=== PATIENT | male | born 1940 | race Caucasian/White ===

== ENCOUNTER 2020-05-18 12:45 | Outpatient (REF) | payer MEDICARE, SELFPAY ==
[2020-05-18 14:08] LABS: Anion Gap 8 (12-20); Blood Urea Nitrogen 21 mg/dL (9-16); Calcium 8.6 mg/dL (8.4-10.2); Carbon Dioxide 35 mmol/L (22-29); Chloride 99 mmol/L (96-108); Estimated Glomerular Filt Rate > 60; Glucose Random 88 mg/dL (60-115); Potassium 4.4 mmol/l (3.3-5.1); Sodium 138 mmol/L (135-145)
== END 2020-05-18 12:46 | disposition home or self-care (01) ==
LOC: HO.LAB 12:45
DX: I10 Essential (primary) hypertension (principal)
CPT/HCPCS: 80048

== ENCOUNTER 2020-06-19 08:53 | Outpatient (REF) | payer MEDICARE, SELFPAY | END 2020-06-19 08:54 | disposition home or self-care (01) | LOC: HO.LAB 08:53 | PROVIDERS: Visit Provider Internal Medicine | DX: Z20.828 Contact with and (suspected) exposure to other viral communicable diseases (principal) | CPT/HCPCS: C9803; U0003 ==

== ENCOUNTER → 2020-09-05 14:52 | Outpatient (BNVA) | payer MEDICARE, SELFPAY | PROVIDERS: PCP Internal Medicine; Visit Provider Internal Medicine | DX: J44.9 Chronic obstructive pulmonary disease, unspecified (principal); J98.4 Other disorders of lung; E66.9 Obesity, unspecified | CPT/HCPCS: 99202 ==

== ENCOUNTER 2020-09-26 12:45 | Outpatient (REF) | payer MEDICARE, SELFPAY ==
--- NOTE | 2020-09-26 17:42 | PFT_ITS ---
Forced vital capacity moderately decreased. FEV1, WHF11-78 and MVV are markedly decreased. Post bronchodilator therapy, there is no significant change. Total lung capacity and residual volume are normal. Diffusion capacity is moderately decreased. CONCLUSION: [id number] obstructive airway disorder. There is no significant response to bronchodilator therapy. MD TONJA Johnson/CONRADL / [id number]
== END 2020-09-26 12:46 | disposition home or self-care (01) ==
LOC: HO.RESP 12:45
PROVIDERS: PCP Internal Medicine; Visit Provider Internal Medicine
DX: J44.9 Chronic obstructive pulmonary disease, unspecified (principal); J98.4 Other disorders of lung
CPT/HCPCS: 94060; 94727; 94729

== ENCOUNTER → 2020-11-09 10:08 | Outpatient (BNVA) | payer MEDICARE, SELFPAY | PROVIDERS: PCP Internal Medicine; Visit Provider Surgery | DX: K64.8 Other hemorrhoids (principal) | CPT/HCPCS: 46600; 99212 ==

== ENCOUNTER → 2020-11-27 10:22 | Outpatient (BNVA) | payer MEDICARE, SELFPAY | PROVIDERS: PCP Internal Medicine; Visit Provider Internal Medicine | DX: J44.9 Chronic obstructive pulmonary disease, unspecified (principal); E66.9 Obesity, unspecified; Z68.36 Body mass index [BMI] 36.0-36.9, adult; Z71.3 Dietary counseling and surveillance | CPT/HCPCS: 99212 ==

== ENCOUNTER 2021-01-11 07:45 | Outpatient (REF) | payer MEDICARE, SELFPAY ==
[2021-01-11 08:46] LABS: MANUAL DIFF FLAG NO
[2021-01-11 08:50] LABS: Basophils Absolute Auto 0.1 X10*3/uL (0.0-0.2); Basophils Percent Auto 0.7 % (0-2); Eosinophils Absolute Auto 0.2 X10*3/uL (0.0-0.4); Eosinophils Percent Auto 2.7 % (0-4); Hematocrit 41.8 % (42-52); Hemoglobin 13.6 g/dl (14.0-18.0); Imm Gran Abs Auto 0.01 X10*3/uL (0.00-0.03); Imm Gran Pct Auto 0.1 % (0.0-0.4); Lymphocytes Absolute Auto 1.5 X10*3/uL (1.2-4.9); Lymphocytes Percent Auto 22.6 % (20-40); Mean Corpuscular HGB Conc 32.5 g/dl (31.0-36.0); Monocytes Absolute Auto 0.8 X10*3/uL (0.1-1.2); Monocytes Percent Auto 11.5 % (2-11); Neutrophils Absolute Auto 4.2 X10*3/uL (2.0-8.3); Neutrophils Percent Auto 62.4 % (45-73); Platelet Count 182 X10*3/uL (160-400); Red Blood Count 4.86 X10*6/uL (4.60-5.80); Red Cell Distribution Width 14.5 % (11.0-16.0); White Blood Count 6.8 X10*3/uL (4.8-10.8)
[2021-01-11 09:10] LABS: Alanine Aminotransferase 38 U/L (0-40); Alkaline Phosphatase 42 U/L (39-117); Anion Gap 12 (12-20); Aspartate Amino Transferase 35 U/L (5-37); Bilirubin Total 0.7 mg/dL (0.0-1.0); Blood Urea Nitrogen 23 mg/dL (9-16); Calcium 9.5 mg/dL (8.4-10.2); Carbon Dioxide 32 mmol/L (22-29); Chloride 101 mmol/L (96-108); Cholesterol 150 mg/dL; Estimated Glomerular Filt Rate 56; Glucose Fasting 97 mg/dL (60-99); HDL Cholesterol 50 mg/dL; LDL Cholesterol Calculated 86 mg/dl; Potassium 5.2 mmol/L (3.3-5.1); Sodium 140 mmol/L (135-145); Total Protein 6.8 g/dL (6.5-8.0); Triglycerides 74 mg/dL
[2021-01-11 09:15] LABS: Glucose Urine UA NEG (NEG); Leukocyte Esterase Urine NEG (NEG); Nitrite Urine NEG (NEG); Urine Blood NEG (NEG); Urine Ketones NEG (NEG); Urine Protein NEG (NEG-TRACE)
[2021-01-11 09:16] LABS: Appearance Urine CLEAR; Color Urine YELLOW
[2021-01-11 09:31] LABS: TSH reflex Free T4 1.15 uIU/mL (0.32-4.0)
[2021-01-11 09:43] LABS: Folate 18.2 ng/mL (> or = 4.0); Vitamin B12 711 pg/mL (200-900)
== END 2021-01-11 07:46 | disposition home or self-care (01) ==
LOC: HO.LAB 07:45
PROVIDERS: PCP Internal Medicine; Visit Provider Internal Medicine
DX: I10 Essential (primary) hypertension (principal); K21.9 Gastro-esophageal reflux disease without esophagitis; K52.82 Eosinophilic colitis; E78.00 Pure hypercholesterolemia, unspecified; E66.9 Obesity, unspecified; G62.9 Polyneuropathy, unspecified
CPT/HCPCS: 36415; 80053; 80061; 81003; 82607; 82746; 84443; 85025

== ENCOUNTER 2021-05-28 09:50 | Outpatient (REF) | payer MEDICARE, SELFPAY ==
--- NOTE | ~2021-05-28 | XR_ITS ---
EXAMINATION: XR CHEST CLINICAL INFORMATION: COPD. COMPARISON: Chest done on 06/29/2019. TECHNIQUE: 2 views of the chest were obtained. FINDINGS: Moderate size hiatal hernia is present. Bibasilar airspace, unchanged. No new focal lung disease. The cardiac mediastinal silhouette is within normal limits. Overall, no significant change. XR/XR chest 2V IMPRESSION: No radiographic evidence of acute cardiopulmonary disease. No significant change since prior study dated 06/29/2019.
== END 2021-05-28 09:51 | disposition home or self-care (01) ==
LOC: HO.XRAY 09:50
PROVIDERS: PCP Internal Medicine; Visit Provider Internal Medicine
DX: J44.1 Chronic obstructive pulmonary disease with (acute) exacerbation (principal)
CPT/HCPCS: 71046; 99212

== ENCOUNTER → 2021-06-11 10:12 | Outpatient (BNVA) | payer MEDICARE, SELFPAY | PROVIDERS: PCP Internal Medicine; Visit Provider Internal Medicine | DX: E66.9 Obesity, unspecified (principal); J44.9 Chronic obstructive pulmonary disease, unspecified; J98.4 Other disorders of lung | CPT/HCPCS: 99212 ==

== ENCOUNTER 2021-07-13 12:42 | Outpatient (REF) | payer MEDICARE, SELFPAY ==
--- NOTE | ~2021-07-13 | XR_ITS ---
EXAMINATION: XR CHEST CLINICAL INFORMATION: Pneumonia COMPARISON: May 28, 2021 TECHNIQUE: 2 views of the chest were obtained. FINDINGS: There is a region of atelectasis or scarring again seen in the left lower lobe. There is some ill-defined density seen within the right upper lobe some of which is related to vasculature however this is more asymmetric prominence compared to other regions. Region of superimposed interstitial disease not excluded. Retrocardiac density again seen representing hiatal hernia. Heart normal size. Old healed right rib fractures again seen. XR/XR chest 2V IMPRESSION: Question region of interstitial disease right upper lobe as described. Hiatal hernia.
== END 2021-07-13 12:43 | disposition home or self-care (01) ==
LOC: HO.XRAY 12:42
PROVIDERS: Visit Provider Family Medicine
DX: J18.9 Pneumonia, unspecified organism (principal); J44.1 Chronic obstructive pulmonary disease with (acute) exacerbation
CPT/HCPCS: 71046

== ENCOUNTER 2021-07-20 03:00 | Emergency (ER) | payer MEDICARE, SELFPAY ==
--- NOTE | 2021-07-20 | ECG_ITS ---
Test Reason : RHYTHM CHANGE Blood Pressure : / mmHG Vent. Rate : 064 BPM Atrial Rate : 064 BPM P-R Int : 176 ms QRS Dur : 102 ms QT Int : 404 ms P-R-T Axes : -13 -21 001 degrees QTc Int : 416 ms Sinus rhythm with Sinus Arrhythmia Minimal voltage criteria for LVH, may be normal variant ( R in aVL ) Borderline ECG When compared with ECG of 12-MAY-2014 02:56, Normal sinus rhythm has replaced Atrial fibrillation Referred By: Ronnie Bill Electronically Signed By:RONNIE BILL MD
--- NOTE | ~2021-07-20 | XR_ITS ---
EXAMINATION: XR CHEST CLINICAL INFORMATION: Palpitations COMPARISON: 07/13/2021 TECHNIQUE: Frontal view of the chest was obtained. FINDINGS: The lungs are well expanded. No consolidation, edema, or effusion. No pneumothorax. Cardiomediastinal silhouette is within normal limits. XR/XR chest 1V IMPRESSION: No acute pulmonary finding.
[2021-07-20 05:01] VITALS: BP 163/98; PULSE 77; RESP 14; TEMP 536.7; TEMP 998; O2SAT 99
[2021-07-20 05:12] VITALS: BP 163/98; PULSE 80; RESP 17; O2SAT 96; BMI 34.8
[2021-07-20 05:15] LABS: MANUAL DIFF FLAG NO
[2021-07-20 05:16] LABS: Basophils Percent Auto 0.1 % (0-2); Eosinophils Absolute Auto 0.1 X10*3/uL (0.0-0.4); Eosinophils Percent Auto 0.9 % (0-4); Hematocrit 43.3 % (42.0-52.0); Hemoglobin 14.4 g/dl (14.0-18.0); Imm Gran Abs Auto 0.03 X10*3/uL (0.00-0.03); Imm Gran Pct Auto 0.3 % (0.0-0.4); Lymphocytes Absolute Auto 1.7 X10*3/uL (1.2-4.9); Mean Corpuscular HGB Conc 33.3 g/dl (31.0-36.0); Mean Corpuscular Hemoglobin 28.3 pg (27.0-33.0); Mean Corpuscular Volume 85.2 fL (80.0-98.0); Mean Platelet Volume 9.6 fL (9.4-12.4); Monocytes Absolute Auto 0.9 X10*3/uL (0.1-1.2); Monocytes Percent Auto 10.4 % (2-11); Neutrophils Absolute Auto 5.9 x10*3/uL (2.0-8.3); Neutrophils Percent Auto 68.3 % (45-73); Platelet Count 165 X10*3/uL (160-400); Red Blood Count 5.08 X10*6/uL (4.60-5.80); Red Cell Distribution Width 14.6 % (11.0-16.0); White Blood Count 8.6 X10*3/uL (4.8-10.8)
[2021-07-20 05:28] LABS: Anion Gap 14 (12-20); Blood Urea Nitrogen 31 mg/dL (9-16); Calcium 9.1 mg/dL (8.4-10.2); Carbon Dioxide 28 mmol/L (22-29); Chloride 99 mmol/L (96-108); Creatinine Clr Calc Pharmacy 61.8; Estimated Glomerular Filt Rate 57; Glucose Random 101 mg/dL (60-115); Sodium 137 mmol/L (135-145)
[2021-07-20 05:35] LABS: Troponin-I High Sensitivity 9.6 ng/L (<3.5-35.0)
--- NOTE | 2021-07-20 05:37 | PC.NURSE ---
Addendum entered by Tonia Norwood 07/20/21 05:40: Dr Mckeon is aware. Original Note: Pt noted to be in afib while this RN at bedside performing triage. Pt's HR was WNL at that time. While observing monitors while at desk, pt became tachy to 130s but it was not sustained. Pt returned to 90-110.
--- NOTE | 2021-07-20 06:03 | ED_ITS ---
HPI - Arrhythmia/Palpitations General Chief Complaint: Arrhythmia/Palpitations Stated Complaint: ?Irregular heartbeat Time Seen by Provider: 07/20/21 05:47 Source: patient Mode of arrival: ambulatory Limitations: no limitations History of Present Illness HPI narrative: 80-year-old male who presents emergency department for evaluation of irregular heartbeat. Patient states that he was trying to sleep when he started to feel anxious at around 2:30 a.m.. He states that he could feel that his heart was beating irregularly. He took his pulse he states that his pulse was skipping beats. He denied any other symptoms. He denied lightheadedness, dizziness, chest pain, shortness of breath, dyspnea on exertion, nausea or vomiting. The patient states that he was concerned that he might have atrial fibrillation. He states that he was never diagnosed with this before in the past he has never had prolonged symptoms of an irregular heartbeat. He denied being ill in any way prior to his morning's event. He denied fever, chills, rhinorrhea, cough, abdominal pain, frequency, urgency or dysuria. Related Data Home Medications Medication Instructions Recorded Confirmed B-complex with vitamin C 1 tab PO DAILY 09/05/20 07/13/21 coenzyme Q10 200 mg capsule (Co 200 mg PO DAILY 09/05/20 07/13/21 Q-10) lactobacillus combination no.8 3 3,000 mmu cells PO DAILY 09/05/20 07/13/21 billion cell capsule (Adult Probiotic) latanoprost 0.005 % eye drops drp OPHTHALMIC (EYE) DAILY ml 09/05/20 07/13/21 budesonide 3 mg 3 mg PO Q OTHER DAY ea 10/12/20 07/13/21 capsule,delayed,extended release aspirin 81 mg tablet,delayed 81 mg PO .qod tab 11/27/20 07/13/21 release Previous Rx's Medication Instructions Recorded Advair Diskus 250 mcg-50 mcg/dose 1 inh INHALATION BID 90 Days #3 ea 09/29/20 powder for inhalation (fluticasone NS propion-salmeterol) ipratropium 0.5 mg-albuterol 3 mg 3 ml INHALATION Q6H PRN #90 ml 09/29/20 (2.5 mg base)/3 mL nebulization soln atenolol 25 mg tablet 25 mg PO DAILY 90 Days #90 tab 10/15/20 ezetimibe 10 mg tablet 10 mg PO DAILY 90 Days #90 tab 10/15/20 gabapentin 300 mg capsule 300 mg PO BID 90 Days #180 cap 10/15/20 lisinopril 20 mg tablet 20 mg PO DAILY 90 Days #90 tab 10/15/20 omeprazole 20 mg capsule,delayed 20 mg PO DAILY 90 Days #90 cap 10/15/20 release pravastatin 20 mg tablet 20 mg PO DAILY 90 Days #90 tab 10/15/20 tamsulosin 0.4 mg capsule 0.4 mg PO DAILY 90 Days #90 cap 10/15/20 albuterol sulfate 90 mcg/actuation 2 puff INHALATION Q4-6H PRN 90 11/07/20 aerosol inhaler Days #3 ea desoximetasone 0.05 % topical cream 1 appl TOPICAL BID PRN 30 Days 01/15/21 #100 g lorazepam 0.5 mg tablet 0.5 mg PO BEDTIME PRN 30 Days #60 02/20/21 tab hydrochlorothiazide 25 mg tablet 25 mg PO DAILY 90 Days #90 tab 03/08/21 levofloxacin 750 mg tablet 750 mg PO Q24H 10 Days #10 tab 07/13/21 prednisone 10 mg tablet See Rx Instructions PO DAILY 10 07/13/21 Days #28 tab Allergies Allergy/AdvReac Type Severity Reaction Status Date / Time Sulfa (Sulfonamide Allergy Mild RASH, Verified 07/20/21 05:15 Antibiotics) BLISTERS codeine [Codeine] Allergy Unknown HALLUCINATI Verified 07/20/21 05:15 ONS Review of Systems Review of Systems: Yes all other systems are reviewed and are negative PMFSH Past Medical History Medical History Benign essential hypertension Benign prostatic hyperplasia COPD (chronic obstructive pulmonary disease) Eosinophilic colitis GERD without esophagitis Hemorrhoids with complication Neuropathy Obesity (BMI 30-39.9) Pure hypercholesterolemia Restrictive lung disease Surgical History History of hernia surgery History of tonsillectomy Family History Family History Brother Lung cancer Social History Social History Housing: House Alcohol intake: former Patient Tobacco Use Status: Former Tobacco user Second Hand Smoke Exposure: Yes Advance Directives: No service: No Current occupational status: retired Physical Exam Vital Signs: Vital Signs: Last Vital Signs Temp 998.0 F H 07/20/21 05:01 Pulse 80 07/20/21 05:12 Resp 17 07/20/21 05:12 BP 163/98 H 07/20/21 05:12 Pulse Ox 96 07/20/21 05:12 BMI result Body Mass Index 34.8 Const: General: cooperative and no acute distress Flavio entation/consciousness: oriented to person and oriented to place Limitations: no limitations HENMT: Head: Yes normal to inspection, Yes normocephalic and Yes atraumatic Ears: external ears normal General nose exam: Normal external nose present Face and sinus: Yes normal facial exam Mouth: Normal oral and palatal mucosa present Throat: Yes posterior oropharynx normal Eyes: General: appearance normal, both eyes and all related structures Pupils: Equal, round and reactive pupils present Neck: Neck: Yes normal visual inspection, Yes no lymphadenopathy, Yes trachea midline and Yes supple Chest: Chest palpation & inspection: normal inspection of the chest and normal palpation of entire chest wall Resp: Effort & Inspection: normal respiratory effort and able to speak in complete sentences Auscultation: clear to auscultation bilaterally Cardio: Rate: regular rate Rhythm: abnormal rhythm irregularly irregular Heart sounds: S1 normal heart sound present, S2 normal heart sound present and no murmurs GI: Inspection: Yes normal to inspection Palpation (GI): Soft to palpation, nontender and no guarding Auscultation: normal bowel sounds : General: Yes no CVA tenderness Back/Spine/Pelvis: Back: no CVA tenderness Skin: General skin exam: no rashes or lesions noted Neuro: General: oriented to person and oriented to place Cranial nerves: Yes CN's II-XII intact bilaterally and Yes Equal, round and reactive pupils present Cognition (Neuro): normal cognition Motor exam (neuro): 5/5 motor strength present throughout Extrem: Other: 1+ pitting edema bilaterally symmetric General: Yes normal to inspection Psych: Appearance: grossly normal Speech and movement: Normal speech and movement present Affect: normal affect Attitude: cooperative Thought process: Normal thought process present Thought content: Normal thought content present Course Course Course Narrative: 80-year-old male who presents emergency department for evaluation of irregular heartbeat and palpitations that began at 2:30 a.m.. The patient's vital signs revealed an elevated blood pressure of 163/93 with a heart rate of 77. Physical examination revealed an irregularly irregular heart ramiro and 1+ symmetric pitting edema. The patient's 12 EKG was consistent with atrial fibrillation with a ventricular rate of 97. This is a new onset atrial fibrillation for this patient. The patient's laboratory evaluation revealed a detectable but not elevated troponin of 9.6 and an elevated BUN and creatinine of 31 and 1.22. Chest x-ray revealed no congestive heart failure pneumonia. The patient was treated with Lovenox 1 milligram/kilogram (110 mg) subcutaneously. Patient was ordered to get a repeat troponin at 8:15 a.m.. I will discuss admission with the covering hospitalist. 0630: I did discuss the patient's presentation with Dr. Abdi and the patient will be admitted to [facility] [place], [place] for further management. MDM - Arrhythmia/Palpitations Lab Data Result diagrams: 07/20/21 05:09 07/20/21 05:09 Labs: Lab Results 07/20/21 07/20/21 07/20/21 Range/Units 05:09 05:09 05:09 WBC 8.6 (4.8-10.8) X10*3/uL RBC 5.08 (4.60-5.80) X10*6/uL Hgb 14.4 (14.0-18.0) g/dl Hct 43.3 (42.0-52.0) % MCV 85.2 (80.0-98.0) fL MCH 28.3 (27.0-33.0) pg MCHC 33.3 (31.0-36.0) g/dl RDW 14.6 (11.0-16.0) % Plt Count 165 (160-400) X10*3/uL MPV 9.6 (9.4-12.4) fL Immature Gran % (Auto) 0.3 (0.0-0.4) % Neut % (Auto) 68.3 (45-73) % Lymph % (Auto) 20.0 (20-40) % Gilmer % (Auto) 10.4 (2-11) % Eos % (Auto) 0.9 (0-4) % Baso % (Auto) 0.1 (0-2) % Lymph # (Auto) 1.7 (1.2-4.9) X10*3/uL Gilmer # (Auto) 0.9 (0.1-1.2) X10*3/uL Eos # (Auto) 0.1 (0.0-0.4) X10*3/uL Baso # (Auto) 0.0 (0.0-0.2) X10*3/uL Abs Immat Gran (auto) 0.03 (0.00-0.03) X10*3/uL Absolute Neuts (auto) 5.9 (2.0-8.3) x10*3/uL Absolute Nucleated RBC 0.000 (0.0-0.012) X10*3/uL Nucleated RBC % (auto) 0.0 (0.0-0.2) /100WBC Sodium 137 (135-145) mmol/L Potassium 4.0 D (3.3-5.1) mmol/L Chloride 99 (96-108) mmol/L Carbon Dioxide 28 (22-29) mmol/L Anion Gap 14 (12-20) BUN 31 H (9-16) mg/dL Creatinine 1.22 (0.5-1.4) mg/dL Estim Creat Clear Calc 61.8 Estimated GFR 57 Random Glucose 101 (60-115) mg/dL Calcium 9.1 (8.4-10.2) mg/dL Troponin I High Sens 9.6 (<3.5-35.0) ng/L ABG Data Attestation: I personally reviewed and interpreted this ABG as follows: ECG Data Interpretation: 0324: Atrial fibrillation with a rate of 97, normal QRS and QTC duration, no ST segment elevation, no ST segment depression, no T-wave abnormalities, no PVCs, no old EKG for comparison. Discharge Plan Discharge Patient Disposition: Admitted As Inpatient
[2021-07-20 06:52] LABS: TSH reflex Free T4 1.34 uIU/mL (0.32-4.0)
[2021-07-20 06:53] LABS: B Type Natriuretic Peptide 40 pg/mL (<100)
[2021-07-20] MEDS: Enoxaparin Sodium 120 MG/0.8 ML SYRINGE 110 MG SUBCUT (07:08)
[2021-07-20 07:34] LABS: INTERNATIONAL NORM RATIO 1.1 (0.9-1.1); Prothrombin Time 12.3 SEC (9.9-13.0)
[2021-07-20 07:37] LABS: Partial Thromboplastin Time 35.4 SEC (24.1-38.0)
[2021-07-20 07:43] LABS: COVID-19 Test Negative (Negative)
[2021-07-20 07:48] LABS: Troponin-I High Sensitivity 14.4 ng/L (<3.5-35.0)
--- NOTE | 2021-07-20 08:33 | PHA.MEDREC ---
Pharmacy Consult ? Medication Reconciliation Pharmacy has completed the medication reconciliation.
--- NOTE | 2021-07-20 09:30 | P.CONCA_ITS ---
History of Present Illness History of Present Illness Date of Service: 07/20/21 Requesting physician: Nikolas Art Consult reason: atrial fibrillation Chief complaint: paroxysmal atrial fibrillation Narrative: I was requested to see Noel in cardiology consultation today for new onset atrial fibrillation. He is 80-year-old man with prior history of hypertension, COPD, anxiety came to the hospital at 02:30 in the morning prior to going to bed he felt on the easy. He said he had a funny feeling in his chest not able to describe much and had some throat constriction. He then took his pulse and noted it to be irregular. He then got concerned because of these findings and came to the emergency room. When he came to the Emergency was noted to be in atrial fibrillation at 97 beats per minute no tachycardia. He was subsequently plan to be admitted. His troponin initially was 9.6 and subsequently 14.4. His BNP is 40. TSH within normal limits. About couple of hours later he started feeling well about 3 hours ago and is noted to be in sinus rhythm. He has only received 1 dose of therapeutic Lovenox. No other intervention seems to be performed for him to convert to sinus rhythm. He has not had similar symptoms in the past. He does get exertional shortness of breath which she thinks is related to his COPD. He has no prior cardiac history of coronary artery disease, myocardial infarction, atrial fibrillation, stroke. He said he was at 1 time told that he might have congestive heart failure but he is not sure he was started on diuretic therapy. Currently on hydrochlorothiazide and lisinopril for hypertension. Review of Systems Constitutional: Constitutional: Reports no additional constitutional complaints Eyes: Eyes: Reports no additional eye complaints ENT: Reports system reviewed and no additional complaints, except as documented Cardiovascular: Cardiovascular: Denies chest pain, Denies syncope, Reports irregular heart rhythm, Denies lightheadedness, Reports dyspnea on exertion and Reports other (Throat tightness) Respiratory: Respiratory: Reports dyspnea on exertion Gastrointestinal: Gastrointestinal: Reports no additional gastrointestinal complaints Genitourinary: Genitourinary: Reports no additional male genitourinary complaints Musculoskeletal: Musculoskeletal: Reports no additional musculoskeletal complaints Integumentary/Breasts: Skin/Breast: Reports system reviewed and no additional complaints, except as docu Neurologic: Reports system reviewed and no additional complaints, except as documented and Denies syncope Psychiatric: Psychiatric: Reports no additional psychiatric complaints Endocrine: Endocrine: Reports no additional endocrine complaints Hematologic/Lymphatic: Hematologic/Lymphatic: Reports no additional hematologic/lymphatic complaints Allergic/Immunologic: Allergic/Immunologic: Reports no additional allergic/ immunologic complaints [facility] Past Medical History Medical History Benign essential hypertension Benign prostatic hyperplasia COPD (chronic obstructive pulmonary disease) Eosinophilic colitis GERD without esophagitis Hemorrhoids with complication Neuropathy Obesity (BMI 30-39.9) Pure hypercholesterolemia Restrictive lung disease Family History Family History Brother Lung cancer Surgical History Surgical History History of hernia surgery History of tonsillectomy Social History Social History Housing: House Alcohol intake: former Patient Tobacco Use Status: Former Tobacco user Second Hand Smoke Exposure: Yes Advance Directives: No service: No Current occupational status: [employer] Allergies Allergy/AdvReac Type Severity Reaction Status Date / Time Sulfa (Sulfonamide Allergy Mild RASH, Verified 07/20/21 05:15 Antibiotics) BLISTERS codeine [Codeine] Allergy Unknown HALLUCINATI Verified 07/20/21 05:15 ONS Active Medications: Current Medications Pharmacy Consult (Consult Rx Perform Med Rec) 1 each MISCELLANE ONCE PRN PRN Reason: Consult order Home Medications Medication Instructions Recorded Confirmed Last Taken Type B-complex with vitamin C 1 tab PO DAILY 09/05/20 07/20/21 07/19/21 History latanoprost 0.005 % eye drops 1 drp OPHTHALMIC-RIGHT BEDTIME ml 09/05/20 07/20/21 07/19/21 History budesonide 3 mg 3 mg PO Q OTHER DAY ea 10/12/20 07/20/21 07/18/21 History capsule,delayed,extended release fluticasone 250 mcg-salmeterol 50 1 puff INHALATION BID 07/20/21 07/20/21 07/19/21 History mcg/dose blistr powdr for inhalation (Advair Diskus) prednisone 10 mg tablet 10 mg PO DAILY 07/20/21 07/20/21 07/19/21 History Physical Exam Vital Signs: Vital Signs: Last Vital Signs Temp 998.0 F H 07/20/21 05:01 Pulse 80 07/20/21 05:12 Resp 17 07/20/21 05:12 BP 163/98 H 07/20/21 05:12 Pulse Ox 96 07/20/21 05:12 BMI result Body Mass Index 34.8 Const: General: cooperative, comfortable, no acute distress, alert and awake Nutritional Appearance: obese Orientation/consciousness: patient oriented x3 Limitations: no limitations HENMT: Head: Yes normocephalic and Yes atraumatic Neck: Neck: Yes trachea midline, Yes supple and Yes no JVD Resp: Effort & Inspection: normal respiratory effort Auscultation: clear to auscultation bilaterally Cardio: Jugular venous distension: no JVD Palpation: normal PMI Rate: regular rate Rhythm: regular rhythm Heart sounds: S1 normal heart sound present, S2 normal heart sound present, no click, no gallops, no murmurs and no rubs GI: Auscultation: normal bowel sounds Skin: General skin exam: no rashes or lesions noted Neuro: General: patient oriented x3 and no focal motor deficits Extrem: General: No clubbing, No cyanosis, Yes edema and Yes venous stasis dermatitis Psych: Appearance: grossly normal Objective Labs and Meds Result diagrams: 07/20/21 05:09 07/20/21 05:09 Lab results: Laboratory Results - last 24 hr 07/20/21 07/20/21 07/20/21 05:09 05:09 05:09 WBC 8.6 RBC 5.08 Hgb 14.4 Hct 43.3 MCV 85.2 MCH 28.3 MCHC 33.3 RDW 14.6 Plt Count 165 MPV 9.6 Immature Gran % (Auto) 0.3 Neut % (Auto) 68.3 Lymph % (Auto) 20.0 Ponce % (Auto) 10.4 Eos % (Auto) 0.9 Baso % (Auto) 0.1 Lymph # (Auto) 1.7 Ponce # (Auto) 0.9 Eos # (Auto) 0.1 Baso # (Auto) 0.0 Abs Immat Gran (auto) 0.03 Absolute Neuts (auto) 5.9 Absolute Nucleated RBC 0.000 Nucleated RBC % (auto) 0.0 PT INR APTT Sodium 137 Potassium 4.0 D Chloride 99 Carbon Dioxide 28 Anion Gap 14 BUN 31 H Creatinine 1.22 Estim Creat Clear Calc 61.8 Estimated GFR 57 Random Glucose 101 Calcium 9.1 Magnesium 2.0 Troponin I High Sens 9.6 B-Natriuretic Peptide 40 TSH 1.34 COVID-19 ([facility]ANVI) COVID-19 Clin Com 07/20/21 07/20/21 07/20/21 07:14 07:15 07:15 WBC RBC Hgb Hct MCV MCH MCHC RDW Plt Count MPV Immature Gran % (Auto) Neut % (Auto) Lymph % (Auto) Ponce % (Auto) Eos % (Auto) Baso % (Auto) Lymph # (Auto) Ponce # (Auto) Eos # (Auto) Baso # (Auto) Abs Immat Gran (auto) Absolute Neuts (auto) Absolute Nucleated RBC Nucleated RBC % (auto) PT 12.3 INR 1.1 APTT 35.4 Sodium Potassium Chloride Carbon Dioxide Anion Gap BUN Creatinine Estim Creat Clear Calc Estimated GFR Random Glucose Calcium Magnesium Troponin I High Sens 14.4 B-Natriuretic Peptide TSH COVID-19 (TANVI) Negative COVID-19 Clin Com See Note EKG on admission shows atrial fibrillation with minimal voltage criteria for LVH Imaging Radiologist's impression: Impressions Chest X-Ray 07/20/21 04:26 IMPRESSION: No acute pulmonary finding. Assessment and Plan (1) Paroxysmal atrial fibrillation: Status: Acute Highly symptomatic atrial fibrillation in elderly man with controlled ventricular response he was pretty symptomatic with throat tightness and uneasy feeling in his chest. Converted to sinus rhythm and feels better. From cardiac perspective patient has no evidence of acute coronary syndrome and can be discharged home. However given that he had to present to emergency room despite adequate rate control with atrial fibrillation was started on antiarrhythmic drug therapy. The safest drug would be Multaq 400 mg b.i.d.. First dose can be given while in the ED and can be discharged home. CHADSVASc score of at least 3. He has already received 1 dose of Lovenox we will start on Eliquis 5 mg b.i.d. started this evening. He will require further workup as outpatient. This was discussed with him. He is agreeable to be discharged home. Will set up for outpatient Holter, stress test given his throat tightness with atrial fibrillation as well as an echocardiogram. His blood pressure is not well controlled although he is in a stressful situation and is not received his lisinopril hydrochlorothiazide as he had. No changes. Advised to monitor blood pressure at home and maintain a log. Will further titrate and treat his blood pressures outpatient. Thank you for allowing us to partake in his care Procedures Date of Service Date of Service: 07/20/21
[2021-07-20 09:52] VITALS: BP 137/76; PULSE 58; RESP 20; O2SAT 96
[2021-07-20] MEDS: Dronedarone HCl 400 MG TABLET PO (10:59)
== END 2021-07-20 11:59 | disposition home or self-care (01) ==
PROVIDERS: Family Medicine; Emergency Provider Emergency Medicine Emergency Medical Services; PCP Internal Medicine
DX: I48.0 Paroxysmal atrial fibrillation (principal); R06.02 Shortness of breath; F41.1 Generalized anxiety disorder; F43.0 Acute stress reaction; R00.2 Palpitations; Z20.822 Contact with and (suspected) exposure to COVID-19; Z87.891 Personal history of nicotine dependence; Z79.899 Other long term (current) drug therapy
CPT/HCPCS: 36415; 71045; 80048; 83735; 83880; 84443; 84484; 85025; 85610; 85730; 87635; 93005; 96372; 99284; J1650

== ENCOUNTER → 2021-08-02 11:20 | Outpatient (REF) | payer MEDICARE, SELFPAY ==
--- NOTE | 2021-08-02 11:24 | HM_ITS ---
Total monitoring time 3 days and 13 hours. Underlying rhythm is sinus. Minimum heart rate 55/Min. Maximum 88/Min. Average 66/Min. No atrial fibrillation or flutter or AV blocks or pauses. Rare supraventricular ectopy with minimal burden. 283 supraventricular episodes, longest 12 beats. Rare ventricular ectopy with minimal burden. One episode of NSVT at 7 beats, but cannot exclude supraventricular with aberrant conduction. Shortness of breath in patient diary associated with sinus rhythm. MTDD
== END ==
LOC: HO.CARD 11:20
PROVIDERS: PCP Internal Medicine; Visit Provider Internal Medicine Cardiovascular Disease
DX: I48.0 Paroxysmal atrial fibrillation (principal)
CPT/HCPCS: 93242

== ENCOUNTER → 2021-08-06 07:36 | Outpatient (REF) | payer MEDICARE, SELFPAY ==
--- NOTE | ~2021-08-06 | NM_ITS ---
Lexiscan Myocardial perfusion study Indication: Atrial fibrillation, throat tightness, assess for coronary disease and ischemia Technique: The patient was brought in for a Lexiscan perfusion study on 08/06/2021 and was injected 0.4 mg of Lexiscan intravenously. Within a minute of this injection 26 mCi of sestamibi was given intravenously. Images were obtained using the SPECT gamma camera interlaced with the gating device. Images were obtained in supine position. Resting perfusion study was performed on 08/07/2021. Patient was administered 26 mCi of sestamibi intravenously at rest. Images were then obtained in supine position. Total DLP 121mGy-cm. Images were processed with the software and compared side to side in short axis, horizontal long axis and vertical long axis views. Findings: Raw acquisition was reviewed. The stress perfusion study showed diminished tracer uptake in the distal part of lateral wall and basal part of inferolateral wall. Some improvement with CT attenuation correction. The gated study shows normal LV systolic function with calculated LVEF of 74%. LV cavity is normal in size. The gated study shows normal wall thickening and contraction of segments. Resting study shows slightly diminished tracer uptake in the distal part of anteroseptal and inferolateral wall.. Gating at rest reveals normal wall motion with ejection fraction at 63%. The findings are consistent with mostly fixed appearing defects in the distal part of lateral wall, basal inferolateral wall. NM/NM shawn perf SPECT rest & str Impression: 1. Myocardial perfusion imaging study shows no clear evidence of any ischemia or infarction. Small fixed defects in the distal part of lateral wall, basal inferolateral wall probably artifactual and less likely to be from coronary etiology. 2. Gated LVEF is 74% during stress and 63% during rest. 3. Transient ischemic dilatation not present. EKG component of the test reported separately.
--- NOTE | 2021-08-06 07:39 | CA_ITS ---
Transthoracic Echocardiogram Patient (Last, First, Middle): Noel Wiggins P Gender: Male Date of : 1940 Age: 80 Procedure Date: 08/06/2021 Procedure Type: Transthoracic Echocardiogram Location: OP Height: 180.34 cm Weight: 112.49 kg BSA: 2.31 m2 Heart Rate: bpm BP: 137 / 76 mmHg Network Support Specialist: RACHEL Referring MD: Ronnie Bill MD Nutrition Associate: Ronnie Bill MD Symptoms: I48.0 - Paroxysmal atrial fibrillation Study Quality: Fair ECG Rhythm: Sinus Conclusions: - 1. Normal LV systolic and diastolic function 2. Mild MAC with normal cardiac valvular Dopplers 3. Normal RVSP 4. 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 No pericardial effusion Findings Left Ventricle Normal left ventricular size, thickness, and systolic function. The visually estimated ejection fraction is between 65-70%. There is no evidence of regional wall motion abnormalities. Spectral Doppler is indicative of a normal filling pattern. Right Ventricle Normal right ventricular cavity size and systolic function. Atria The left atrium is likely dilated. The right atrium is normal in size. Aortic Valve The aortic valve structure and function is likely normal. There is no aortic valve stenosis. There is no aortic valve regurgitation. Mitral Valve There is mild anterior mitral leaflet thickening. There is mild mitral annular calcification. There is trace mitral valve regurgitation. There is no mitral valve stenosis. Pulmonic Valve The pulmonic valve was not well visualized. Tricuspid Valve Likely normal tricuspid valve structure and function. There is mild tricuspid valve regurgitation. The right ventricular systolic pressure is normal. The right ventricular systolic pressure is 30 mmHg. Normal right atrial pressure. There is no evidence of pulmonary hypertension. Great Vessels The pulmonary artery was not well visualized. There is mild dilatation of the ascending aorta measuring 3.80 cm. Venous The inferior vena cava is normal in size and collapses greater than 50% with inspiration. Pericardium/Pleural There is no evidence of pericardial effusion. Prior Study Comparison No significant change compared to prior study dated: 01/31/2017. Measurements 2D Linear Measurements IVSd: 1.12 0.6-0.9/0.6-1.0 cm LVIDd: 5.28 3.9-5.3/4.2-5.9 cm LVIDd Index: 2.29 2.4-3.2/2.2-3.1 cm/m2 LVIDs: 2.78 2.0-3.6 cm LVPWd: 1.06 0.7-1.1 cm Ao Root: 4.00 2.1-3.5 cm LA Diam: 4.00 2.7-3.8/3.0-4.0 cm LAIDs Index: 1.73 1.5-2.3 cm/m2 LV Mass: 278.68 67-162/88-224 g LV Mass Index: 120.64 43-95/49-115 g/m2 LVOT Diam: 2.50 3.0+(-)1.3 cm 2D Systolic Function EF 4C: 73.50 >55% EF 2C: 72.70 >55% EF BiP: 73.70 >55% Mitral Valve MV Pk E: 0.83 MV PK A: 0.48 MV Decel Time: 194.00 E/A: 1.70 E'Lateral: 13.20 E'Medial: 7.94 E/E' Med: 10.50 E/E' Lat: 6.30 PHT: 57.00 MVA PHT: 3.[address] [facility]: 4.29 Aortic Valve AoV Pk Syed: 1.40 AoV Pk Grad: 8.00 LVOT LVOT Pk Syed: 1.04 LVOT Mn Syed: 0.64 LVOT VTI: 0.24 LVOT Pk Grad: 4.00 LVOT Mn Grad: 2.00 LVOT Diam: 2.50 LVOT Area: 4.91 Diastolic Function MV Pk E: 0.83 MV Pk A: 0.48 E/A: 1.70 E'Medial: 7.94 E/E' Med: 10.50 E' Laterial: 13.20 E/E' Lat: 6.30 Right Ventricle TAPSE (mm): 2.98 TVS' Syed: 18.50 Tricuspid Valve TR Pk Syed: 2.58 TR Pk Grad: 27.00 RA Press: 3.00 RVSP: 30.00 Great Vessels Aorta Ao Root-2D: 4.00 2.0-3.7 cm Ao Asc: 3.80 2.1-3.4 cm Updated in Other Vendor System with Status of Final Ronnie Bill MD electronically signed on 08/06/2021 10:59:41 AM with status of Final
--- NOTE | 2021-08-06 07:39 | CA_ITS ---
Acquisition Time: 2021-08-06 08:40:05 Total Exercise Time: 00:02:00 Test Indications: Abnormal ECG Medications: HCTZ LISINPRIL Protocol: LEXISCAN Max HR: 089 BPM 63% of Pred: 140 BPM Max BP: 164/080 mmHG Max Work Load: 1.0 METS Pharmacological stress test with Lexiscan injection, while sitting and kicking his legs, without anginal symptoms, with PAC, with normotensive response to injection, with nondiagnostic EKG for ischemia. Nuclear images pending. Test reviewed with Dr Bill. Referred By: Marie Zhu Overread By: MARIE ZHU
== END ==
LOC: HO.CARD 07:36
PROVIDERS: Visit Provider Nurse Practitioner Family
DX: I48.0 Paroxysmal atrial fibrillation (principal)
CPT/HCPCS: 78452; 93017; 93306; A9500; J0280; J2785; Q9957

== ENCOUNTER → 2021-08-08 13:51 | Outpatient (BNVA) | payer MEDICARE, SELFPAY | PROVIDERS: PCP Internal Medicine; Referring Provider Internal Medicine; Visit Provider Nurse Practitioner Family | DX: I10 Essential (primary) hypertension (principal); I48.0 Paroxysmal atrial fibrillation; J44.9 Chronic obstructive pulmonary disease, unspecified | CPT/HCPCS: 93005; 99212 ==

== ENCOUNTER → 2021-09-05 13:49 | Outpatient (REF) | payer MEDICARE, SELFPAY | LOC: HO.SL 13:49 | PROVIDERS: PCP Internal Medicine; Visit Provider Nurse Practitioner Family | DX: G47.10 Hypersomnia, unspecified (principal); G47.33 Obstructive sleep apnea (adult) (pediatric); I48.0 Paroxysmal atrial fibrillation; E66.9 Obesity, unspecified; I10 Essential (primary) hypertension | CPT/HCPCS: 95806 ==

== ENCOUNTER 2021-09-18 07:40 | Outpatient (REF) | payer MEDICARE, SELFPAY ==
[2021-09-18 08:05] LABS: MANUAL DIFF FLAG NO
[2021-09-18 08:59] LABS: Basophils Absolute Auto 0.1 X10*3/uL (0.0-0.2); Basophils Percent Auto 0.7 % (0-2); Eosinophils Absolute Auto 0.2 X10*3/uL (0.0-0.4); Eosinophils Percent Auto 2.7 % (0-4); Hematocrit 42.2 % (42.0-52.0); Hemoglobin 13.5 g/dl (14.0-18.0); Imm Gran Abs Auto 0.02 X10*3/uL (0.00-0.03); Imm Gran Pct Auto 0.3 % (0.0-0.4); Lymphocytes Absolute Auto 1.8 X10*3/uL (1.2-4.9); Lymphocytes Percent Auto 25.6 % (20-40); Mean Corpuscular Hemoglobin 28.1 pg (27.0-33.0); Mean Corpuscular Volume 87.9 fL (80.0-98.0); Mean Platelet Volume 10.2 fL (9.4-12.4); Monocytes Absolute Auto 0.9 X10*3/uL (0.1-1.2); Monocytes Percent Auto 12.2 % (2-11); Neutrophils Absolute Auto 4.1 x10*3/uL (2.0-8.3); Neutrophils Percent Auto 58.5 % (45-73); Platelet Count 191 X10*3/uL (160-400); Red Cell Distribution Width 13.9 % (11.0-16.0); White Blood Count 6.9 X10*3/uL (4.8-10.8)
[2021-09-18 09:28] LABS: Magnesium 2.2 mg/dL (1.6-2.6)
[2021-09-18 09:30] LABS: Alanine Aminotransferase 33 U/L (0-40); Albumin Level 3.8 g/dL (3.5-5.0); Alkaline Phosphatase 39 U/L (39-117); Anion Gap 12 (12-20); Aspartate Amino Transferase 27 U/L (5-37); Bilirubin Total 0.5 mg/dL (0.0-1.0); Blood Urea Nitrogen 22 mg/dL (9-16); Calcium 9.3 mg/dL (8.4-10.2); Carbon Dioxide 32 mmol/L (22-29); Chloride 102 mmol/L (96-108); Cholesterol 148 mg/dL; Estimated Glomerular Filt Rate > 60; Glucose Fasting 84 mg/dL (60-99); HDL Cholesterol 50 mg/dL; LDL Cholesterol Calculated 84 mg/dl; Potassium 5.1 mmol/L (3.3-5.1); Sodium 141 mmol/L (135-145); Total Protein 6.7 g/dL (6.5-8.0); Triglycerides 73 mg/dL
== END 2021-09-18 07:41 | disposition home or self-care (01) ==
LOC: HO.LAB 07:40
PROVIDERS: Absent Provider Nurse Practitioner Family; PCP Internal Medicine; Visit Provider Internal Medicine
DX: R00.2 Palpitations (principal); E78.00 Pure hypercholesterolemia, unspecified; I10 Essential (primary) hypertension; K21.9 Gastro-esophageal reflux disease without esophagitis
CPT/HCPCS: 36415; 80053; 80061; 83735; 85025

== ENCOUNTER 2021-09-20 10:05 | Outpatient (REF) | payer MEDICARE, SELFPAY ==
--- NOTE | ~2021-09-20 | US_ITS ---
EXAMINATION: US VENOUS ULTRASOUND WITH DOPPLER LOWER EXTREMITY, RIGHT CLINICAL INFORMATION: Right lower leg pain. COMPARISON: None TECHNIQUE: Ultrasound of the deep veins is performed from the hip to the calf with compression sonography and color and pulse Doppler assessment. Spectral analysis with color-flow imaging is performed. FINDINGS: There is normal venous compression and respiratory variation and augmented flow. The visualized common femoral vein, superficial femoral vein, profunda femoral vein, popliteal vein, and the trifurcation region shows no evidence of deep venous thrombosis. There is no significant popliteal fossa cyst. If the patient's symptoms persist, followup ultrasound in 5 days 7 days might be of value to exclude proximal propagation from a non-visualized calf vein. US/US venous duplex LE RT IMPRESSION: No DVT demonstrated in the right lower extremity.
== END 2021-09-20 10:06 | disposition home or self-care (01) ==
LOC: HO.US 10:05
PROVIDERS: PCP Internal Medicine; Visit Provider Internal Medicine
DX: M79.661 Pain in right lower leg (principal); M79.89 Other specified soft tissue disorders
CPT/HCPCS: 93971

== ENCOUNTER → 2021-10-09 09:56 | Outpatient (BNVA) | payer MEDICARE, SELFPAY | PROVIDERS: PCP Internal Medicine; Visit Provider Internal Medicine | DX: J44.9 Chronic obstructive pulmonary disease, unspecified (principal); J98.4 Other disorders of lung; G47.33 Obstructive sleep apnea (adult) (pediatric); I48.0 Paroxysmal atrial fibrillation; M79.89 Other specified soft tissue disorders; E66.9 Obesity, unspecified; Z68.37 Body mass index [BMI] 37.0-37.9, adult | CPT/HCPCS: 99212 ==

== ENCOUNTER → 2021-10-16 13:09 | Outpatient (BNVA) | payer MEDICARE, SELFPAY | PROVIDERS: PCP Internal Medicine; Referring Provider Internal Medicine; Visit Provider Nurse Practitioner Family | DX: I48.0 Paroxysmal atrial fibrillation (principal); I10 Essential (primary) hypertension | CPT/HCPCS: 99212 ==

== ENCOUNTER → 2021-12-27 13:17 | Outpatient (BNVA) | payer MEDICARE, SELFPAY | PROVIDERS: PCP Internal Medicine; Visit Provider Internal Medicine | DX: J98.4 Other disorders of lung (principal); J44.9 Chronic obstructive pulmonary disease, unspecified; E66.9 Obesity, unspecified; Z68.35 Body mass index [BMI] 35.0-35.9, adult; G47.33 Obstructive sleep apnea (adult) (pediatric); I48.0 Paroxysmal atrial fibrillation; Z79.01 Long term (current) use of anticoagulants | CPT/HCPCS: 99212 ==

== ENCOUNTER 2022-01-14 08:49 | Outpatient (REF) | payer MEDICARE, SELFPAY ==
[2022-01-14 09:00] LABS: MANUAL DIFF FLAG NO
[2022-01-14 10:10] LABS: Basophils Percent Auto 0.8 % (0-2); Eosinophils Absolute Auto 0.1 X10*3/uL (0.0-0.4); Eosinophils Percent Auto 2.6 % (0-4); Hemoglobin 13.1 g/dl (14.0-18.0); Imm Gran Abs Auto 0.02 X10*3/uL (0.00-0.03); Imm Gran Pct Auto 0.4 % (0.0-0.4); Lymphocytes Absolute Auto 1.4 X10*3/uL (1.2-4.9); Lymphocytes Percent Auto 26.8 % (20-40); Mean Corpuscular Hemoglobin 27.9 pg (27.0-33.0); Mean Corpuscular Volume 87.2 fL (80.0-98.0); Mean Platelet Volume 10.4 fL (9.4-12.4); Monocytes Absolute Auto 0.7 X10*3/uL (0.1-1.2); Monocytes Percent Auto 13.3 % (2-11); Neutrophils Percent Auto 56.1 % (45-73); Platelet Count 192 X10*3/uL (160-400); Red Cell Distribution Width 14.2 % (11.0-16.0); White Blood Count 5.3 X10*3/uL (4.8-10.8)
[2022-01-14 10:47] LABS: Alanine Aminotransferase 33 U/L (0-40); Alkaline Phosphatase 40 U/L (39-117); Anion Gap 13 (12-20); Aspartate Amino Transferase 35 U/L (5-37); Bilirubin Total 0.8 mg/dL (0.0-1.0); Blood Urea Nitrogen 26 mg/dL (9-16); Calcium 8.7 mg/dL (8.4-10.2); Carbon Dioxide 30 mmol/L (22-29); Chloride 102 mmol/L (96-108); Cholesterol 142 mg/dL; Estimated Glomerular Filt Rate 55; Glucose Fasting 88 mg/dL (60-99); HDL Cholesterol 43 mg/dL; LDL Cholesterol Calculated 83 mg/dl; Potassium 4.3 mmol/L (3.3-5.1); Sodium 141 mmol/L (135-145); Total Protein 6.9 g/dL (6.5-8.0); Triglycerides 80 mg/dL
[2022-01-14 11:07] LABS: Appearance Urine CLEAR; Color Urine YELLOW; Glucose Urine UA NEG (NEG); Leukocyte Esterase Urine NEG (NEG); Nitrite Urine NEG (NEG); PH 5.5 (5.0-8.0); Specific Gravity - Urine >= 1.030 (1.005-1.025); Urine Blood NEG (NEG); Urine Ketones NEG (NEG); Urine Protein NEG (NEG-TRACE)
[2022-01-14 11:09] LABS: TSH reflex Free T4 1.14 uIU/mL (0.32-4.0)
== END 2022-01-14 08:50 | disposition home or self-care (01) ==
LOC: HO.LAB 08:49
PROVIDERS: PCP Internal Medicine; Visit Provider Internal Medicine
DX: E55.9 Vitamin D deficiency, unspecified (principal); E78.00 Pure hypercholesterolemia, unspecified; I10 Essential (primary) hypertension; I48.0 Paroxysmal atrial fibrillation
CPT/HCPCS: 36415; 80053; 80061; 81003; 82306; 84443; 85025

== ENCOUNTER → 2022-02-26 08:50 | Outpatient (BNVA) | payer MEDICARE, SELFPAY | PROVIDERS: PCP Internal Medicine; Referring Provider Internal Medicine; Visit Provider Internal Medicine Cardiovascular Disease | DX: I48.0 Paroxysmal atrial fibrillation (principal); I10 Essential (primary) hypertension | CPT/HCPCS: 99212 ==

== ENCOUNTER → 2022-04-29 10:09 | Outpatient (BNVA) | payer MEDICARE, SELFPAY | PROVIDERS: PCP Internal Medicine; Visit Provider Internal Medicine | DX: J44.9 Chronic obstructive pulmonary disease, unspecified (principal); G47.33 Obstructive sleep apnea (adult) (pediatric); J98.4 Other disorders of lung; G47.34 Idiopathic sleep related nonobstructive alveolar hypoventilation | CPT/HCPCS: 99212 ==

== ENCOUNTER 2022-05-20 07:35 | Outpatient (REF) | payer MEDICARE, SELFPAY ==
[2022-05-20 07:39] LABS: MANUAL DIFF FLAG NO
[2022-05-20 08:11] LABS: Basophils Absolute Auto 0.1 X10*3/uL (0.0-0.2); Basophils Percent Auto 0.9 % (0-2); Eosinophils Absolute Auto 0.2 X10*3/uL (0.0-0.4); Eosinophils Percent Auto 3.5 % (0-4); Hematocrit 42.2 % (42.0-52.0); Hemoglobin 13.5 g/dl (14.0-18.0); Imm Gran Abs Auto 0.02 X10*3/uL (0.00-0.03); Imm Gran Pct Auto 0.4 % (0.0-0.4); Lymphocytes Absolute Auto 1.7 X10*3/uL (1.2-4.9); Lymphocytes Percent Auto 31.3 % (20-40); Mean Corpuscular Hemoglobin 27.8 pg (27.0-33.0); Mean Corpuscular Volume 86.8 fL (80.0-98.0); Mean Platelet Volume 9.9 fL (9.4-12.4); Monocytes Absolute Auto 0.7 X10*3/uL (0.1-1.2); Monocytes Percent Auto 13.4 % (2-11); Neutrophils Absolute Auto 2.7 x10*3/uL (2.0-8.3); Neutrophils Percent Auto 50.5 % (45-73); Platelet Count 182 X10*3/uL (160-400); Red Blood Count 4.86 X10*6/uL (4.60-5.80); Red Cell Distribution Width 14.2 % (11.0-16.0); White Blood Count 5.4 X10*3/uL (4.8-10.8)
[2022-05-20 08:29] LABS: Appearance Urine Clear; Color Urine Yellow; Glucose Urine UA Negative (Negative); Leukocyte Esterase Urine Negative (Negative); Nitrite Urine Negative (Negative); Specific Gravity - Urine 1.015 (1.005-1.025); Urine Blood Negative (Negative); Urine Ketones Negative (Negative); Urine Protein Negative (Neg-Trace)
[2022-05-20 08:41] LABS: Alanine Aminotransferase 36 U/L (0-40); Albumin Level 4.1 g/dL (3.5-5.0); Alkaline Phosphatase 39 U/L (39-117); Anion Gap 15 (12-20); Aspartate Amino Transferase 37 U/L (5-37); Bilirubin Total 0.7 mg/dL (0.0-1.0); Blood Urea Nitrogen 20 mg/dL (9-16); Calcium 9.6 mg/dL (8.4-10.2); Carbon Dioxide 30 mmol/L (22-29); Chloride 101 mmol/L (96-108); Cholesterol 151 mg/dL; Estimated Glomerular Filt Rate 59; Glucose Fasting 97 mg/dL (60-99); HDL Cholesterol 49 mg/dL; LDL Cholesterol Calculated 88 mg/dl; Potassium 5.5 mmol/L (3.3-5.1); Sodium 140 mmol/L (135-145); Triglycerides 73 mg/dL
[2022-05-20 09:04] LABS: TSH reflex Free T4 1.39 uIU/mL (0.32-4.0); Vitamin D 25-OH Total 30.3 ng/mL (>30)
== END 2022-05-20 07:36 | disposition home or self-care (01) ==
LOC: HO.LAB 07:35
PROVIDERS: PCP Internal Medicine; Visit Provider Internal Medicine
DX: I10 Essential (primary) hypertension (principal); E55.9 Vitamin D deficiency, unspecified; E78.00 Pure hypercholesterolemia, unspecified
CPT/HCPCS: 36415; 80053; 80061; 81003; 82306; 84443; 85025

== ENCOUNTER → 2022-05-23 09:27 | Outpatient (BNVA) | payer MEDICARE, SELFPAY | PROVIDERS: PCP Internal Medicine; Visit Provider Internal Medicine | DX: J44.9 Chronic obstructive pulmonary disease, unspecified (principal); J98.4 Other disorders of lung; E66.9 Obesity, unspecified; G47.33 Obstructive sleep apnea (adult) (pediatric); G47.34 Idiopathic sleep related nonobstructive alveolar hypoventilation; Z68.34 Body mass index [BMI] 34.0-34.9, adult | CPT/HCPCS: 94010; 94618; 99212 ==

== ENCOUNTER → 2022-06-17 11:21 | Outpatient (BNVA) | payer MEDICARE, SELFPAY | PROVIDERS: PCP Internal Medicine; Visit Provider Internal Medicine | DX: J44.9 Chronic obstructive pulmonary disease, unspecified (principal); E66.9 Obesity, unspecified; J98.4 Other disorders of lung; G47.33 Obstructive sleep apnea (adult) (pediatric); G47.34 Idiopathic sleep related nonobstructive alveolar hypoventilation; Z68.35 Body mass index [BMI] 35.0-35.9, adult | CPT/HCPCS: 99212 ==

== ENCOUNTER 2022-06-21 08:59 | Outpatient (REF) | payer MEDICARE, SELFPAY ==
[2022-06-21 10:01] LABS: Appearance Urine Clear; Color Urine Yellow; Glucose Urine UA Negative (Negative); Leukocyte Esterase Urine Negative (Negative); Nitrite Urine Negative (Negative); Urine Blood Negative (Negative); Urine Ketones Negative (Negative); Urine Protein Trace mg/dL (Neg-Trace)
== END 2022-06-21 09:00 | disposition home or self-care (01) ==
LOC: HO.LAB 08:59
PROVIDERS: PCP Internal Medicine; Visit Provider Internal Medicine
DX: N40.0 Benign prostatic hyperplasia without lower urinary tract symptoms (principal)
CPT/HCPCS: 81003

== ENCOUNTER 2022-07-26 13:03 | Emergency (ER) | payer MEDICARE, SELFPAY ==
--- NOTE | 2022-07-26 13:22 | ECG_ITS ---
Test Reason : weakness Blood Pressure : / mmHG Vent. Rate : 096 BPM Atrial Rate : 000 BPM P-R Int : 000 ms QRS Dur : 090 ms QT Int : 314 ms P-R-T Axes : 000 -22 019 degrees QTc Int : 396 ms Atrial fibrillation Abnormal ECG When compared with ECG of 20-JUL-2021 09:48, Atrial fibrillation has replaced Sinus rhythm Vent. rate has increased BY 32 BPM Referred By: Noel Howard Electronically Signed By:Etienne Stafford
[2022-07-26 13:37] VITALS: BP 135/76; BP 172/66; PULSE 114; PULSE 91; RESP 18; TEMP 39.4; O2SAT 92; O2SAT 93; BMI 33.7
[2022-07-26] MEDS: 0.9 % Sodium Chloride 1,000 ML 999 ML IV (14:05)
[2022-07-26] MEDS: Acetaminophen 325 MG TABLET 975 MG PO (14:05)
[2022-07-26 14:27] LABS: MANUAL DIFF FLAG NO
[2022-07-26 14:28] LABS: Appearance Urine Clear; Color Urine Yellow; Glucose Urine UA Negative (Negative); Leukocyte Esterase Urine Trace (Negative); Nitrite Urine Negative (Negative); UMIC TRIGGER UACC YES; Urine Blood Negative (Negative); Urine Ketones Negative (Negative); Urine Protein 30 (1+) mg/dL (Neg-Trace)
[2022-07-26 14:29] LABS: Basophils Percent Auto 0.3 % (0-2); Eosinophils Percent Auto 0.1 % (0-4); Hematocrit 40.1 % (42.0-52.0); Hemoglobin 13.1 g/dl (14.0-18.0); Imm Gran Abs Auto 0.04 X10*3/uL (0.00-0.03); Imm Gran Pct Auto 0.6 % (0.0-0.4); Lymphocytes Absolute Auto 1.1 X10*3/uL (1.2-4.9); Lymphocytes Percent Auto 15.8 % (20-40); Mean Corpuscular HGB Conc 32.7 g/dl (31.0-36.0); Mean Corpuscular Volume 82.7 fL (80.0-98.0); Mean Platelet Volume 9.9 fL (9.4-12.4); Monocytes Absolute Auto 0.5 X10*3/uL (0.1-1.2); Monocytes Percent Auto 6.9 % (2-11); Neutrophils Absolute Auto 5.3 x10*3/uL (2.0-8.3); Neutrophils Percent Auto 76.3 % (45-73); Platelet Count 118 X10*3/uL (160-400); Red Blood Count 4.85 X10*6/uL (4.60-5.80); Red Cell Distribution Width 14.9 % (11.0-16.0)
[2022-07-26 14:34] LABS: INTERNATIONAL NORM RATIO 1.6 (0.9-1.1); Prothrombin Time 18.9 SEC (10.0-13.1)
[2022-07-26 14:40] LABS: Lactic Acid 1.2 mmol/L (0.5-2.0)
[2022-07-26 14:43] LABS: Bacteria Urine None Seen (None Seen); Hyaline Casts Urine 0-2 /LPF (0-2); RBC Urine 0-2 /HPF (0-2); Squamous Epithelial Cell Urine 0-2 /HPF (0-2); WBC Urine 0-5 /HPF (0-5)
[2022-07-26 14:45] LABS: COVID-19 Test Negative (Negative); IDNOW Serial# BCCEAD1C
[2022-07-26 14:46] LABS: IDNOW Serial# 9DB6401D; Influenza A Negative (Negative); Influenza B2 Negative (Negative)
[2022-07-26 14:47] LABS: Alanine Aminotransferase 32 U/L (0-40); Albumin Level 3.5 g/dL (3.5-5.0); Alkaline Phosphatase 44 U/L (39-117); Anion Gap 12 (12-20); Aspartate Amino Transferase 27 U/L (5-37); Bilirubin Total 0.9 mg/dL (0.0-1.0); Blood Urea Nitrogen 28 mg/dL (9-16); Calcium 8.2 mg/dL (8.4-10.2); Carbon Dioxide 29 mmol/L (22-29); Chloride 95 mmol/L (96-108); Creatinine Clr Calc Pharmacy 58.8; Estimated Glomerular Filt Rate 56; Glucose Random 93 mg/dL (60-115); Lipase 15 U/L (8-78); Potassium 4.8 mmol/L (3.3-5.1); Sodium 131 mmol/L (135-145); Total Protein 6.4 g/dL (6.5-8.0)
[2022-07-26 14:51] LABS: B Type Natriuretic Peptide 225 pg/mL (<100)
[2022-07-26 14:54] LABS: Troponin-I High Sensitivity 13.2 ng/L (<3.5-35.0)
[2022-07-26] MEDS: Albuterol Sulfate 7.5 MG, Albuterol/Iprat 2.5/0.5MG 3 ML 3 ML INHALE (15:19)
[2022-07-26 15:20] VITALS: PULSE 102; RESP 15; O2SAT 94
[2022-07-26] MEDS: Furosemide 100 MG/10 ML VIAL 80 MG IVPUSH (15:33)
[2022-07-26 15:35] VITALS: BP 101/62; PULSE 99; RESP 24; TEMP 37.2; O2SAT 93
--- NOTE | 2022-07-26 15:40 | ED.SOB ---
HPI - SOB/Dyspnea General Chief Complaint: Dyspnea Stated Complaint: diff breathing Time Seen by Provider: 07/26/22 13:26 Source: patient and family (Daughter) Mode of arrival: EMS History of Present Illness HPI Narrative: 81-year-old male with history of COPD, atrial fibrillation presents via EMS with complaints of generalized weakness, shortness of breath x1 week decreased appetite and daughter reports increased confusion. Daughter also states that her father has completed a course of antibiotics. Patient denies any chest pain or palpitations and denies any lower extremity swelling or abdominal pain Related Data Home Medications Medication Instructions Recorded Confirmed B-complex with vitamin C 1 tab PO DAILY 09/05/20 02/26/22 latanoprost 0.005 % eye drops 1 drp ophthalmic-Right BEDTIME 09/05/20 02/26/22 budesonide 3 mg 3 mg PO Q OTHER DAY 10/12/20 02/26/22 capsule,delayed,extended release Previous Rx's Medication Instructions Recorded albuterol sulfate 90 mcg/actuation 2 puff inhalation Q4-6H PRN for 08/29/21 aerosol inhaler wheezing #25.5 grams atenolol 25 mg tablet 25 mg PO DAILY 90 days #90 tabs 08/30/21 ezetimibe 10 mg tablet 10 mg PO DAILY 90 days #90 tabs 08/30/21 hydrochlorothiazide 25 mg tablet 25 mg PO DAILY 90 days #90 tabs 08/30/21 omeprazole 20 mg capsule,delayed 20 mg PO DAILY 90 days #90 caps 08/30/21 release pravastatin 20 mg tablet 20 mg PO DAILY 90 days #90 tabs 08/30/21 tamsulosin 0.4 mg capsule 0.4 mg PO DAILY 90 days #90 caps 08/30/21 apixaban 5 mg tablet (Eliquis) 5 mg PO BID 90 days #180 tabs 10/03/21 Advair Diskus 500 mcg-50 mcg/dose 1 inh inhalation BID ASTHMA/COPD 10/10/21 powder for inhalation (fluticasone 90 days #3 ea propion-salmeterol) gabapentin 300 mg capsule 300 mg PO BID 90 days #180 caps 10/29/21 lisinopril 30 mg tablet 30 mg PO DAILY #90 tabs 04/17/22 lorazepam 0.5 mg tablet 0.5 mg PO BEDTIME PRN agitation 60 05/13/22 days #60 tabs desoximetasone 0.05 % topical cream 1 appl topical BID PRN skin 05/21/22 irritation/rash 30 days #100 grams ipratropium 0.5 mg-albuterol 3 mg 3 ml inhalation Q6H PRN for 05/21/22 (2.5 mg base)/3 mL nebulization wheezing #90 mL soln umeclidinium 62.5 mcg/actuation 1 inh inhalation DAILY copd 30 05/23/22 blister powder for inhalation days #30 ea (Incruse Ellipta) azithromycin 250 mg tablet See Rx Instructions PO .COMPLEX #6 07/08/22 tabs cephalexin 500 mg capsule 500 mg PO TID BRONCHITIS 10 days 07/08/22 #30 caps prednisone 20 mg tablet 20 mg PO DAILY copd excarbation 7 07/25/22 days #7 tabs doxycycline hyclate 100 mg tablet 100 mg PO BID 5 days #10 tabs 07/26/22 prednisone 50 mg tablet 50 mg PO DAILY 4 days #4 tabs 07/26/22 Allergies Allergy/AdvReac Type Severity Reaction Status Date / Time Sulfa (Sulfonamide Allergy Mild RASH, Verified 06/17/22 11:55 Antibiotics) BLISTERS codeine [Codeine] Allergy Unknown HALLUCINATI Verified 06/17/22 11:55 ONS Review of Systems Review of Systems: Pertinent positives and negatives as stated in HPI 10 point review of systems is otherwise negative. [facility] Past Medical History Source: nursing notes reviewed Medical History Benign essential hypertension Benign prostatic hyperplasia COPD (chronic obstructive pulmonary disease) Eosinophilic colitis GERD without esophagitis Hemorrhoids with complication Neuropathy Nocturnal hypoxemia Obesity (BMI 30-39.9) AMITA (obstructive sleep apnea) Pure hypercholesterolemia Restrictive lung disease Surgical History History of hernia surgery History of tonsillectomy Family History Family History Brother Lung cancer Social History Social History Housing: House Alcohol intake: never Patient Tobacco Use Status: Former Tobacco user Smoked in Last 30 Days: No Second Hand Smoke Exposure: Yes Use of substances other than those prescribed or required for medical reasons: No Advance Directives: Yes Advance Directives Information Provided: Yes Advance Directives on File: No service: No Current occupational status: retired Cognitive needs: No Hearing needs: No Vision needs: Yes Physical Exam Vital Signs: Vital Signs: Last Vital Signs Temp 98.5 F 07/26/22 16:34 Pulse 105 H 07/26/22 16:34 Resp 16 07/26/22 16:34 BP 113/65 07/26/22 16:34 Pulse Ox 95 07/26/22 16:34 O2 Del Method 07/26/22 16:34 BMI result Body Mass Index 33.7 VITAL SIGNS: Reviewed. GENERAL: Well developed, well nourished, in no acute distress. HEAD: Normocephalic/atraumatic EYES: PERRLA, EOMI EARS: Ext canals without abnormality, TMs non-bulging and non-erythematous NOSE: Nares patent bilateral OROPHARYNX: no oral lesions noted, posterior pharynx clear and non-erythematous without noted tonsillar enlargement/erythema/exudates NECK: Supple, no adenopathy LUNGS: Good inspiratory effort, patient is tachypneic with crackles noted in the right base but no wheeze noted. SpO2<93> CARDIOVASCULAR: Regular rate and rhythm without noted murmurs, no JVD or lower extremity edema. ABDOMEN: Soft, non-tender, non-distended with bowel sounds. MUSCULOSKELETAL: No tenderness, deformities, or effusions noted on gross inspection. EXTREMITIES: No cyanosis, clubbing or edema. SKIN: Inspection of the skin reveals no rashes, +jaundice NEUROLOGIC: Alert and oriented x 3. Strength and sensation to light touch were grossly intact x 4. Course Course Course Narrative: 81-year-old male who presents febrile with having gone through a course of antibiotics for similar febrile illness, he is also noted to be tachypneic and tachycardic but there is no leukocytosis. Viral testing is negative for acute findings and abdominal exam was benign and so lower clinical suspicion for intra-abdominal pathology. Two-view chest x-ray without consolidation and instead describes rhonchial wall thickening for which patient will receive nebulized treatment as well as steroids. BNP is 225 which can describe patient's shortness of breath as this is new, but cannot explain his febrile state. And although LFTs appear to be within normal limits patient appears jaundice. Reevaluation(s) Reevaluation #1: On re-evaluation, patient states that he is feeling better, his heart rate has improved he is no longer febrile, he is not had any episodes of hypoxia and received steroids, neb treatments, and steroids. We are waiting CT scan of abdomen pelvis in the meantime patient will receive 1 more DuoNeb. I signed out to Dr. Perry Time: 17:45 Medications Administered Discontinued Medications Generic Name Dose Route Start Last Admin Trade Name Shelley PRN Reason Stop Dose Admin Acetaminophen 975 mg 07/26/22 13:57 07/26/22 14:05 Acetaminophen 325 Mg Tablet PO 07/26/22 13:58 975 mg ONCE ONE Administration Albuterol Sulfate 7.5 mg/ 0 mg 07/26/22 15:03 07/26/22 15:19 Albuterol/Ipratropium 3 ml INHALE 07/26/22 15:04 0.5 each ONCE ONE Administration Furosemide 80 mg 07/26/22 15:00 07/26/22 15:33 Furosemide 100 Mg/10 Ml Vial IVPUSH 07/26/22 15:01 80 mg ONCE ONE Administration Protocol Sodium Chloride 1,000 mls @ 999 mls/hr 07/26/22 14:00 07/26/22 15:16 Ns IV 07/26/22 15:00 Infused .Q1H1M JUSTIN Infusion Iohexol 100 ml 07/26/22 17:11 07/26/22 17:12 Iohexol 350 Mg/Ml 100 Ml Infus..Btl IV 07/26/22 17:12 85 ml ONCE ONE Administration Methylprednisolone Sodium Succinate 125 mg 07/26/22 15:39 07/26/22 16:37 Methylprednisolone Sod Succ 125 Mg/2 Ml Vial IVPUSH 07/26/22 15:40 125 mg ONCE ONE Administration Medical Decision Making Medical Decision Making MDM Narrative: 81-year-old male with history and clinical presentation of unexplained febrile episodes despite antibiotics also noted to be tachypneic and tachycardic as well as febrile. Differential Diagnosis Differential Diagnoses: The differential diagnosis associated with the presentation includes Will rule out infectious, hepatobiliary, COPD exacerbation Admission/Observation Consideration of admission/observation: Escalation of care including admission/observation considered Lab Data MDM Lab Attestation statement: I reviewed the patient's lab results. Please see the course Section for complete discussion regarding lab work and imaging interpretation. Result Diagrams: 07/26/22 14:14 07/26/22 14:14 Labs: Lab Results 07/26/22 07/26/22 07/26/22 Range/Units 13:29 14:14 14:14 WBC 7.0 (4.8-10.8) X10*3/uL RBC 4.85 (4.60-5.80) X10*6/uL Hgb 13.1 L (14.0-18.0) g/dl Hct 40.1 L (42.0-52.0) % MCV 82.7 (80.0-98.0) fL MCH 27.0 (27.0-33.0) pg MCHC 32.7 (31.0-36.0) g/dl RDW 14.9 (11.0-16.0) % Plt Count 118 L D (160-400) X10*3/uL MPV 9.9 (9.4-12.4) fL Immature Gran % (Auto) 0.6 H (0.0-0.4) % Neut % (Auto) 76.3 H (45-73) % Lymph % (Auto) 15.8 L (20-40) % Mclean % (Auto) 6.9 (2-11) % Eos % (Auto) 0.1 (0-4) % Baso % (Auto) 0.3 (0-2) % Lymph # (Auto) 1.1 L (1.2-4.9) X10*3/uL [place] # (Auto) 0.5 (0.1-1.2) X10*3/uL Eos # (Auto) 0.0 (0.0-0.4) X10*3/uL Baso # (Auto) 0.0 (0.0-0.2) X10*3/uL Abs Immat Gran (auto) 0.04 H (0.00-0.03) X10*3/uL Absolute Neuts (auto) 5.3 (2.0-8.3) x10*3/uL Absolute Nucleated RBC 0.000 (0.0-0.012) X10*3/uL Nucleated RBC % (auto) 0.0 (0.0-0.2) /100WBC PT 18.9 H (10.0-13.1) SEC INR 1.6 H (0.9-1.1) VBG pH (7.32-7.43) VBG pCO2 mmHg VBG pO2 mmHg VBG HCO3 (22-26) mmol/L VBG O2 Saturation % VBG Base Excess mmol/L Sodium (135-145) mmol/L Potassium (3.3-5.1) mmol/L Chloride (96-108) mmol/L Carbon Dioxide (22-29) mmol/L Anion Gap (12-20) BUN (9-16) mg/dL Creatinine (0.5-1.4) mg/dL Estim Creat Clear Calc Estimated GFR POC Glucose 99 (60-115) mg/dL Random Glucose (60-115) mg/dL Lactic Acid (0.5-2.0) mmol/L Calcium (8.4-10.2) mg/dL Total Bilirubin (0.0-1.0) mg/dL AST (5-37) U/L ALT (0-40) U/L Alkaline Phosphatase (39-117) U/L Troponin I High Sens (<3.5-35.0) ng/L B-Natriuretic Peptide (<100) pg/mL Total Protein (6.5-8.0) g/dL Albumin (3.5-5.0) g/dL Lipase (8-78) U/L Urine Color Urine Appearance Urine pH (5.0-9.0) Ur Specific [place] (1.005-1.025) Urine Protein (Neg-Trace) mg/dL Urine Glucose (UA) (Negative) mg/dL Urine Ketones (Negative) mg/dL Urine Blood (Negative) Urine Nitrite (Negative) Ur Leukocyte Esterase (Negative) Urine RBC (0-2) /HPF Urine WBC (0-5) /HPF Ur Squamous Epith Cells (0-2) /HPF Urine Bacteria (None Seen) Hyaline Casts (0-2) /LPF COVID-19 (TANVI) (Negative) COVID-19 Clin Com Influenza Type A (PILO) (Negative) Influenza Type B (PILO) (Negative) Influenza A & B Note 07/26/22 07/26/22 07/26/22 Range/Units 14:14 14:14 14:14 WBC (4.8-10.8) X10*3/uL RBC (4.60-5.80) X10*6/uL Hgb (14.0-18.0) g/dl Hct (42.0-52.0) % MCV (80.0-98.0) fL MCH (27.0-33.0) pg MCHC (31.0-36.0) g/dl RDW (11.0-16.0) % Plt Count (160-400) X10*3/uL MPV (9.4-12.4) fL Immature Gran % (Auto) (0.0-0.4) % Neut % (Auto) (45-73) % Lymph % (Auto) (20-40) % Mclean % (Auto) (2-11) % Eos % (Auto) (0-4) % Baso % (Auto) (0-2) % Lymph # (Auto) (1.2-4.9) X10*3/uL [place] # (Auto) (0.1-1.2) X10*3/uL Eos # (Auto) (0.0-0.4) X10*3/uL Baso # (Auto) (0.0-0.2) X10*3/uL Abs Immat Gran (auto) (0.00-0.03) X10*3/uL Absolute Neuts (auto) (2.0-8.3) x10*3/uL Absolute Nucleated RBC (0.0-0.012) X10*3/uL Nucleated RBC % (auto) (0.0-0.2) /100WBC PT (10.0-13.1) SEC INR (0.9-1.1) VBG pH (7.32-7.43) VBG pCO2 mmHg VBG pO2 mmHg VBG HCO3 (22-26) mmol/L VBG O2 Saturation % VBG Base Excess mmol/L Sodium 131 L (135-145) mmol/L Potassium 4.8 (3.3-5.1) mmol/L Chloride 95 L (96-108) mmol/L Carbon Dioxide 29 (22-29) mmol/L Anion Gap 12 (12-20) BUN 28 H (9-16) mg/dL Creatinine 1.24 (0.5-1.4) mg/dL Estim Creat Clear Calc 58.8 Estimated GFR 56 POC Glucose (60-115) mg/dL Random Glucose 93 (60-115) mg/dL Lactic Acid (0.5-2.0) mmol/L Calcium 8.2 L D (8.4-10.2) mg/dL Total Bilirubin 0.9 (0.0-1.0) mg/dL AST 27 (5-37) U/L ALT 32 (0-40) U/L Alkaline Phosphatase 44 (39-117) U/L Troponin I High Sens 13.2 (<3.5-35.0) ng/L B-Natriuretic Peptide 225 H (<100) pg/mL Total Protein 6.4 L (6.5-8.0) g/dL Albumin 3.5 (3.5-5.0) g/dL Lipase 15 (8-78) U/L Urine Color Urine Appearance Urine pH (5.0-9.0) Ur Specific [place] (1.005-1.025) Urine Protein (Neg-Trace) mg/dL Urine Glucose (UA) (Negative) mg/dL Urine Ketones (Negative) mg/dL Urine Blood (Negative) Urine Nitrite (Negative) Ur Leukocyte Esterase (Negative) Urine RBC (0-2) /HPF Urine WBC (0-5) /HPF Ur Squamous Epith Cells (0-2) /HPF Urine Bacteria (None Seen) Hyaline Casts (0-2) /LPF COVID-19 (TANVI) (Negative) COVID-19 Clin Com Influenza Type A (PILO) (Negative) Influenza Type B (PILO) (Negative) Influenza A & B Note 07/26/22 07/26/22 07/26/22 Range/Units 14:14 14:14 14:14 WBC (4.8-10.8) X10*3/uL RBC (4.60-5.80) X10*6/uL Hgb (14.0-18.0) g/dl Hct (42.0-52.0) % MCV (80.0-98.0) fL MCH (27.0-33.0) pg MCHC (31.0-36.0) g/dl RDW (11.0-16.0) % Plt Count (160-400) X10*3/uL MPV (9.4-12.4) fL Immature Gran % (Auto) (0.0-0.4) % Neut % (Auto) (45-73) % Lymph % (Auto) (20-40) % Mclean % (Auto) (2-11) % Eos % (Auto) (0-4) % Baso % (Auto) (0-2) % Lymph # (Auto) (1.2-4.9) X10*3/uL [place] # (Auto) (0.1-1.2) X10*3/uL Eos # (Auto) (0.0-0.4) X10*3/uL Baso # (Auto) (0.0-0.2) X10*3/uL Abs Immat Gran (auto) (0.00-0.03) X10*3/uL Absolute Neuts (auto) (2.0-8.3) x10*3/uL Absolute Nucleated RBC (0.0-0.012) X10*3/uL Nucleated RBC % (auto) (0.0-0.2) /100WBC PT (10.0-13.1) SEC INR (0.9-1.1) VBG pH (7.32-7.43) VBG pCO2 mmHg VBG pO2 mmHg VBG HCO3 (22-26) mmol/L VBG O2 Saturation % VBG Base Excess mmol/L Sodium (135-145) mmol/L Potassium (3.3-5.1) mmol/L Chloride (96-108) mmol/L Carbon Dioxide (22-29) mmol/L Anion Gap (12-20) BUN (9-16) mg/dL Creatinine (0.5-1.4) mg/dL Estim Creat Clear Calc Estimated GFR POC Glucose (60-115) mg/dL Random Glucose (60-115) mg/dL Lactic Acid 1.2 (0.5-2.0) mmol/L Calcium (8.4-10.2) mg/dL Total Bilirubin (0.0-1.0) mg/dL AST (5-37) U/L ALT (0-40) U/L Alkaline Phosphatase (39-117) U/L Troponin I High Sens (<3.5-35.0) ng/L B-Natriuretic Peptide (<100) pg/mL Total Protein (6.5-8.0) g/dL Albumin (3.5-5.0) g/dL Lipase (8-78) U/L Urine Color Urine Appearance Urine pH (5.0-9.0) Ur Specific [place] (1.005-1.025) Urine Protein (Neg-Trace) mg/dL Urine Glucose (UA) (Negative) mg/dL Urine Ketones (Negative) mg/dL Urine Blood (Negative) Urine Nitrite (Negative) Ur Leukocyte Esterase (Negative) Urine RBC (0-2) /HPF Urine WBC (0-5) /HPF Ur Squamous Epith Cells (0-2) /HPF Urine Bacteria (None Seen) Hyaline Casts (0-2) /LPF COVID-19 (TANVI) Negative (Negative) COVID-19 Clin Com See Note Influenza Type A (PILO) Negative (Negative) Influenza Type B (PILO) Negative (Negative) Influenza A & B Note See Note 07/26/22 07/26/22 Range/Units 14:14 15:18 WBC (4.8-10.8) X10*3/uL RBC (4.60-5.80) X10*6/uL Hgb (14.0-18.0) g/dl Hct (42.0-52.0) % MCV (80.0-98.0) fL MCH (27.0-33.0) pg MCHC (31.0-36.0) g/dl RDW (11.0-16.0) % Plt Count (160-400) X10*3/uL MPV (9.4-12.4) fL Immature Gran % (Auto) (0.0-0.4) % Neut % (Auto) (45-73) % Lymph % (Auto) (20-40) % [place] % (Auto) (2-11) % Eos % (Auto) (0-4) % Baso % (Auto) (0-2) % Lymph # (Auto) (1.2-4.9) X10*3/uL [place] # (Auto) (0.1-1.2) X10*3/uL Eos # (Auto) (0.0-0.4) X10*3/uL Baso # (Auto) (0.0-0.2) X10*3/uL Abs Immat Gran (auto) (0.00-0.03) X10*3/uL Absolute Neuts (auto) (2.0-8.3) x10*3/uL Absolute Nucleated RBC (0.0-0.012) X10*3/uL Nucleated RBC % (auto) (0.0-0.2) /100WBC PT (10.0-13.1) SEC INR (0.9-1.1) VBG pH 7.47 H (7.32-7.43) VBG pCO2 30 mmHg VBG pO2 89 mmHg VBG HCO3 22 (22-26) mmol/L VBG O2 Saturation 97.0 % VBG Base Excess 0.0 mmol/L Sodium (135-145) mmol/L Potassium (3.3-5.1) mmol/L Chloride (96-108) mmol/L Carbon Dioxide (22-29) mmol/L Anion Gap (12-20) BUN (9-16) mg/dL Creatinine (0.5-1.4) mg/dL Estim Creat Clear Calc Estimated GFR POC Glucose (60-115) mg/dL Random Glucose (60-115) mg/dL Lactic Acid (0.5-2.0) mmol/L Calcium (8.4-10.2) mg/dL Total Bilirubin (0.0-1.0) mg/dL AST (5-37) U/L ALT (0-40) U/L Alkaline Phosphatase (39-117) U/L Troponin I High Sens (<3.5-35.0) ng/L B-Natriuretic Peptide (<100) pg/mL Total Protein (6.5-8.0) g/dL Albumin (3.5-5.0) g/dL Lipase (8-78) U/L Urine Color Yellow Urine Appearance Clear Urine pH 8.0 (5.0-9.0) Ur Specific [place] 1.020 (1.005-1.025) Urine Protein 30 (1+) H (Neg-Trace) mg/dL Urine Glucose (UA) Negative (Negative) mg/dL Urine Ketones Negative (Negative) mg/dL Urine Blood Negative (Negative) Urine Nitrite Negative (Negative) Ur Leukocyte Esterase Trace H (Negative) Urine RBC 0-2 (0-2) /HPF Urine WBC 0-5 (0-5) /HPF Ur Squamous Epith Cells 0-2 (0-2) /HPF Urine Bacteria None Seen (None Seen) Hyaline Casts 0-2 (0-2) /LPF COVID-19 (TANVI) (Negative) COVID-19 Clin Com Influenza Type A (PILO) (Negative) Influenza Type B (PILO) (Negative) Influenza A & B Note Independent Interpretation I performed an independent interpretation of an: EKG Interpretation: Atrial fibrillation, HR-96, no STEMI, QRS/QTC is within normal limits. Radiology Impression Radiologist Impression: My interpretation is in agreement with radiology impression on imaging studies. Independent Historian Clinical information obtained from an independent historian. History obtained from or confirmed by: Other Daughter External Record Review External record reviewed: Outpatient record and Prior outpatient labs Discharge Plan Discharge Clinical Impression: COPD (chronic obstructive pulmonary disease), Congestive heart failure Patient Disposition: Still a Patient Prescriptions: New prednisone 50 mg tablet 50 mg PO DAILY 4 Days Qty: 4 0RF doxycycline hyclate 100 mg tablet 100 mg PO BID 5 Days Qty: 10 0RF No Action albuterol sulfate 90 mcg/actuation HFA aerosol inhaler 2 puff inhalation Q4-6H PRN (Reason: for wheezing) Qty: 25.5 3RF ezetimibe 10 mg tablet 10 mg PO DAILY 90 Days Qty: 90 3RF atenolol 25 mg tablet 25 mg PO DAILY 90 Days Qty: 90 3RF tamsulosin 0.4 mg capsule 0.4 mg PO DAILY 90 Days Qty: 90 3RF pravastatin 20 mg tablet 20 mg PO DAILY 90 Days Qty: 90 3RF omeprazole 20 mg capsule,delayed release(DR/EC) 20 mg PO DAILY 90 Days Qty: 90 3RF hydrochlorothiazide 25 mg tablet 25 mg PO DAILY 90 Days Qty: 90 3RF Eliquis 5 mg tablet 5 mg PO BID 90 Days Qty: 180 3RF fluticasone propion-salmeterol [Advair Diskus] 500-50 mcg/dose blister with device 1 inh inhalation BID 90 Days Qty: 3 1RF gabapentin 300 mg capsule 300 mg PO BID 90 Days Qty: 180 3RF lisinopril 30 mg tablet 30 mg PO DAILY Qty: 90 1RF lorazepam 0.5 mg tablet 0.5 mg PO BEDTIME PRN (Reason: agitation) 60 Days Qty: 60 0RF ipratropium-albuterol 0.5 mg-3 mg(2.5 mg base)/3 mL solution for nebulization 3 ml inhalation Q6H PRN (Reason: for wheezing) Qty: 90 2RF desoximetasone 0.05 % cream 1 appl topical BID PRN (Reason: skin irritation/rash) 30 Days Qty: 100 3RF azithromycin 250 mg tablet See Rx Instructions PO .COMPLEX Qty: 6 0RF Rx Instructions: take 500 mg today (day 1), then 250 mg for 4 days (days 2-5) PO cephalexin 500 mg capsule 500 mg PO TID 10 Days Qty: 30 1RF prednisone 20 mg tablet 20 mg PO DAILY 7 Days Qty: 7 0RF latanoprost 0.005 % drops 1 drp ophthalmic-Right BEDTIME B-complex with vitamin C Tablet 1 tab PO DAILY budesonide 3 mg capsule,delayed,extend.release 3 mg PO Q OTHER DAY Incruse Ellipta 62.5 mcg/actuation blister with device 1 inh inhalation DAILY 30 Days Qty: 30 4RF
[2022-07-26 16:34] VITALS: BP 113/65; PULSE 105; RESP 16; TEMP 36.9; O2SAT 95
[2022-07-26] MEDS: methylPREDNISolone Sod Succ 125 MG/2 ML VIAL IVPUSH (16:37)
[2022-07-26] MEDS: iohexoL 350 MG/ML 100 ML INFUS..BTL IV (17:12)
[2022-07-26 18:23] VITALS: PULSE 105; RESP 16; O2SAT 95
[2022-07-26 18:40] VITALS: BP 111/57; PULSE 100; RESP 18; TEMP 36.9; O2SAT 94
== END 2022-07-26 19:46 | disposition home or self-care (01) ==
PROVIDERS: Student in an Organized Health Care Education/Training Program; Emergency Provider Emergency Medicine; PCP Internal Medicine
DX: J44.9 Chronic obstructive pulmonary disease, unspecified (principal); I50.9 Heart failure, unspecified; R06.02 Shortness of breath; R10.9 Unspecified abdominal pain; Z20.822 Contact with and (suspected) exposure to COVID-19; Z79.899 Other long term (current) drug therapy
CPT/HCPCS: 36415; 71045; 74177; 80053; 81001; 82803; 82947; 83605; 83690; 83880; 84484; 85025; 85610; 87040; 87502; 87635; 93005; 94640; 96361; 96374; 96375; 99285; J1940; J2930; Q9967

== ENCOUNTER → 2022-08-19 07:28 | Outpatient (REF) | payer MEDICARE, SELFPAY ==
--- NOTE | 2022-08-19 07:32 | HM_ITS ---
Conclusion: 1. Patient was monitored for total period of 3 days 2. Baseline was atrial fibrillation with average heart rate of 79 beats per minute with adequate rate control 3. Total of 1377 PVCs accounting for 0.4% total beats account for occasional PVCs 4. No significant pauses noted 5. No patient reported symptoms MTDD
== END ==
LOC: HO.CARD 07:28
PROVIDERS: PCP Internal Medicine; Visit Provider Internal Medicine Cardiovascular Disease
DX: I48.91 Unspecified atrial fibrillation (principal)
CPT/HCPCS: 93242; 99212

== ENCOUNTER → 2022-08-27 13:27 | Outpatient (BNVA) | payer MEDICARE, SELFPAY | PROVIDERS: PCP Internal Medicine; Visit Provider Nurse Practitioner Family | DX: I48.19 Other persistent atrial fibrillation (principal); R06.02 Shortness of breath; G47.33 Obstructive sleep apnea (adult) (pediatric) | CPT/HCPCS: 93005; 99212 ==

== ENCOUNTER 2022-08-31 10:14 | Outpatient (REF) | payer MEDICARE, SELFPAY ==
[2022-08-31 10:26] LABS: MANUAL DIFF FLAG NO
[2022-08-31 10:39] LABS: Basophils Percent Auto 0.5 % (0-2); Eosinophils Absolute Auto 0.1 X10*3/uL (0.0-0.4); Eosinophils Percent Auto 1.2 % (0-4); Hematocrit 42.9 % (42.0-52.0); Hemoglobin 13.7 g/dl (14.0-18.0); Imm Gran Abs Auto 0.02 X10*3/uL (0.00-0.03); Imm Gran Pct Auto 0.3 % (0.0-0.4); Lymphocytes Absolute Auto 2.2 X10*3/uL (1.2-4.9); Lymphocytes Percent Auto 37.2 % (20-40); Mean Corpuscular HGB Conc 31.9 g/dl (31.0-36.0); Mean Corpuscular Hemoglobin 27.7 pg (27.0-33.0); Mean Corpuscular Volume 86.7 fL (80.0-98.0); Mean Platelet Volume 9.4 fL (9.4-12.4); Monocytes Absolute Auto 0.8 X10*3/uL (0.1-1.2); Monocytes Percent Auto 13.5 % (2-11); Neutrophils Absolute Auto 2.8 x10*3/uL (2.0-8.3); Neutrophils Percent Auto 47.3 % (45-73); Platelet Count 210 X10*3/uL (160-400); Red Blood Count 4.95 X10*6/uL (4.60-5.80); White Blood Count 5.9 X10*3/uL (4.8-10.8)
[2022-08-31 10:45] LABS: Appearance Urine Cloudy; Color Urine Dark Yellow; Glucose Urine UA Negative (Negative); Leukocyte Esterase Urine Negative (Negative); Nitrite Urine Negative (Negative); PH 6.5 (5.0-9.0); Specific Gravity - Urine 1.025 (1.005-1.025); Urine Blood Negative (Negative); Urine Ketones Trace mg/dL (Negative); Urine Protein Trace mg/dL (Neg-Trace)
[2022-08-31 11:37] LABS: Alanine Aminotransferase 24 U/L (0-40); Albumin Level 3.8 g/dL (3.5-5.0); Alkaline Phosphatase 40 U/L (39-117); Anion Gap 12 (12-20); Aspartate Amino Transferase 27 U/L (5-37); Bilirubin Total 0.8 mg/dL (0.0-1.0); Blood Urea Nitrogen 20 mg/dL (9-16); Calcium 9.3 mg/dL (8.4-10.2); Carbon Dioxide 31 mmol/L (22-29); Chloride 102 mmol/L (96-108); Cholesterol 155 mg/dL; Estimated Glomerular Filt Rate 59; Glucose Fasting 85 mg/dL (60-99); HDL Cholesterol 45 mg/dL; LDL Cholesterol Calculated 93 mg/dl; Potassium 4.8 mmol/L (3.3-5.1); Sodium 140 mmol/L (135-145); Total Protein 6.4 g/dL (6.5-8.0); Triglycerides 87 mg/dL
[2022-08-31 11:39] LABS: TSH reflex Free T4 0.73 uIU/mL (0.32-4.0)
== END 2022-08-31 10:15 | disposition home or self-care (01) ==
LOC: HO.LAB 10:14
PROVIDERS: PCP Internal Medicine; Visit Provider Internal Medicine
DX: R30.0 Dysuria (principal); E78.00 Pure hypercholesterolemia, unspecified; E55.9 Vitamin D deficiency, unspecified; I10 Essential (primary) hypertension
CPT/HCPCS: 36415; 80053; 80061; 81003; 82306; 84443; 85025

== ENCOUNTER 2022-09-04 11:46 | Day surgery (SDC) | payer MEDICARE, SELFPAY ==
--- NOTE | 2022-09-04 11:55 | MHC.SHP ---
Pre-Procedural Eval Section A Date of Service: 09/04/22 The patient is an INPATIENT: No Changes since office visit: Yes Patient answered all questions; No Cold of Flu in the past 2 weeks, No New Medical Problems and No Changes in Medication The History & Physical has been completed within 30 days and I have reviewed it.: Yes Section B Chief Complaint: afib Allergies: Allergies Allergy/AdvReac Type Severity Reaction Status Date / Time Sulfa (Sulfonamide Allergy Mild RASH, Verified 08/27/22 13:46 Antibiotics) BLISTERS codeine [Codeine] Allergy Unknown HALLUCINATI Verified 08/27/22 13:46 ONS Plan I have reviewed the history and physical and performed a pertinent physical examination on my patient. No changes have occurred unless specified. Time Spent With Patient Time: Total time managing care of this patient today ____ minutes.
[2022-09-04 12:08] VITALS: BMI 34.2
[2022-09-04 12:34] VITALS: BP 170/94; PULSE 82; RESP 18; TEMP 36.6; O2SAT 96
[2022-09-04] MEDS: Lactated Ringers 1,000 ML 50 ML IVCONT (12:45)
[2022-09-04] MEDS: Albuterol Sulfate (0.083%) 2.5 MG/3 ML VIAL.NEB INHALE (12:55)
[2022-09-04 12:56] VITALS: PULSE 81; RESP 16; O2SAT 96
[2022-09-04] MEDS: Apixaban 5 MG TABLET PO (13:03)
--- NOTE | 2022-09-04 13:13 | P.CONAN_ITS ---
HPI - Anesthesia Eval Consult details Narrative: afib for cardioversion PMFSH Active Problems Active Problems: All Active Problems (Updated 09/04/22 @ 12:17 by Sarah Garcia, RN) Tick bite (Acute) Seborrheic keratosis (Acute) COPD exacerbation (Acute) Pneumonia (Acute) Paroxysmal atrial fibrillation (Acute) Hypersomnia (Acute) Right leg swelling (Acute) Upper respiratory tract infection (Acute) Persistent atrial fibrillation (Acute) SOB (shortness of breath) (Acute) Nocturnal hypoxemia (Acute) AMITA (obstructive sleep apnea) (Acute) Hemorrhoids with complication (Acute) Benign prostatic hyperplasia (Acute) GERD without esophagitis (Acute) Pure hypercholesterolemia (Acute) Benign essential hypertension (Acute) Eosinophilic colitis (Acute) Neuropathy (Acute) Obesity (BMI 30-39.9) (Acute) Restrictive lung disease (Acute) COPD (chronic obstructive pulmonary disease) (Acute) Past Medical History Medical History Benign essential hypertension Benign prostatic hyperplasia COPD (chronic obstructive pulmonary disease) Eosinophilic colitis GERD without esophagitis Hemorrhoids with complication Neuropathy Nocturnal hypoxemia Obesity (BMI 30-39.9) AMITA (obstructive sleep apnea) Pure hypercholesterolemia Restrictive lung disease Family History Family History Brother Lung cancer Surgical History Surgical History History of hernia surgery History of tonsillectomy History of Problems with Anesthesia: No Social History Social History Housing: House Alcohol intake: never Patient Tobacco Use Status: Former Tobacco user Quit Date: 1966 Second Hand Smoke Exposure: Yes Use of substances other than those prescribed or required for medical reasons: No Are you DNR?: No Advance Directives: No Advance Directives Information Provided: Yes service: No Current occupational status: retired Cognitive needs: No Hearing needs: No Vision needs: Yes Meds Allergies Allergy/AdvReac Type Severity Reaction Status Date / Time Sulfa (Sulfonamide Allergy Mild RASH, Verified 09/04/22 12:07 Antibiotics) BLISTERS codeine [Codeine] Allergy Unknown HALLUCINATI Verified 09/04/22 12:07 ONS Active Medications: Current Medications Lactated Ringer's (Lr) 1,000 mls @ 50 mls/hr IVCONT .Q20H JUSTIN Last Admin: 09/04/22 12:45 Dose: 50 mls/hr Home Medications Medication Instructions Recorded Confirmed Last Taken Type B-complex with vitamin C 1 tab PO DAILY 09/05/20 09/04/22 07/19/21 History latanoprost 0.005 % eye drops 1 drp ophthalmic-Right BEDTIME 09/05/20 09/04/22 07/19/21 History budesonide 3 mg 3 mg PO Q OTHER DAY 10/12/20 09/04/22 07/18/21 History capsule,delayed,extended release atenolol 25 mg tablet 25 mg PO BID 08/26/22 09/04/22 Unknown History lisinopril 20 mg tablet 20 mg PO DAILY 08/26/22 09/04/22 Unknown History Exam Exam Date and Time: September 04, 2022 1313 Height,Weight and Vital Signs: Height 5 ft 11 in Weight 111.13 kg Last Vital Signs Temp 97.8 F 09/04/22 12:34 Pulse 81 09/04/22 12:56 Resp 16 09/04/22 12:56 BP 170/94 H 09/04/22 12:34 Pulse Ox 96 09/04/22 12:34 O2 Del Method 09/04/22 12:34 Airway Mallampati Class: II TM Dist: >3cm Neck ROM: Limited Heart: rrr Lungs: cta Assessment and Plan Final Anesthetic Review History of Problems with Anesthesia: No NPO: Yes ASA Class: IV Final Preanesthetic Review: No Changes in Pt Med Stat, Meds/Allgs Chart Reviewed, Consent Obtained/Reviewed and Anes Risks/Benef Reviewed Patient Risk: High Procedure Risk: Low Anesthetic Plan Anesthetic Plan: MAC: and Agree w/ Assess. and Plan Disposition: Standard PACU
--- NOTE | 2022-09-04 13:50 | ECG_ITS ---
Test Reason : s/p cardioversion Blood Pressure : / mmHG Vent. Rate : 073 BPM Atrial Rate : 073 BPM P-R Int : 190 ms QRS Dur : 094 ms QT Int : 410 ms P-R-T Axes : 032 -18 010 degrees QTc Int : 451 ms Normal sinus rhythm Normal ECG When compared with ECG of 26-JUL-2022 13:37, Sinus rhythm has replaced Atrial fibrillation QT has lengthened Referred By: Ronnie Bill Electronically Signed By:Etienne Stafford
[2022-09-04 13:51] VITALS: BP 133/77; PULSE 71; RESP 16; TEMP 36.1; O2SAT 97
[2022-09-04 14:06] VITALS: BP 133/79; PULSE 71; RESP 16; O2SAT 97
--- NOTE | 2022-09-04 14:50 | HO.CARDIVERS ---
Cardioversion Procedure Note Cardioversion Date of Procedure: Today Ordering Provider: Priscilla Performing Provider: Myself Indication for Procedure: Persistent atrial fibrillation, symptomatic Pre-Op Diagnosis: Same Post-Op Diagnosis: Sinus rhythm Performed with Transesophageal Echo: No Consent: Verbal and Written consent was obtained from the patient before starting and after confirming oral anticoagulation use and giving him 1 dose of Eliquis. The patient was made aware of the risk of synchronized cardioversion including benefits and alternatives Procedure: After consent obtained, cardioversion pads were attached in anteroposterior configuration and the patient was sedated by the anesthesia team. Once adequate sedation achieved, patient was delivered 200 joules of biphasic synchronized energy in anteroposterior configuration Complications: None Impression: Successful conversion to sinus rhythm Recommendations: 1. 12 lead EKG 2. Continue full oral anticoagulation 3. Most likely require antiarrhythmic drug support.
== END 2022-09-04 14:45 | disposition home or self-care (01) ==
PROVIDERS: PCP Internal Medicine; Visit Provider Internal Medicine Cardiovascular Disease
PROC: 5A2204Z Restoration of Cardiac Rhythm, Single (ICD-10-PCS; principal; 2022-09-04 13:40)
DX: I48.19 Other persistent atrial fibrillation (principal); R06.02 Shortness of breath; I10 Essential (primary) hypertension; J44.9 Chronic obstructive pulmonary disease, unspecified; E78.5 Hyperlipidemia, unspecified; G47.33 Obstructive sleep apnea (adult) (pediatric); Z79.01 Long term (current) use of anticoagulants; Z79.51 Long term (current) use of inhaled steroids; Z79.899 Other long term (current) drug therapy; Z88.2 Allergy status to sulfonamides; Z88.8 Allergy status to other drugs, medicaments and biological substances; Z87.891 Personal history of nicotine dependence
CPT/HCPCS: 92960; 93005; 94640

== ENCOUNTER → 2022-09-09 08:49 | Outpatient (BNVA) | payer MEDICARE, SELFPAY | PROVIDERS: PCP Internal Medicine; Visit Provider Nurse Practitioner Family | DX: Z13.89 Encounter for screening for other disorder (principal) | CPT/HCPCS: 93005 ==

== ENCOUNTER → 2022-09-18 13:45 | Outpatient (REF) | payer MEDICARE, SELFPAY ==
--- NOTE | 2022-09-18 13:49 | HM_ITS ---
Conclusion: 1. Patient was monitored for total period of 3 days and 1 hour 2. Baseline was normal sinus rhythm with average heart of 67 beats per minute 3. No significant pauses or bradycardia noted 4. Total of 2378 PACs accounting for 0.83% total beats account for occasional PACs 5. No sustained atrial fibrillation noted 6. No patient reported events MTDD
== END ==
LOC: HO.CARD 13:45
PROVIDERS: PCP Internal Medicine; Visit Provider Nurse Practitioner Family
DX: I48.19 Other persistent atrial fibrillation (principal)
CPT/HCPCS: 93242

== ENCOUNTER 2022-10-10 12:38 | Outpatient (REF) | payer MEDICARE, SELFPAY ==
[2022-10-10 16:48] LABS: Prostate Specific Antigen 1.83 ng/mL (<0.05-4.0)
== END 2022-10-10 12:39 | disposition home or self-care (01) ==
LOC: HO.LAB 12:38
PROVIDERS: Urology; PCP Internal Medicine; Referring Provider Internal Medicine; Visit Provider Internal Medicine Cardiovascular Disease
DX: I48.0 Paroxysmal atrial fibrillation (principal); I10 Essential (primary) hypertension; N40.1 Benign prostatic hyperplasia with lower urinary tract symptoms; Z12.5 Encounter for screening for malignant neoplasm of prostate; Z79.899 Other long term (current) drug therapy
CPT/HCPCS: 36415; 84153; 93005; 99212

== ENCOUNTER → 2022-10-28 10:40 | Outpatient (BNVA) | payer MEDICARE, SELFPAY | PROVIDERS: PCP Internal Medicine; Visit Provider Internal Medicine | DX: J44.1 Chronic obstructive pulmonary disease with (acute) exacerbation (principal); G47.33 Obstructive sleep apnea (adult) (pediatric); G47.34 Idiopathic sleep related nonobstructive alveolar hypoventilation; E66.9 Obesity, unspecified; Z68.35 Body mass index [BMI] 35.0-35.9, adult | CPT/HCPCS: 99212 ==

== ENCOUNTER → 2022-12-11 14:32 | Outpatient (BNVA) | payer MEDICARE, SELFPAY | PROVIDERS: PCP Internal Medicine; Visit Provider Nurse Practitioner Family | DX: J44.1 Chronic obstructive pulmonary disease with (acute) exacerbation (principal) | CPT/HCPCS: 99212 ==

== ENCOUNTER → 2022-12-23 10:06 | Outpatient (BNVA) | payer MEDICARE, SELFPAY | PROVIDERS: PCP Internal Medicine; Visit Provider Internal Medicine | DX: J44.9 Chronic obstructive pulmonary disease, unspecified (principal); J98.4 Other disorders of lung; E66.9 Obesity, unspecified; Z68.35 Body mass index [BMI] 35.0-35.9, adult; G47.33 Obstructive sleep apnea (adult) (pediatric); G47.34 Idiopathic sleep related nonobstructive alveolar hypoventilation | CPT/HCPCS: 99212 ==

== ENCOUNTER → 2023-01-13 09:51 | Outpatient (BNVA) | payer MEDICARE, SELFPAY | PROVIDERS: PCP Internal Medicine; Referring Provider Internal Medicine; Visit Provider Internal Medicine Cardiovascular Disease | DX: Z86.79 Personal history of other diseases of the circulatory system (principal); Z79.01 Long term (current) use of anticoagulants | CPT/HCPCS: 93005; Q3014 ==

== ENCOUNTER 2023-01-24 10:48 | Outpatient (REF) | payer MEDICARE, SELFPAY ==
[2023-01-24 11:04] LABS: MANUAL DIFF FLAG NO
[2023-01-24 11:18] LABS: Basophils Percent Auto 0.7 % (0-2); Eosinophils Absolute Auto 0.1 X10*3/uL (0.0-0.4); Eosinophils Percent Auto 2.2 % (0-4); Hematocrit 41.1 % (42.0-52.0); Hemoglobin 13.1 g/dl (14.0-18.0); Imm Gran Abs Auto 0.01 X10*3/uL (0.00-0.03); Imm Gran Pct Auto 0.2 % (0.0-0.4); Lymphocytes Absolute Auto 1.6 X10*3/uL (1.2-4.9); Lymphocytes Percent Auto 26.7 % (20-40); Mean Corpuscular HGB Conc 31.9 g/dl (31.0-36.0); Mean Corpuscular Hemoglobin 26.8 pg (27.0-33.0); Mean Corpuscular Volume 84.2 fL (80.0-98.0); Mean Platelet Volume 9.5 fL (9.4-12.4); Monocytes Absolute Auto 0.7 X10*3/uL (0.1-1.2); Monocytes Percent Auto 12.3 % (2-11); Neutrophils Absolute Auto 3.4 x10*3/uL (2.0-8.3); Neutrophils Percent Auto 57.9 % (45-73); Platelet Count 181 X10*3/uL (160-400); Red Blood Count 4.88 X10*6/uL (4.60-5.80); Red Cell Distribution Width 14.7 % (11.0-16.0); White Blood Count 5.8 X10*3/uL (4.8-10.8)
[2023-01-24 12:15] LABS: Appearance Urine Clear; Color Urine Yellow; Glucose Urine UA Negative (Negative); Leukocyte Esterase Urine Negative (Negative); Nitrite Urine Negative (Negative); PH 7.5 (5.0-9.0); Urine Blood Negative (Negative); Urine Ketones Negative (Negative); Urine Protein Negative (Neg-Trace)
[2023-01-24 12:58] LABS: Alanine Aminotransferase 28 U/L (0-40); Albumin Level 3.9 g/dL (3.5-5.0); Alkaline Phosphatase 39 U/L (39-117); Anion Gap 11 (12-20); Aspartate Amino Transferase 32 U/L (5-37); Blood Urea Nitrogen 21 mg/dL (9-16); Calcium 9.3 mg/dL (8.4-10.2); Carbon Dioxide 31 mmol/L (22-29); Chloride 102 mmol/L (96-108); Cholesterol 163 mg/dL; Estimated Glomerular Filt Rate 58; Glucose Fasting 91 mg/dL (60-99); HDL Cholesterol 53 mg/dL; LDL Cholesterol Calculated 95 mg/dl; Potassium 4.4 mmol/L (3.3-5.1); Sodium 140 mmol/L (135-145); TSH reflex Free T4 0.82 uIU/mL (0.32-4.0); Triglycerides 75 mg/dL; Vitamin D 25-OH Total 32.4 ng/mL (>30)
[2023-01-24 13:08] LABS: Folate 13.5 ng/mL (> or = 4.0); Vitamin B12 842 pg/mL (200-900)
[2023-01-27 17:52] LABS: Lyme Abs Screen <0.90 index
== END 2023-01-24 10:49 | disposition home or self-care (01) ==
LOC: HO.LAB 10:48
PROVIDERS: PCP Internal Medicine; Visit Provider Internal Medicine
DX: E55.9 Vitamin D deficiency, unspecified (principal); E53.8 Deficiency of other specified B group vitamins; R30.0 Dysuria; E78.00 Pure hypercholesterolemia, unspecified; I10 Essential (primary) hypertension; T14.8XXA Other injury of unspecified body region, initial encounter; W57.XXXA Bitten or stung by nonvenomous insect and other nonvenomous arthropods, initial encounter; Y93.9 Activity, unspecified; Y92.9 Unspecified place or not applicable; Y99.9 Unspecified external cause status
CPT/HCPCS: 36415; 80053; 80061; 81003; 82306; 82607; 82746; 84443; 85025; 86617; 86618

== ENCOUNTER 2023-02-10 10:02 | Outpatient (AMB) | payer MEDICARE, SELFPAY ==
--- NOTE | 2023-02-10 10:29 | MHC.OFFVIS ---
Intake Vital Signs 02/10/23 10:30 Height 5 ft 11 in Weight 256 lb BMI 35.7 BP 152/62 H Blood Pressure Location Lt brachial Position Sitting Pulse 76 Pulse Source Pulse Oximeter Temp 99.2 F Temp Source Temporal Artery Scan Pulse Oximetry (%) 94 Oxygen Delivery Method Room Air Intake Visit Reasons: Asthma Intake Note: pt is here for follow up and is not feeling well, bi pap usage is emmanuel poor, Multimedia Engineer Required: No Allergies Sulfa (Sulfonamide Antibiotics) Allergy (Mild, Verified 02/10/23 10:42) RASH, BLISTERS codeine [Codeine] Allergy (Unknown, Verified 02/10/23 10:42) HALLUCINATIONS Medication List - Last Reconciled 02/10/23 by Geovanni Larson MD Advair Diskus 500-50 mcg/dose (fluticasone propion-salmeterol) 1 inh inhalation BID 90 days NS albuterol sulfate 90 mcg/actuation (Ventolin HFA) 1 inh inhalation QID PRN 90 days apixaban (Eliquis) 5 mg PO BID 90 days atenolol 25 mg PO BID 10 days B-complex with vitamin C 1 tab PO DAILY budesonide ER 3 mg PO Q OTHER DAY desoximetasone 0.05% 1 appl topical BID PRN dronedarone (Multaq) 400 mg PO BID ezetimibe 10 mg PO DAILY 90 days furosemide 80 mg PO DAILY 90 days gabapentin 300 mg PO BID 90 days hydrochlorothiazide 25 mg PO DAILY 90 days ipratropium-albuterol 0.5 mg-3 mg(2.5 mg base)/3 mL 3 mL inhalation Q6H PRN latanoprost 0.005% 1 drp ophthalmic-Right BEDTIME lisinopril 30 mg (1.5 x 20 mg) PO BID 90 days lorazepam 0.5 mg PO BEDTIME PRN 30 days omeprazole 20 mg PO DAILY 90 days pravastatin 20 mg PO DAILY 90 days prednisone 20 mg PO ONCE 7 days MDD copd excarbation tamsulosin 0.4 mg PO DAILY 90 days triamcinolone acetonide 0.5% 1 appl topical TID PRN umeclidinium 62.5 mcg/actuation (Incruse Ellipta) 1 inh inhalation DAILY Do you need a note to return to daycare/school/sports/work: No HPI Asthma HPI Details 82 years old gentleman comes after 2 months for follow-up. He has had a few acute exacerbations of his COPD during these last 2 months requiring short courses of prednisone and antibiotics. The only antibiotic that he tolerates well is Keflex. Today he claims that he is feeling warm and say is that he is prone to get recurrent chest infection. He is having is scratchy feeling in his throat. Has been feeling quite warm and sweaty off and on. Has not been able to use BiPAP, and sleep has been somewhat fragmented. He has tried his best to use CPAP or BiPAP without much success. His sleep study had shown only mild AMITA with total sleep time AHI 6.4, but he had nocturnal hypoxemia, we had hoped will be corrected by use of BiPAP. 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 In addition to that he has been asking for prednisone quite often. [facility] Medical History Asthma Benign essential hypertension Benign prostatic hyperplasia COPD (chronic obstructive pulmonary disease) Eosinophilic colitis GERD without esophagitis Hemorrhoids with complication Neuropathy Nocturnal hypoxemia Obesity (BMI 30-39.9) AMITA (obstructive sleep apnea) Pure hypercholesterolemia Restrictive lung disease Surgical History History of hernia surgery History of tonsillectomy Family History Brother Lung cancer Social History Housing: House Alcohol intake: never Patient Tobacco Use Status: Former Tobacco user Quit Date: 1966 e-Cigarette/Vaping Use: Never Used Second Hand Smoke Exposure: Yes service: No Current occupational status: retired Cognitive needs: No Hearing needs: No Vision needs: Yes Review of Systems Const All systems reviewed & are unremarkable except as noted in HPI and below Eyes Reports no additional complaints ENT Reports no additional complaints and Reports sore throat (COMPLAINS OF SCRATCHY THROAT FOR THE LAST FEW DAYS.) Card Denies chest pain, Reports irregular heart rhythm (HAS PAROXYSMAL ATRIAL FIB) and Reports leg edema (RIGHT LEG) Resp Reports as per HPI GI Details: CHRONIC INFLAMMATORY BOWEL DISEASE UNDER CONTROL. Reports no additional complaints Musc Reports no additional complaints Skin/Breast Reports system reviewed and no additional complaints, except as documented Neuro Reports no additional complaints Psych Reports no additional complaints Physical Exam Vital Signs: Last Vital Signs Temp 99.2 F 02/10/23 10:30 Pulse 76 02/10/23 10:30 BP 152/62 H 02/10/23 10:30 Pulse Ox 94 02/10/23 10:30 Oxygen Delivery Method Room Air 02/10/23 10:30 BMI result Body Mass Index 35.7 Const Other: HE IS VISIBLY, GROSSLY OBESE General: comfortable, no acute distress, alert and awake Orientation/consciousness: patient oriented x3 HEENT Head: Yes normal to inspection General nose exam: No nasal polyps present and No nasal discharge present Face and sinus: Yes sinuses nontender Mouth: oropharynx normal Throat: Yes posterior oropharynx normal and Yes posterior oropharynx abnormal (MILD ERYTHEMA NOTED) Eyes General: appearance normal, both eyes and all related structures Neck Neck: Yes normal visual inspection, Yes no lymphadenopathy, Yes trachea midline and Yes no JVD Thyroid: Thyroid normal Chest Chest palpation & inspection: normal inspection of the chest, normal palpation of entire chest wall and no tenderness Resp Other: PERCUSSION NOTE IS NOT PERCEPTIBLE BECAUSE OF THE THICK CHEST WALL, BREATH SOUNDS ARE DISTANT ESPECIALLY DECREASED OVER THE BASILAR AREAS. NO WHEEZES RHONCHI OR CREPITATIONS ARE HEARD TODAY. Cardio Palpation: PMI not normal (NOT PALPABLE) Rate: regular rate Rhythm: abnormal rhythm (ATRIAL FIB) Heart sounds: Gallop heart sound present and Murmur heart sound present GI Palpation (GI): Soft to palpation, nontender, No hepatosplenomegaly present, no masses and Other GI palpation findings present (ABDOMEN IS OBESE AND PROTUBERANT) Auscultation: normal bowel sounds Back/Spine/Pelvis Thoracic/Lumbar Spine: thoracic and lumbar spine normal to inspection Skin General skin exam: no rashes or lesions noted (EXCEPT ON RIGHT LEG, THERE IS REDNESS AND WARM TO TOUCH.) Neuro General: patient oriented x3 and no focal motor deficits Cranial nerves: Yes CN's II-XII intact bilaterally Extrem General: Yes normal to inspection, Yes no calf tenderness and Yes venous stasis dermatitis (RIGHT LEG) Psych Appearance: grossly normal and well kempt Speech and movement: Normal speech and movement present Assessment & Plan Assessment & Plan (1) Obesity (BMI 30-39.9): Comment: HE IS FULLY AWARE OF BEING OBESE, LIVES ALONE AND TRIES TO RESTRICT HIS CALORIES INTAKE. BUT DOES NOT HAVE MUCH ACTIVITY SO HE IS NOT ABLE TO LOSE WEIGHT. Code(s): E66.9 - Obesity, unspecified (2) Restrictive lung disease: Comment: BECAUSE OF HIS OBESITY I SUSPECT THAT HE HAS MILD TO MODERATE DEGREE OF RESTRICTIVE LUNG DISEASE WELL. AGAIN ADVISED TO LOOSW WEIGHT . AND DO DEEP BREATHING EXERCISES TID . Code(s): J98.4 - Other disorders of lung (3) COPD (chronic obstructive pulmonary disease): Comment: MODERATELY SEVERE OBSTRUCTIVE AIRWAY DISORDER. CONTINUES TO HAVE FREQUENT ACUTE EXACERBATIONS, REQUESTING FREQUENT USE OF PREDNISONE AND ANTIBIOTICS. HOWEVER HE CONTINUES TO BE AT HIGHER RISK OF GETTING FREQUENT EXACERBATIONS. TX: ADVAIR -500 HOLD FOR ONE WEEK THE START ONLY ONE INH . DAILY. GARGLE THE THROAT WELL AFTER USING ADVAIR . DUO-NEB ( IPRATROPIUM-ALBUTERL ) UP DRAFTS QID *DISCUSSED ABOUT INCRUSE , LONG HE USES DUONEB UPDRAFT Q 6 HOURS WHILE AWAKE. HE MAY GO WITHOUT USING INCRUSE ELLIPTA. BECAUSE OF FREQUENT EXCERBATIONS , I HAVE ORDERED LAB TESTS . PREDNISONE 5 MG DAILY AND AZITHROMYCIN 250 MG ON ALT . DAYS . Abuterol HFA 2 puffs Q 4-6 hours only p.r.n.. when out doors , but avoid excessive use Code(s): J44.9 - Chronic obstructive pulmonary disease, unspecified Qualifiers: COPD type: unspecified COPD Qualified Code(s): J44.9 - Chronic obstructive pulmonary disease, unspecified (4) Asthma: Comment: HE HAS ASTHMA/COPD OVERLAP SYNDROME. TREATMENT UNDER COPD. CBC WITH DIFF, CRP, SED RATE, IGE ARE ORDERED Code(s): J45.909 - Unspecified asthma, uncomplicated (5) AMITA (obstructive sleep apnea): Comment: PATIENT HAS MILD AMITA, .ALONG WITH NOCTURNAL HYPOXEMIA HE HAS TRIED HIS BEST AND CANNOT USE THE CPAP OR BIPAP AT NIGHT. AT THIS POINT OUR GOAL WILL BE JUST TO TREAT HIS NOCTURNAL HYPOXEMIA. AN OVERNIGHT OXIMETRY RECORDING TEST IS ORDERED, AND ONCE SHE IS QUALIFIED HE WILL BE STARTED ON OXYGEN AT NIGHT. Code(s): G47.33 - Obstructive sleep apnea (adult) (pediatric) (6) Nocturnal hypoxemia: Comment: IN HIS HOME-BASED SLEEP STUDY IT WAS THE RECORDED THAT HE DOES HAVE SOME HYPOXEMIA AT NIGHT. IT WAS EXPECTED TO RESOLVE WITH THE APPLICATION OF BIPAP, WHICH HE WAS NOT ABLE TO DO. THUS I WOULD PLAN TO START HIM ON O2 2 L/MINUTE AT NIGHT. Code(s): G47.34 - Idiopathic sleep related nonobstructive alveolar hypoventilation Orders: Orders CRP High Sensitivity Today J44.9 - Chronic obstructive pulmonary disease, unspecified, J45.909 - Unspecified asthma, uncomplicated Complete Blood Count Auto Diff Today G47.34 - Idiopathic sleep related nonobstructive alveolar hypoventilation, J44.9 - Chronic obstructive pulmonary disease, unspecified, J45.909 - Unspecified asthma, uncomplicated Erythrocyte Sedimentation Rate Today J44.9 - Chronic obstructive pulmonary disease, unspecified, J45.909 - Unspecified asthma, uncomplicated Immunoglobulin E Today J44.9 - Chronic obstructive pulmonary disease, unspecified, J45.909 - Unspecified asthma, uncomplicated, K52.82 - Eosinophilic colitis Medications: New azithromycin 250 mg PO .ALTERNATED DAYS 15 tabs 3RF COPD/BRONCHITIS 30 days prednisone 5 mg PO DAILY 30 tabs 3RF ASTHMA 30 days Coding Level of Care Code Est Pt Level 4 (11583) Diagnoses Obesity (BMI 30-39.9) E66.9 Restrictive lung disease J98.4 COPD (chronic obstructive pulmonary disease) J44.9 COPD type: unspecified COPD Asthma J45.909 AMITA (obstructive sleep apnea) G47.33 Nocturnal hypoxemia G47.34
[2023-02-10 10:30] VITALS: BP 152/62; PULSE 76; TEMP 37.3; O2SAT 94; BMI 35.7
== END 2023-02-10 10:35 | disposition home or self-care (01) ==
PROVIDERS: PCP Internal Medicine; Visit Provider Internal Medicine
DX: J45.909 Unspecified asthma, uncomplicated (principal); E66.9 Obesity, unspecified; J98.4 Other disorders of lung; G47.33 Obstructive sleep apnea (adult) (pediatric); G47.34 Idiopathic sleep related nonobstructive alveolar hypoventilation
CPT/HCPCS: 99214

== ENCOUNTER 2023-02-10 10:02 | Outpatient (REF) | payer MEDICARE, SELFPAY ==
[2023-02-12 16:28] LABS: CRP High Sensitivity >10.0 mg/L
[2023-02-14 06:33] LABS: Immunoglobulin E 5519 kU/L (<OR=114)
== END 2023-02-10 10:03 | disposition home or self-care (01) ==
LOC: HO.LAB 10:02
PROVIDERS: PCP Internal Medicine; Visit Provider Internal Medicine
DX: J44.9 Chronic obstructive pulmonary disease, unspecified (principal); J98.4 Other disorders of lung; G47.33 Obstructive sleep apnea (adult) (pediatric); G47.34 Idiopathic sleep related nonobstructive alveolar hypoventilation; K52.82 Eosinophilic colitis; E66.9 Obesity, unspecified; Z79.899 Other long term (current) drug therapy
CPT/HCPCS: 36415; 82785; 85025; 85652; 86141; 99212

== ENCOUNTER → 2023-02-17 08:47 | Outpatient (REF) | payer MEDICARE, SELFPAY ==
--- NOTE | 2023-02-17 08:49 | CA_ITS ---
Transthoracic Echocardiogram Patient (Last, First, Middle): Noel Wiggins P Gender: Male Date of : 1940 Age: 82 Procedure Date: 02/17/2023 Procedure Type: Transthoracic Echocardiogram Location: OP Height: 180.34 cm Weight: 112.49 kg BSA: 2.31 m2 Heart Rate: bpm BP: 135 / 67 mmHg Digital Marketing Manager: WILI Referring MD: Ronnie Bill MD Mechanic Welder: Ronnie Bill MD Symptoms: I48.0 - Paroxysmal atrial fibrillation Study Quality: Fair ECG Rhythm: Sinus Conclusions: - 1. Normal LV systolic function with LVEF of 60 65% with sudden normal filling pattern 2. Mildly dilated left atrium 3. Normal cardiac valvular Dopplers 4. Normal RV systolic pressure 5. Mildly dilated ascending aorta at 3.9 cm 6. No gross pericardial effusion Findings Left Ventricle Normal left ventricular size, thickness, and systolic function. The visually estimated ejection fraction is between 60-65%. Spectral Doppler is indicative of a pseudonormal filling pattern. E/E prime ratio is between 8 and 15 consistent with indeterminate filling pressures. Right Ventricle Normal right ventricular cavity size and systolic function. Atria The left atrium is mildly dilated. There is lipomatous hypertrophy of the interatrial septum. There is no evidence of interatrial shunt. The right atrium is likely dilated. Aortic Valve There is mild calcification of the aortic valve. There is no aortic valve stenosis. There is no aortic valve regurgitation. Mitral Valve There is mild mitral annular calcification. There is trace mitral valve regurgitation. There is no mitral valve stenosis. Pulmonic Valve The pulmonic valve is likely normal. There is trace pulmonic valve regurgitation. Tricuspid Valve Normal tricuspid valve structure. There is mild tricuspid valve regurgitation. The right ventricular systolic pressure is normal. The right ventricular systolic pressure is 34 mmHg. Normal right atrial pressure. There is no evidence of pulmonary hypertension. Great Vessels The pulmonary artery was not well visualized. There is mild dilatation of the ascending aorta measuring 3.90 cm. Venous The inferior vena cava is normal in size and collapses greater than 50% with inspiration. Pericardium/Pleural There is no evidence of pericardial effusion. Prior Study Comparison No significant change compared to prior study dated: 08/06/2021. Measurements 2D Linear Measurements IVSd: 1.13 0.6-0.9/0.6-1.0 cm LVIDd: 5.67 3.9-5.3/4.2-5.9 cm LVIDd Index: 2.45 2.4-3.2/2.2-3.1 cm/m2 LVIDs: 3.09 2.0-3.6 cm LVPWd: 1.08 0.7-1.1 cm LA Diam: 4.20 2.7-3.8/3.0-4.0 cm LAIDs Index: 1.82 1.5-2.3 cm/m2 LV Mass: 319.30 67-162/88-224 g LV Mass Index: 138.23 43-95/49-115 g/m2 LVOT Diam: 2.50 3.0+(-)1.3 cm 2D Systolic Function EF 4C: 63.80 >55% EF 2C: 64.00 >55% EF BiP: 64.20 >55% Mitral Valve MV Pk E: 1.05 MV PK A: 0.68 MV Decel Time: 231.00 E/A: 1.50 E'Lateral: 11.80 E'Medial: 7.62 E/E' Med: 13.80 E/E' Lat: 8.90 PHT: 68.00 MVA PHT: 3.24 Decel [place]: 4.53 Aortic Valve AoV Pk Syed: 1.32 AoV Mn Syed: 0.91 AoV VTI: 0.34 AoV Pk Grad: 7.00 Aov Mn Grad: 4.00 SILVER Cont.VTI: 3.70 LVOT LVOT Pk Syed: 0.98 LVOT Mn Syed: 0.68 LVOT VTI: 0.25 LVOT Pk Grad: 4.00 LVOT Mn Grad: 2.00 LVOT Diam: 2.50 LVOT Area: 4.91 Diastolic Function MV Pk E: 1.05 MV Pk A: 0.68 E/A: 1.50 E'Medial: 7.62 E/E' Med: 13.80 E' Laterial: 11.80 E/E' Lat: 8.90 Right Ventricle TAPSE (mm): 27.60 TVS' Syed: 16.50 Tricuspid Valve TR Pk Syed: 2.55 TR Pk Grad: 26.00 RA Press: 8.00 RVSP: 34.00 Great Vessels Aorta Sinus of Valsalva: 4.22 2.0-3.[address] [place]: 3.11 1.7-3.4 cm Ao Asc: 3.90 2.1-3.4 cm Updated in Other Vendor System with Status of Final Ronnie Bill MD electronically signed on 02/18/2023 8:37:47 AM with status of Final
== END ==
LOC: HO.CARD 08:47
PROVIDERS: PCP Internal Medicine; Visit Provider Internal Medicine Cardiovascular Disease
DX: I48.0 Paroxysmal atrial fibrillation (principal)
CPT/HCPCS: 93306

== ENCOUNTER → 2023-02-17 08:49 | Outpatient (BNV) | payer MEDICARE, SELFPAY | PROVIDERS: PCP Internal Medicine; Visit Provider Internal Medicine Cardiovascular Disease | DX: I36.1 Nonrheumatic tricuspid (valve) insufficiency (principal); I35.8 Other nonrheumatic aortic valve disorders | CPT/HCPCS: 93306 ==

== ENCOUNTER 2023-04-15 13:17 | Outpatient (REF) | payer MEDICARE, SELFPAY ==
[2023-04-15 15:22] LABS: Anion Gap 12 (12-20); Blood Urea Nitrogen 18 mg/dL (9-16); Carbon Dioxide 31 mmol/L (22-29); Chloride 102 mmol/L (96-108); Estimated Glomerular Filt Rate 56; Glucose Random 110 mg/dL (60-115); Potassium 4.6 mmol/L (3.3-5.1); Sodium 140 mmol/L (135-145)
== END 2023-04-15 13:18 | disposition home or self-care (01) ==
LOC: HO.LAB 13:17
PROVIDERS: PCP Internal Medicine; Referring Provider Internal Medicine; Visit Provider Internal Medicine Cardiovascular Disease
DX: I48.0 Paroxysmal atrial fibrillation (principal); I10 Essential (primary) hypertension
CPT/HCPCS: 36415; 80048; 93005; 99212

== ENCOUNTER 2023-04-15 13:17 | Outpatient (AMB) | payer MEDICARE, SELFPAY ==
--- NOTE | 2023-04-15 13:21 | MHC.OFFVIS ---
Intake Vital Signs 04/15/23 13:23 Height 5 ft 11 in Weight 255 lb 11.779 oz BMI 35.7 BP 120/80 Blood Pressure Location Lt brachial Position Sitting Pulse 60 Intake Visit Reasons: 6 mth w/ ekg Intake Note: 6 month follow-up with ekg feeling good can have skipped beats sometimes Manager Management Required: No Allergies Sulfa (Sulfonamide Antibiotics) Allergy (Mild, Verified 02/10/23 10:42) RASH, BLISTERS codeine [Codeine] Allergy (Unknown, Verified 02/10/23 10:42) HALLUCINATIONS Medication List - Last Reconciled 04/15/23 by Ronnie Bill MD Advair Diskus 500-50 mcg/dose (fluticasone propion-salmeterol) 1 inh inhalation BID 90 days NS albuterol sulfate 90 mcg/actuation (Ventolin HFA) 1 inh inhalation QID PRN 90 days apixaban (Eliquis) 5 mg PO BID 90 days atenolol 25 mg PO BID 10 days azithromycin 250 mg PO .ALTERNATED DAYS 30 days B-complex with vitamin C 1 tab PO DAILY budesonide ER 3 mg PO Q OTHER DAY desoximetasone 0.05% 1 appl topical BID PRN dronedarone (Multaq) 400 mg PO BID 1 week ezetimibe 10 mg PO DAILY 90 days furosemide 80 mg PO DAILY 90 days gabapentin 300 mg PO BID 90 days hydrochlorothiazide 25 mg PO DAILY 90 days ipratropium-albuterol 0.5 mg-3 mg(2.5 mg base)/3 mL 3 mL inhalation Q6H PRN latanoprost 0.005% 1 drp ophthalmic-Right BEDTIME lisinopril 30 mg (1.5 x 20 mg) PO BID 90 days lorazepam 0.5 mg PO BEDTIME PRN 30 days omeprazole 20 mg PO DAILY 90 days pravastatin 20 mg PO DAILY 90 days prednisone 20 mg PO ONCE 7 days MDD copd excarbation prednisone 5 mg PO DAILY 30 days tamsulosin 0.4 mg PO DAILY 90 days triamcinolone acetonide 0.5% 1 appl topical TID PRN umeclidinium 62.5 mcg/actuation (Incruse Ellipta) 1 inh inhalation DAILY HPI HPI Comments History of Present Illness Details Noel comes for follow-up. He says he occasionally about twice a month he feels some fluttering in his chest that last for few seconds. These are not very bothersome. No prolonged irregular heartbeat or palpitations. Tolerating Multaq well. No bleeding issues or neurologic events. Denies any worsening shortness of breath, orthopnea, PND. Using CPAP regularly. Taking all his medications. [facility] Medical History Asthma Nocturnal hypoxemia AMITA (obstructive sleep apnea) Hemorrhoids with complication Benign prostatic hyperplasia GERD without esophagitis Pure hypercholesterolemia Benign essential hypertension Eosinophilic colitis Neuropathy Obesity (BMI 30-39.9) Restrictive lung disease COPD (chronic obstructive pulmonary disease) Surgical History History of tonsillectomy History of hernia surgery Family History Brother Lung cancer Social History Housing: House Alcohol intake: never Patient Tobacco Use Status: Former Tobacco user Quit Date: 1966 e-Cigarette/Vaping Use: Never Used Second Hand Smoke Exposure: Yes service: No Current occupational status: retired Cognitive needs: No Hearing needs: No Vision needs: Yes Review of Systems Const Denies chills, Denies fatigue, Denies fever(s), Denies frequent falls, Denies weakness, Denies weight gain and Denies weight loss ENT Denies dizziness Card Denies chest pain, Denies leg edema, Denies lightheadedness, Denies palpitations, Denies dyspnea, Denies dyspnea on exertion, Denies orthopnea and Denies other (loss of consciousness) Resp Denies cough, Denies dyspnea and Denies dyspnea on exertion GI Denies hematochezia and Denies change in stool character Musc Denies abnormal gait, Denies muscle weakness, Denies numbness, Denies radiating pain into limb and Denies tingling Neuro Denies abnormal gait, Denies dizziness, Denies frequent falls, Denies numbness, Denies tingling and Denies weakness Endo Denies fatigue and Denies palpitations Physical Exam Vital Signs: Last Vital Signs Pulse 60 04/15/23 13:23 BP 120/80 04/15/23 13:23 BMI result Body Mass Index 35.7 Const General: cooperative, no acute distress, alert and awake Orientation/consciousness: patient oriented x3 Neck Neck: Yes normal visual inspection and Yes no JVD Resp Effort & Inspection: normal respiratory effort, able to speak in complete sentences and not labored Auscultation: clear to auscultation bilaterally, no crackles, no rales, no rhonchi and no wheezes Cardio Rate: regular rate Rhythm: regular rhythm Heart sounds: S1 normal heart sound present and S2 normal heart sound present Peripheral pulses: Peripheral pulses 2+ throughout GI Inspection: Yes normal to inspection Neuro General: patient oriented x3 Extrem General: Yes normal to inspection and No edema Office Procedures EKG Details: EKG shows normal sinus rhythm with moderate voltage criteria for LVH otherwise normal EKG with [place] [id number], Complete Assessment & Plan Assessment & Plan (1) Paroxysmal atrial fibrillation: Code(s): I48.0 - Paroxysmal atrial fibrillation Plan: Paroxysmal atrial fibrillation which predominantly has been suppressed on Multaq therapy. Occasional intermittent fluttering which is most likely suggestive PACs. Tolerating Multaq therapy well and advised to continue the same. He has benefited from rhythm control approach will continue pursue rhythm control approach. Continue full oral anticoagulation, currently on Eliquis 5 mg b.i.d.. Says will check basic metabolic profile today. Semi annual renal function test is recommended. Continue risk factor modification. Avoidance of stimulants was discussed. Continue aggressive blood pressure control, see below. Continue CPAP therapy. Continue participate in weight loss program. (2) Benign essential hypertension: Code(s): I10 - Essential (primary) hypertension Plan: Hypertension which is currently well optimized. Continue current therapy. Importance of good blood pressure control was discussed. Target goal blood pressure less than 130/84. Advised to monitor blood pressure at home and maintain a log. Low-salt diet was discussed. Follow up in the clinic in 3 months for EKG in 6 months with me. Thank you for allowing me to partake in his care Orders: Orders Basic Metabolic Panel Today I48.0 - Paroxysmal atrial fibrillation Coding Level of Care Code Est Pt Level 4 (46966) Diagnoses Paroxysmal atrial fibrillation I48.0 Benign essential hypertension I10 CPT Codes EKG - CPT: 38014-[id number], Complete ([id number])
[2023-04-15 13:23] VITALS: BP 120/80; PULSE 60; BMI 35.7
== END 2023-04-15 14:14 | disposition home or self-care (01) ==
PROVIDERS: PCP Internal Medicine; Referring Provider Internal Medicine; Visit Provider Internal Medicine Cardiovascular Disease
DX: I48.0 Paroxysmal atrial fibrillation (principal); I10 Essential (primary) hypertension
CPT/HCPCS: 93010; 99214

== ENCOUNTER 2023-04-28 10:09 | Outpatient (AMB) | payer MEDICARE, SELFPAY ==
--- NOTE | 2023-03-20 16:53 | MHC.OFFVIS ---
Intake Intake Visit Reasons: Asthma Allergies Sulfa (Sulfonamide Antibiotics) Allergy (Mild, Verified 02/10/23 10:42) RASH, BLISTERS codeine [Codeine] Allergy (Unknown, Verified 02/10/23 10:42) HALLUCINATIONS [facility] Medical History Asthma Benign essential hypertension Benign prostatic hyperplasia COPD (chronic obstructive pulmonary disease) Eosinophilic colitis GERD without esophagitis Hemorrhoids with complication Neuropathy Nocturnal hypoxemia Obesity (BMI 30-39.9) AMITA (obstructive sleep apnea) Pure hypercholesterolemia Restrictive lung disease Surgical History History of hernia surgery History of tonsillectomy Family History Brother Lung cancer Social History Housing: House Alcohol intake: never Patient Tobacco Use Status: Former Tobacco user Quit Date: 1966 e-Cigarette/Vaping Use: Never Used Second Hand Smoke Exposure: Yes service: No Current occupational status: retired Cognitive needs: No Hearing needs: No Vision needs: Yes Coding Diagnoses
[2023-04-28 10:18] VITALS: BP 122/70; PULSE 62; O2SAT 97; BMI 35.6
--- NOTE | 2023-04-28 10:18 | A.OFFVIS_ITS ---
Intake Vital Signs 04/28/23 10:18 Height 5 ft 11 in Weight 255 lb BMI 35.6 BP 122/70 Blood Pressure Location Lt brachial Position Sitting Pulse 62 Pulse Source Pulse Oximeter Pulse Oximetry (%) 97 Oxygen Delivery Method Room Air Intake Visit Reasons: Asthma Intake Note: pt is here for follow up and states he stated he started keflex a week ago, it's getting better. [employer] Department Required: No Allergies Sulfa (Sulfonamide Antibiotics) Allergy (Mild, Verified 04/28/23 10:45) RASH, BLISTERS codeine [Codeine] Allergy (Unknown, Verified 04/28/23 10:45) HALLUCINATIONS Medication List - Last Reconciled 04/28/23 by Geovanni Larson MD Advair Diskus 500-50 mcg/dose (fluticasone propion-salmeterol) 1 inh inhalation BID 90 days NS albuterol sulfate 90 mcg/actuation (Ventolin HFA) 1 inh inhalation QID PRN 90 days apixaban (Eliquis) 5 mg PO BID 90 days atenolol 25 mg PO BID 10 days B-complex with vitamin C 1 tab PO DAILY budesonide ER 3 mg PO Q OTHER DAY cephalexin 500 mg PO TID desoximetasone 0.05% 1 appl topical BID PRN dronedarone (Multaq) 400 mg PO BID 1 week ezetimibe 10 mg PO DAILY 90 days furosemide 80 mg PO DAILY 90 days gabapentin 300 mg PO BID 90 days hydrochlorothiazide 25 mg PO DAILY 90 days ipratropium-albuterol 0.5 mg-3 mg(2.5 mg base)/3 mL 3 mL inhalation Q6H PRN latanoprost 0.005% 1 drp ophthalmic-Right BEDTIME lisinopril 20 mg PO DAILY lorazepam 0.5 mg PO BEDTIME PRN 30 days omeprazole 20 mg PO DAILY 90 days pravastatin 20 mg PO DAILY 90 days prednisone 20 mg PO ONCE 7 days MDD copd excarbation prednisone 5 mg PO Q OTHER DAY tamsulosin 0.4 mg PO DAILY 90 days triamcinolone acetonide 0.5% 1 appl topical TID PRN umeclidinium 62.5 mcg/actuation (Incruse Ellipta) 1 inh inhalation DAILY Do you need a note to return to daycare/school/sports/work: No HPI Asthma HPI Details 82 YEARS OLD VERY PLEASANT GENTLEMAN WHO HAS, STEROID DEPENDENT BRONCHIAL ASTHMA/COPD, AND CONTINUES TO HAVE ACUTE EXACERBATION, FOR WHICH HE REQUIRES USE OF HIGHER DOSE OF PREDNISONE AND ANTIBIOTICS QUITE FREQUENTLY ( HE CAN NOT TOLERATE ONLY CEPHALOXIN ) SINCE HIS LAST VISIT 2 MONTHS AGO HE WAS TRIED WITH A SHORT COURSE OF PREDNISONE THEN CONTINUED ON PREDNISONE 5 MG ON ALTERNATE DAYS. HE DID TAKE CEPHALEXIN 500 MG T.I.D. FOR 10 DAYS , AND NOW AGAIN PUT HIMSELF ON THE SAME ANTIBIOTICS SINCE LAST WEEK. WITH THIS COMBINATION HE IS FEELING MUCH BETTER. BUT STILL HAS MILD COUGH AND GETS SHORT OF BREATH EASILY. THIS GENTLEMAN ALSO HAS CHRONIC INFLAMMATORY BOWEL DISEASE AND REMAINS ON BUDESONIDE ER 3 MG ON ALTERNATE DAYS. NOW HE IS ALSO TAKING PREDNISONE 5 MG ON ALTERNATE DAYS. ON HIS LAST VISIT I HAD ORDERED IGE LEVEL, IS CBC WITH DIFF AND CRP LEVELS. EOSINOPHIL COUNT WAS NORMAL ( SECONDARY TO STEROIDS) IGE LEVEL IS MARKEDLY ELEVATED, AND CRP LEVEL WAS ALSO ELEVATED, INDICATORS OF CHRONIC INFLAMMATORY DISEASE . [facility] Medical History Asthma Nocturnal hypoxemia AMITA (obstructive sleep apnea) Hemorrhoids with complication Benign prostatic hyperplasia GERD without esophagitis Pure hypercholesterolemia Benign essential hypertension Eosinophilic colitis Neuropathy Obesity (BMI 30-39.9) Restrictive lung disease COPD (chronic obstructive pulmonary disease) Surgical History History of tonsillectomy History of hernia surgery Family History Brother Lung cancer Social History Housing: House Alcohol intake: never Patient Tobacco Use Status: Former Tobacco user Quit Date: 1966 e-Cigarette/Vaping Use: Never Used Second Hand Smoke Exposure: Yes service: No Current occupational status: retired Cognitive needs: No Hearing needs: No Vision needs: Yes Review of Systems Const All systems reviewed & are unremarkable except as noted in HPI and below Eyes Reports no additional complaints ENT Reports no additional complaints and Reports sore throat (COMPLAINS OF SCRATCHY THROAT FOR THE LAST FEW DAYS.) Card Denies chest pain, Reports irregular heart rhythm (HAS PAROXYSMAL ATRIAL FIB) and Reports leg edema (RIGHT LEG) Resp Reports as per HPI GI Details: CHRONIC INFLAMMATORY BOWEL DISEASE UNDER CONTROL. Reports no additional complaints Musc Reports no additional complaints Skin/Breast Reports system reviewed and no additional complaints, except as documented Neuro Reports no additional complaints Psych Reports no additional complaints Physical Exam Vital Signs: Last Vital Signs Pulse 62 04/28/23 10:18 BP 122/70 04/28/23 10:18 Pulse Ox 97 04/28/23 10:18 Oxygen Delivery Method Room Air 04/28/23 10:18 BMI result Body Mass Index 35.6 Const Other: HE IS VISIBLY, GROSSLY OBESE General: comfortable, no acute distress, alert and awake Orientation/consciousness: patient oriented x3 HEENT Head: Yes normal to inspection General nose exam: No nasal polyps present and No nasal discharge present Face and sinus: Yes sinuses nontender Mouth: oropharynx normal Throat: Yes posterior oropharynx normal and Yes posterior oropharynx abnormal (MILD ERYTHEMA NOTED) Eyes General: appearance normal, both eyes and all related structures Neck Neck: Yes normal visual inspection, Yes no lymphadenopathy, Yes trachea midline and Yes no JVD Thyroid: Thyroid normal Chest Chest palpation & inspection: normal inspection of the chest, normal palpation of entire chest wall and no tenderness Resp Other: PERCUSSION NOTE IS NOT PERCEPTIBLE BECAUSE OF THE THICK CHEST WALL, BREATH SOUNDS ARE DISTANT ESPECIALLY DECREASED OVER THE BASILAR AREAS. NO WHEEZES RHONCHI OR CREPITATIONS ARE HEARD TODAY. Cardio Palpation: PMI not normal (NOT PALPABLE) Rate: regular rate Rhythm: abnormal rhythm (ATRIAL FIB) Heart sounds: Gallop heart sound present and Murmur heart sound present GI Palpation (GI): Soft to palpation, nontender, No hepatosplenomegaly present, no masses and Other GI palpation findings present (ABDOMEN IS OBESE AND PROTUBERANT) Auscultation: normal bowel sounds Back/Spine/Pelvis Thoracic/Lumbar Spine: thoracic and lumbar spine normal to inspection Skin General skin exam: no rashes or lesions noted (EXCEPT ON RIGHT LEG, THERE IS REDNESS AND WARM TO TOUCH.) Neuro General: patient oriented x3 and no focal motor deficits Cranial nerves: Yes CN's II-XII intact bilaterally Extrem General: Yes normal to inspection, Yes no calf tenderness and Yes venous stasis dermatitis (RIGHT LEG) Psych Appearance: grossly normal and well kempt Speech and movement: Normal speech and movement present Assessment & Plan Assessment & Plan (1) Asthma: Comment: HE HAS ASTHMA/COPD OVERLAP SYNDROME. He has frequent acute exacerbations requiring prednisone on an ongoing basis, even though the dozes 5 mg on alternate days. This is in addition to budesonide 3 mg daily for inflammatory bowel disease. His IgE level is markedly elevated (5519 ) c/w CHRONIC INFLAMMATORY DISEASE. CRP= >10 DISCUSSION : DISCUSSED IN DETAIL WITH HIM ABOUT THESE FINDINGS. I EXPLAINED THAT HE MAY BE A GOOD CANDIDATE FOR BIOLOGIC TREATMENT. HE IS AGREEABLE, I WILL ORDER XOLAIR ( IGE ANTAGONIST ) 150 MG SUBQ Q.4 WEEKS, WITH CLOSE FOLLOW-UP. Code(s): J45.909 - Unspecified asthma, uncomplicated (2) AMITA (obstructive sleep apnea): Comment: PATIENT HAS MILD AMITA, .ALONG WITH NOCTURNAL HYPOXEMIA HE HAS TRIED HIS BEST AND CANNOT USE THE CPAP OR BIPAP AT NIGHT. Code(s): G47.33 - Obstructive sleep apnea (adult) (pediatric) (3) Nocturnal hypoxemia: Comment: IN HIS HOME-BASED SLEEP STUDY IT WAS THE RECORDED THAT HE DOES HAVE SOME HYPOXEMIA AT NIGHT. IT WAS EXPECTED TO RESOLVE WITH THE APPLICATION OF BIPAP, WHICH HE WAS NOT ABLE TO DO. THUS I WOULD PLAN TO START HIM ON O2 2 L/MINUTE AT NIGHT. Code(s): G47.34 - Idiopathic sleep related nonobstructive alveolar hypoventilation (4) Restrictive lung disease: Comment: BECAUSE OF HIS OBESITY I SUSPECT THAT HE HAS MILD TO MODERATE DEGREE OF RESTRICTIVE LUNG DISEASE WELL. AGAIN ADVISED TO LOSE WEIGHT . AND DO DEEP BREATHING EXERCISES TID . Code(s): J98.4 - Other disorders of lung (5) Obesity (BMI 30-39.9): Comment: HE IS FULLY AWARE OF BEING OBESE, LIVES ALONE AND TRIES TO RESTRICT HIS CALORIES INTAKE. BUT DOES NOT HAVE MUCH ACTIVITY SO HE IS NOT ABLE TO LOSE WEIGHT. TAKING STEROIDS IN THE FORM OF PREDNISONE 5 MG ON ALTERNATE DAYS AND BUDESONIDE ER 3 MG DAILY, DEFINITELY CONTRIBUTES TO HIS BEING OVERWEIGHT Code(s): E66.9 - Obesity, unspecified (6) COPD (chronic obstructive pulmonary disease): Comment: MODERATELY SEVERE OBSTRUCTIVE AIRWAY DISORDER. CONTINUES TO HAVE FREQUENT ACUTE EXACERBATIONS, REQUESTING FREQUENT USE OF PREDNISONE AND ANTIBIOTICS. HOWEVER HE CONTINUES TO BE AT HIGHER RISK OF GETTING FREQUENT EXACERBATIONS. TX: ADVAIR -500 HOLD FOR ONE WEEK THE START ONLY ONE INH . DAILY. GARGLE THE THROAT WELL AFTER USING ADVAIR . DUO-NEB ( IPRATROPIUM-ALBUTERL ) UP DRAFTS QID PREDNISONE 5 MG P.O. ON ALTERNATE DAYS. Abuterol HFA 2 puffs Q 4-6 hours only p.r.n.. when out doors , but avoid excessive use Code(s): J44.9 - Chronic obstructive pulmonary disease, unspecified Qualifiers: COPD type: unspecified COPD Qualified Code(s): J44.9 - Chronic obstructive pulmonary disease, unspecified Medications: Changed From lisinopril 30 mg (1.5 x 20 mg) PO BID 90 days 270 tabs 3RF To lisinopril 20 mg PO DAILY From prednisone 5 mg PO DAILY 30 days 30 tabs 3RF ASTHMA To prednisone 5 mg PO Q OTHER DAY ASTHMA Coding Level of Care Code Est Pt Level 4 (53788) Diagnoses Asthma J45.909 AMITA (obstructive sleep apnea) G47.33 Nocturnal hypoxemia G47.34 Restrictive lung disease J98.4 Obesity (BMI 30-39.9) E66.9 Chronic obstructive pulmonary disease, unspecified COPD type J44.9 COPD type: unspecified COPD
== END 2023-04-28 10:42 | disposition home or self-care (01) ==
PROVIDERS: PCP Internal Medicine; Visit Provider Internal Medicine
DX: J45.909 Unspecified asthma, uncomplicated (principal); G47.33 Obstructive sleep apnea (adult) (pediatric); G47.34 Idiopathic sleep related nonobstructive alveolar hypoventilation; J98.4 Other disorders of lung; E66.9 Obesity, unspecified; J44.9 Chronic obstructive pulmonary disease, unspecified
CPT/HCPCS: 99214

== ENCOUNTER → 2023-04-28 10:09 | Outpatient (BNVA) | payer MEDICARE, SELFPAY | PROVIDERS: PCP Internal Medicine; Visit Provider Internal Medicine | DX: J44.9 Chronic obstructive pulmonary disease, unspecified (principal); J45.909 Unspecified asthma, uncomplicated; J98.4 Other disorders of lung; G47.33 Obstructive sleep apnea (adult) (pediatric); G47.34 Idiopathic sleep related nonobstructive alveolar hypoventilation; E66.9 Obesity, unspecified; Z68.35 Body mass index [BMI] 35.0-35.9, adult | CPT/HCPCS: 99212 ==

== ENCOUNTER 2023-06-03 03:16 | Emergency (ER) | payer MEDICARE, SELFPAY ==
--- NOTE | 2023-06-03 | ECG_ITS ---
Test Reason : HEART PALPILTATTIONS Blood Pressure : / mmHG Vent. Rate : 078 BPM Atrial Rate : 078 BPM P-R Int : 178 ms QRS Dur : 092 ms QT Int : 396 ms P-R-T Axes : 021 -28 013 degrees QTc Int : 451 ms Normal sinus rhythm Minimal voltage criteria for LVH, may be normal variant ( R in aVL ) Borderline ECG When compared with ECG of 04-SEP-2022 14:02, No significant change was found Referred By: Generic ED Physician Electronically Signed By:RICHIE VILLASENOR MD
[2023-06-03 03:27] VITALS: BP 197/90; PULSE 89; RESP 16; TEMP 36.3; O2SAT 97; BMI 34.6
[2023-06-03 03:48] VITALS: BP 173/88; PULSE 73; RESP 20; O2SAT 98
[2023-06-03 03:51] LABS: MANUAL DIFF FLAG NO
[2023-06-03 03:54] LABS: Basophils Percent Auto 0.3 % (0-2); Eosinophils Absolute Auto 0.1 X10*3/uL (0.0-0.4); Eosinophils Percent Auto 1.5 % (0-4); Hematocrit 42.7 % (42.0-52.0); Hemoglobin 13.8 g/dl (14.0-18.0); Imm Gran Abs Auto 0.01 X10*3/uL (0.00-0.03); Imm Gran Pct Auto 0.2 % (0.0-0.4); Lymphocytes Absolute Auto 1.6 X10*3/uL (1.2-4.9); Lymphocytes Percent Auto 27.3 % (20-40); Mean Corpuscular HGB Conc 32.3 g/dl (31.0-36.0); Mean Corpuscular Volume 86.8 fL (80.0-98.0); Mean Platelet Volume 9.2 fL (9.4-12.4); Monocytes Absolute Auto 0.5 X10*3/uL (0.1-1.2); Monocytes Percent Auto 8.2 % (2-11); Neutrophils Absolute Auto 3.7 x10*3/uL (2.0-8.3); Neutrophils Percent Auto 62.5 % (45-73); Platelet Count 190 X10*3/uL (160-400); Red Blood Count 4.92 X10*6/uL (4.60-5.80); Red Cell Distribution Width 14.5 % (11.0-16.0)
--- NOTE | 2023-06-03 03:58 | PC.NURSE ---
this rn assumed care of pt. pt reports waking up feeling unwell , reports taking his blood pressure and reports it was over 200. pt denies chest pain, SOB and abdominal pain. pt denies palpitations but reports a hx of a fib in the past. pt last BP 173/88 . pt lung sounds clear bilaterally. iv established, labs sent. pt placed on monitor normal sinus 65-69.
--- NOTE | 2023-06-03 04:06 | ED.GENADULT ---
HPI - General Adult General Chief complaint: General Medical Stated complaint: High Blood Pressure/Palpitations Time Seen by Provider: 06/03/23 04:00 Source: patient Mode of arrival: ambulatory Limitations: no limitations History of Present Illness HPI narrative: 82 yo male with PMH of COPD, pneumonia, PAF on DAC, GERD< HTN, HLD, states he just felt off and his heart racing tonight when sleeping woke up at 3am no pain or dyspnea but he took his BP and it was 200/100. He panicked and took an extra dose of lisinopril. He feels better now. He states he didn't take his atenolol today but can fill it if he calls his PCP. He feels fine now. MD complaint: HTN Onset (ago): hour(s) (3am today ) Location: head Radiation: non-radiation Severity: mild Quality: other ( felt off ) Relieving factors: other (took extra dose of lisinopril) Exacerbating factors: none Associated symptoms: denies other symptoms Treatments prior to arrival: other (BP medications) Related Data Home Medications Medication Instructions Recorded Confirmed B-complex with vitamin C 1 tab PO DAILY 09/05/20 04/28/23 latanoprost 0.005 % eye drops 1 drp ophthalmic-Right BEDTIME 09/05/20 04/28/23 budesonide 3 mg 3 mg PO Q OTHER DAY 10/12/20 04/28/23 capsule,delayed,extended release cephalexin 500 mg capsule 500 mg PO TID 04/28/23 04/28/23 lisinopril 20 mg tablet 20 mg PO DAILY 04/28/23 04/28/23 prednisone 5 mg tablet 5 mg PO Q OTHER DAY ASTHMA 04/28/23 04/28/23 Previous Rx's Medication Instructions Recorded ezetimibe 10 mg tablet 10 mg PO DAILY 90 days #90 tabs 09/25/22 furosemide 80 mg tablet 80 mg PO DAILY 90 days #90 tabs 09/25/22 gabapentin 300 mg capsule 300 mg PO BID 90 days #180 caps 09/25/22 hydrochlorothiazide 25 mg tablet 25 mg PO DAILY 90 days #90 tabs 09/25/22 omeprazole 20 mg capsule,delayed 20 mg PO DAILY 90 days #90 caps 09/25/22 release pravastatin 20 mg tablet 20 mg PO DAILY 90 days #90 tabs 09/25/22 tamsulosin 0.4 mg capsule 0.4 mg PO DAILY 90 days #90 caps 09/25/22 Advair Diskus 500 mcg-50 mcg/dose 1 inh inhalation BID ASTHMA/COPD 09/26/22 powder for inhalation (fluticasone 90 days #3 ea propion-salmeterol) apixaban 5 mg tablet (Eliquis) 5 mg PO BID 90 days #180 tabs 09/26/22 atenolol 25 mg tablet 25 mg PO BID 10 days #20 tabs 09/27/22 prednisone 20 mg tablet 20 mg PO ONCE 7 days #7 tabs 12/23/22 albuterol sulfate 90 mcg/actuation 1 inh inhalation QID PRN shortness 01/10/23 aerosol inhaler (Ventolin HFA) of breath or wheezing 90 days #8.5 grams lorazepam 0.5 mg tablet 0.5 mg PO BEDTIME PRN 01/21/23 agitation/anxiety 30 days #30 tabs desoximetasone 0.05 % topical cream 1 appl topical BID PRN skin 01/27/23 irritation/rash #100 grams triamcinolone acetonide 0.5 % 1 appl topical TID PRN skin 01/31/23 topical cream rash/irritation #30 grams ipratropium 0.5 mg-albuterol 3 mg 3 ml inhalation Q6H PRN for 03/17/23 (2.5 mg base)/3 mL nebulization copd/wheezing #360 mL soln dronedarone 400 mg tablet (Multaq) 400 mg PO BID 1 week #14 tabs 03/20/23 umeclidinium 62.5 mcg/actuation 1 inh inhalation DAILY #30 ea 04/21/23 blister powder for inhalation (Incruse Ellipta) omalizumab 150 mg/mL subcutaneous 150 mg subcut Q4W HYPER IGE 04/28/23 syringe (Xolair) SYNDROME 30 days #2 mL atenolol 25 mg tablet 12.5 mg (1/2 x 25 mg) PO DAILY #30 06/03/23 tabs Allergies Allergy/AdvReac Type Severity Reaction Status Date / Time Sulfa (Sulfonamide Allergy Mild RASH, Verified 04/28/23 10:45 Antibiotics) BLISTERS codeine [Codeine] Allergy Unknown HALLUCINATI Verified 04/28/23 10:45 ONS Review of Systems Review of Systems: Constitutional : No Fever, No Chills, No Fatigue ENT/Mouth : No sore throat, No Rhinorrhea Eyes: No Eye Pain, No Swelling, No Redness Cardiovascular : No Chest Pain, No SOB, No Dyspnea on Exertion Respiratory : No Cough, No Sputum Gastrointestinal : No Nausea, No Vomiting, No Diarrhea, No abdominal Pain Genitourinary : No Dysuria, No Urinary Frequency, No Hematuria, Musculoskeletal : No joint pain, No Myalgias, No Joint Swelling Skin : No Skin Lesions, No rash Neuro : No Weakness, No Numbness, No Dizziness, no Headache Psych : No Anxiety/Panic, No Depression Heme/Lymph: No Bruising, No Bleeding,No Lymphadenopathy Endocrine : No Polyuria, No Polydipsia All other systems reviewed and are negative [facility] Past Medical History Attestation statement: The following information was validated with the patient. Source: old records reviewed Medical History Asthma Nocturnal hypoxemia AMITA (obstructive sleep apnea) Hemorrhoids with complication Benign prostatic hyperplasia GERD without esophagitis Pure hypercholesterolemia Benign essential hypertension Eosinophilic colitis Neuropathy Obesity (BMI 30-39.9) Restrictive lung disease COPD (chronic obstructive pulmonary disease) Surgical History History of tonsillectomy History of hernia surgery Family History Family History Brother Lung cancer Social History Social History Housing: House Alcohol intake: never Patient Tobacco Use Status: Former Tobacco user Quit Date: 1966 Smoked in Last 30 Days: No e-Cigarette/Vaping Use: Never Used Second Hand Smoke Exposure: Yes Use of substances other than those prescribed or required for medical reasons: No Advance Directives: No Advance Directives Information Provided: Yes service: No Current occupational status: retired Cognitive needs: No Hearing needs: No Vision needs: Yes Physical Exam ED Vital Signs: Vital Signs - 24 hr 06/03/23 03:27 06/03/23 03:48 06/03/23 05:11 Temperature 97.4 F 97.6 F Pulse Rate 89 73 55 Respiratory Rate 16 20 14 Blood Pressure 197/90 H 173/88 H 157/77 H Pulse Oximetry 97 98 96 Oxygen Delivery Method Room Air Room Air Room Air BMI result Body Mass Index 34.6 Appearance: Alert. Oriented X3. No acute distress. Eyes: Pupils equal, round and reactive to light. ENT: Pharynx normal. Neck: Normal inspection. Neck supple. CVS: Normal heart rate and rhythm. Pulses normal. Respiratory: No respiratory distress. Breath sounds normal. Abdomen: Soft and nontender. Skin: Skin warm and dry. Normal skin color. Normal skin turgor. Extremities: No lower extremity edema. No calf ttp Neuro: Oriented X 3. No motor deficit. No sensory deficit. Medications Administered Discontinued Medications Generic Name Dose Route Start Last Admin Trade Name Freq PRN Reason Stop Dose Admin Atenolol 12.5 mg 06/03/23 04:10 06/03/23 04:19 Atenolol 25 Mg Tablet PO 06/03/23 04:11 12.5 mg ONCE ONE Administration Protocol Medical Decision Making Medical Decision Making MDM Narrative: 82 yo male with PMH of COPD, pneumonia, PAF on DAC, GERD< HTN, HLD at this time c/o not feeling right but BP was high has no signs of end organ damage and is not toxic. Has no headaches, neuro symptoms, no chest pain - will obtain basic labs and start his oral atenolol. Differential Diagnosis Differential Diagnoses: The differential diagnosis associated with the presentation includes uncontrolled HTN, lyte abnormality Admission/Observation Consideration of admission/observation: Escalation of care including admission/observation considered BP improved no symptoms or signs of end organ damage stable for DC Lab Data [facility] Lab Attestation statement: I reviewed the patient's lab results. 06/03/23 03:48 06/03/23 03:48 Labs: Lab Results 06/03/23 Range/Units 03:48 WBC 6.0 (4.8-10.8) X10*3/uL RBC 4.92 (4.60-5.80) X10*6/uL Hgb 13.8 L (14.0-18.0) g/dl Hct 42.7 (42.0-52.0) % MCV 86.8 (80.0-98.0) fL MCH 28.0 (27.0-33.0) pg MCHC 32.3 (31.0-36.0) g/dl RDW 14.5 (11.0-16.0) % Plt Count 190 (160-400) X10*3/uL MPV 9.2 L (9.4-12.4) fL Immature Gran % (Auto) 0.2 (0.0-0.4) % Neut % (Auto) 62.5 (45-73) % Lymph % (Auto) 27.3 (20-40) % [place] % (Auto) 8.2 (2-11) % Eos % (Auto) 1.5 (0-4) % Baso % (Auto) 0.3 (0-2) % Lymph # (Auto) 1.6 (1.2-4.9) X10*3/uL [place] # (Auto) 0.5 (0.1-1.2) X10*3/uL Eos # (Auto) 0.1 (0.0-0.4) X10*3/uL Baso # (Auto) 0.0 (0.0-0.2) X10*3/uL Abs Immat Gran (auto) 0.01 (0.00-0.03) X10*3/uL Absolute Neuts (auto) 3.7 (2.0-8.3) x10*3/uL Absolute Nucleated RBC 0.000 (0.0-0.012) X10*3/uL Nucleated RBC % (auto) 0.0 (0.0-0.2) /100WBC Sodium 140 (135-145) mmol/L Potassium 4.0 (3.3-5.1) mmol/L Chloride 101 (96-108) mmol/L Carbon Dioxide 28 (22-29) mmol/L Anion Gap 15 (12-20) BUN 17 H (9-16) mg/dL Creatinine 1.23 (0.5-1.4) mg/dL Estim Creat Clear Calc 59.0 Estimated GFR 56 Random Glucose 117 H (60-115) mg/dL Calcium 9.3 (8.4-10.2) mg/dL Total Bilirubin 0.4 (0.0-1.0) mg/dL AST 28 (5-37) U/L ALT 30 (0-40) U/L Alkaline Phosphatase 43 (39-117) U/L Troponin I High Sens 7.0 (<3.5-35.0) ng/L Total Protein 6.8 (6.5-8.0) g/dL Albumin 3.9 (3.5-5.0) g/dL Independent Interpretation I performed an independent interpretation of an: EKG Interpretation: Rate: 78 Rhythm: NSR Blue: left, LVH Normal P waves. Normal ADRYAN. Normal QRS complex. ST T wave : normal no CATRACHITO qTC: normal prior studies: no acute ischemia The study has been interpreted contemporaneously by me. . External Record Review External record reviewed: Inpatient record Prescription Management I considered prescription management with: Other Discharge Plan Discharge Clinical Impression: HTN (hypertension) Qualifiers: Hypertension type: unspecified Qualified Code(s): I10 - Essential (primary) hypertension Patient Disposition: Home, Self-Care Instructions: Hypertension (ED) Additional Instructions: continue all of your medications. return for worsening symptoms - chest pain, trouble breathing, dizziness. hold atenolol if HR less than 60 or blood pressure less than 100 do not take your lisinopril today Prescriptions: New atenolol 25 mg tablet 12.5 mg PO DAILY Qty: 30 0RF No Action tamsulosin 0.4 mg capsule 0.4 mg PO DAILY 90 Days Qty: 90 3RF pravastatin 20 mg tablet 20 mg PO DAILY 90 Days Qty: 90 3RF ezetimibe 10 mg tablet 10 mg PO DAILY 90 Days Qty: 90 3RF gabapentin 300 mg capsule 300 mg PO BID 90 Days Qty: 180 3RF hydrochlorothiazide 25 mg tablet 25 mg PO DAILY 90 Days Qty: 90 3RF omeprazole 20 mg capsule,delayed release(DR/EC) 20 mg PO DAILY 90 Days Qty: 90 3RF furosemide 80 mg tablet 80 mg PO DAILY 90 Days Qty: 90 3RF fluticasone propion-salmeterol [Advair Diskus] 500-50 mcg/dose blister with device 1 inh inhalation BID 90 Days Qty: 3 1RF Eliquis 5 mg tablet 5 mg PO BID 90 Days Qty: 180 3RF albuterol sulfate [Ventolin HFA] 90 mcg/actuation HFA aerosol inhaler 1 inh inhalation QID PRN (Reason: shortness of breath or wheezing) 90 Days Qty: 8.5 3RF lorazepam 0.5 mg tablet 0.5 mg PO BEDTIME PRN (Reason: agitation/anxiety) 30 Days Qty: 30 0RF triamcinolone acetonide 0.5 % cream 1 appl topical TID PRN (Reason: skin rash/irritation) Qty: 30 2RF ipratropium-albuterol 0.5 mg-3 mg(2.5 mg base)/3 mL solution for nebulization 3 ml inhalation Q6H PRN (Reason: for copd/wheezing) Qty: 360 3RF Multaq 400 mg tablet 400 mg PO BID 7 Days Qty: 14 0RF Rx Instructions: must administer with a meal/food Incruse Ellipta 62.5 mcg/actuation blister with device 1 inh inhalation DAILY Qty: 30 3RF atenolol 25 mg tablet 25 mg PO BID 10 Days Qty: 20 0RF desoximetasone 0.05 % cream 1 appl topical BID PRN (Reason: skin irritation/rash) Qty: 100 3RF latanoprost 0.005 % drops 1 drp ophthalmic-Right BEDTIME B-complex with vitamin C Tablet 1 tab PO DAILY budesonide 3 mg capsule,delayed,extend.release 3 mg PO Q OTHER DAY prednisone 20 mg tablet 20 mg PO ONCE MDD copd excarbation 7 Days Qty: 7 1RF Rx Instructions: 1 Tab po bid for five days , then one po daily un till finished lisinopril 20 mg tablet 20 mg PO DAILY cephalexin 500 mg capsule 500 mg PO TID prednisone 5 mg tablet 5 mg PO Q OTHER DAY Xolair 150 mg/mL syringe 150 mg subcut Q4W MDD HYPER IGE SYNDROME 30 Days Qty: 2 11RF Interventions: ED Discharge Assessment Last Done: 06/03/23 05:53 Discharge Date/Time: 06/03/23 05:56
[2023-06-03 04:09] LABS: Alanine Aminotransferase 30 U/L (0-40); Albumin Level 3.9 g/dL (3.5-5.0); Alkaline Phosphatase 43 U/L (39-117); Anion Gap 15 (12-20); Aspartate Amino Transferase 28 U/L (5-37); Bilirubin Total 0.4 mg/dL (0.0-1.0); Blood Urea Nitrogen 17 mg/dL (9-16); Calcium 9.3 mg/dL (8.4-10.2); Carbon Dioxide 28 mmol/L (22-29); Chloride 101 mmol/L (96-108); Estimated Glomerular Filt Rate 56; Glucose Random 117 mg/dL (60-115); Sodium 140 mmol/L (135-145); Total Protein 6.8 g/dL (6.5-8.0)
[2023-06-03] MEDS: atenoloL 25 MG TABLET 12.5 MG PO (04:19)
[2023-06-03 05:11] VITALS: BP 157/77; PULSE 55; RESP 14; TEMP 36.4; O2SAT 96
== END 2023-06-03 05:56 | disposition home or self-care (01) ==
PROVIDERS: Emergency Provider Emergency Medicine; PCP Internal Medicine
DX: I10 Essential (primary) hypertension (principal); E78.00 Pure hypercholesterolemia, unspecified; J44.9 Chronic obstructive pulmonary disease, unspecified; I48.0 Paroxysmal atrial fibrillation; Z87.891 Personal history of nicotine dependence; Z79.899 Other long term (current) drug therapy; Z79.01 Long term (current) use of anticoagulants
CPT/HCPCS: 36415; 80053; 84484; 85025; 93005; 99283; 99284

== ENCOUNTER 2023-06-10 10:07 | Outpatient (AMB) | payer MEDICARE, SELFPAY ==
[2023-06-10 10:26] VITALS: BP 198/120; PULSE 64; O2SAT 98; BMI 35.4
--- NOTE | 2023-06-10 10:26 | MHC.PC.OV ---
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 Accompanied by: Self / Same As Patient Allergies Sulfa (Sulfonamide Antibiotics) Allergy (Mild, Verified 06/10/23 11:12) RASH, BLISTERS codeine [Codeine] Allergy (Unknown, Verified 06/10/23 11:12) HALLUCINATIONS Medication List - Last Reconciled 06/10/23 by Noel Howard MD Advair Diskus 500-50 mcg/dose (fluticasone propion-salmeterol) 1 inh inhalation BID 90 days NS albuterol sulfate 90 mcg/actuation (Ventolin HFA) 1 inh inhalation QID PRN 90 days apixaban (Eliquis) 5 mg PO BID 90 days atenolol 25 mg PO DAILY 90 days B-complex with vitamin C 1 tab PO DAILY budesonide ER 3 mg PO Q OTHER DAY desoximetasone 0.05% 1 appl topical BID PRN dronedarone (Multaq) 400 mg PO BID 90 days ezetimibe 10 mg PO DAILY 90 days furosemide 80 mg PO DAILY 90 days gabapentin 300 mg PO BID 90 days hydrochlorothiazide 25 mg PO DAILY 90 days ipratropium-albuterol 0.5 mg-3 mg(2.5 mg base)/3 mL 3 mL inhalation Q6H PRN latanoprost 0.005% 1 drp ophthalmic-Right BEDTIME lisinopril 30 mg PO DAILY lorazepam 0.5 mg PO BEDTIME PRN 30 days omalizumab (Xolair) 150 mg subcut Q4W 30 days MDD HYPER IGE SYNDROME omeprazole 20 mg PO DAILY 90 days pravastatin 20 mg PO DAILY 90 days prednisone 5 mg PO Q OTHER DAY tamsulosin 0.4 mg PO DAILY 90 days triamcinolone acetonide 0.5% 1 appl topical TID PRN umeclidinium 62.5 mcg/actuation (Incruse Ellipta) 1 inh inhalation DAILY Tobacco use date assessed: 01/27/23 Fall risk assessment: No Falls in past year Last assessed Fall Risk: 06/10/23 Dental Screening Dental Screen Date: 06/10/23 Did you have a dental visit in the last 12 months?: No Did you have a dental problem in the last 6 months where you did not have access to dental care?: No Was dental information given to patient?: Patient has dentist [facility] 06/03/23 [facility] Details Patient comes in today for his HDF follow up visit He went to the ER last week for sensation of his heart racing and high BP readings when he checked his blood pressure due to his symptoms Relates that he took an extra dose of his Lisinopril before he went to the ER last week but did not take his Atenolol Noted that his sensation of heart racing has subsided by the time he got to the ER Work ups done in the ER, including his labs and EKG, all came back normal He was started back on Atenolol 12.5 mg QD and instructed to continue on all of his other meds and to follow up with his PCP RENEE Patient states that he currently feels okay He denies any headaches or dizziness Denies any chest pains, no SOB No nausea/vomiting, no abdominal pain No change in bowel habits noted [facility] Medical History Asthma Nocturnal hypoxemia AMITA (obstructive sleep apnea) Hemorrhoids with complication Benign prostatic hyperplasia GERD without esophagitis Pure hypercholesterolemia Benign essential hypertension Eosinophilic colitis Neuropathy Obesity (BMI 30-39.9) Restrictive lung disease COPD (chronic obstructive pulmonary disease) Surgical History History of tonsillectomy History of hernia surgery Family History Brother Lung cancer Social History Housing: House Alcohol intake: never Patient Tobacco Use Status: Former Tobacco user Quit Date: 1966 e-Cigarette/Vaping Use: Never Used Second Hand Smoke Exposure: Yes service: No Current occupational status: retired Cognitive needs: No Hearing needs: No Vision needs: Yes Questionnaire PHQ-9 Over the last 2 weeks, how often have you been bothered by any of the following problems? Depression Screening Interpretation: Negative Depression Screening Done: Yes Source: Developed by Drs. Gregorio Lopez, Dash Mendoza and colleagues, with an educational neli from [employer]. Thrive Questionnaire Date Thrive assessed: 01/27/23 Currently or been in a relationship where the following occur: no concerns reported DOMINIQUE-7 AMB Questionnaire DOMINIQUE-7 Date DOMINIQUE - 7 assessed: 01/27/23 Source: Developed by Drs. Gregorio Lopez, Dash Mendoza and colleagues, with an educational neli from [employer]. Review of Systems Const Denies chills, Reports fatigue, Denies fever(s) and Denies headache(s) ENT Denies dysphagia, Denies dizziness, Denies otalgia, Denies headache(s), Denies neck pain, Denies odynophagia and Denies sore throat Card Denies chest pain, Reports rapid heart rate (last week when his BP went up), Denies palpitations and Denies dyspnea Resp Denies chest congestion, Denies cough, Denies pain with cough, Denies dyspnea and Denies wheezing GI Denies abdominal pain, Denies constipation, Denies dysphagia, Denies heartburn, Denies diarrhea, Denies nausea, Denies odynophagia and Denies vomiting Denies dysuria, Denies nocturia and Denies urinary frequency Musc Denies back pain, Denies neck pain and Reports stiffness Skin/Breast Denies rash Neuro Denies dizziness and Denies headache(s) Endo Reports fatigue and Denies palpitations Aller/Immun Denies wheezing Physical exam (Primary Care) Vital Signs: Last Vital Signs Pulse 64 06/10/23 10:26 BP 170/90 H 06/10/23 11:17 Pulse Ox 98 06/10/23 10:26 Oxygen Delivery Method Room Air 06/10/23 10:26 BMI result Body Mass Index 35.4 Tobacco/Smoking Status: Tobacco use Status Tobacco use date assessed 01/27/23 06/10/23 10:31 Patient Tobacco Use Status Former Tobacco user 06/10/23 10:31 e-Cigarette/Vaping Use Never Used 06/10/23 10:31 Depression Screening Interpretation: Negative Thrive Assessment: Date of Thrive Assessment Date Thrive assessed 01/27/23 06/10/23 10:31 Currently or been in a relationship where the following occur: no concerns reported Const General: no acute distress and alert HENMT Ears: TM's normal bilaterally and EAC's normal Throat: Yes posterior oropharynx normal and Yes tonsils normal (no TP congestion noted) Neck Neck: Yes no lymphadenopathy and Yes supple Resp Auscultation: clear to auscultation bilaterally, no crackles, no rales and no wheezes Cardio Rate: regular rate Rhythm: regular rhythm Heart sounds: no murmurs GI Palpation (GI): Soft to palpation and nontender Auscultation: normal bowel sounds Office Procedures Flu Questionnaire Does the patient have a severe egg allergy?: No Immunizations flu vacc [id number] 6mos up(PF) 60 mcg(15 mcgx4)/0.5 mL IM syringe Performing Provider: Noel Howard MD [facility] Documented (not given) by: SOFYA Kay on 06/10/23 11:30 Reason Not Given: Not Given Assessment and Plan Assessment & Plan (1) Benign essential hypertension: Code(s): I10 - Essential (primary) hypertension Plan: Reinforced low sodium diet - goal is systolic BP of at least 140 mm or less Continue Atenolol 25 mg QD and HCTZ 25 mg QD; will INCREASE his Lisinopril now from 30 mg QD to 40 mg QD He is advised to take all of his Rx as prescribed and not to titrate his dose on his own (2) Paroxysmal atrial fibrillation: Code(s): I48.0 - Paroxysmal atrial fibrillation Plan: S/P cardioversion on 09/04/22; is currently still in sinus rhythm Has CHADSVASc score of 3 and requires lifelong thromboembolism prophylaxis Continue Eliquis 5 mg BID and Multaq 400 mg BID; is also on Atenolol 25 mg QD Follow up with cardiology as scheduled (3) Pure hypercholesterolemia: Code(s): E78.00 - Pure hypercholesterolemia, unspecified Plan: Reinforced low cholesterol diet Continue Pravastatin 20 mg QD and Ezetimibe 10 mg QD (4) COPD (chronic obstructive pulmonary disease): Comment: MODERATELY SEVERE OBSTRUCTIVE AIRWAY DISORDER. CONTINUES TO HAVE FREQUENT ACUTE EXACERBATIONS, REQUESTING FREQUENT USE OF PREDNISONE AND ANTIBIOTICS. HOWEVER HE CONTINUES TO BE AT HIGHER RISK OF GETTING FREQUENT EXACERBATIONS. TX: ADVAIR -500 HOLD FOR ONE WEEK THE START ONLY ONE INH . DAILY. GARGLE THE THROAT WELL AFTER USING ADVAIR . DUO-NEB ( IPRATROPIUM-ALBUTERL ) UP DRAFTS QID PREDNISONE 5 MG P.O. ON ALTERNATE DAYS. Abuterol HFA 2 puffs Q 4-6 hours only p.r.n.. when out doors , but avoid excessive use Code(s): J44.9 - Chronic obstructive pulmonary disease, unspecified Qualifiers: COPD type: unspecified COPD Qualified Code(s): J44.9 - Chronic obstructive pulmonary disease, unspecified Plan: Controlled/stable at present Continue Advair Diskus 500-50 mcg 1 inhalation BID, Duoneb via nebulization every 6 hours and/or Albuterol HFA 2 puffs 4 times a day as needed States that he has Incruse Ellipta on hand but has not been using it regularly Follow up with pulmonary as scheduled (5) AMITA (obstructive sleep apnea): Comment: PATIENT HAS MILD AMITA, .ALONG WITH NOCTURNAL HYPOXEMIA HE HAS TRIED HIS BEST AND CANNOT USE THE CPAP OR BIPAP AT NIGHT. Code(s): G47.33 - Obstructive sleep apnea (adult) (pediatric) Plan: Continue using his BiPAP daily at night - has not been able to use this lately as he is waiting for a new/replacement mask Follow up with Sleep Medicine as scheduled (6) GERD without esophagitis: Code(s): K21.9 - Gastro-esophageal reflux disease without esophagitis Plan: Dietary restrictions reinforced Continue Omeprazole 20 mg QD (7) Right leg swelling: Comment: HE HAS CHRONIC EDEMA OF THE RIGHT LEG. AT PRESENT THE SKIN IS RED AND WARM C/W CELLULITIS I PRESCRIBED KEFLEX 500 MG T.I.D. FOR 10 DAYS, AT HIS REQUEST. Code(s): M79.89 - Other specified soft tissue disorders Plan: Mostly due to stasis edema Venous doppler done a few months ago came out negative for DVT Continue Furosemide 80 mg QD PRN (8) Benign prostatic hyperplasia: Code(s): N40.0 - Benign prostatic hyperplasia without lower urinary tract symptoms Qualifiers: Lower urinary tract symptom presence: unspecified whether lower urinary tract symptoms present Qualified Code(s): N40.0 - Benign prostatic hyperplasia without lower urinary tract symptoms Plan: Continue Tamsulosin 0.4 mg Q HS Follow up with urology as scheduled (9) Anxiety: Code(s): F41.9 - Anxiety disorder, unspecified Plan: Continue Lorazepam 0.5 mg QD PRN (10) Obesity (BMI 30-39.9): Comment: HE IS FULLY AWARE OF BEING OBESE, LIVES ALONE AND TRIES TO RESTRICT HIS CALORIES INTAKE. BUT DOES NOT HAVE MUCH ACTIVITY SO HE IS NOT ABLE TO LOSE WEIGHT. TAKING STEROIDS IN THE FORM OF PREDNISONE 5 MG ON ALTERNATE DAYS AND BUDESONIDE ER 3 MG DAILY, DEFINITELY CONTRIBUTES TO HIS BEING OVERWEIGHT Code(s): E66.9 - Obesity, unspecified Plan: Reinforced diet/exercise as tolerated/lose weight Plan He is advised to get his flu vaccine from his local pharmacy - advised that given his age and multiple comorbidities, I would prefer that he get the recommended high-dose flu vaccine for elderly patients and that what we have here in the office is only the regular quadrivalent vaccine Follow up in 1 month Orders: Orders Influenza [id number] Immunization 06/10/23 Z23 - Encounter for immunization Medications: New lisinopril 40 mg PO DAILY 90 days 90 tabs 1RF Changed From atenolol 12.5 mg (1/2 x 25 mg) PO DAILY 30 tabs 0RF To atenolol 25 mg PO DAILY 90 days 90 tabs 0RF Discontinued atenolol Discontinued Reason: Duplicate 25 mg PO BID 10 days 20 tabs 0RF Coding Level of Care Code Est Pt Level 3 (88214) Diagnoses Benign essential hypertension I10 Paroxysmal atrial fibrillation I48.0 Pure hypercholesterolemia E78.00 Chronic obstructive pulmonary disease, unspecified COPD type J44.9 COPD type: unspecified COPD AMITA (obstructive sleep apnea) G47.33 GERD without esophagitis K21.9 Right leg swelling M79.89 Benign prostatic hyperplasia, unspecified whether lower urinary tract symptoms present N40.0 Lower urinary tract symptom presence: unspecified whether lower urinary tract symptoms present Anxiety F41.9 Obesity (BMI 30-39.9) E66.9
[2023-06-10 11:17] VITALS: BP 170/90
== END 2023-06-10 11:35 | disposition home or self-care (01) ==
PROVIDERS: PCP Internal Medicine; Visit Provider Internal Medicine
DX: I10 Essential (primary) hypertension (principal); I48.0 Paroxysmal atrial fibrillation; E78.00 Pure hypercholesterolemia, unspecified; J44.9 Chronic obstructive pulmonary disease, unspecified; G47.33 Obstructive sleep apnea (adult) (pediatric); K21.9 Gastro-esophageal reflux disease without esophagitis; M79.89 Other specified soft tissue disorders; N40.0 Benign prostatic hyperplasia without lower urinary tract symptoms; F41.9 Anxiety disorder, unspecified; E66.9 Obesity, unspecified; Z68.35 Body mass index [BMI] 35.0-35.9, adult
CPT/HCPCS: 99213

== ENCOUNTER 2023-07-07 10:44 | Outpatient (AMB) | payer MEDICARE, SELFPAY ==
[2023-07-07 10:45] VITALS: TEMP 38.8
--- NOTE | 2023-07-07 10:45 | MHC.OFFVIS ---
Intake Vital Signs 07/07/23 10:45 Height 5 ft 11 in Temp 102 F H Intake Visit Reasons: Asthma Intake Note: pt is on the phone for telehealth and is covid positive, fever, achy and runny nose. 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 Allergies Sulfa (Sulfonamide Antibiotics) Allergy (Mild, Verified 07/07/23 11:09) RASH, BLISTERS codeine [Codeine] Allergy (Unknown, Verified 07/07/23 11:09) HALLUCINATIONS Medication List - Last Reconciled 07/07/23 by Geovanni Larson MD Advair Diskus 500-50 mcg/dose (fluticasone propion-salmeterol) 1 inh inhalation BID 90 days NS albuterol sulfate 90 mcg/actuation (Ventolin HFA) 1 inh inhalation QID PRN 90 days apixaban (Eliquis) 5 mg PO BID 90 days atenolol 25 mg PO DAILY 90 days B-complex with vitamin C 1 tab PO DAILY budesonide ER 3 mg PO Q OTHER DAY desoximetasone 0.05% 1 appl topical BID PRN dronedarone (Multaq) 400 mg PO BID 90 days ezetimibe 10 mg PO DAILY 90 days furosemide 80 mg PO DAILY 90 days gabapentin 300 mg PO BID 90 days hydrochlorothiazide 25 mg PO DAILY 90 days ipratropium-albuterol 0.5 mg-3 mg(2.5 mg base)/3 mL 3 mL inhalation Q6H PRN latanoprost 0.005% 1 drp ophthalmic-Right BEDTIME lisinopril 40 mg PO DAILY 90 days lorazepam 0.5 mg PO BEDTIME PRN 30 days omeprazole 20 mg PO DAILY 90 days pravastatin 20 mg PO DAILY 90 days prednisone 5 mg PO Q OTHER DAY tamsulosin 0.4 mg PO DAILY 90 days triamcinolone acetonide 0.5% 1 appl topical TID PRN umeclidinium 62.5 mcg/actuation (Incruse Ellipta) 1 inh inhalation DAILY Do you need a note to return to daycare/school/sports/work: No HPI Asthma HPI Details THIS 82 YEARS OLD GENTLEMAN WAS THE SUPPOSED TO BE HERE IN THE OFFICE TODAY FOR HIS ROUTINE FOLLOW-UP AFTER 3 MONTHS. HOWEVER OVER THE WEEKEND HE HAS CONTRACTED COVID INFECTION. TWO DAYS AGO HE WAS IN A [employer] [facility], AND TODAY HE COMES WITH SOME NASAL CONGESTION COUGH AND FEVER . TEMPERATURE 102 DEGREES FOR HIGH. DID A HOME COVID TEST WHICH IS POSITIVE. HIS BREATHING IS SAME USUAL, NO DISTRESS NOTED, HE IS CHECKING HIS O2 SATS WHICH OF OR STAYING IN MID 90S. [facility] Medical History (Updated 07/07/23 @ 11:16 by Geovanni Larson MD) COVID-19 Asthma Nocturnal hypoxemia AMITA (obstructive sleep apnea) Hemorrhoids with complication Benign prostatic hyperplasia GERD without esophagitis Pure hypercholesterolemia Benign essential hypertension Eosinophilic colitis Neuropathy Obesity (BMI 30-39.9) Restrictive lung disease COPD (chronic obstructive pulmonary disease) Surgical History History of tonsillectomy History of hernia surgery Family History Brother Lung cancer Social History Housing: House Alcohol intake: never Patient Tobacco Use Status: Former Tobacco user Quit Date: 1966 e-Cigarette/Vaping Use: Never Used Second Hand Smoke Exposure: Yes service: No Current occupational status: retired Cognitive needs: No Hearing needs: No Vision needs: Yes Review of Systems Const All systems reviewed & are unremarkable except as noted in HPI and below Eyes Reports no additional complaints ENT Reports no additional complaints and Reports sore throat (COMPLAINS OF SCRATCHY THROAT FOR THE LAST FEW DAYS.) Card Denies chest pain, Reports irregular heart rhythm (HAS PAROXYSMAL ATRIAL FIB) and Reports leg edema (RIGHT LEG) Resp Reports as per HPI GI Details: CHRONIC INFLAMMATORY BOWEL DISEASE UNDER CONTROL. Reports no additional complaints Musc Reports no additional complaints Skin/Breast Reports system reviewed and no additional complaints, except as documented Neuro Reports no additional complaints Psych Reports no additional complaints Physical Exam Vital Signs: Last Vital Signs Temp 102 F H 07/07/23 10:45 Const Other: TELE-VISIT NO PHYSICAL EXAM Assessment & Plan Assessment & Plan (1) Asthma: Comment: HE HAS ASTHMA/COPD OVERLAP SYNDROME.. Currently staying stable. He has frequent acute exacerbations requiring prednisone on an ongoing basis, even though the dozes 5 mg on alternate days. This is in addition to budesonide 3 mg daily for inflammatory bowel disease. His IgE level is markedly elevated (5519 ) c/w CHRONIC INFLAMMATORY DISEASE. CRP= >10 DISCUSSION : DISCUSSED IN DETAIL WITH HIM ABOUT THESE FINDINGS. I EXPLAINED THAT HE MAY BE A GOOD CANDIDATE FOR BIOLOGIC TREATMENT. HE IS AGREEABLE, * ON HIS LAST VISIT I HAD ORDERED XOLAIR, FOR BIOLOGIC TREATMENT, BUT IT WAS NOT APPROVED BY HIS INSURANCE. Code(s): J45.909 - Unspecified asthma, uncomplicated Plan: ABOVE (2) Nocturnal hypoxemia: Comment: IN HIS HOME-BASED SLEEP STUDY IT WAS THE RECORDED THAT HE DOES HAVE SOME HYPOXEMIA AT NIGHT. IT WAS EXPECTED TO RESOLVE WITH THE APPLICATION OF BIPAP, WHICH HE WAS NOT ABLE TO DO. THUS I WOULD PLAN TO START HIM ON O2 2 L/MINUTE AT NIGHT. Code(s): G47.34 - Idiopathic sleep related nonobstructive alveolar hypoventilation Plan: ABOVE (3) AMITA (obstructive sleep apnea): Comment: PATIENT HAS MILD AMITA, .ALONG WITH NOCTURNAL HYPOXEMIA HE HAS TRIED HIS BEST AND CANNOT USE THE CPAP OR BIPAP AT NIGHT. Code(s): G47.33 - Obstructive sleep apnea (adult) (pediatric) Plan: PATIENT NEEDS TO LOSE WEIGHT BUT IT IS DIFFICULT FOR HIM BECAUSE OF MULTIPLE COMORBIDITIES AND CHRONIC USE OF STEROIDS. (4) Restrictive lung disease: Comment: BECAUSE OF HIS OBESITY I SUSPECT THAT HE HAS MILD TO MODERATE DEGREE OF RESTRICTIVE LUNG DISEASE WELL. AGAIN ADVISED TO LOSE WEIGHT . AND DO DEEP BREATHING EXERCISES TID . Code(s): J98.4 - Other disorders of lung Plan: ABOVE (5) COPD (chronic obstructive pulmonary disease): Comment: MODERATELY SEVERE OBSTRUCTIVE AIRWAY DISORDER. CONTINUES TO HAVE FREQUENT ACUTE EXACERBATIONS, REQUESTING FREQUENT USE OF PREDNISONE AND ANTIBIOTICS. HOWEVER HE CONTINUES TO BE AT HIGHER RISK OF GETTING FREQUENT EXACERBATIONS. TX: ADVAIR -500 HOLD FOR ONE WEEK THE START ONLY ONE INH . DAILY. GARGLE THE THROAT WELL AFTER USING ADVAIR . DUO-NEB ( IPRATROPIUM-ALBUTERL ) UP DRAFTS QID PREDNISONE 5 MG P.O. ON ALTERNATE DAYS. Abuterol HFA 2 puffs Q 4-6 hours only p.r.n.. when out doors , but avoid excessive use Code(s): J44.9 - Chronic obstructive pulmonary disease, unspecified Qualifiers: COPD type: unspecified COPD Qualified Code(s): J44.9 - Chronic obstructive pulmonary disease, unspecified Plan: ABOVE (6) COVID-19: Comment: HE HAS CONTRACTED COVID-19 INFECTION, FROM [employer]. [employer] JUST STARTED TODAY., SO FOR NOT AFFECTING HIS RESPIRATORY STATUS. Code(s): U07.1 - COVID-19 Plan: ADVISED REST AT HOME. PLENTY OF FLUIDS, . SIP WALL MOM DRINKS FREQUENTLY TYLENOL 2 TABLETS Q.6 HOURS P.R.N.. MAY USE OTC COUGH MEDS NEEDED, * PAXLOVID TREATMENT DISCUSSED BUT THERE ARE MULTIPLE REACTIONS TO HIS MEDS THAT HE TAKES. HENCE I DID NOT PRESCRIBE IT. Telehealth Telehealth Location of provider rendering services: practice address Location of patient: address on file Patient Identification confirmed using: Name, : Yes Telehealth method: voice only Patient verbally consented to treatment: Yes Patient verbally consented to billing insurance company: Yes Patient informed of any privacy concerns related to visit: Yes Minutes spent on Phone/Video with Pt.: 20 Coding Level of Care Code Tele Est Pt Level 4 (79993) Diagnoses Asthma J45.909 Nocturnal hypoxemia G47.34 AMITA (obstructive sleep apnea) G47.33 Restrictive lung disease J98.4 Chronic obstructive pulmonary disease, unspecified COPD type J44.9 COPD type: unspecified COPD COVID-19 U07.1
== END 2023-07-07 11:16 | disposition home or self-care (01) ==
LOC: HO.HPS 10:44
PROVIDERS: PCP Internal Medicine; Visit Provider Internal Medicine
DX: J45.909 Unspecified asthma, uncomplicated (principal); G47.33 Obstructive sleep apnea (adult) (pediatric); G47.34 Idiopathic sleep related nonobstructive alveolar hypoventilation; U07.1 COVID-19; J98.4 Other disorders of lung
CPT/HCPCS: 99442

== ENCOUNTER → 2023-07-07 10:44 | Outpatient (BNVA) | payer MEDICARE, SELFPAY | PROVIDERS: PCP Internal Medicine; Visit Provider Internal Medicine | DX: J44.9 Chronic obstructive pulmonary disease, unspecified (principal) ==

== ENCOUNTER 2023-07-15 09:37 | Inpatient (IN) | payer MEDICARE, SELFPAY ==
[2023-07-15] VITALS (8 sets, daily range): BP systolic 139–170; BP diastolic 64–75; PULSE 68–97; RESP 16–24; TEMP 36.7–37.7; O2SAT 94–96; BMI 34.0
--- NOTE | ~2023-07-15 | XR_ITS ---
EXAMINATION: XR CHEST CLINICAL INFORMATION: Covid positive, fatigue and cough COMPARISON: 07/26/2022 TECHNIQUE: Frontal view of the chest was obtained. FINDINGS: There are patchy bibasilar airspace opacities, most confluent at the left lung base. No pleural effusions are detected. The cardiomediastinal silhouette is magnified by the AP position. Surgical anchors are noted in the left humeral head. There are old healed right sixth and seventh rib fractures. XR/XR chest 1V IMPRESSION: Patchy bibasilar airspace opacities, left greater than right.
--- NOTE | 2023-07-15 09:48 | ECG_ITS ---
Test Reason : sob Blood Pressure : / mmHG Vent. Rate : 084 BPM Atrial Rate : 084 BPM P-R Int : 154 ms QRS Dur : 094 ms QT Int : 364 ms P-R-T Axes : 000 -22 039 degrees QTc Int : 430 ms Sinus rhythm with Premature atrial complexes Otherwise normal ECG When compared with ECG of 03-JUN-2023 03:22, Premature atrial complexes are now Present Referred By: Uriah Mckeon Electronically Signed By:Etienne Stafford
--- NOTE | 2023-07-15 10:08 | PC.NURSE ---
Pt is a&ox3 coming in for being sick x2 weeks, pt was diagnosed with covid two weeks ago and has not gotten better. Pt reports weakness, fevers, muscle aches, diarrhea, and chills. Sob upon ambulation, small PO intake. abd soft non tender.
[2023-07-15] MEDS: 0.9 % Sodium Chloride 1,000 ML 999 ML IV (10:46)
--- NOTE | 2023-07-15 10:56 | ED_ITS ---
HPI - General Adult General Chief complaint: General Medical Stated complaint: +COVID,WEAK PER EMS Time Seen by Provider: 07/15/23 09:43 Source: patient Mode of arrival: EMS Limitations: no limitations History of Present Illness HPI narrative: 82-year-old male who presents emergency department for evaluation of fever, cough, chest pain, shortness of breath, diarrhea, myalgias, arthralgias, fatigue, anorexia with symptoms starting 2 weeks prior. Patient states he did take a home COVID test which was positive 2 weeks prior but his symptoms have gotten worse. Patient states that has a cough which is mainly nonproductive but occasionally productive of liquid phlegm with no blood in the phlegm. He has had subjective fever on and off at home. He denied chest pain but he states he feels short of breath and has dyspnea on exertion. He denied diarrhea but he can not quantify the amount of episodes per day. Denies any blood in the diarrhea. He has not been on antibiotics recently. Patient states that he has had no appetite but has been drinking fluids. Patient spoke to his spray gun striper, Dr. Sanchez who advised him to come to the emergency depart for evaluation. Related Data Home Medications Medication Instructions Recorded Confirmed B-complex with vitamin C 1 tab PO DAILY 09/05/20 06/10/23 latanoprost 0.005 % eye drops 1 drp ophthalmic-Right BEDTIME 09/05/20 06/10/23 budesonide 3 mg 3 mg PO Q OTHER DAY 10/12/20 06/10/23 capsule,delayed,extended release Previous Rx's Medication Instructions Recorded ezetimibe 10 mg tablet 10 mg PO DAILY 90 days #90 tabs 09/25/22 furosemide 80 mg tablet 80 mg PO DAILY 90 days #90 tabs 09/25/22 gabapentin 300 mg capsule 300 mg PO BID 90 days #180 caps 09/25/22 hydrochlorothiazide 25 mg tablet 25 mg PO DAILY 90 days #90 tabs 09/25/22 omeprazole 20 mg capsule,delayed 20 mg PO DAILY 90 days #90 caps 09/25/22 release pravastatin 20 mg tablet 20 mg PO DAILY 90 days #90 tabs 09/25/22 tamsulosin 0.4 mg capsule 0.4 mg PO DAILY 90 days #90 caps 09/25/22 Advair Diskus 500 mcg-50 mcg/dose 1 inh inhalation BID ASTHMA/COPD 09/26/22 powder for inhalation (fluticasone 90 days #3 ea propion-salmeterol) apixaban 5 mg tablet (Eliquis) 5 mg PO BID 90 days #180 tabs 09/26/22 albuterol sulfate 90 mcg/actuation 1 inh inhalation QID PRN shortness 01/10/23 aerosol inhaler (Ventolin HFA) of breath or wheezing 90 days #8.5 grams desoximetasone 0.05 % topical cream 1 appl topical BID PRN skin 01/27/23 irritation/rash #100 grams triamcinolone acetonide 0.5 % 1 appl topical TID PRN skin 01/31/23 topical cream rash/irritation #30 grams ipratropium 0.5 mg-albuterol 3 mg 3 ml inhalation Q6H PRN for 03/17/23 (2.5 mg base)/3 mL nebulization copd/wheezing #360 mL soln umeclidinium 62.5 mcg/actuation 1 inh inhalation DAILY #30 ea 04/21/23 blister powder for inhalation (Incruse Ellipta) dronedarone 400 mg tablet (Multaq) 400 mg PO BID 90 days #180 tabs 06/05/23 prednisone 5 mg tablet 5 mg PO Q OTHER DAY ASTHMA #30 tabs 06/05/23 atenolol 25 mg tablet 25 mg PO DAILY 90 days #90 tabs 06/10/23 lisinopril 40 mg tablet 40 mg PO DAILY 90 days #90 tabs 06/10/23 lorazepam 0.5 mg tablet 0.5 mg PO BEDTIME PRN 07/11/23 agitation/anxiety 30 days #30 tabs Allergies Allergy/AdvReac Type Severity Reaction Status Date / Time Sulfa (Sulfonamide Allergy Mild RASH, Verified 07/07/23 11:09 Antibiotics) BLISTERS codeine [Codeine] Allergy Unknown HALLUCINATI Verified 07/07/23 11:09 ONS Review of Systems 2 Review of Systems: Yes all other systems are reviewed and are negative PMFSH Past Medical History Medical History COVID-19 Asthma Nocturnal hypoxemia AMITA (obstructive sleep apnea) Hemorrhoids with complication Benign prostatic hyperplasia GERD without esophagitis Pure hypercholesterolemia Benign essential hypertension Eosinophilic colitis Neuropathy Obesity (BMI 30-39.9) Restrictive lung disease COPD (chronic obstructive pulmonary disease) Surgical History History of tonsillectomy History of hernia surgery Family History Family History Brother Lung cancer Social History Social History Housing: House Alcohol intake: never Patient Tobacco Use Status: Former Tobacco user Quit Date: 1966 Smoked in Last 30 Days: No e-Cigarette/Vaping Use: Never Used Second Hand Smoke Exposure: Yes Use of substances other than those prescribed or required for medical reasons: No Advance Directives: Yes Advance Directives Information Provided: Yes Advance Directives on File: No service: No Current occupational status: retired Cognitive needs: No Hearing needs: No Vision needs: Yes Physical Exam ED Vital Signs: Vital Signs - 24 hr 07/15/23 09:44 07/15/23 11:41 Temperature 100 F 99.4 F Pulse Rate 90 82 Respiratory Rate 24 H 20 Blood Pressure 159/66 H 169/75 H Pulse Oximetry 95 94 Oxygen Delivery Method Room Air Room Air BMI result Body Mass Index 34.0 Vital signs revealed low-grade fever of 100 degrees F, tachypnea with respiratory rate of 22 and elevated blood pressure of 159/66 and O2 saturation was normal at 95% on room air Exam: General: Awake, alert in no distress Head: Normocephalic, atraumatic EENT: PERRL, Lids normal, sclera normal, conjunctiva normal, nose normal , ears normal, throat without erythema or exudates Neck: Supple, no adenopathy, no trachea midline or C-spine tenderness Lung: breath sounds symmetric, no wheezing, rales or rhonchi Chest: symmetric movement, nontender Heart: regular rate and rhythm, normal S1, S2 no murmurs or rubs Abdomen: soft, non-tender, nondistended, normal bowel sounds Back: no vertebral tenderness, no CVAT Extremities: no deformities, moves all extremities symmetrically, trace to 1+ pitting edema -symmetric Neuro: Awake, alert, oriented, normal speech, cranial nerves intact, moves all extremities symmetrically Psych: Pleasant, cooperative Medications Administered Discontinued Medications Generic Name Dose Route Start Last Admin Trade Name Freq PRN Reason Stop Dose Admin Sodium Chloride 1,000 mls @ 999 mls/hr 07/15/23 10:06 07/15/23 12:41 Ns IV 07/15/23 11:06 Infused .Q1H1M STA Infusion Ceftriaxone Sodium 1 gm/ 50 mls @ 100 mls/hr 07/15/23 12:11 07/15/23 12:37 Sodium Chloride IV 07/15/23 12:40 100 mls/hr ONCE ONE Administration Medical Decision Making Medical Decision Making [facility] [place] Narrative: 82-year-old male who presents emergency department for evaluation of fever, cough, chest pain, shortness of breath, diarrhea, myalgias, arthralgias, fatigue, anorexia and positive home COVID test x2 week. Patient's vital signs did reveal low-grade fever, tachypnea and a normal BP and O2 saturation on room air pain. Exam was significant for dyspnea, tachypnea and pitting edema. Following evaluation was ordered: CBC, CMP, CK, D-dimer, ESR, CRP, lipase, PT/INR, PTT, BNP, troponin, lactic acid, blood cultures x2, RSV and influenza Patient was treated with the following: Normal saline x1 L 12:15 Patient's laboratory evaluation revealed an elevated white blood cell count. Patient has a D-dimer and BNP were normal suggesting the does not have a PE or CHF is the cause of his symptoms. patient's CRP and ER ID elevated consistent with an infectious process. Initial troponin was detectable but not elevated at 10.5-repeat is due at 13:45 hours Chest x-ray revealed increased interstitial patchy infiltrate right greater than left, most likely secondary to a viral pneumonia but bacterial pneumonia also needs be considered therefore the patient was treated with ceftriaxone 1 g IV and Zithromax 500 mg IV. Patient's COVID-19, influenza and RSV are pending Given the patient's symptoms of dyspnea, tachypnea, persistent fever, fatigue with loss of appetite, patient will need to be admitted for further management evaluation therefore I will discuss admission with the covering hospitalist 12:52 The patient is on Multaq and a combination of Multaq and Zithromax prolongs the QTC interval therefore I discontinued Zithromax and and treated the patient with doxycycline 100 mg orally for atypical coverage. Differential Diagnosis Differential Diagnoses: The differential diagnosis associated with the presentation includes 12:15 Differential diagnosis includes was not limited to myocardial infarction, myocardial ischemia, bacterial pneumonia, viral pneumonia, congestive heart failure, pulmonary embolism, electrolyte abnormalities, anemia Admission/Observation Consideration of admission/observation: Escalation of care including admission/observation considered Consult Healthcare Provider Management of the patient was discussed with: Hospitalist Lab Data My interpretation patient's laboratory evaluation as follows: WBC elevated 12,800, anemia with an H&H of 12 and 36.9-this is chronic. Elevated troponin 1.4. D-dimer was less than 150 which is reassuring rules out pulmonary embolism. BMP was normal 32 making CHF less likely. Patient's venous pH is elevated 7.47 with a normal CO2 of 30, is most likely secondary to respiratory alkalosis ESR elevated 22, CRP elevated 9.83. First troponin was detectable but not elevated at 10.5 repeat due at 13:45 hours. 07/15/23 10:45 07/15/23 10:45 Labs: Lab Results 07/15/23 07/15/23 07/15/23 Range/Units 10:45 10:46 11:06 WBC 12.8 H (4.8-10.8) X10*3/uL RBC 4.35 L (4.60-5.80) X10*6/uL Hgb 12.5 L (14.0-18.0) g/dl Hct 36.9 L (42.0-52.0) % MCV 84.8 (80.0-98.0) fL MCH 28.7 (27.0-33.0) pg MCHC 33.9 (31.0-36.0) g/dl RDW 13.8 (11.0-16.0) % Plt Count 197 (160-400) X10*3/uL MPV 10.0 (9.4-12.4) fL Immature Gran % (Auto) 0.4 (0.0-0.4) % Neut % (Auto) 82.3 H (45-73) % Lymph % (Auto) 9.4 L (20-40) % [place] % (Auto) 7.6 (2-11) % Eos % (Auto) 0.1 (0-4) % Baso % (Auto) 0.2 (0-2) % Lymph # (Auto) 1.2 (1.2-4.9) X10*3/uL [place] # (Auto) 1.0 (0.1-1.2) X10*3/uL Eos # (Auto) 0.0 (0.0-0.4) X10*3/uL Baso # (Auto) 0.0 (0.0-0.2) X10*3/uL Abs Immat Gran (auto) 0.05 H (0.00-0.03) X10*3/uL Absolute Neuts (auto) 10.6 H (2.0-8.3) x10*3/uL Absolute Nucleated RBC 0.000 (0.0-0.012) X10*3/uL Nucleated RBC % (auto) 0.0 (0.0-0.2) /100WBC ESR 22 H (0-15) MM/HR PT 17.1 H (11.1-13.3) SEC INR 1.4 H (0.9-1.1) APTT 33.2 (26.0-36.4) SEC D-Dimer High Sensitivty < 150 NG/ML Sodium 133 L (135-145) mmol/L Potassium 3.7 (3.3-5.1) mmol/L Chloride 98 (96-108) mmol/L Carbon Dioxide 29 (22-29) mmol/L Anion Gap 10 L (12-20) BUN 20 H (9-16) mg/dL Creatinine 1.05 (0.5-1.4) mg/dL Estim Creat Clear Calc 68.6 Estimated GFR > 60 Random Glucose 96 (60-115) mg/dL Lactic Acid 0.8 (0.5-2.0) mmol/L Calcium 8.8 (8.4-10.2) mg/dL Total Bilirubin 0.8 (0.0-1.0) mg/dL AST 23 (5-37) U/L ALT 27 (0-40) U/L Alkaline Phosphatase 39 (39-117) U/L Total Creatine Kinase 97 (38-174) U/L Troponin I High Sens 10.5 (<3.5-35.0) ng/L C-Reactive Protein 9.83 H (< or = 0.50) mg/dL B-Natriuretic Peptide 32 (<100) pg/mL Total Protein 6.6 (6.5-8.0) g/dL Albumin 3.7 (3.5-5.0) g/dL Lipase 13 (8-78) U/L Influenza Type A (PCR) NEGATIVE (Negative) Influenza Type B (PCR) NEGATIVE (Negative) RSV RNA Qual (PCR) NEGATIVE (Negative) SARS-CoV-2 RNA (RT-PCR) POSITIVE A (Negative) Independent Interpretation I performed an independent interpretation of an: EKG and Plain X-Ray Interpretation: My interpretation patient's chest x-ray is as follows: Increased, patchy, interstitial infiltrates right greater than left My interpretation patient's 12 EKG done at which is as follows: Normal sinus rhythm rate of 84, normal ID interval, QRS duration can, QTC interval, no T-wave abnormalities, no ST segment elevation, less than [address] segment depression lead 1 and 2. Radiology Impression Discussion of test interpretation with radiology: I have reviewed the radiologist's reading. Radiologist Impression: R chest 1V IMPRESSION: Patchy bibasilar airspace opacities, left greater than right. Dictated By: Gerald Spencer MD Independent Historian Clinical information obtained from an independent historian. History obtained from or confirmed by: Other (Daughter) Critical Care Time Critical Care Time Critical Care Time: Yes Total Critical Care Time: 45 Attestation: Critical Care: The patient was critically ill with a high probability of imminent or life threatening deterioration. I spent greater than 30 minutes of discontinuous time evaluating the patient,delivering critical care at the bedside, discussing and evaluating pertinent data with consultants. Critical care time does not include time spent performing separately billable procedures or teaching. Total time spent performing critical care was 45 minutes. Discharge Plan Discharge Clinical Impression: COVID-19, Pneumonia, Weakness Patient Disposition: Admitted As Inpatient
[2023-07-15 10:59] LABS: MANUAL DIFF FLAG NO
[2023-07-15 11:02] LABS: Basophils Percent Auto 0.2 % (0-2); Eosinophils Percent Auto 0.1 % (0-4); Hematocrit 36.9 % (42.0-52.0); Hemoglobin 12.5 g/dl (14.0-18.0); Imm Gran Abs Auto 0.05 X10*3/uL (0.00-0.03); Imm Gran Pct Auto 0.4 % (0.0-0.4); Lymphocytes Absolute Auto 1.2 X10*3/uL (1.2-4.9); Lymphocytes Percent Auto 9.4 % (20-40); Mean Corpuscular HGB Conc 33.9 g/dl (31.0-36.0); Mean Corpuscular Hemoglobin 28.7 pg (27.0-33.0); Mean Corpuscular Volume 84.8 fL (80.0-98.0); Monocytes Percent Auto 7.6 % (2-11); Neutrophils Absolute Auto 10.6 x10*3/uL (2.0-8.3); Neutrophils Percent Auto 82.3 % (45-73); Platelet Count 197 X10*3/uL (160-400); Red Blood Count 4.35 X10*6/uL (4.60-5.80); Red Cell Distribution Width 13.8 % (11.0-16.0); White Blood Count 12.8 X10*3/uL (4.8-10.8)
[2023-07-15 11:08] LABS: INTERNATIONAL NORM RATIO 1.4 (0.9-1.1); Prothrombin Time 17.1 SEC (11.1-13.3)
[2023-07-15 11:10] LABS: Partial Thromboplastin Time 33.2 SEC (26.0-36.4)
[2023-07-15 11:15] LABS: Lactic Acid 0.8 mmol/L (0.5-2.0)
[2023-07-15 11:21] LABS: D Dimer High Sensitivity < 150 NG/ML
[2023-07-15 11:23] LABS: Alanine Aminotransferase 27 U/L (0-40); Albumin Level 3.7 g/dL (3.5-5.0); Alkaline Phosphatase 39 U/L (39-117); Anion Gap 10 (12-20); Aspartate Amino Transferase 23 U/L (5-37); Bilirubin Total 0.8 mg/dL (0.0-1.0); Blood Urea Nitrogen 20 mg/dL (9-16); C Reactive Protein 9.83 mg/dL (< or = 0.50); Calcium 8.8 mg/dL (8.4-10.2); Carbon Dioxide 29 mmol/L (22-29); Chloride 98 mmol/L (96-108); Creatinine Clr Calc Pharmacy 68.6; Estimated Glomerular Filt Rate > 60; Glucose Random 96 mg/dL (60-115); Lipase 13 U/L (8-78); Potassium 3.7 mmol/L (3.3-5.1); Sodium 133 mmol/L (135-145); Total Protein 6.6 g/dL (6.5-8.0)
[2023-07-15 11:24] LABS: B Type Natriuretic Peptide 32 pg/mL (<100)
[2023-07-15 11:31] LABS: Troponin-I High Sensitivity 10.5 ng/L (<3.5-35.0)
[2023-07-15 11:40] LABS: Erythrocyte Sedimentation Rate 22 MM/HR (0-15)
[2023-07-15 12:19] LABS: Influenza A PCR NEGATIVE (Negative); Influenza B PCR NEGATIVE (Negative); Resp Syncy Virus RNA Qual PCR NEGATIVE (Negative); SARS COV2 PCR INHOUSE POSITIVE (Negative)
[2023-07-15] MEDS: cefTRIAXone sodium 1 GM in 0.9 % Sodium Chloride 50 ML IV (12:37)
[2023-07-15] MEDS: Doxycycline Monohydrate 100 MG CAPSULE PO (13:04)
--- NOTE | 2023-07-15 13:47 | PHA.MEDREC ---
Pharmacy Consult ? Medication Reconciliation Pharmacy has completed the medication reconciliation. Spoke to patient and confirmed medication list. Patient confirmed that he's supposed to take furosemide 80 mg daily but not very compliant because it makes him go to the bathroom too much , he's taking lisinopril 20mg bid and prednisone 5mg daily.
--- NOTE | 2023-07-15 13:57 | PM.IMHP ---
History of Present Illness Date of Service: 07/15/23 Attending physician on admission: Dylon Saenz Chief Complaint: weakness, covid 19 82-year-old male with history of BPH, hypertension, hyperlipidemia, restrictive lung disease, paroxysmal atrial fibrillation anticoagulated with Eliquis, unspecified neuropathy, AMITA with nocturnal hypoxia intolerant of CPAP but uses 2 L supplemental O2 at bedtime presented to the ED earlier today with his daughter and son-in-law for evaluation of persistent upper respiratory symptoms and weakness related to COVID-19 as well as an episode of confusion this morning on. The patient tested positive for COVID-19 10 days ago and had been symptomatic fevers up to 102, dry cough, congestion, pleuritic chest pain, dyspnea on exertion, myalgias/arthralgias, fatigue, anorexia. He has also been having about 5 episodes of watery diarrhea on a daily basis without any blood noted. He reports that he is feeling slightly better but continues with dyspnea on exertion, no orthopnea or PND. He still has cough with increasing weakness and fatigue. This morning was noted to be lethargic and somewhat confused per his daughter this morning. He was recommended by Dr. Larson to come to the ER yesterday as well. On arrival, patient afebrile but tachypneic to 24 and mildly hypertensive. No hypoxia. There is a leukocytosis of 12.8. Renal function baseline, electrolyte levels normal except for mild hyponatremia 133. Initial troponin 12.5, repeat pending. BNP 32. Total CK 97. CRP 9.83, ESR 22. D-dimer below detectable limits. Negative for influenza, RSV. Positive for COVID-19 initial diagnosis 10 days ago. CXR shows patchy bibasilar airspace opacities left greater than right. EKG shows sinus rhythm with PACs, rate 84, no ST/T-wave abnormalities. In the ED, has received 1 L IV NS, 1 g IV ceftriaxone and 100 mg IV doxycycline. Review of Systems Review of Systems: General: +fevers, +malaise. No unintentional weight loss/gain HEENT: No blurred vision, diplopia. No sore throat, nasal congestion, rhinorrhea, sinus pain, ear pain Cardiovascular: No chest pain, palpitations. +ble edema Respiratory: + shortness of breath, +wheezing, +cough. No orthopnea, PND GI: +diarrhea, +anorexia. No abdominal pain, nausea, vomiting, constipation, melena, hematochezia : No dysuria, hematuria, increased urinary frequency, decreased urinary output MSK: +myalgia, +arthralgia. No back pain Neuro: No headaches, focal weakness, paresthesias Skin: No rashes or lesions [facility] Medical History COVID-19 Asthma Nocturnal hypoxemia AMITA (obstructive sleep apnea) Hemorrhoids with complication Benign prostatic hyperplasia GERD without esophagitis Pure hypercholesterolemia Benign essential hypertension Eosinophilic colitis Neuropathy Obesity (BMI 30-39.9) Restrictive lung disease COPD (chronic obstructive pulmonary disease) Family History Brother Lung cancer Surgical History History of tonsillectomy History of hernia surgery Social History Housing: House Alcohol intake: never Patient Tobacco Use Status: Former Tobacco user Quit Date: 1966 Smoked in Last 30 Days: No e-Cigarette/Vaping Use: Never Used Second Hand Smoke Exposure: Yes Use of substances other than those prescribed or required for medical reasons: No Advance Directives: Yes Advance Directives Information Provided: Yes Advance Directives on File: No service: No Current occupational status: retired Cognitive needs: No Hearing needs: No Vision needs: Yes Meds Allergies Allergy/AdvReac Type Severity Reaction Status Date / Time Sulfa (Sulfonamide Allergy Mild RASH, Verified 07/07/23 11:09 Antibiotics) BLISTERS codeine [Codeine] Allergy Unknown HALLUCINATI Verified 07/07/23 11:09 ONS Active Medications: Current Medications Apixaban (Apixaban 5 Mg Tablet) 5 mg PO BID [facility] Atenolol (Atenolol 25 Mg Tablet) 12.5 mg PO DAILY [facility]; Protocol Dronedarone (Dronedarone Hcl 400 Mg Tablet) 400 mg PO BID [facility] Ezetimibe (Ezetimibe 10 Mg Tablet) 10 mg PO DAILY [facility] Furosemide (Furosemide 40 Mg Tablet) 80 mg PO DAILY [facility]; Protocol Gabapentin (Gabapentin 300 Mg Capsule) 300 mg PO BID [facility] Hydrochlorothiazide (Hydrochlorothiazide 25 Mg Tablet) 25 mg PO DAILY [facility]; Protocol Latanoprost (Latanoprost 0.005 % Ophth Elayne 2.5 Ml Drops) 1 drop EYE-RIGHT BEDTIME [facility] Lisinopril (Lisinopril 20 Mg Tablet) 20 mg PO BID [facility]; Protocol Lorazepam (Lorazepam 0.5 Mg Tablet) 0.5 mg PO BEDTIME PRN PRN Reason: agitation/anxiety Multivitamins/Vitamin C (Multivitamin Tablet) 1 tab PO DAILY [facility] Non-Formulary Medication (Budesonide) 3 mg PO Q OTHER DAY [facility] Non-Formulary Medication (Fluticasone Propion-Salmeterol [Advair Diskus]) 1 inhalation INHALE BID [facility] Omeprazole (Omeprazole 20 Mg Capsule.Dr) 20 mg PO DAILY [facility] Pravastatin Sodium (Pravastatin Sodium 20 Mg Tablet) 20 mg PO DAILY [facility] Tamsulosin HCl (Tamsulosin Hcl 0.4 Mg Capsule) 0.4 mg PO DAILY [facility] Triamcinolone Acetonide (Triamcinolone Acet 0.5 % Cream 15 Gm Tube) 1 appl TOPICAL TID PRN; Protocol PRN Reason: skin rash/irritation Home Medications Medication Instructions Recorded Confirmed Last Taken Type B-complex with vitamin C 1 tab PO DAILY 09/05/20 07/15/23 07/14/23 History latanoprost 0.005 % eye drops 1 drp ophthalmic-Right BEDTIME 09/05/20 07/15/23 07/14/23 History budesonide 3 mg 3 mg PO Q OTHER DAY 10/12/20 07/15/23 07/18/21 History capsule,delayed,extended release atenolol 25 mg tablet 12.5 mg PO DAILY 07/15/23 07/15/23 07/14/23 History lisinopril 20 mg tablet 20 mg PO BID 07/15/23 07/15/23 07/14/23 History prednisone 5 mg tablet 5 mg PO DAILY ASTHMA 07/15/23 07/15/23 07/14/23 History Physical Exam Vital Signs and Narrative: Vital Signs: Last Vital Signs Temp 98.1 F 07/15/23 13:13 Pulse 84 07/15/23 13:13 Resp 20 07/15/23 13:13 BP 170/75 H 07/15/23 13:13 Pulse Ox 95 07/15/23 13:13 O2 Del Method Room Air 07/15/23 13:13 BMI result Body Mass Index 34.0 Constitutional - Awake and Alert, No apparent distress Eyes - PERRLA, EOMI Cardiovascular - S1S2, RRR, No edema Respiratory - Normal lung expansion, Normal respiratory effort, No respiratory distress, coarse rhonchi bll with inspiratory and expiratory wheezing Gastrointestinal - NT / ND; +BS; No rebound or guarding Extremities - no calf tenderness bilaterally, no swelling Skin - Warm/Dry Neurological - Alert & oriented x3 Psychological - Appropriate affect Results Labs 07/15/23 10:45 07/15/23 10:45 Labs: Laboratory Results - last 24 hr 07/15/23 07/15/23 07/15/23 10:45 10:46 11:06 MCV 84.8 MCH 28.7 MCHC 33.9 RDW 13.8 Plt Count 197 MPV 10.0 Immature Gran % (Auto) 0.4 Neut % (Auto) 82.3 H Lymph % (Auto) 9.4 L [place] % (Auto) 7.6 Eos % (Auto) 0.1 Baso % (Auto) 0.2 Lymph # (Auto) 1.2 [place] # (Auto) 1.0 Eos # (Auto) 0.0 Baso # (Auto) 0.0 Abs Immat Gran (auto) 0.05 H Absolute Neuts (auto) 10.6 H Absolute Nucleated RBC 0.000 Nucleated RBC % (auto) 0.0 ESR 22 H PT 17.1 H INR 1.4 H APTT 33.2 D-Dimer High Sensitivty < 150 Anion Gap 10 L Estim Creat Clear Calc 68.6 Estimated GFR > 60 Random Glucose 96 Lactic Acid 0.8 Calcium 8.8 Total Bilirubin 0.8 AST 23 ALT 27 Alkaline Phosphatase 39 Total Creatine Kinase 97 C-Reactive Protein 9.83 H B-Natriuretic Peptide 32 Total Protein 6.6 Albumin 3.7 Lipase 13 Influenza Type A (PCR) NEGATIVE Influenza Type B (PCR) NEGATIVE RSV RNA Qual (PCR) NEGATIVE SARS-CoV-2 RNA (RT-PCR) POSITIVE A Imaging Radiologist's Impressions: Impressions Chest X-Ray 07/15/23 10:15 IMPRESSION: Patchy bibasilar airspace opacities, left greater than right. Assessment and Plan (1) Weakness: Status: Acute (2) Pneumonia: Status: Acute (3) COVID-19: Status: Acute (4) Asthma with COPD with exacerbation: Status: Acute Plan 82-year-old male with history of BPH, hypertension, hyperlipidemia, restrictive lung disease, paroxysmal atrial fibrillation anticoagulated with Eliquis, unspecified neuropathy, AMITA with nocturnal hypoxia intolerant of CPAP but uses 2 L supplemental O2 at bedtime to be admitted for post-COVID pneumonia and COPD exacerbation. #Acute COPD exacerbation with COVID-19 pneumonia -no hypoxia. Leukocytosis 12.8, no other SIRS criteria (initial tachypnea likely anxiety/iglesias not sepsis) -CXR with bilateral patchy opacities, likely pneumonia, given duration since symptoms onset, likely bacterial -IV ceftriaxone 1g and IV doxycycline 100mg BID (initiated 07/15) -IV methylprednisolone 40mg BID -duonebs q4h while awake -albuterol prn -continue maintenance inhalers -still testing positive for COVID-19 10 days post diagnosis. Continue airborne/contact precautions -follow cbc, cultures #Paroxysmal atrial fibrillation- rate controlled -continue eliquis for anticoagulation, multaq, atenolol #HTN -continue lasix, lisinopril, hctz, atenolol #Unspecified neuropathy -continue gabapentin #AMITA with nocturnal hypoxemia -intolerant of cpap/bipap -2L supplemental O2 overnight #BPH -continue flomax #HLD -continue statin/zetia DVT prophylaxis- eliquis Full code Due to coarse lungs sounds with significant wheezing associated with COPD exacerbation secondary to COVID pneumonia he will require inpt stay at least 2 midnights for IV steroids, nebs, IV abx, and close monitoring of respiratory status to prevent decompensation. He will also require PT evaluation given significant progressive weakness r/t COVID 19 for safe disposition. Quality Stroke Does the patient have a stroke diagnosis?: No VTE Prior VTE?: No VTE Risk Level:: Medical - moderate - high VTE Device Contraindication: Treatment Not Indicated VTE Drug Contraindication: N/A - Med Ordered
--- NOTE | 2023-07-15 14:02 | PC.NURSE ---
Repeat trop obtained/sent
[2023-07-15 14:30] LABS: Troponin-I High Sensitivity 11.6 ng/L (<3.5-35.0)
[2023-07-15] MEDS: Furosemide 40 MG TABLET 80 MG PO (15:15)
[2023-07-15] MEDS: lisinopriL 20 MG TABLET PO ×2 (15:16→20:00)
[2023-07-15] MEDS: hydroCHLOROthiazide 25 MG TABLET PO (15:16)
[2023-07-15] MEDS: atenoloL 25 MG TABLET 12.5 MG PO (15:16)
[2023-07-15] MEDS: methylPREDNISolone Sod Succ 40 MG/ML VIAL IVPUSH (15:17)
[2023-07-15 15:33] LABS: Appearance Urine Clear; Color Urine Yellow; Glucose Urine UA Negative (Negative); Leukocyte Esterase Urine Negative (Negative); Nitrite Urine Negative (Negative); PH 6.5 (5.0-9.0); Specific Gravity - Urine 1.015 (1.005-1.025); UMIC TRIGGER UACC YES; Urine Blood Trace (Negative); Urine Ketones Negative (Negative); Urine Protein Trace mg/dL (Neg-Trace)
[2023-07-15 15:52] LABS: Bacteria Urine None Seen (None Seen); Hyaline Casts Urine 0-2 /LPF (0-2); Squamous Epithelial Cell Urine 0-2 /HPF (0-2); WBC Urine 0-5 /HPF (0-5)
[2023-07-15] MEDS: Albuterol/Iprat 2.5/0.5MG 3 ML AMPUL.NEB INHALE ×2 (16:09→19:44)
--- NOTE | 2023-07-15 16:11 | PC.RT ---
pt has AMITA but does not wear Bipap at home as it keeps him awake. Therefore he does not wear it. pt stated receivable clerk Dr. Larson suggested oxygen at night instead.
[2023-07-15] MEDS: 0.9 % Sodium Chloride Flush 3 ML SYRINGE IVFLUSH (16:24)
--- NOTE | 2023-07-15 17:19 | PC.NURSE ---
bloody discharge from the penis , blood clot came out when he was urinating , urine is clear, provider Azul was notified
[2023-07-15] MEDS: Gabapentin 300 MG CAPSULE PO (20:00)
[2023-07-15] MEDS: Dronedarone HCl 400 MG TABLET PO (20:00)
--- NOTE | 2023-07-15 22:12 | PC.RT ---
Pt started on Overnight pulse oximetry. pt HR 64 O2 sat 92% on RA. RN aware
[2023-07-15] MEDS: Latanoprost 0.005 % Ophth Sol 2.5 ML DROPS 1 DROP EYE-RIGHT (22:39)
[2023-07-16] VITALS (12 sets, daily range): BP systolic 127–176; BP diastolic 63–85; PULSE 60–76; RESP 18–20; TEMP 36.1–37.1; O2SAT 92–97
[2023-07-16] MEDS: Acetaminophen 325 MG TABLET 650 MG PO (00:29)
[2023-07-16] MEDS: Doxycycline Hyclate 100 MG in 0.9 % Sodium Chloride 250 ML 166.67 MG IV ×2 (00:30→13:01)
[2023-07-16] MEDS: 0.9 % Sodium Chloride Flush 3 ML SYRINGE IVFLUSH ×4 (00:30→22:49)
[2023-07-16] MEDS: methylPREDNISolone Sod Succ 40 MG/ML VIAL IVPUSH ×2 (03:03→14:40)
[2023-07-16 07:36] LABS: Basophils Percent Auto 0.1 % (0-2); Eosinophils Percent Auto 0.1 % (0-4); Hemoglobin 13.4 g/dl (14.0-18.0); Imm Gran Abs Auto 0.07 X10*3/uL (0.00-0.03); Imm Gran Pct Auto 0.6 % (0.0-0.4); Lymphocytes Absolute Auto 0.7 X10*3/uL (1.2-4.9); Lymphocytes Percent Auto 6.3 % (20-40); MANUAL DIFF FLAG SCAN; Mean Corpuscular HGB Conc 33.5 g/dl (31.0-36.0); Mean Corpuscular Hemoglobin 28.6 pg (27.0-33.0); Mean Corpuscular Volume 85.3 fL (80.0-98.0); Mean Platelet Volume 9.9 fL (9.4-12.4); Monocytes Absolute Auto 0.2 X10*3/uL (0.1-1.2); Monocytes Percent Auto 2.1 % (2-11); Neutrophils Absolute Auto 10.5 x10*3/uL (2.0-8.3); Neutrophils Percent Auto 90.8 % (45-73); Platelet Count 218 X10*3/uL (160-400); Red Blood Count 4.69 X10*6/uL (4.60-5.80); Red Cell Distribution Width 13.8 % (11.0-16.0); SCAN SMEAR FLAG 1; White Blood Count 11.6 X10*3/uL (4.8-10.8)
[2023-07-16 07:45] LABS: Anion Gap 13 (12-20); Blood Urea Nitrogen 21 mg/dL (9-16); Calcium 9.3 mg/dL (8.4-10.2); Carbon Dioxide 32 mmol/L (22-29); Chloride 94 mmol/L (96-108); Creatinine Clr Calc Pharmacy 62.1; Estimated Glomerular Filt Rate > 60; Glucose Random 128 mg/dL (60-115); Potassium 3.9 mmol/L (3.3-5.1); Sodium 135 mmol/L (135-145)
[2023-07-16] MEDS: Multivitamin TABLET 1 TAB PO (07:50)
[2023-07-16] MEDS: atenoloL 25 MG TABLET 12.5 MG PO (07:51)
[2023-07-16] MEDS: Gabapentin 300 MG CAPSULE PO ×2 (07:51→22:29)
[2023-07-16] MEDS: Pravastatin Sodium 20 MG TABLET PO (07:51)
[2023-07-16] MEDS: lisinopriL 20 MG TABLET PO ×2 (07:51→22:27)
[2023-07-16] MEDS: hydroCHLOROthiazide 25 MG TABLET PO (07:52)
[2023-07-16] MEDS: Ezetimibe 10 MG TABLET PO (07:53)
[2023-07-16] MEDS: Tamsulosin HCL 0.4 MG CAPSULE PO (07:53)
[2023-07-16] MEDS: Dronedarone HCl 400 MG TABLET PO ×2 (07:53→22:29)
[2023-07-16] MEDS: Furosemide 40 MG TABLET 80 MG PO (07:53)
[2023-07-16] MEDS: Albuterol/Iprat 2.5/0.5MG 3 ML AMPUL.NEB INHALE ×4 (08:06→19:58)
[2023-07-16] MEDS: Fluticasone/Vilanterol 200/25 BLST.W.DEV 1 PUFF INHALE (08:07)
[2023-07-16 08:22] LABS: SLIDE REVIEW VERIFIED
--- NOTE | 2023-07-16 08:34 | MHC.CM.PN ---
IMM 07/16/23 Pt lives alone, he is independent and does not have home health services, he has not used [facility] or been to [facility]. His daughter is his HCP, he said he has a copy of document on his refrigerator, a copy was requested. He confirmed his PCP is Dr. Stafford. He does not have medical equipment at home. He has transportation home upon DC. CM will follow and assist with DC planning.
[2023-07-16] MEDS: cefTRIAXone sodium 1 GM in 0.9 % Sodium Chloride 50 ML IV (12:27)
[2023-07-16] MEDS: Calcium Carbonate 750 MG TAB.CHEW PO ×2 (12:53→22:30)
--- NOTE | 2023-07-16 14:29 | P.PNIM_ITS ---
Subjective Subjective Date of Service: 07/16/23 Interval History: being followed for acute COPD exacerbation with COVID-19 pneumonia. feeling better, denies weakness, no confusion, no recurrent episode of passing clot from penis he feels he irritated it by using the urinal and has had similar episode in the past, denies lightheadedness, no dizziness, complaining of persistent dry cough, denies pleuritic chest pain, no diarrhea, tolerated breakfast. Review of Systems all other system reviewed and negative Physical Exam 2 Vital Signs: Vital Signs: Last Vital Signs Temp 98.3 F 07/16/23 10:46 Pulse 66 07/16/23 11:58 Resp 18 07/16/23 11:58 BP 127/67 07/16/23 10:46 Pulse Ox 93 07/16/23 10:46 O2 Del Method Room Air 07/16/23 10:46 BMI result Body Mass Index 34.0 Const: Other: General awake alert x3, resting comfortably in no acute distress. Neck supple no JVD. CVS regular rate rhythm, Respiratory lungs clear to auscultation, no respiratory distress, no wheeze, no rhonchi. Gastrointestinal abdomen soft, non tender, bowel sounds audible, no guarding , no rigidity. Extremities no edema. Neuro nonfocal , speech clear. Skin no rash psych appropriate affect Objective Data Active Medications Acetaminophen (Acetaminophen 325 Mg Tablet) 650 mg PO Q6H PRN PRN Reason: Pain, Mild (Pain Scale 1-3) Last Admin: 07/16/23 00:29 Dose: 650 mg Documented By: CARLINE Albuterol Sulfate (Albuterol Sulfate (0.083%) 2.5 Mg/3 Ml Vial.Neb) 2.5 mg INHALE Q2H PRN PRN Reason: Shortness of Breath/Wheezing Albuterol/Ipratropium (Albuterol/Iprat 2.5/0.5mg 3 Ml Ampul.Neb) 3 ml INHALE RQ4H WHILE AWAKE REPLACED BY [facility] Last Admin: 07/16/23 11:57 Dose: 3 ml Documented By: KELLY Atenolol (Atenolol 25 Mg Tablet) 12.5 mg PO DAILY REPLACED BY [facility]; Protocol Last Admin: 07/16/23 07:51 Dose: 12.5 mg Documented By: MUMTAZ Calcium Carbonate (Calcium Carbonate 750 Mg Tab.Chew) 750 mg PO Q6H PRN PRN Reason: heart burn Last Admin: 07/16/23 12:53 Dose: 750 mg Documented By: MUMTAZ Dronedarone (Dronedarone Hcl 400 Mg Tablet) 400 mg PO BID REPLACED BY [facility] Last Admin: 07/16/23 07:53 Dose: 400 mg Documented By: MUMTAZ Ezetimibe (Ezetimibe 10 Mg Tablet) 10 mg PO DAILY REPLACED BY [facility] Last Admin: 07/16/23 07:53 Dose: 10 mg Documented By: MUMTAZ Fluticasone/Vilanterol (Fluticasone/Vilanterol 200/25 Blst.W.Dev) 1 puff INHALE RDAILY REPLACED BY [facility] Last Admin: 07/16/23 08:07 Dose: 1 puff Documented By: KELLY Furosemide (Furosemide 40 Mg Tablet) 80 mg PO DAILY REPLACED BY [facility]; Protocol Last Admin: 07/16/23 07:53 Dose: 80 mg Documented By: MUMTAZ Gabapentin (Gabapentin 300 Mg Capsule) 300 mg PO BID REPLACED BY [facility] Last Admin: 07/16/23 07:51 Dose: 300 mg Documented By: MUMTAZ Hydrochlorothiazide (Hydrochlorothiazide 25 Mg Tablet) 25 mg PO DAILY REPLACED BY [facility]; Protocol Last Admin: 07/16/23 07:52 Dose: 25 mg Documented By: MUMTAZ Doxycycline Hyclate 100 mg/ (Sodium Chloride) 250 mls @ 166.67 mls/hr IV Q12H REPLACED BY [facility] Last Admin: 07/16/23 13:01 Dose: 166.67 mls/hr Documented By: MUMTAZ Ceftriaxone Sodium 1 gm/ (Sodium Chloride) 50 mls @ 100 mls/hr IV Q24H REPLACED BY [facility] Last Infusion: 07/16/23 13:05 Dose: Infused Documented By: MUMTAZ Latanoprost (Latanoprost 0.005 % Ophth Elayne 2.5 Ml Drops) 1 drop EYE-RIGHT BEDTIME REPLACED BY [facility] Last Admin: 07/15/23 22:39 Dose: 1 drop Documented By: LUIS ENRIQUE Lisinopril (Lisinopril 20 Mg Tablet) 20 mg PO BID REPLACED BY [facility]; Protocol Last Admin: 07/16/23 07:51 Dose: 20 mg Documented By: MUMTAZ Lorazepam (Lorazepam 0.5 Mg Tablet) 0.5 mg PO BEDTIME PRN PRN Reason: agitation/anxiety Methylprednisolone Sodium Succinate (Methylprednisolone Sod Succ 40 Mg/Ml Vial) 40 mg IVPUSH Q12H REPLACED BY [facility] Last Admin: 07/16/23 03:03 Dose: 40 mg Documented By: CARLINE Multivitamins/Vitamin C (Multivitamin Tablet) 1 tab PO DAILY REPLACED BY [facility] Last Admin: 07/16/23 07:50 Dose: 1 tab Documented By: MUMTAZ Non-Formulary Medication (Budesonide) 3 mg PO Q48H REPLACED BY [facility] Omeprazole (Omeprazole 20 Mg Capsule.) 20 mg PO DAILY@0630 REPLACED BY [facility] Last Admin: 07/16/23 05:59 Dose: Not Given Documented By: CARLINE Non-Admin Reason: Patient Asleep Ondansetron HCl (Ondansetron Hcl 4 Mg/2 Ml Vial) 4 mg IVPUSH Q8H PRN PRN Reason: Nausea and Vomiting Pravastatin Sodium (Pravastatin Sodium 20 Mg Tablet) 20 mg PO DAILY REPLACED BY [facility] Last Admin: 07/16/23 07:51 Dose: 20 mg Documented By: MUMTAZ Senna (Sennosides 8.6 Mg Tablet) 17.2 mg PO BEDTIME PRN PRN Reason: Constipation Sodium Chloride (0.9 % Sodium Chloride Flush 3 Ml Syringe) 3 ml IVFLUSH QSHIFT REPLACED BY [facility] Last Admin: 07/16/23 07:54 Dose: 3 ml Documented By: MUMTAZ Tamsulosin HCl (Tamsulosin Hcl 0.4 Mg Capsule) 0.4 mg PO DAILY REPLACED BY [facility] Last Admin: 07/16/23 07:53 Dose: 0.4 mg Documented By: MUMTAZ Triamcinolone Acetonide (Triamcinolone Acet 0.5 % Cream 15 Gm Tube) 1 appl TOPICAL TID PRN; Protocol PRN Reason: skin rash/irritation Labs 07/16/23 07:11 07/16/23 07:11 Labs: Laboratory Results - last 24 hr 07/15/23 07/16/23 15:18 07:11 MCV 85.3 MCH 28.6 MCHC 33.5 RDW 13.8 Plt Count 218 MPV 9.9 Immature Gran % (Auto) 0.6 H Neut % (Auto) 90.8 H Lymph % (Auto) 6.3 L Mcminn % (Auto) 2.1 Eos % (Auto) 0.1 Baso % (Auto) 0.1 Lymph # (Auto) 0.7 L Mcminn # (Auto) 0.2 Eos # (Auto) 0.0 Baso # (Auto) 0.0 Abs Immat Gran (auto) 0.07 H Absolute Neuts (auto) 10.5 H Absolute Nucleated RBC 0.000 Nucleated RBC % (auto) 0.0 Smear Tech's Comments VERIFIED Anion Gap 13 Estim Creat Clear Calc 62.1 Estimated GFR > 60 Random Glucose 128 H Calcium 9.3 Urine Color Yellow Urine Appearance Clear Urine pH 6.5 Ur Specific [place] 1.015 Urine Protein Trace Urine Glucose (UA) Negative Urine Ketones Negative Urine Blood Trace H Urine Nitrite Negative Ur Leukocyte Esterase Negative Urine RBC 6-10 H Urine WBC 0-5 Ur Squamous Epith Cells 0-2 Urine Bacteria None Seen Hyaline Casts 0-2 Microbiology Microbiology Results: Microbiology 07/15/23 11:06 Blood Culture - Preliminary Blood - Venous No growth after 24 hours. 07/15/23 10:45 Blood Culture - Preliminary Blood - Venous No growth after 24 hours. Assessment and Plan (1) Asthma with COPD with exacerbation: Status: Acute (2) COVID-19: Status: Acute Plan 82-year-old male with history of BPH, hypertension, hyperlipidemia, restrictive lung disease, paroxysmal atrial fibrillation anticoagulated with Eliquis, unspecified neuropathy, AMITA with nocturnal hypoxia intolerant of CPAP but uses 2 L supplemental O2 at bedtime to be admitted for post-COVID pneumonia and COPD exacerbation. #Acute COPD exacerbation with COVID-19 pneumonia -no hypoxia. Leukocytosis trending down from 12.8, to 11.6, no other SIRS criteria ,initial tachypnea likely anxiety related -CXR with bilateral patchy opacities, likely pneumonia, given duration since symptoms onset, likely bacterial - continue IV ceftriaxone 1g and IV doxycycline 100mg BID (initiated 07/15) -IV methylprednisolone 40mg BID -duonebs q4h while awake and albuterol prn -continue maintenance inhalers -still testing positive for COVID-19 10 days post diagnosis. Continue airborne/contact precautions -follow cbc, cultures # generalized weakness /myalgias due to COVID improving, seen by Physical therapy they recommend home when medically cleared #Paroxysmal atrial fibrillation- rate controlled -continue eliquis for anticoagulation, multaq, atenolol #HTN -continue lasix, lisinopril, hctz, atenolol #Unspecified neuropathy -continue gabapentin #AMITA with nocturnal hypoxemia -intolerant of cpap/bipap - qualified for 2L supplemental O2 overnight #BPH -continue flomax #HLD -continue statin/zetia # 1 episode of passing clot from penis likely due to irritation from urinal no further episode # obesity recommended low-calorie diet and exercise. DVT prophylaxis- eliquis Full code patient need continued inpatient hospitalization for acute COPD exacerbation requiring IV steroids, IV antibiotics and updraft treatment. Quality Stroke Does the patient have a stroke diagnosis?: No VTE Prior VTE?: No VTE Risk Level:: Medical - moderate - high VTE Device Contraindication: Treatment Not Indicated VTE Drug Contraindication: N/A - Med Ordered
[2023-07-16] MEDS: Latanoprost 0.005 % Ophth Sol 2.5 ML DROPS 1 DROP EYE-RIGHT (22:26)
[2023-07-16] MEDS: Apixaban 5 MG TABLET PO (22:27)
[2023-07-17] MEDS: methylPREDNISolone Sod Succ 40 MG/ML VIAL IVPUSH (02:11)
[2023-07-17] MEDS: Doxycycline Hyclate 100 MG in 0.9 % Sodium Chloride 250 ML 166.67 MG IV (02:12)
[2023-07-17 03:19] VITALS: BP 152/72; PULSE 67; RESP 20; TEMP 37.1; O2SAT 92
[2023-07-17 07:00] VITALS: BP 132/73; PULSE 79; RESP 16; TEMP 36.9; O2SAT 93
[2023-07-17] MEDS: Omeprazole 20 MG CAPSULE.DR PO (07:45)
[2023-07-17] MEDS: Fluticasone/Vilanterol 200/25 BLST.W.DEV 1 PUFF INHALE (08:10)
[2023-07-17] MEDS: Albuterol/Iprat 2.5/0.5MG 3 ML AMPUL.NEB INHALE (08:10)
[2023-07-17] MEDS: Apixaban 5 MG TABLET PO (08:11)
[2023-07-17 08:12] VITALS: PULSE 77; RESP 18; O2SAT 94
[2023-07-17] MEDS: Multivitamin TABLET 1 TAB PO (08:12)
[2023-07-17] MEDS: Ezetimibe 10 MG TABLET PO (08:12)
[2023-07-17] MEDS: 0.9 % Sodium Chloride Flush 3 ML SYRINGE IVFLUSH (08:12)
[2023-07-17] MEDS: Pravastatin Sodium 20 MG TABLET PO (08:12)
[2023-07-17] MEDS: hydroCHLOROthiazide 25 MG TABLET PO (08:12)
[2023-07-17] MEDS: Gabapentin 300 MG CAPSULE PO (08:12)
[2023-07-17] MEDS: Dronedarone HCl 400 MG TABLET PO (08:12)
[2023-07-17] MEDS: lisinopriL 20 MG TABLET PO (08:12)
[2023-07-17] MEDS: Tamsulosin HCL 0.4 MG CAPSULE PO (08:12)
[2023-07-17] MEDS: atenoloL 25 MG TABLET 12.5 MG PO (08:13)
[2023-07-17 10:44] VITALS: BP 113/62; PULSE 79; RESP 20; TEMP 36.6; O2SAT 94
--- NOTE | 2023-07-17 11:16 | PM.DS ---
DS: Providers Provider Date of Service: 07/17/23 Date of admission: 07/15/23 13:49 Primary care physician: Noel Howard MD DS: Diagnosis Discharge Diagnosis (1) Asthma with COPD with exacerbation: Status: Acute (2) COVID-19: Status: Acute DS: Summary Hospital Course Hospital Course: history of presenting illness: Date of Service: 07/15/23 Attending physician on admission: Dylon Saenz Chief Complaint: weakness, covid 19 82-year-old male with history of BPH, hypertension, hyperlipidemia, restrictive lung disease, paroxysmal atrial fibrillation anticoagulated with Eliquis, unspecified neuropathy, AMITA with nocturnal hypoxia intolerant of CPAP but uses 2 L supplemental O2 at bedtime presented to the ED earlier today with his daughter and son-in-law for evaluation of persistent upper respiratory symptoms and weakness related to COVID-19 as well as an episode of confusion this morning on. The patient tested positive for COVID-19 10 days ago and had been symptomatic fevers up to 102, dry cough, congestion, pleuritic chest pain, dyspnea on exertion, myalgias/arthralgias, fatigue, anorexia. He has also been having about 5 episodes of watery diarrhea on a daily basis without any blood noted. He reports that he is feeling slightly better but continues with dyspnea on exertion, no orthopnea or PND. He still has cough with increasing weakness and fatigue. This morning was noted to be lethargic and somewhat confused per his daughter this morning. He was recommended by Dr. Larson to come to the ER yesterday as well. On arrival, patient afebrile but tachypneic to 24 and mildly hypertensive. No hypoxia. There is a leukocytosis of 12.8. Renal function baseline, electrolyte levels normal except for mild hyponatremia 133. Initial troponin 12.5, repeat pending. BNP 32. Total CK 97. CRP 9.83, ESR 22. D-dimer below detectable limits. Negative for influenza, RSV. Positive for COVID-19 initial diagnosis 10 days ago. CXR shows patchy bibasilar airspace opacities left greater than right. EKG shows sinus rhythm with PACs, rate 84, no ST/T-wave abnormalities. In the ED, has received 1 L IV NS, 1 g IV ceftriaxone and 100 mg IV doxycycline. hospital course: 82-year-old male with history of BPH, hypertension, hyperlipidemia, restrictive lung disease, paroxysmal atrial fibrillation anticoagulated with Eliquis, unspecified neuropathy, AMITA with nocturnal hypoxia intolerant of CPAP but uses 2 L supplemental O2 at bedtime to be admitted for post-COVID pneumonia and COPD exacerbation. #Acute COPD exacerbation with COVID-19 pneumonia, admitted to medical floor and placed on IV ceftriaxone and IV doxycycline as well as IV steroids and updraft treatment patient responded to above treatment, shortness of breath improved, patient had no hypoxia, WBC trended down, blood cultures x2 showed no growth, therefore patient is being discharged home on by mouth antibiotics and prednisone, he is recommended to rest, drink plenty of fluids and take cough medication as needed. # generalized weakness /myalgias due to COVID improved, seen by Physical therapy they recommend home with no services. #Paroxysmal atrial fibrillation- noted to have controlled ventricular rate recommend to continue Eliquis, Multaq and atenolol. #HTN -continue lasix, lisinopril, hctz, atenolol #Unspecified neuropathy -continue gabapentin #AMITA with nocturnal hypoxemia -intolerant of cpap/bipap, qualified for 2L supplemental O2 overnight #BPH -continue flomax #HLD -continue statin/zetia Time Attestation Discharge coordination time: Greater than 30 minutes Quality: Safe Use of Opioids Does Pt have an Active Cancer Diagnosis on the Problem List?: No Quality: Stroke Does the patient have a stroke diagnosis?: No Physical Exam Vital Signs: Vital Signs: Last Vital Signs Temp 98 F 07/17/23 10:44 Pulse 79 07/17/23 10:44 Resp 20 07/17/23 10:44 BP 113/62 07/17/23 10:44 Pulse Ox 94 07/17/23 10:44 O2 Del Method Room Air 07/17/23 10:44 BMI result Body Mass Index 34.0 Const: Other: General awake alert x3, resting comfortably in no acute distress. Neck supple no JVD. CVS regular rate rhythm, Respiratory lungs clear to auscultation, no respiratory distress, no wheeze, no rhonchi. Gastrointestinal abdomen soft, non tender, bowel sounds audible, no guarding , no rigidity. Extremities no edema. Neuro nonfocal , speech clear. Skin no rash psych appropriate affect DS: Data Data Completed and Pending Labs on day of discharge: Preliminary micro results at discharge 07/15/23 11:06 Blood Culture - Preliminary Blood - Venous No growth after 24 hours. 07/15/23 10:45 Blood Culture - Preliminary Blood - Venous No growth after 24 hours. Discharge Plan Discharge Anticipated Discharge Date/Time: 07/17/23 08:55 Patient Disposition: Home, Self-Care Discharge Diagnosis: acute COPD exacerbation with COVID-19 pneumonia Referrals: Noel Howard MD [Primary Care Provider] - 1 Week Discharge Medications: New cefuroxime axetil 500 mg tablet 500 mg PO Q12H Qty: 6 0RF prednisone 20 mg tablet 20 mg PO DAILY Qty: 3 0RF Continued tamsulosin 0.4 mg capsule 0.4 mg PO DAILY 90 Days Qty: 90 3RF pravastatin 20 mg tablet 20 mg PO DAILY 90 Days Qty: 90 3RF ezetimibe 10 mg tablet 10 mg PO DAILY 90 Days Qty: 90 3RF gabapentin 300 mg capsule 300 mg PO BID 90 Days Qty: 180 3RF hydrochlorothiazide 25 mg tablet 25 mg PO DAILY 90 Days Qty: 90 3RF omeprazole 20 mg capsule,delayed release(DR/EC) 20 mg PO DAILY 90 Days Qty: 90 3RF furosemide 80 mg tablet 80 mg PO DAILY 90 Days Qty: 90 3RF fluticasone propion-salmeterol [Advair Diskus] 500-50 mcg/dose blister with device 1 inh inhalation BID 90 Days Qty: 3 1RF Eliquis 5 mg tablet 5 mg PO BID 90 Days Qty: 180 3RF albuterol sulfate [Ventolin HFA] 90 mcg/actuation HFA aerosol inhaler 1 inh inhalation QID PRN (Reason: shortness of breath or wheezing) 90 Days Qty: 8.5 3RF triamcinolone acetonide 0.5 % cream 1 appl topical TID PRN (Reason: skin rash/irritation) Qty: 30 2RF ipratropium-albuterol 0.5 mg-3 mg(2.5 mg base)/3 mL solution for nebulization 3 ml inhalation Q6H PRN (Reason: for copd/wheezing) Qty: 360 3RF Incruse Ellipta 62.5 mcg/actuation blister with device 1 inh inhalation DAILY Qty: 30 3RF Multaq 400 mg tablet 400 mg PO BID 90 Days Qty: 180 3RF Rx Instructions: must administer with a meal/food lorazepam 0.5 mg tablet 0.5 mg PO BEDTIME PRN (Reason: agitation/anxiety) 30 Days Qty: 30 0RF atenolol 25 mg tablet 12.5 mg PO DAILY lisinopril 20 mg Tablet 20 mg PO BID latanoprost 0.005 % drops 1 drp ophthalmic-Right BEDTIME B-complex with vitamin C Tablet 1 tab PO DAILY budesonide 3 mg capsule,delayed,extend.release 3 mg PO Q OTHER DAY Held prednisone 5 mg tablet 5 mg PO DAILY Hold Instructions: Resume on 07/21/23. Discharge Orders: Discharge Order (Routine); Ordered 07/17/23 Ordered By: Dylon Saenz Diet: Low fat, low cholesterol Activity on Discharge: As tolerated Stand Alone Forms: Patient Portal Discharge page Care Plan Goals: shortness of breath and weakness a better take Ceftin 1 tablet twice daily for 3 more days, take prednisone 20 mg 1 tablet daily for 3 more days and than resume home dose of prednisone take cough medication as needed take vitamin-C 500 mg daily rest symptoms of weakness and cough can last 1-2 weeks Health Concerns: take all home medications as before Plan of Treatment: outpatient follow-up with primary care physician call for appointment Assessment: as above Discharge Date/Time: 07/17/23 12:35
--- NOTE | 2023-07-17 11:24 | MHC.CM.PN ---
Pt has been medically cleared for DC, he will go home via private transport, no services arranged.
== END 2023-07-17 12:35 | disposition home or self-care (01) | DRG 177 ==
LOC: HO.ED 12:58 → HO.EDOVER 14:07 → HO.IMC 14:42
PROVIDERS: Admitting Provider Physician Assistant; Emergency Provider Emergency Medicine Emergency Medical Services; PCP Internal Medicine; Visit Provider Hospitalist
DX: U07.1 COVID-19 (principal); J12.82 Pneumonia due to coronavirus disease 2019; J15.9 Unspecified bacterial pneumonia; J44.0 Chronic obstructive pulmonary disease with (acute) lower respiratory infection; E87.1 Hypo-osmolality and hyponatremia; J44.1 Chronic obstructive pulmonary disease with (acute) exacerbation; N40.0 Benign prostatic hyperplasia without lower urinary tract symptoms; G62.9 Polyneuropathy, unspecified; F41.9 Anxiety disorder, unspecified; E66.9 Obesity, unspecified; Z68.34 Body mass index [BMI] 34.0-34.9, adult; G47.33 Obstructive sleep apnea (adult) (pediatric); I10 Essential (primary) hypertension; Z71.3 Dietary counseling and surveillance; E78.5 Hyperlipidemia, unspecified; I48.0 Paroxysmal atrial fibrillation; Z79.01 Long term (current) use of anticoagulants; Z79.899 Other long term (current) drug therapy
CPT/HCPCS: 0241U; 36415; 71045; 80048; 80053; 81001; 82550; 83605; 83690; 83880; 84484; 85025; 85379; 85610; 85652; 85730; 86140; 87040; 93005; 94640; 94762; 97116; 97161; 99285; J0696; J2920

== ENCOUNTER → 2023-07-15 09:48 | Outpatient (BNV) | payer MEDICARE, SELFPAY | PROVIDERS: Emergency Provider Emergency Medicine Emergency Medical Services; PCP Internal Medicine; Visit Provider Internal Medicine Cardiovascular Disease | DX: I49.1 Atrial premature depolarization (principal) | CPT/HCPCS: 93010 ==

== ENCOUNTER → 2023-07-15 13:49 | Outpatient (BNV) | payer MEDICARE, SELFPAY | PROVIDERS: Admitting Provider Physician Assistant; Emergency Provider Emergency Medicine Emergency Medical Services; PCP Internal Medicine; Visit Provider Physician Assistant | DX: U07.1 COVID-19 (principal); J12.82 Pneumonia due to coronavirus disease 2019; J44.1 Chronic obstructive pulmonary disease with (acute) exacerbation | CPT/HCPCS: 99223; 99233; 99239 ==

== ENCOUNTER 2023-08-13 13:51 | Outpatient (AMB) | payer MEDICARE, SELFPAY ==
--- NOTE | 2023-08-13 13:53 | A.OFFPC_ITS ---
Vital Signs 08/13/23 13:57 08/13/23 14:04 Height 5 ft 11 in Weight 115.383 kg BMI 35.5 BP 140/70 H 130/68 Blood Pressure Location Lt brachial Lt brachial Position Sitting Sitting Pulse 78 Pulse Source Pulse Oximeter Pulse Oximetry (%) 98 Oxygen Delivery Method Room Air Intake Visit Reasons[place] [facility] [place] COPD exacerbation w/COVID-19 Pneum Intake Note: Patient is here for hospital discharge follow up. Patient was discharged from [facility] on 07/17/23. 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 Accompanied by: Self / Same As Patient Allergies Sulfa (Sulfonamide Antibiotics) Allergy (Mild, Verified 08/13/23 13:56) RASH, BLISTERS codeine [Codeine] Allergy (Unknown, Verified 08/13/23 13:56) HALLUCINATIONS Medication List - Last Reconciled 08/13/23 by ZION Tariq Advair Diskus 500-50 mcg/dose (fluticasone propion-salmeterol) 1 inh inhalation BID 90 days NS albuterol sulfate 90 mcg/actuation (Ventolin HFA) 1 inh inhalation QID PRN 90 days apixaban (Eliquis) 5 mg PO BID 90 days atenolol 12.5 mg (1/2 x 25 mg) PO DAILY B-complex with vitamin C 1 tab PO DAILY budesonide ER 3 mg PO Q OTHER DAY doxycycline hyclate 100 mg PO BID dronedarone (Multaq) 400 mg PO BID 90 days ezetimibe 10 mg PO DAILY 90 days furosemide 80 mg PO DAILY 90 days gabapentin 300 mg PO BID 90 days hydrochlorothiazide 25 mg PO DAILY 90 days ipratropium-albuterol 0.5 mg-3 mg(2.5 mg base)/3 mL 3 mL inhalation Q6H PRN latanoprost 0.005% 1 drp ophthalmic-Right BEDTIME lisinopril 20 mg PO BID lorazepam 0.5 mg PO BEDTIME PRN 30 days omeprazole 20 mg PO DAILY 90 days pravastatin 20 mg PO DAILY 90 days prednisone 20 mg PO DAILY prednisone 5 mg PO DAILY prednisone 10 mg PO DIRECTED tamsulosin 0.4 mg PO DAILY 90 days triamcinolone acetonide 0.5% 1 appl topical TID PRN umeclidinium 62.5 mcg/actuation (Incruse Ellipta) 1 inh inhalation DAILY Tobacco use date assessed: 08/13/23 Fall risk assessment: No Falls in past year Last assessed Fall Risk: 08/13/23 Dental Screening Dental Screen Date: 08/13/23 Did you have a dental visit in the last 12 months?: No Did you have a dental problem in the last 6 months where you did not have access to dental care?: No Was dental information given to patient?: Patient has dentist HPI HPI Comments History of Present Illness Details 82-year-old male with history of BPH, hy pertension, hyperlipidemia, restrictive lung disease, paroxysmal atrial fibrillation anticoagulated with Eliquis, AMITA with nocturnal hypoxia intolerant of CPAP uses 2 L supplemental O2 at bedtime presents to the office today for hospital discharge follow-up. He was admitted to [facility] from 07/15-07/17 due to COVID pneumonia and acute COPD exacerbation. On arrival to the ED, patient had been tachypneic and mildly hypertensive without any hypoxia. There was a mild leukocytosis of 12.8 as well as a mild hyponatremia 133. Total CK 97, CRP 9.83, ESR 22- due to viral illness. D-dimer was below detectable limits. He was negative for influenza and RSV but was positive for COVID-19 with initial diagnosis having been 10 days prior. Labs otherwise unremarkable. Chest x-ray did show patchy bibasilar airspace opacities left greater than right. Lung sounds were noted to be coarse with bilateral expiratory wheezing and was recommended for admission. He was treated with IV ceftriaxone and doxycycline as well as IV methylprednisolone and scheduled DuoNeb treatments. Patient responded well to therapies and was discharged home on cefuroxime 500 mg b.i.d. x3 days and prednisone 20 mg x 3 days which he completed. He had been evaluated by PT was not recommended for home services. Discharge medications reviewed and reconiled Today he states he had been feeling much better after discharge home. Has not yet followed up with Dr. Larson. For the last few days has had recurrence of wheezing, occassionally productive cough, and shortness of breath. Has had some chills, but no fevers, rigors, sweats. No sick contacts. Lives by himself. Has been using guaifenesin with some relief and expectoration. Also using humidifier. Compliant with maintenance inhalers and has noted increase in albuterol usage without much relief. [facility] Medical History COVID-19 Asthma Nocturnal hypoxemia AMITA (obstructive sleep apnea) Hemorrhoids with complication Benign prostatic hyperplasia GERD without esophagitis Pure hypercholesterolemia Benign essential hypertension Eosinophilic colitis Neuropathy Obesity (BMI 30-39.9) Restrictive lung disease COPD (chronic obstructive pulmonary disease) Surgical History History of tonsillectomy History of hernia surgery Family History Brother Lung cancer Social History Household Members: None Housing: House Do you presently have visiting nurse or other home services: No Alcohol intake: never Patient Tobacco Use Status: Former Tobacco user Quit Date: 1966 e-Cigarette/Vaping Use: Never Used Second Hand Smoke Exposure: Yes Advance Directives Date on File: 07/15/23 service: No Current occupational status: retired Cognitive needs: No Hearing needs: No Vision needs: Yes (Glasses) Questionnaire PHQ-9 Over the last 2 weeks, how often have you been bothered by any of the following problems? 1. Little interest or pleasure in doing things: not at all 2. Feeling down, depressed, or hopeless: not at all 3. Trouble falling or staying asleep, or sleeping too much: not at all 4. Feeling tired or having little energy: not at all 5. Poor appetite or overeating: not at all 6. Feeling bad about yourself - or that you are a failure or have let yourself or your family down: not at all 7. Trouble concentrating on things, such as reading the newspaper or watching television: not at all 8. Moving or speaking so slowly that other people could have noticed. Or the opposite - being so fidgety or restless that you have been moving around a lot more than usual: not at all 9. Thoughts that you would be better off or of hurting yourself in some way: not at all Total score: 0 Depression Screening Interpretation: Negative Depression Screening Done: Yes Source: Developed by Drs. Gregorio Lopez, EmberDash Peters and colleagues, with an educational neli from [employer]. Thrive Questionnaire Date Thrive assessed: 08/13/23 I am a: Patient What is your living situation today?: I have a steady place to live Within the past 12 months, did the food you bought not last and you didn't have the money to get more?: Never true Within the past 12 months, did you worry whether your food would run out before you got money to buy more?: Never true Do you have trouble paying for medicines?: No Do you have trouble getting transportation to medical appointments?: No Do you have trouble paying your heating and electricity bill?: No Do you have trouble taking care of your child, family member or friend?: No Do you have trouble with day-to-day activities such as bathing, preparing meals, shopping, managing finances, etc.?: No Are you currently unemployed and looking for a job?: No Are you interested in more education?: No Currently or been in a relationship where the following occur: no concerns reported AUDIT C Alcohol Use Questionnaire (AUDIT-C) 1. How often do you have a drink containing alcohol?: Never Total Score: 0 DOMINIQUE-7 AMB Questionnaire DOMINIQUE-7 Date DOMINIQUE - 7 assessed: 08/13/23 Feeling nervous, anxious, or on edge: 0 = Not at all Not being able to stop or control worryin = Not at all Worrying too much about different things: 0 = Not at all Trouble relaxin = Not at all Being so restless that it is hard to sit still: 0 = Not at all Becoming easily annoyed or irritable: 0 = Not at all Feeling afraid as if something awful might happen: 0 = Not at all Total DOMINIQUE-7 score (0-4 normal; 5-9 mild; 10-14 moderate; 15-21 severe): 0 Source: Developed by Drs. Gregorio Lopez, Dash Mendoza and colleagues, with an educational neli from [employer]. Review of Systems Const All systems reviewed & are unremarkable except as noted in HPI and below Physical exam (Primary Care) Vital Signs: Last Vital Signs Pulse 78 08/13/23 13:57 BP 130/68 08/13/23 14:04 Pulse Ox 98 08/13/23 13:57 Oxygen Delivery Method Room Air 08/13/23 13:57 BMI result Body Mass Index 35.5 Tobacco/Smoking Status: Tobacco use Status Tobacco use date assessed 08/13/23 08/13/23 14:05 Patient Tobacco Use Status Former Tobacco user 08/13/23 14:05 e-Cigarette/Vaping Use Never Used 08/13/23 14:05 PHQ-9: PHQ-9 Score PHQ-9: Total score 0 08/13/23 14:05 Depression Screening Interpretation: Negative Thrive Assessment: Date of Thrive Assessment Date Thrive assessed 08/13/23 08/13/23 14:05 Currently or been in a relationship where the following occur: no concerns reported Const Other: Constitutional - Awake and Alert, No apparent distress Eyes - PERRLA, EOMI Cardiovascular - S1S2, RRR, No edema Respiratory - Normal lung expansion, Normal respiratory effort, No respiratory distress, diffuse expiratory wheezing Extremities - no calf tenderness bilaterally, no swelling Skin - Warm/Dry Neurological - Alert & oriented x3 Psychological - Appropriate affect Results Reviewed Results Reviewed: cbc, cmp, serologies, cxr, H&P, ed provider note, discharge summary Assessment and Plan Assessment & Plan (1) Pneumonia: Code(s): J18.9 - Pneumonia, unspecified organism Plan: Resolved. Completed course abx. (2) COVID-19: Code(s): U07.1 - COVID-19 Plan: Resolved. NO antiviral therapy indicated. (3) COPD (chronic obstructive pulmonary disease): Comment: MODERATELY SEVERE OBSTRUCTIVE AIRWAY DISORDER. CONTINUES TO HAVE FREQUENT ACUTE EXACERBATIONS, REQUESTING FREQUENT USE OF PREDNISONE AND ANTIBIOTICS. HOWEVER HE CONTINUES TO BE AT HIGHER RISK OF GETTING FREQUENT EXACERBATIONS. TX: ADVAIR -500 HOLD FOR ONE WEEK THE START ONLY ONE INH . DAILY. GARGLE THE THROAT WELL AFTER USING ADVAIR . DUO-NEB ( IPRATROPIUM-ALBUTERL ) UP DRAFTS QID PREDNISONE 5 MG P.O. ON ALTERNATE DAYS. Abuterol HFA 2 puffs Q 4-6 hours only p.r.n.. when out doors , but avoid excessive use Code(s): J44.9 - Chronic obstructive pulmonary disease, unspecified Qualifiers: COPD type: unspecified COPD Qualified Code(s): J44.9 - Chronic obstructive pulmonary disease, unspecified Plan: Moderate exacerbation with production cough and wheezing. No hypoxia. Low suspicion for pneumonia. Prescribed prednisone taper 40mg qd x3days, 30mg qd x3 days, 20mg qd x 3days, 10mg qd x 3 days. He is also given prescription for doxycycline 100gmg BID x 1 week. Advised to take both medications with food and full glass of water. Do not lie down for 1 hour after taking doxyclyine. Continue use of maintenance inhalers and use albuterol as needed and nebs as prescribed. Schedule follow up with Margarette Larson in pulmonology. Follow up in the office on 08/22 as scheduled. For any worsening symptoms contact the office or go to the ED. Monitor O2 levels and present to the ED if O2 levels are <88%. Medications: New doxycycline hyclate Take with food and full glass of water. DO not lie down for at least 1 hour after taking medication 100 mg PO BID 14 caps 0RF prednisone Take 40mg (4 tabs) daily 3 days, then 30mg (3tabs) daily x 3 days, then 20mg (2 tabs) daily x3 days, then 10mg (1 tab) daily x 3 days 10 mg PO DIRECTED 30 tabs 0RF Patient Instructions: Take prednisone and doxycycline as prescribed for COPD exacerbation. Monitor oxygen levels. If levels fall below 88%, or if symptoms worsen, please go to the ED for further evaluation. Follow up in the office as scheduled on 08/22. Coding Level of Care Code Est Pt Level 5 (88300) Diagnoses Pneumonia J18.9 COVID-19 U07.1 Chronic obstructive pulmonary disease, unspecified COPD type J44.9 COPD type: unspecified COPD Time Spent (min) 45 Comment time spent reviewing, interview/exam with pt, and documetnation time
[2023-08-13 13:57] VITALS: BP 140/70; PULSE 78; O2SAT 98; BMI 35.5
[2023-08-13 14:04] VITALS: BP 130/68
== END 2023-08-13 14:32 | disposition home or self-care (01) ==
PROVIDERS: PCP Internal Medicine; Visit Provider Physician Assistant
DX: J18.9 Pneumonia, unspecified organism (principal); U07.1 COVID-19; J44.1 Chronic obstructive pulmonary disease with (acute) exacerbation
CPT/HCPCS: 99215

== ENCOUNTER 2023-08-22 11:06 | Outpatient (AMB) | payer MEDICARE, SELFPAY ==
--- NOTE | 2023-08-22 11:09 | A.OFFPC_ITS ---
Vital Signs 08/22/23 11:10 Height 5 ft 11 in Weight 252 lb 8 oz BMI 35.2 BP 140/78 H Blood Pressure Location Lt brachial Position Sitting Pulse 77 Pulse Source Pulse Oximeter Pulse Oximetry (%) 97 Oxygen Delivery Method Room Air Intake Visit Reasons: 1 Month F/U Intake Note: Patient is here to follow up on COPD. Ambulance Mechanic Required: No Cashier Tube Room: Not Required per policy Accompanied by: Self / Same As Patient Allergies Sulfa (Sulfonamide Antibiotics) Allergy (Mild, Verified 08/22/23 11:23) RASH, BLISTERS codeine [Codeine] Allergy (Unknown, Verified 08/22/23 11:23) HALLUCINATIONS Medication List - Last Reconciled 08/22/23 by Noel Howard MD Advair Diskus 500-50 mcg/dose (fluticasone propion-salmeterol) 1 inh inhalation BID 90 days NS albuterol sulfate 90 mcg/actuation (Ventolin HFA) 1 inh inhalation QID PRN 90 days apixaban (Eliquis) 5 mg PO BID 90 days atenolol 12.5 mg (1/2 x 25 mg) PO DAILY B-complex with vitamin C 1 tab PO DAILY budesonide ER 3 mg PO Q OTHER DAY dronedarone (Multaq) 400 mg PO BID 90 days ezetimibe 10 mg PO DAILY 90 days furosemide 80 mg PO DAILY 90 days gabapentin 300 mg PO BID 90 days hydrochlorothiazide 25 mg PO DAILY 90 days ipratropium-albuterol 0.5 mg-3 mg(2.5 mg base)/3 mL 3 mL inhalation Q6H PRN latanoprost 0.005% 1 drp ophthalmic-Right BEDTIME lisinopril 20 mg PO BID lorazepam 0.5 mg PO BEDTIME PRN 30 days omeprazole 20 mg PO DAILY 90 days pravastatin 20 mg PO DAILY 90 days prednisone 5 mg PO DAILY prednisone 10 mg PO DIRECTED tamsulosin 0.4 mg PO DAILY 90 days triamcinolone acetonide 0.5% 1 appl topical TID PRN umeclidinium 62.5 mcg/actuation (Incruse Ellipta) 1 inh inhalation DAILY Tobacco use date assessed: 08/22/23 HPI 1 Month F/U HPI Details Patient comes in today for his follow up visit States that he currently feels okay and his breathing seems to have improved a lot from last month He is currently finishing up his oral Prednisone taper and just has a couple of tablets left on his Rx States that he will be going back on Prednisone 5 mg daily once he finishes his taper He was recommended by pulmonary (Dr. Larson) recently to start on Xolair injections but his insurance denied his Rx He denies any headaches or dizziness Denies any chest pains No nausea/vomiting, no abdominal pain No change in bowel habits noted Has had no follow up labs on his cholesterol done recently; labs were last done about a month ago when he was admitted to [facility] [place] briefly for COPD exacerbation [facility] Medical History COVID-19 Asthma Nocturnal hypoxemia AMITA (obstructive sleep apnea) Hemorrhoids with complication Benign prostatic hyperplasia GERD without esophagitis Pure hypercholesterolemia Benign essential hypertension Eosinophilic colitis Neuropathy Obesity (BMI 30-39.9) Restrictive lung disease COPD (chronic obstructive pulmonary disease) Surgical History History of tonsillectomy History of hernia surgery Family History Brother Lung cancer Social History Household Members: None Housing: House Do you presently have visiting nurse or other home services: No Alcohol intake: never Patient Tobacco Use Status: Former Tobacco user Quit Date: 1966 e-Cigarette/Vaping Use: Never Used Second Hand Smoke Exposure: Yes Advance Directives Date on File: 07/15/23 service: No Current occupational status: retired Cognitive needs: No Hearing needs: No Vision needs: Yes (Glasses) Questionnaire PHQ-9 Over the last 2 weeks, how often have you been bothered by any of the following problems? 1. Little interest or pleasure in doing things: not at all 2. Feeling down, depressed, or hopeless: not at all 3. Trouble falling or staying asleep, or sleeping too much: not at all 4. Feeling tired or having little energy: not at all 5. Poor appetite or overeating: not at all 6. Feeling bad about yourself - or that you are a failure or have let yourself or your family down: not at all 7. Trouble concentrating on things, such as reading the newspaper or watching television: not at all 8. Moving or speaking so slowly that other people could have noticed. Or the opposite - being so fidgety or restless that you have been moving around a lot more than usual: not at all 9. Thoughts that you would be better off or of hurting yourself in some way: not at all Total score: 0 Depression Screening Interpretation: Negative Depression Screening Done: Yes 54439 - PHQ-9 Billing: Yes Source: Developed by Drs. Gregorio Lopez, Ember Heaton, Dash De La Fuente and colleagues, with an educational neli from [employer]. Thrive Questionnaire Date Thrive assessed: 08/13/23 I am a: Patient What is your living situation today?: I have a steady place to live Within the past 12 months, did the food you bought not last and you didn't have the money to get more?: Never true Within the past 12 months, did you worry whether your food would run out before you got money to buy more?: Never true Do you have trouble paying for medicines?: No Do you have trouble getting transportation to medical appointments?: No Do you have trouble paying your heating and electricity bill?: No Do you have trouble taking care of your child, family member or friend?: No Do you have trouble with day-to-day activities such as bathing, preparing meals, shopping, managing finances, etc.?: No Are you currently unemployed and looking for a job?: No Are you interested in more education?: No Currently or been in a relationship where the following occur: no concerns reported THRIVE Score: 0 AUDIT C Alcohol Use Questionnaire (AUDIT-C) 1. How often do you have a drink containing alcohol?: Never 3. How often do you have six or more drinks on one occasion?: Never Total Score: 0 Score Reviewed/Action Taken: Yes DOMINIQUE-7 AMB Questionnaire DOMINIQUE-7 Date DOMINIQUE - 7 assessed: 08/13/23 Source: Developed by Drs. Gregorio Lopez, Ember Heaton, Dash De La Fuente and colleagues, with an educational neli from [employer]. Review of Systems Const Denies chills, Denies fatigue, Denies fever(s) and Denies headache(s) ENT Denies dysphagia, Denies dizziness, Denies otalgia, Denies headache(s), Denies neck pain, Denies odynophagia and Denies sore throat Card Denies chest pain, Reports rapid heart rate (last week when his BP went up), Denies palpitations and Reports dyspnea on exertion (mild) Resp Denies chest congestion, Reports cough (occasionally), Denies pain with cough, Reports dyspnea on exertion (mild) and Denies wheezing GI Denies abdominal pain, Denies constipation, Denies dysphagia, Denies heartburn, Denies diarrhea, Denies nausea, Denies odynophagia and Denies vomiting Denies dysuria, Denies nocturia and Denies urinary frequency Musc Denies back pain, Denies neck pain and Reports stiffness Skin/Breast Denies rash Neuro Denies dizziness and Denies headache(s) Endo Denies fatigue and Denies palpitations Aller/Immun Denies wheezing Physical exam (Primary Care) Vital Signs: Last Vital Signs Pulse 77 08/22/23 11:10 BP 140/78 H 08/22/23 11:10 Pulse Ox 97 08/22/23 11:10 Oxygen Delivery Method Room Air 08/22/23 11:10 BMI result Body Mass Index 35.2 Tobacco/Smoking Status: Tobacco use Status Tobacco use date assessed 08/22/23 08/22/23 11:15 Patient Tobacco Use Status Former Tobacco user 08/22/23 11:15 e-Cigarette/Vaping Use Never Used 08/22/23 11:15 Depression Screening Interpretation: Negative Thrive Assessment: Date of Thrive Assessment Date Thrive assessed 08/13/23 08/22/23 11:15 Currently or been in a relationship where the following occur: no concerns reported Const General: no acute distress and alert HENMT Ears: TM's normal bilaterally and EAC's normal Throat: Yes posterior oropharynx normal and Yes tonsils normal (no TP congestion noted) Neck Neck: Yes no lymphadenopathy and Yes supple Resp Auscultation: no crackles, no rales, rhonchi (occasional, faint) upper bilate rally, no wheezes, diminished lung sounds (slightly) bilateral and no bronchial breath sounds Cardio Rate: regular rate Rhythm: regular rhythm Heart sounds: no murmurs GI Palpation (GI): Soft to palpation and nontender Auscultation: normal bowel sounds Assessment and Plan Assessment & Plan (1) COPD exacerbation: Code(s): J44.1 - Chronic obstructive pulmonary disease with (acute) exacerbation Plan: Resolving He is currently finishing up his oral Prednisone taper and will switch back to Prednisone at 5 mg daily afterwards He was recommended Xolair injections but his insurance denied his Rx Continue Advair Diskus 500-50 mcg 1 inhalation BID, Incruse Ellipta 62.5 mcg 1 inhalation QD and Duoneb via nebulization every 6 hours and/or Albuterol HFA 2 puffs 4 times a day as needed He was just seen (via telehealth) by Dr. Larson for pulmonary follow up last month and is advised to continue following up with pulmonary as scheduled (2) Benign essential hypertension: Code(s): I10 - Essential (primary) hypertension Plan: Reinforced low sodium diet - goal is systolic BP of at least 140 mm or less Continue Atenolol 25 mg QD, HCTZ 25 mg QD and Lisinopril 20 mg BID He is reminded to continue monitoring his blood pressure regularly (3) Paroxysmal atrial fibrillation: Code(s): I48.0 - Paroxysmal atrial fibrillation Plan: S/P cardioversion on 09/04/22; is currently still in sinus rhythm Has CHADSVASc score of 3 and requires lifelong thromboembolism prophylaxis with Eliquis 5 mg BID Continue Multaq 400 mg BID and Atenolol 25 mg QD Follow up with cardiology as scheduled (4) Pure hypercholesterolemia: Code(s): E78.00 - Pure hypercholesterolemia, unspecified Plan: Reinforced low cholesterol diet Continue Pravastatin 20 mg QD and Ezetimibe 10 mg QD Will recheck his labs and fasting lipids in 4 months for follow up (5) AMITA (obstructive sleep apnea): Comment: PATIENT HAS MILD AMITA, .ALONG WITH NOCTURNAL HYPOXEMIA HE HAS TRIED HIS BEST AND CANNOT USE THE CPAP OR BIPAP AT NIGHT. Code(s): G47.33 - Obstructive sleep apnea (adult) (pediatric) Plan: States that he is unable to use/tolerate CPAP or Bipap at night He is currently just being managed with 2 L of oxygen at night when he is sleeping Follow up with Sleep Medicine/Pulmonary as scheduled (6) GERD without esophagitis: Code(s): K21.9 - Gastro-esophageal reflux disease without esophagitis Plan: Dietary restrictions reinforced Continue Omeprazole 20 mg QD (7) Right leg swelling: Comment: HE HAS CHRONIC EDEMA OF THE RIGHT LEG. AT PRESENT THE SKIN IS RED AND WARM C/W CELLULITIS I PRESCRIBED KEFLEX 500 MG T.I.D. FOR 10 DAYS, AT HIS REQUEST. Code(s): M79.89 - Other specified soft tissue disorders Plan: Mostly due to stasis edema Venous doppler done a few months ago came out negative for DVT Continue Furosemide 80 mg QD PRN (8) Benign prostatic hyperplasia: Code(s): N40.0 - Benign prostatic hyperplasia without lower urinary tract symptoms Qualifiers: Lower urinary tract symptom presence: unspecified whether lower urinary tract symptoms present Qualified Code(s): N40.0 - Benign prostatic hyperplasia without lower urinary tract symptoms Plan: Continue Tamsulosin 0.4 mg Q HS Follow up with urology as scheduled (9) Anxiety: Code(s): F41.9 - Anxiety disorder, unspecified Plan: Continue Lorazepam 0.5 mg QD PRN (10) Obesity (BMI 30-39.9): Comment: HE IS FULLY AWARE OF BEING OBESE, LIVES ALONE AND TRIES TO RESTRICT HIS CALORIES INTAKE. BUT DOES NOT HAVE MUCH ACTIVITY SO HE IS NOT ABLE TO LOSE WEIGHT. TAKING STEROIDS IN THE FORM OF PREDNISONE 5 MG ON ALTERNATE DAYS AND BUDESONIDE ER 3 MG DAILY, DEFINITELY CONTRIBUTES TO HIS BEING OVERWEIGHT Code(s): E66.9 - Obesity, unspecified Plan: Reinforced diet; exercise and weight loss are difficult and unrealistic in this patient due to his multiple comorbidities and issues Plan Follow up in 4 months Orders: Orders Complete Blood Count Auto Diff 4 Months D64.9 - Anemia, unspecified Comprehensive [place]. Panel Fast 4 Months E78.00 - Pure hypercholesterolemia, unspecified TSH reflex Free T4 4 Months E78.00 - Pure hypercholesterolemia, unspecified UA CC w/rflx Micro + Cult 4 Months R30.0 - Dysuria Vitamin D 25-OH Total 4 Months E55.9 - Vitamin D deficiency, unspecified Lipid Panel 4 Months E78.00 - Pure hypercholesterolemia, unspecified Hemoglobin A1c 4 Months R73.9 - Hyperglycemia, unspecified Vitamin B12 and Folate 4 Months E53.8 - Deficiency of other specified B group vitamins Coding Level of Care Code Est Pt Level 4 (61624) Diagnoses COPD exacerbation J44.1 Benign essential hypertension I10 Paroxysmal atrial fibrillation I48.0 Pure hypercholesterolemia E78.00 AMITA (obstructive sleep apnea) G47.33 GERD without esophagitis K21.9 Right leg swelling M79.89 Benign prostatic hyperplasia, unspecified whether lower urinary tract symptoms present N40.0 Lower urinary tract symptom presence: unspecified whether lower urinary tract symptoms present Anxiety F41.9 Obesity (BMI 30-39.9) E66.9
[2023-08-22 11:10] VITALS: BP 140/78; PULSE 77; O2SAT 97; BMI 35.2
== END 2023-08-22 11:33 | disposition home or self-care (01) ==
PROVIDERS: PCP Internal Medicine; Visit Provider Internal Medicine
DX: J44.1 Chronic obstructive pulmonary disease with (acute) exacerbation (principal); I48.0 Paroxysmal atrial fibrillation; E66.9 Obesity, unspecified; Z68.35 Body mass index [BMI] 35.0-35.9, adult; I10 Essential (primary) hypertension; E78.00 Pure hypercholesterolemia, unspecified; G47.33 Obstructive sleep apnea (adult) (pediatric); K21.9 Gastro-esophageal reflux disease without esophagitis; M79.89 Other specified soft tissue disorders; N40.0 Benign prostatic hyperplasia without lower urinary tract symptoms; F41.9 Anxiety disorder, unspecified
CPT/HCPCS: 99214

== ENCOUNTER 2023-10-16 12:52 | Outpatient (AMB) | payer MEDICARE, SELFPAY ==
--- NOTE | 2023-10-16 13:02 | A.OFFVIS_ITS ---
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: No Allergies Sulfa (Sulfonamide Antibiotics) Allergy (Mild, Verified 08/22/23 11:23) RASH, BLISTERS codeine [Codeine] Allergy (Unknown, Verified 08/22/23 11:23) HALLUCINATIONS Medication List - Last Reconciled 10/16/23 by Ronnie Bill MD Advair Diskus 500-50 mcg/dose (fluticasone propion-salmeterol) 1 inh inhalation BID 90 days NS albuterol sulfate 90 mcg/actuation (Ventolin HFA) 1 inh inhalation QID PRN 90 days apixaban (Eliquis) 5 mg PO BID 90 days atenolol 12.5 mg (1/2 x 25 mg) PO DAILY B-complex with vitamin C 1 tab PO DAILY budesonide ER 3 mg PO Q OTHER DAY dronedarone (Multaq) 400 mg PO BID 90 days ezetimibe 10 mg PO DAILY 90 days furosemide 20 mg PO DAILY gabapentin 300 mg PO BID 90 days hydrochlorothiazide 25 mg PO DAILY 90 days ipratropium-albuterol 0.5 mg-3 mg(2.5 mg base)/3 mL 3 mL inhalation Q6H PRN latanoprost 0.005% 1 drp ophthalmic-Right BEDTIME lisinopril 20 mg PO BID lorazepam 0.5 mg PO BEDTIME PRN 30 days omeprazole 20 mg PO DAILY 90 days pravastatin 20 mg PO DAILY 90 days prednisone 5 mg PO Q OTHER DAY tamsulosin 0.4 mg PO DAILY 90 days triamcinolone acetonide 0.5% 1 appl topical TID PRN umeclidinium 62.5 mcg/actuation (Incruse Ellipta) 1 inh inhalation DAILY HPI HPI Comments History of Present Illness Details Noel comes for follow-up. He has been overall doing well. No prolonged irregular heartbeat. Still gets fluttering in his chest and skipped heartbeats every so often at nighttime. Denies orthopnea, PND, worsening leg edema. Noticed today that he is on 2 diuretics, hydrochlorothiazide well as low-dose Lasix. For unclear reasons. Patient denies any lightheadedness, syncope. No exertional chest pain. Has had no neurologic issues. Denies any bleeding issues or neurologic events. [facility] Medical History (Updated 10/16/23 @ 13:34 by Ronnie Bill MD) Persistent atrial fibrillation COVID-19 Asthma Nocturnal hypoxemia AMITA (obstructive sleep apnea) Hemorrhoids with complication Benign prostatic hyperplasia GERD without esophagitis Pure hypercholesterolemia Benign essential hypertension Eosinophilic colitis Neuropathy Obesity (BMI 30-39.9) Restrictive lung disease COPD (chronic obstructive pulmonary disease) Surgical History History of tonsillectomy History of hernia surgery Family History Brother Lung cancer Social History Household Members: None Housing: House Do you presently have visiting nurse or other home services: No Alcohol intake: never Patient Tobacco Use Status: Former Tobacco user Quit Date: 1966 e-Cigarette/Vaping Use: Never Used Second Hand Smoke Exposure: Yes Advance Directives Date on File: 07/15/23 service: No Current occupational status: retired Cognitive needs: No Hearing needs: No Vision needs: Yes (Glasses) Review of Systems Const Denies chills, Denies fatigue, Denies fever(s), Denies frequent falls, Denies weakness, Denies weight gain and Denies weight loss ENT Denies dizziness Card Denies chest pain, Denies leg edema, Denies lightheadedness, Denies palpitations, Denies dyspnea, Denies dyspnea on exertion, Denies orthopnea and Denies other (loss of consciousness) Resp Denies cough, Denies dyspnea and Denies dyspnea on exertion GI Denies hematochezia and Denies change in stool character Musc Denies abnormal gait, Denies muscle weakness, Denies numbness, Denies radiating pain into limb and Denies tingling Neuro Denies abnormal gait, Denies dizziness, Denies frequent falls, Denies numbness, Denies tingling and Denies weakness Endo Denies fatigue and Denies palpitations Physical Exam Vital Signs: Last Vital Signs Pulse 62 10/16/23 13:03 BP 128/58 L 10/16/23 13:03 BMI result Body Mass Index 36.0 Const General: cooperative, no acute distress, alert and awake Orientation/consciousness: patient oriented x3 Neck Neck: Yes normal visual inspection and Yes no JVD Resp Effort & Inspection: normal respiratory effort, able to speak in complete sente nces and not labored Auscultation: clear to auscultation bilaterally, no crackles, no rales, no rhonchi and no wheezes Cardio Rate: regular rate Rhythm: regular rhythm Heart sounds: S1 normal heart sound present and S2 normal heart sound present Peripheral pulses: Peripheral pulses 2+ throughout GI Inspection: Yes normal to inspection Neuro General: patient oriented x3 Extrem General: Yes normal to inspection, No clubbing, No cyanosis, Yes edema (Plus one below-knee) and Yes venous stasis dermatitis Office Procedures EKG Details: EKG shows normal sinus rhythm with voltage criteria for LVH otherwise normal EKG with normal QTC interval. [id number], Complete Assessment & Plan Assessment & Plan (1) Paroxysmal atrial fibrillation: Code(s): I48.0 - Paroxysmal atrial fibrillation Plan: Paroxysmal atrial fibrillation which has remained suppressed on therapy with Multaq. Doing very well with Multaq therapy. Continue the same. Continue monitor EKGs every 3 months. He is done extremely well with rhythm control approach with much improved symptoms. Continue pursue the same. Continue full oral anticoagulation, currently on Eliquis 5 mg b.i.d.. Semi annual renal function test should be pursued. Continue aggressive control blood pressure which is currently well optimized. Continue CPAP therapy. He is encouraged to continue to participate in weight loss program. (2) Diastolic dysfunction: Code(s): I51.89 - Other ill-defined heart diseases Plan: Diastolic dysfunction without any clear evidence of overt heart failure. Has done well with rhythm control approach will continue pursue the same. Follow-up echocardiogram 6 months time. Currently on low-dose Lasix therapy which may be helping with his congestive symptoms. Continue the same. Daily weight monitoring avoidance of salt loading was discussed. I do not think he needs dual diuretic therapy and would therefore discontinue hydrochlorothiazide therapy to reduce risk of electrolyte imbalance. Follow up in the clinic in 3 months for EKG in 6 months with me. Thank you for allowing me to partake in his care Orders: Orders CA echo transthoracic complete 6 Months I48.0 - Paroxysmal atrial fibrillation US carotid duplex BI Today I65.29 - Occlusion and stenosis of unspecified carotid artery Medications: Changed From prednisone Take 40mg (4 tabs) daily 3 days, then 30mg (3tabs) daily x 3 days, then 20mg (2 tabs) daily x3 days, then 10mg (1 tab) daily x 3 days 10 mg PO DIRECTED 30 tabs 0RF To prednisone Take 40mg (4 tabs) daily 3 days, then 30mg (3tabs) daily x 3 days, then 20mg (2 tabs) daily x3 days, then 10mg (1 tab) daily x 3 days 5 mg PO Q OTHER DAY From furosemide 80 mg PO DAILY 90 days 90 tabs 3RF To furosemide 20 mg PO DAILY Discontinued hydrochlorothiazide Discontinued Reason: Doctor's Order 25 mg PO DAILY 90 days 90 tabs 3RF I10 - Essential (primary) hypertension Coding Level of Care Code Est Pt Level 4 (05410) Diagnoses Paroxysmal atrial fibrillation I48.0 Diastolic dysfunction I51.89 CPT Codes EKG - CPT: 73765-[id number], Complete ([id number])
[2023-10-16 13:03] VITALS: BP 128/58; PULSE 62; BMI 36.0
== END 2023-10-16 13:46 | disposition home or self-care (01) ==
PROVIDERS: PCP Internal Medicine; Visit Provider Internal Medicine Cardiovascular Disease
DX: I48.0 Paroxysmal atrial fibrillation (principal); I51.89 Other ill-defined heart diseases
CPT/HCPCS: 93010; 99214

== ENCOUNTER → 2023-10-16 12:52 | Outpatient (BNVA) | payer MEDICARE, SELFPAY | PROVIDERS: PCP Internal Medicine; Visit Provider Internal Medicine Cardiovascular Disease | DX: I48.0 Paroxysmal atrial fibrillation (principal); I51.89 Other ill-defined heart diseases; I65.29 Occlusion and stenosis of unspecified carotid artery; Z79.899 Other long term (current) drug therapy | CPT/HCPCS: 93005; 99212 ==

== ENCOUNTER 2023-11-03 10:22 | Outpatient (REF) | payer MEDICARE, SELFPAY ==
--- NOTE | ~2023-11-03 | US_ITS ---
EXAMINATION: US EXTRACRANIAL CAROTID DUPLEX, BILATERAL CLINICAL INFORMATION: Coronary artery disease COMPARISON: None available. TECHNIQUE: Real-time ultrasound and Doppler techniques (integrating B-mode 2-D vascular images, Doppler spectral analysis and color-flow Doppler imaging) were utilized to interrogate the extracranial carotid arteries, the vertebral arteries and proximal subclavian arteries bilaterally. The degree of stenosis is determined by criteria similar to NASCET. FINDINGS: Right Side: 1. There is mild atherosclerotic plaque seen in the bifurcation/proximal ICA region. 2. The common carotid artery PSV proximally is 85.7 cm/s and distally 85.1 cm/s. 3. The proximal internal carotid artery velocities are 53.7 cm/s systolic and 17.6 cm/s diastolic. 4. The proximal external carotid artery PSV is 121 cm/s. 5. The vertebral artery shows antegrade flow. 6. The subclavian artery waveforms are normal. Left Side: 1. There is mild atherosclerotic plaque seen in the bifurcation/proximal ICA region. 2. The common carotid artery PSV proximally is 102 cm/s and distally 77.4 cm/s. 3. The proximal internal carotid artery velocities are 52.1 cm/s systolic and 15.7 cm/s diastolic. 4. The proximal external carotid artery PSV is 115 cm/s. 5. The vertebral artery shows antegrade flow. 6. The subclavian artery waveforms are normal. Peak systolic velocity measures 244 cm/s US/US carotid duplex BI IMPRESSION: 1. RIGHT: Minimal, non-hemodynamically significant stenosis of the proximal right internal carotid artery corresponding to a 0-49% stenosis by velocity criteria. 2. LEFT: Minimal, non-hemodynamically significant stenosis of the proximal left internal carotid artery corresponding to a 0-49% stenosis by velocity criteria.
--- NOTE | ~2023-11-03 | XR_ITS ---
EXAMINATION: XR HIP, LEFT CLINICAL INFORMATION: Pain COMPARISON: None available. TECHNIQUE: Two views of the left hip. FINDINGS: No acute fracture or dislocation. Joint spaces are maintained. Soft tissues are unremarkable. XR/XR hip LT min 2V IMPRESSION: * No acute osseous abnormality.
[2023-11-03 13:17] LABS: Prostate Specific Antigen 1.22 ng/mL (<0.05-4.0)
== END 2023-11-03 10:23 | disposition home or self-care (01) ==
LOC: HO.US 10:22
PROVIDERS: Absent Provider Physician Assistant; PCP Internal Medicine; Referring Provider Internal Medicine; Visit Provider Internal Medicine Cardiovascular Disease
DX: I65.23 Occlusion and stenosis of bilateral carotid arteries (principal); M25.552 Pain in left hip; N40.1 Benign prostatic hyperplasia with lower urinary tract symptoms; N13.8 Other obstructive and reflux uropathy; Z12.5 Encounter for screening for malignant neoplasm of prostate
CPT/HCPCS: 36415; 73502; 84153; 93880

== ENCOUNTER 2023-12-26 10:31 | Outpatient (AMB) | payer MEDICARE, SELFPAY ==
--- NOTE | 2023-12-26 10:37 | MHC.PC.OV ---
Vital Signs 12/26/23 10:39 Height 5 ft 11 in Weight 255 lb BMI 35.6 BP 128/70 Blood Pressure Location Lt brachial Position Sitting Pulse 62 Pulse Source Pulse Oximeter Pulse Oximetry (%) 97 Oxygen Delivery Method Room Air Intake Visit Reasons: COPD/asthma overlap, hyperlipidemia, PACs, HTN Intake Note: Patient is here to follow up on COPD, Asthma, HLD, PACs, HTN. Household Refrigerator Mechanic Required: No It Security Engineer: Not Required per policy Accompanied by: Self / Same As Patient Allergies Sulfa (Sulfonamide Antibiotics) Allergy (Mild, Verified 12/30/23 01:42) RASH, BLISTERS codeine [Codeine] Allergy (Unknown, Verified 12/30/23 01:42) HALLUCINATIONS Medication List - Last Reconciled 12/30/23 by Noel Howard MD Advair Diskus 500-50 mcg/dose (fluticasone propion-salmeterol) 1 inh inhalation BID 90 days NS albuterol sulfate 90 mcg/actuation (Ventolin HFA) 1 inh inhalation QID PRN 90 days apixaban (Eliquis) 5 mg PO BID 90 days atenolol 12.5 mg (1/2 x 25 mg) PO DAILY B-complex with vitamin C 1 tab PO DAILY budesonide DR-ER 3 mg PO Q OTHER DAY doxycycline monohydrate 100 mg PO BID dronedarone (Multaq) 400 mg PO BID 90 days ezetimibe 10 mg PO DAILY 90 days furosemide 20 mg PO DAILY gabapentin 300 mg PO BID 90 days ipratropium-albuterol 0.5 mg-3 mg(2.5 mg base)/3 mL 3 mL inhalation Q6H PRN latanoprost 0.005% 1 drp ophthalmic-Right BEDTIME lisinopril 20 mg PO BID loratadine 10 mg PO QAM PRN 90 days lorazepam 0.5 mg PO BEDTIME PRN 30 days montelukast 10 mg PO QPM 90 days omeprazole 20 mg PO DAILY 90 days pravastatin 20 mg PO DAILY 90 days prednisone 5 mg PO Q OTHER DAY tamsulosin 0.4 mg PO DAILY 90 days triamcinolone acetonide 0.5% 1 appl topical TID PRN umeclidinium 62.5 mcg/actuation (Incruse Ellipta) 1 inh inhalation DAILY Tobacco use date assessed: 12/26/23 Fall risk assessment: 1 Fall in past year Last assessed Fall Risk: 12/26/23 Dental Screening Dental Screen Date: 08/13/23 HPI COPD/asthma overlap, hyperlipidemia, PACs, HTN HPI Details Patient comes in today for his follow-up visit States that he feels okay except for recurrent nasal congestion and on and off coughing lately He denies any fever or sore throat; denies any headaches or dizziness Denies any chest pains, no increased shortness of breath No nausea / vomiting, no abdominal pain No change in bowel habits noted He was not able to get his follow-up labs done prior to today's visit - states that he will try to get them done as soon as possible [facility]LY [facility] Medical History Persistent atrial fibrillation COVID-19 Asthma Nocturnal hypoxemia AMITA (obstructive sleep apnea) Hemorrhoids with complication Benign prostatic hyperplasia GERD without esophagitis Pure hypercholesterolemia Benign essential hypertension Eosinophilic colitis Neuropathy Obesity (BMI 30-39.9) Restrictive lung disease COPD (chronic obstructive pulmonary disease) Surgical History History of tonsillectomy History of hernia surgery Family History Brother Lung cancer Social History Household Members: None Housing: House Do you presently have visiting nurse or other home services: No Alcohol intake: never Patient Tobacco Use Status: Former Tobacco user Quit Date: 1966 e-Cigarette/Vaping Use: Never Used Second Hand Smoke Exposure: Yes Advance Directives Date on File: 07/15/23 service: No Current occupational status: retired Cognitive needs: No Hearing needs: No Vision needs: Yes (Glasses) Questionnaire Thrive Questionnaire Date Thrive assessed: 08/13/23 DOMINIQUE-7 AMB Questionnaire DOMINIQUE-7 Date DOMINIQUE - 7 assessed: 08/13/23 Source: Developed by Drs. Gregorio Lopez, Ember Heaton, Dash De La Fuente and colleagues, with an educational neli from [employer]. Review of Systems Const Denies chills, Denies fatigue, Denies fever(s) and Denies headache(s) ENT Denies dysphagia, Denies dizziness, Denies otalgia, Denies headache(s), Reports nasal discharge, Denies neck pain, Denies odynophagia, Denies sinus pain and Denies sore throat Card Denies chest pain, Denies rapid heart rate, Denies palpitations and Reports dyspnea on exertion (mild) Resp Denies chest congestion, Reports cough (occasionally), Denies excessive phlegm production, Denies pain with cough, Reports dyspnea on exertion (mild) and Denies wheezing GI Denies abdominal pain, Denies constipation, Denies dysphagia, Denies heartburn, Denies diarrhea, Denies nausea, Denies odynophagia and Denies vomiting Denies dysuria, Denies nocturia and Denies urinary frequency Musc Denies back pain, Denies neck pain and Reports stiffness Skin/Breast Denies rash Neuro Denies dizziness and Denies headache(s) Endo Denies fatigue and Denies palpitations Aller/Immun Denies wheezing Physical exam (Primary Care) Vital Signs: Last Vital Signs Pulse 62 12/26/23 10:39 BP 128/70 12/26/23 10:39 Pulse Ox 97 12/26/23 10:39 Oxygen Delivery Method Room Air 12/26/23 10:39 BMI result Body Mass Index 35.6 Tobacco/Smoking Status: Tobacco use Status Tobacco use date assessed 12/26/23 12/26/23 10:45 Patient Tobacco Use Status Former Tobacco user 12/26/23 10:45 e-Cigarette/Vaping Use Never Used 12/26/23 10:45 Thrive Assessment: Date of Thrive Assessment Date Thrive assessed 08/13/23 12/26/23 10:45 Const General: no acute distress and alert HENMT Ears: TM's normal bilaterally and EAC's normal General nose exam: Nasal discharge present clear Throat: Yes posterior oropharynx normal and Yes tonsils normal (no TP congestion noted) Neck Neck: Yes no lymphadenopathy and Yes supple Thyroid: Thyroid normal Resp Auscultation: no crackles, no rales, no wheezes and diminished lung sounds (slightly) bilateral Cardio Rate: regular rate Rhythm: regular rhythm Heart sounds: no murmurs GI Palpation (GI): Soft to palpation and nontender Auscultation: normal bowel sounds General: Yes no CVA tenderness Back/Spine/Pelvis Back: no CVA tenderness Skin Rashes: no rashes Extrem General: Yes no clubbing, cyanosis or edema Assessment and Plan Assessment & Plan (1) COPD (chronic obstructive pulmonary disease): Code(s): J44.9 - Chronic obstructive pulmonary disease, unspecified Qualifiers: COPD type: unspecified COPD Qualified Code(s): J44.9 - Chronic obstructive pulmonary disease, unspecified Plan: Stable/controlled lately Continue Advair Diskus 500-50 mcg 1 inhalation BID, Incruse Ellipta 62.5 mcg 1 inhalation QD and Duoneb via nebulization every 6 hours and/or Albuterol HFA 2 puffs 4 times a day as needed Continue Prednisone 5 mg QD Insurance previously denied pulmonary recommendation for Xolair injections Follow up with pulmonary as scheduled (2) Benign essential hypertension: Code(s): I10 - Essential (primary) hypertension Plan: Reinforced low sodium diet - goal is systolic BP of at least 140 mm or less Continue Atenolol 25 mg QD, HCTZ 25 mg QD and Lisinopril 20 mg BID He is reminded to continue monitoring his blood pressure regularly (3) Paroxysmal atrial fibrillation: Code(s): I48.0 - Paroxysmal atrial fibrillation Plan: S/P cardioversion on 09/04/22; patient is currently still in sinus rhythm Has CHADSVASc score of 3 and requires lifelong thromboembolism prophylaxis with Eliquis 5 mg BID Continue Multaq 400 mg BID and Atenolol 25 mg QD Follow up with cardiology as scheduled (4) Pure hypercholesterolemia: Code(s): E78.00 - Pure hypercholesterolemia, unspecified Plan: Patient was not able to get his labs done prior to his visit today - states that he will try to get these done RENEE Reinforced low cholesterol diet Continue Pravastatin 20 mg QD and Ezetimibe 10 mg QD Will recheck his labs and fasting lipids in 4 months for follow up (5) AMITA (obstructive sleep apnea): Comment: PATIENT HAS MILD AMITA, .ALONG WITH NOCTURNAL HYPOXEMIA HE HAS TRIED HIS BEST AND CANNOT USE THE CPAP OR BIPAP AT NIGHT. Code(s): G47.33 - Obstructive sleep apnea (adult) (pediatric) Plan: States that he is unable to use/tolerate CPAP or Bipap at night He is currently just being managed with 2 L of oxygen at night when he is sleeping Follow up with Sleep Medicine/Pulmonary as scheduled (6) Allergic rhinitis: Code(s): J30.9 - Allergic rhinitis, unspecified Qualifiers: Allergic rhinitis trigger: unspecified Allergic rhinitis seasonality: unspecified Qualified Code(s): J30.9 - Allergic rhinitis, unspecified Plan: Will start patient on Laratadine 10 mg QD and Montelukast 10 mg Q PM (7) GERD without esophagitis: Code(s): K21.9 - Gastro-esophageal reflux disease without esophagitis Plan: Dietary restrictions reinforced Continue Omeprazole 20 mg QD (8) Right leg swelling: Comment: HE HAS CHRONIC EDEMA OF THE RIGHT LEG. AT PRESENT THE SKIN IS RED AND WARM C/W CELLULITIS I PRESCRIBED KEFLEX 500 MG T.I.D. FOR 10 DAYS, AT HIS REQUEST. Code(s): M79.89 - Other specified soft tissue disorders Plan: Mostly due to stasis edema Venous doppler done a few months ago came out negative for DVT Continue Furosemide 80 mg QD PRN (9) Benign prostatic hyperplasia: Code(s): N40.0 - Benign prostatic hyperplasia without lower urinary tract symptoms Qualifiers: Lower urinary tract symptom presence: unspecified whether lower urinary tract symptoms present Qualified Code(s): N40.0 - Benign prostatic hyperplasia without lower urinary tract symptoms Plan: Continue Tamsulosin 0.4 mg Q HS Follow up with urology as scheduled (10) Anxiety: Code(s): F41.9 - Anxiety disorder, unspecified Plan: Continue Lorazepam 0.5 mg QD PRN (11) Obesity (BMI 30-39.9): Comment: HE IS FULLY AWARE OF BEING OBESE, LIVES ALONE AND TRIES TO RESTRICT HIS CALORIES INTAKE. BUT DOES NOT HAVE MUCH ACTIVITY SO HE IS NOT ABLE TO LOSE WEIGHT. TAKING STEROIDS IN THE FORM OF PREDNISONE 5 MG ON ALTERNATE DAYS AND BUDESONIDE ER 3 MG DAILY, DEFINITELY CONTRIBUTES TO HIS BEING OVERWEIGHT Code(s): E66.9 - Obesity, unspecified Plan: Reinforced diet; exercise and weight loss are difficult and unrealistic in this patient due to his multiple comorbidities and issues Plan Follow up in 4 months Orders: Orders Complete Blood Count Auto Diff 4 Months D64.9 - Anemia, unspecified Comprehensive Steward. Panel Fast 4 Months E78.00 - Pure hypercholesterolemia, unspecified Lipid Panel 4 Months E78.00 - Pure hypercholesterolemia, unspecified TSH reflex Free T4 4 Months E78.00 - Pure hypercholesterolemia, unspecified UA CC w/rflx Micro + Cult 4 Months R30.0 - Dysuria Vitamin D 25-OH Total 4 Months E55.9 - Vitamin D deficiency, unspecified Medications: New loratadine 10 mg PO QAM 90 days PRN 90 tabs 1RF allergy symptoms J30.9 - Allergic rhinitis, unspecified montelukast 10 mg PO QPM 90 days 90 tabs 1RF allergy symptoms Discontinued azithromycin Discontinued Reason: Doctor's Order For 250 mg dose pack: take 500 mg today (day 1), then 250 mg for 4 days (days 2-5) PO 6 tabs 0RF Coding Level of Care Code Est Pt Level 4 (87278) Diagnoses Chronic obstructive pulmonary disease, unspecified COPD type J44.9 COPD type: unspecified COPD Benign essential hypertension I10 Paroxysmal atrial fibrillation I48.0 Pure hypercholesterolemia E78.00 AMITA (obstructive sleep apnea) G47.33 Allergic rhinitis, unspecified seasonality, unspecified trigger J30.9 Allergic rhinitis trigger: unspecified Allergic rhinitis seasonality: unspecified GERD without esophagitis K21.9 Right leg swelling M79.89 Benign prostatic hyperplasia, unspecified whether lower urinary tract symptoms present N40.0 Lower urinary tract symptom presence: unspecified whether lower urinary tract symptoms present Anxiety F41.9 Obesity (BMI 30-39.9) E66.9
[2023-12-26 10:39] VITALS: BP 128/70; PULSE 62; O2SAT 97; BMI 35.6
== END 2023-12-26 11:22 | disposition home or self-care (01) ==
PROVIDERS: PCP Internal Medicine; Visit Provider Internal Medicine
DX: J44.9 Chronic obstructive pulmonary disease, unspecified (principal); I10 Essential (primary) hypertension; I48.0 Paroxysmal atrial fibrillation; E78.00 Pure hypercholesterolemia, unspecified; G47.33 Obstructive sleep apnea (adult) (pediatric); J30.9 Allergic rhinitis, unspecified; K21.9 Gastro-esophageal reflux disease without esophagitis; M79.89 Other specified soft tissue disorders; N40.0 Benign prostatic hyperplasia without lower urinary tract symptoms; F41.9 Anxiety disorder, unspecified; E66.9 Obesity, unspecified
CPT/HCPCS: 99214

== ENCOUNTER 2024-01-10 15:43 | Emergency (ER) | payer MEDICARE, SELFPAY ==
--- NOTE | ~2024-01-10 | XR_ITS ---
EXAMINATION: XR CHEST CLINICAL INFORMATION: Fever COMPARISON: 07/15/2023 TECHNIQUE: 2 views of the chest were obtained. FINDINGS: The heart and pulmonary vessels appear normal. There is some chronic atelectasis/airspace opacity at the left lung base which appears quite similar. No new infiltrates are seen. Moderate-sized hiatal hernia is again seen. Old healed right-sided rib fractures are again noted. XR/XR chest 2V IMPRESSION: No acute intrathoracic disease. Chronic changes at the left lung base as described above. It would be difficult to exclude a superimposed pneumonia.
[2024-01-10 16:09] VITALS: BP 103/59; PULSE 81; RESP 16; TEMP 37.8; O2SAT 93; BMI 34.4
--- NOTE | 2024-01-10 16:09 | ED.GENADULT ---
HPI - General Adult General Chief complaint: Dizziness Stated complaint: dizziness,fever weakness Time Seen by Provider: 01/10/24 18:26 Source: patient Mode of arrival: ambulatory History of Present Illness ED Provider: Dr Palmer HPI narrative: 83-year-old male with history of COPD states that he did not have a great night last night and states he has been having a cough productive of increased greenish sputum and states he got up this morning and felt dizzy and usually this means that he has a fever, he states that he took his temperature and that it was elevated, felt weak. Related Data Home Medications ?Medication ?Instructions ?Recorded ?Confirmed B-complex with vitamin C 1 tab PO DAILY 09/05/20 12/30/23 latanoprost 0.005 % eye drops 1 drp ophthalmic-Right BEDTIME 09/05/20 12/30/23 budesonide 3 mg 3 mg PO Q OTHER DAY 10/12/20 12/30/23 capsule,delayed,extended release lisinopril 20 mg tablet 20 mg PO BID 07/15/23 12/30/23 furosemide 80 mg tablet 20 mg PO DAILY 10/16/23 12/30/23 prednisone 10 mg tablet 5 mg PO Q OTHER DAY 10/16/23 12/30/23 Previous Rx's ?Medication ?Instructions ?Recorded albuterol sulfate 90 mcg/actuation 1 inh inhalation QID PRN shortness 01/10/23 aerosol inhaler (Ventolin HFA) of breath or wheezing 90 days #8.5 grams ipratropium 0.5 mg-albuterol 3 mg 3 ml inhalation Q6H PRN for 03/17/23 (2.5 mg base)/3 mL nebulization copd/wheezing #360 mL soln umeclidinium 62.5 mcg/actuation 1 inh inhalation DAILY #30 ea 04/21/23 blister powder for inhalation (Incruse Ellipta) atenolol 25 mg tablet 12.5 mg (1/2 x 25 mg) PO DAILY #90 07/30/23 tabs triamcinolone acetonide 0.5 % 1 appl topical TID PRN skin 08/15/23 topical cream rash/irritation #30 grams apixaban 5 mg tablet (Eliquis) 5 mg PO BID 90 days #180 tabs 09/08/23 ezetimibe 10 mg tablet 10 mg PO DAILY 90 days #90 tabs 09/08/23 gabapentin 300 mg capsule 300 mg PO BID 90 days #180 caps 09/08/23 omeprazole 20 mg capsule,delayed 20 mg PO DAILY 90 days #90 caps 09/08/23 release pravastatin 20 mg tablet 20 mg PO DAILY 90 days #90 tabs 09/08/23 tamsulosin 0.4 mg capsule 0.4 mg PO DAILY 90 days #90 caps 09/08/23 lorazepam 0.5 mg tablet 0.5 mg PO BEDTIME PRN 09/22/23 agitation/anxiety 30 days #30 tabs dronedarone 400 mg tablet (Multaq) 400 mg PO BID 90 days #180 tabs 09/23/23 Advair Diskus 500 mcg-50 mcg/dose 1 inh inhalation BID ASTHMA/COPD 12/15/23 powder for inhalation (fluticasone 90 days #3 ea propion-salmeterol) doxycycline monohydrate 100 mg 100 mg PO BID #14 caps 12/26/23 capsule loratadine 10 mg tablet 10 mg PO QAM PRN allergy symptoms 12/26/23 90 days #90 tabs montelukast 10 mg tablet 10 mg PO QPM allergy symptoms 90 12/26/23 days #90 tabs doxycycline monohydrate 100 mg 100 mg PO BID 7 days #14 caps 01/10/24 capsule prednisone 50 mg tablet 50 mg PO DAILY 4 days #4 tabs 01/10/24 Allergies Allergy/AdvReac Type Severity Reaction Status Date / Time Sulfa (Sulfonamide Allergy Mild RASH, Verified 01/10/24 16:10 Antibiotics) BLISTERS codeine [Codeine] Allergy Unknown HALLUCINATI Verified 01/10/24 16:10 ONS Review of Systems Review of Systems: Pertinent positives and negatives as stated in HPI [facility] Past Medical History Source: nursing notes reviewed Medical History Persistent atrial fibrillation COVID-19 Asthma Nocturnal hypoxemia AMITA (obstructive sleep apnea) Hemorrhoids with complication Benign prostatic hyperplasia GERD without esophagitis Pure hypercholesterolemia Benign essential hypertension Eosinophilic colitis Neuropathy Obesity (BMI 30-39.9) Restrictive lung disease COPD (chronic obstructive pulmonary disease) Surgical History History of tonsillectomy History of hernia surgery Family History Family History Brother Lung cancer Social History Social History Household Members: None Housing: House Do you presently have visiting nurse or other home services: No Alcohol intake: never Patient Tobacco Use Status: Former Tobacco user Smoked in Last 30 Days: No e-Cigarette/Vaping Use: Never Used Second Hand Smoke Exposure: Yes Use of substances other than those prescribed or required for medical reasons: No Advance Directives: Yes Advance Directives on File: Yes Advance Directives Date on File: 07/15/23 service: No Current occupational status: retired Cognitive needs: No Hearing needs: No Vision needs: Yes (Glasses) Physical Exam ED Vital Signs: Vital Signs - 24 hr 01/10/24 16:09 01/10/24 19:32 01/10/24 19:40 Temperature 100.1 F 98.9 F 98.9 F Pulse Rate 81 69 69 Respiratory Rate 16 18 18 Blood Pressure 103/59 L 157/69 H 157/69 H Pulse Oximetry 93 96 96 Oxygen Delivery Method Room Air Room Air Room Air BMI result Body Mass Index 34.4 VITAL SIGNS: Reviewed. GENERAL: Well developed, well nourished, in no acute distress. HEAD: Normocephalic/atraumatic EYES: PERRLA, EOMI EARS: Ext canals without abnormality NOSE: Nares patent bilateral OROPHARYNX: no oral lesions noted, posterior pharynx clear NECK: Supple, no adenopathy LUNGS: Normal breath sounds. No adventitious sounds or accessory muscle use. SpO2<93> CARDIOVASCULAR: Regular rate and rhythm without noted murmurs ABDOMEN: Soft, non-tender, non-distended with bowel sounds. MUSCULOSKELETAL: No tenderness, deformities, or effusions noted on gross inspection. EXTREMITIES: No cyanosis, clubbing or edema. SKIN: Inspection of the skin reveals no rashes NEUROLOGIC: Alert and oriented x 4. Strength and sensation to light touch were grossly intact x 4. Course Course Course Narrative: This is a Rapid Medical Examination (RME) performed by Migue Junior PA-C in triage. Full HPI, ROS, assessment and treatment plan per primary provider in the Main ED. 83 y/o male with history of COPD, HFpEF, restrictive lung disease, obesity, HTN, neuropathy, GERD, BPH, hemorrhoids, AMITA, paroxysmal AFib on Eliquis, diverticulitis, history of pneumonia who presents to the ER for evaluation of fever 100.5 at home along with weakness, fatigue, dizziness and diarrhea today. Recently on abx for an infection in my chest. No abdominal pain aside from some gas cramps. He reports chronic cough. Reports dizziness is worse w/ movement, hx dizziness w/ fevers. denies focal weakness. Plan: EKG, CXR, labs, viral studies, GI studies if able Medications Administered Discontinued Medications Generic Name Dose Route Start Last Admin Trade Name Freq PRN Reason Stop Dose Admin Acetaminophen 975 mg 01/10/24 19:24 01/10/24 19:35 Acetaminophen 325 Mg Tablet PO 01/10/24 19:25 975 mg ONCE ONE Administration Doxycycline Monohydrate 100 mg 01/10/24 19:22 01/10/24 19:35 Doxycycline Monohydrate 100 Mg Capsule PO 01/10/24 19:23 100 mg ONCE ONE Administration Prednisone 50 mg 01/10/24 19:22 01/10/24 19:35 Prednisone 10 Mg Tablet PO 01/10/24 19:23 50 mg ONCE ONE Administration Medical Decision Making Medical Decision Making MDM Narrative: 83-year-old male with history and clinical presentation, DDX: Suspect COPD exacerbation without hypoxia/bronchitis, no abdominal discomfort to further support an acute diverticulitis and denies any urinary symptoms. I reviewed all investigations and hematologic indices demonstrate a leukocytosis with a stable normocytic anemia no thrombocytopenia. Chemistry indices are are negative for ELISA/electrolyte or liver enzyme derangements. I sensitivity troponin is noted to be 8.5 I have which is chronically detectable and not elevated when compared to prior laboratory results. There are no acute changes on EKG as well. Urinalysis is negative for UTI or hematuria. Viral testing is negative for influenza/RSV/COVID-19. Chest x-ray demonstrates possibility of pneumonia at the left lung base and taken into consideration with underlying diagnosis of COPD and increased sputum production patient will be treated with a short course of steroids and antibiotics. My interpretation is the patient has COPD/bronchitis and possible pneumonia. Patient provided with initial steroids and antibiotics here in the emergency room, discussed laboratory and chest x-ray results with him at bedside and then discharged home. Differential Diagnosis Differential Diagnoses: The differential diagnosis associated with the presentation includes Please see the discussion above Admission/Observation Consideration of admission/observation: Escalation of care including admission/observation considered Please see the discussion above Lab Data MDM Lab Attestation statement: I reviewed the patient's lab results. Please see the discussion above 01/10/24 16:29 01/10/24 16:29 Labs: Lab Results 01/10/24 01/10/24 Range/Units 16:29 18:50 WBC 13.9 H (4.8-10.8) X10*3/uL RBC 4.44 L (4.60-5.80) X10*6/uL Hgb 12.4 L (14.0-18.0) g/dl Hct 36.8 L (42.0-52.0) % MCV 82.9 (80.0-98.0) fL MCH 27.9 (27.0-33.0) pg MCHC 33.7 (31.0-36.0) g/dl RDW 15.3 (11.0-16.0) % Plt Count 180 (160-400) X10*3/uL MPV 10.0 (9.4-12.4) fL Immature Gran % (Auto) 0.4 (0.0-0.4) % Neut % (Auto) 81.4 H (45-73) % Lymph % (Auto) 8.8 L (20-40) % [place] % (Auto) 8.8 (2-11) % Eos % (Auto) 0.3 (0-4) % Baso % (Auto) 0.3 (0-2) % Lymph # (Auto) 1.2 (1.2-4.9) X10*3/uL [place] # (Auto) 1.2 (0.1-1.2) X10*3/uL Eos # (Auto) 0.0 (0.0-0.4) X10*3/uL Baso # (Auto) 0.0 (0.0-0.2) X10*3/uL Abs Immat Gran (auto) 0.05 H (0.00-0.03) X10*3/uL Absolute Neuts (auto) 11.3 H (2.0-8.3) x10*3/uL Absolute Nucleated RBC 0.000 (0.0-0.012) X10*3/uL Nucleated RBC % (auto) 0.0 (0.0-0.2) /100WBC Sodium 138 (135-145) mmol/L Potassium 4.3 (3.3-5.1) mmol/L Chloride 102 (96-108) mmol/L Carbon Dioxide 26 (22-29) mmol/L Anion Gap 14 (12-20) BUN 25 H (9-16) mg/dL Creatinine 1.40 (0.5-1.4) mg/dL Estim Creat Clear Calc 50.8 Estimated GFR 48 Random Glucose 86 (60-115) mg/dL Calcium 9.2 (8.4-10.2) mg/dL Magnesium 1.9 (1.6-2.6) mg/dL Total Bilirubin 0.7 (0.0-1.0) mg/dL Direct Bilirubin 0.3 (0.0-0.5) mg/dL AST 26 (5-37) U/L ALT 25 (0-40) U/L Alkaline Phosphatase 34 L (39-117) U/L Troponin I High Sens 8.5 (<3.5-35.0) ng/L Total Protein 6.7 (6.5-8.0) g/dL Albumin 3.8 (3.5-5.0) g/dL Urine Color Yellow Urine Appearance Clear Urine pH 5.5 (5.0-9.0) Ur Specific [place] 1.020 (1.005-1.025) Urine Protein Negative (Neg-Trace) mg/dL Urine Glucose (UA) Negative (Negative) mg/dL Urine Ketones Negative (Negative) mg/dL Urine Blood Negative (Negative) Urine Nitrite Negative (Negative) Ur Leukocyte Esterase Negative (Negative) Influenza Type A (PCR) NEGATIVE (Negative) Influenza Type B (PCR) NEGATIVE (Negative) RSV RNA Qual (PCR) NEGATIVE (Negative) SARS-CoV-2 RNA (RT-PCR) NEGATIVE (Negative) Independent Interpretation I performed an independent interpretation of an: EKG Interpretation: Sinus rhythm with PACs, HR-87, no STEMI, MD/QRS/QTC is within normal limits. Radiology Impression Discussion of test interpretation with radiology: I have reviewed the radiologist's reading. Radiologist Impression: Please see the discussion above External Record Review External record reviewed: Outpatient record, Prior outpatient labs and Prior outpatient radiology Chronic Conditions Paroxysmal atrial fibrillation, COPD Critical Care Time Critical Care Time Critical Care Time: Yes Total Critical Care Time: 45 Attestation: I personally attest to this time spent taking care of the patient. Discharge Plan Discharge Clinical Impression: Acute bronchitis with COPD, Pneumonia Patient Disposition: Home, Self-Care Instructions: Acute Bronchitis (ED), COPD (Chronic Obstructive Pulmonary Disease) (ED) Additional Instructions: 1. Resume all home medications as prescribed. 2. Complete entire course of steroids and antibiotics as prescribed. 3. Please follow-up with primary care doctor as well as your machine sneller within the next 3 or 4 days. Return to the ER for any worsening symptoms. Prescriptions: New doxycycline monohydrate 100 mg capsule 100 mg PO BID 7 Days Qty: 14 0RF prednisone 50 mg tablet 50 mg PO DAILY 4 Days Qty: 4 0RF No Action albuterol sulfate [Ventolin HFA] 90 mcg/actuation HFA aerosol inhaler 1 inh inhalation QID PRN (Reason: shortness of breath or wheezing) 90 Days Qty: 8.5 3RF ipratropium-albuterol 0.5 mg-3 mg(2.5 mg base)/3 mL solution for nebulization 3 ml inhalation Q6H PRN (Reason: for copd/wheezing) Qty: 360 3RF Incruse Ellipta 62.5 mcg/actuation blister with device 1 inh inhalation DAILY Qty: 30 3RF atenolol 25 mg tablet 12.5 mg PO DAILY Qty: 90 1RF triamcinolone acetonide 0.5 % cream 1 appl topical TID PRN (Reason: skin rash/irritation) Qty: 30 2RF tamsulosin 0.4 mg capsule 0.4 mg PO DAILY 90 Days Qty: 90 3RF pravastatin 20 mg tablet 20 mg PO DAILY 90 Days Qty: 90 3RF ezetimibe 10 mg tablet 10 mg PO DAILY 90 Days Qty: 90 3RF Eliquis 5 mg tablet 5 mg PO BID 90 Days Qty: 180 3RF gabapentin 300 mg capsule 300 mg PO BID 90 Days Qty: 180 3RF omeprazole 20 mg capsule,delayed release(DR/EC) 20 mg PO DAILY 90 Days Qty: 90 3RF lorazepam 0.5 mg tablet 0.5 mg PO BEDTIME PRN (Reason: agitation/anxiety) 30 Days Qty: 30 0RF Multaq 400 mg tablet 400 mg PO BID 90 Days Qty: 180 3RF Rx Instructions: must administer with a meal/food fluticasone propion-salmeterol [Advair Diskus] 500-50 mcg/dose blister with device 1 inh inhalation BID 90 Days Qty: 3 3RF doxycycline monohydrate 100 mg capsule 100 mg PO BID Qty: 14 0RF lisinopril 20 mg Tablet 20 mg PO BID loratadine 10 mg tablet 10 mg PO QAM PRN (Reason: allergy symptoms) 90 Days Qty: 90 1RF montelukast 10 mg tablet 10 mg PO QPM 90 Days Qty: 90 1RF latanoprost 0.005 % drops 1 drp ophthalmic-Right BEDTIME B-complex with vitamin C Tablet 1 tab PO DAILY budesonide 3 mg capsule,delayed,extend.release 3 mg PO Q OTHER DAY furosemide 80 mg tablet 20 mg PO DAILY prednisone 10 mg tablet 5 mg PO Q OTHER DAY Rx Instructions: Take 40mg (4 tabs) daily 3 days, then 30mg (3tabs) daily x 3 days, then 20mg (2 tabs) daily x3 days, then 10mg (1 tab) daily x 3 days Referrals: Noel Howard MD [Primary Care Provider] - Interventions: ED Discharge Assessment Last Done: 01/10/24 19:40 Discharge Date/Time: 01/10/24 19:40 Print Language: Austrian
--- NOTE | 2024-01-10 16:10 | ECG_ITS ---
Test Reason : DIZZINESS Blood Pressure : / mmHG Vent. Rate : 087 BPM Atrial Rate : 087 BPM P-R Int : 162 ms QRS Dur : 094 ms QT Int : 374 ms P-R-T Axes : 000 -25 016 degrees QTc Int : 450 ms Sinus rhythm with Premature atrial complexes Otherwise normal ECG When compared with ECG of 15-JUL-2023 10:12, No significant change was found Referred By: Debbie Junior Electronically Signed By:ALEJANDRO MONTANA MD
[2024-01-10 16:36] LABS: MANUAL DIFF FLAG NO
[2024-01-10 16:42] LABS: Basophils Percent Auto 0.3 % (0-2); Eosinophils Percent Auto 0.3 % (0-4); Hematocrit 36.8 % (42.0-52.0); Hemoglobin 12.4 g/dl (14.0-18.0); Imm Gran Abs Auto 0.05 X10*3/uL (0.00-0.03); Imm Gran Pct Auto 0.4 % (0.0-0.4); Lymphocytes Absolute Auto 1.2 X10*3/uL (1.2-4.9); Lymphocytes Percent Auto 8.8 % (20-40); Mean Corpuscular HGB Conc 33.7 g/dl (31.0-36.0); Mean Corpuscular Hemoglobin 27.9 pg (27.0-33.0); Mean Corpuscular Volume 82.9 fL (80.0-98.0); Monocytes Absolute Auto 1.2 X10*3/uL (0.1-1.2); Monocytes Percent Auto 8.8 % (2-11); Neutrophils Absolute Auto 11.3 x10*3/uL (2.0-8.3); Neutrophils Percent Auto 81.4 % (45-73); Platelet Count 180 X10*3/uL (160-400); Red Blood Count 4.44 X10*6/uL (4.60-5.80); Red Cell Distribution Width 15.3 % (11.0-16.0); White Blood Count 13.9 X10*3/uL (4.8-10.8)
[2024-01-10 16:53] LABS: Alanine Aminotransferase 25 U/L (0-40); Albumin Level 3.8 g/dL (3.5-5.0); Alkaline Phosphatase 34 U/L (39-117); Anion Gap 14 (12-20); Aspartate Amino Transferase 26 U/L (5-37); Bilirubin Direct 0.3 mg/dL (0.0-0.5); Bilirubin Total 0.7 mg/dL (0.0-1.0); Blood Urea Nitrogen 25 mg/dL (9-16); Calcium 9.2 mg/dL (8.4-10.2); Carbon Dioxide 26 mmol/L (22-29); Chloride 102 mmol/L (96-108); Creatinine Clr Calc Pharmacy 50.8; Estimated Glomerular Filt Rate 48; Glucose Random 86 mg/dL (60-115); Magnesium 1.9 mg/dL (1.6-2.6); Potassium 4.3 mmol/L (3.3-5.1); Sodium 138 mmol/L (135-145); Total Protein 6.7 g/dL (6.5-8.0)
[2024-01-10 17:00] LABS: Troponin-I High Sensitivity 8.5 ng/L (<3.5-35.0)
[2024-01-10 17:14] LABS: Influenza A PCR NEGATIVE (Negative); Influenza B PCR NEGATIVE (Negative); Resp Syncy Virus RNA Qual PCR NEGATIVE (Negative); SARS COV2 PCR INHOUSE NEGATIVE (Negative)
[2024-01-10 18:55] LABS: Appearance Urine Clear; Color Urine Yellow; Glucose Urine UA Negative (Negative); Leukocyte Esterase Urine Negative (Negative); Nitrite Urine Negative (Negative); PH 5.5 (5.0-9.0); Urine Blood Negative (Negative); Urine Ketones Negative (Negative); Urine Protein Negative (Neg-Trace)
[2024-01-10 19:32] VITALS: BP 157/69; PULSE 69; RESP 18; TEMP 37.2; O2SAT 96
[2024-01-10] MEDS: predniSONE 10 MG TABLET 50 MG PO (19:35)
[2024-01-10] MEDS: Doxycycline Monohydrate 100 MG CAPSULE PO (19:35)
[2024-01-10] MEDS: Acetaminophen 325 MG TABLET 975 MG PO (19:35)
[2024-01-10 19:40] VITALS: BP 157/69; PULSE 69; RESP 18; TEMP 37.2; O2SAT 96
== END 2024-01-10 19:40 | disposition home or self-care (01) ==
PROVIDERS: Physician Assistant; Emergency Provider Student in an Organized Health Care Education/Training Program; PCP Internal Medicine
DX: J44.89 Other specified chronic obstructive pulmonary disease (principal); J18.9 Pneumonia, unspecified organism; R05.9 Cough, unspecified; R42 Dizziness and giddiness; I10 Essential (primary) hypertension; E78.00 Pure hypercholesterolemia, unspecified; I48.19 Other persistent atrial fibrillation; R06.02 Shortness of breath; J44.9 Chronic obstructive pulmonary disease, unspecified; Z79.01 Long term (current) use of anticoagulants; Z79.02 Long term (current) use of antithrombotics/antiplatelets; Z79.899 Other long term (current) drug therapy; Z87.891 Personal history of nicotine dependence; Z03.818 Encounter for observation for suspected exposure to other biological agents ruled out
CPT/HCPCS: 0241U; 36415; 71046; 80048; 80076; 81003; 83735; 84484; 85025; 93005; 99283; 99285

== ENCOUNTER → 2024-01-10 16:10 | Outpatient (BNV) | payer MEDICARE, SELFPAY | PROVIDERS: Emergency Provider Student in an Organized Health Care Education/Training Program; PCP Internal Medicine; Visit Provider Internal Medicine Cardiovascular Disease | DX: R42 Dizziness and giddiness (principal) | CPT/HCPCS: 93010 ==

== ENCOUNTER → 2024-01-16 08:56 | Outpatient (BNVA) | payer MEDICARE, SELFPAY | PROVIDERS: PCP Internal Medicine; Visit Provider Internal Medicine Cardiovascular Disease ==

== ENCOUNTER → 2024-04-02 09:48 | Outpatient (REF) | payer MEDICARE, SELFPAY ==
--- NOTE | 2024-04-02 09:59 | CA_ITS ---
Transthoracic Echocardiogram Patient (Last, First, Middle): Noel Wiggins P Gender: Male Date of : 1940 Age: 83 Procedure Date: 04/02/2024 Procedure Type: Transthoracic Echocardiogram Location: OP Height: 180.34 cm Weight: 112.04 kg BSA: 2.31 m2 Heart Rate: 66 bpm BP: 165 / 85 mmHg Mate Fourth: SHAY Levine MD: Ronnie Bill MD District Manager Postal Service: Ronnie Bill MD Symptoms: I48.0 - Paroxysmal atrial fibrillation Study Quality: Fair ECG Rhythm: Sinus Conclusions: - 1. Normal LV ejection fraction 55-60% with moderate LVH with impaired relaxation filling pattern 2. Mildly dilated right-sided chambers with normal RV systolic function 3. Trivial aortic regurgitation 4. Mildly dilated ascending aorta at 3.9 cm 5. Normal RV systolic pressure 6. No gross pericardial effusion Findings Left Ventricle Normal left ventricular size and systolic function. There is moderately increased left ventricular wall thickness. The visually estimated ejection fraction is between 55-60%. Spectral Doppler is indicative of an impaired relaxation filling pattern. E/E prime ratio is <8, consistent with normal filling pressures. Evidence suggests grade I (mild) diastolic dysfunction. Peak GLS is -14.5%, moderately reduced. Right Ventricle Mildly increased right ventricular cavity size. There is normal right ventricular systolic function. Atria The left atrium is normal in size. There is lipomatous hypertrophy of the interatrial septum. There is no evidence of interatrial shunt. The right atrium is mildly dilated. Aortic Valve The aortic valve was not well visualized. There is mild calcification of the aortic valve. There is no aortic valve stenosis. There is trace (trivial) aortic valve regurgitation. Mitral Valve There is mild anterior and moderate posterior mitral leaflet thickening. There is mild mitral annular calcification. There is trace mitral valve regurgitation. There is no mitral valve stenosis. Pulmonic Valve The pulmonic valve was not well visualized. Tricuspid Valve Likely normal tricuspid valve structure and function. There is trace tricuspid valve regurgitation. The right ventricular systolic pressure is normal. The right ventricular systolic pressure is 22 mmHg. Normal right atrial pressure. There is no evidence of pulmonary hypertension. Great Vessels The pulmonary artery was not well visualized. There is mild dilatation of the ascending aorta measuring 3.90 cm. Venous The inferior vena cava is normal in size and collapses greater than 50% with inspiration. Pericardium/Pleural There is no evidence of pericardial effusion. Prior Study Comparison Changes noted compared to prior study dated: 02/17/2023. LV diastolic filling pattern is suggestive of impaired relaxation filling pattern. Measurements 2D Linear Measurements IVSd: 1.45 0.6-0.9/0.6-1.0 cm LVIDd: 3.94 3.9-5.3/4.2-5.9 cm LVIDd Index: 1.71 2.4-3.2/2.2-3.1 cm/m2 LVIDs: 2.14 2.0-3.6 cm LVPWd: 1.35 0.7-1.1 cm LA Diam: 3.50 2.7-3.8/3.0-4.0 cm LAIDs Index: 1.52 1.5-2.3 cm/m2 LV Mass: 254.82 67-162/88-224 g LV Mass Index: 110.31 43-95/49-115 g/m2 LVOT Diam: 2.40 3.0+(-)1.3 cm 2D Systolic Function EF 4C: 53.90 >55% EF 2C: 62.30 >55% EF BiP: 59.40 >55% Mitral Valve MV Pk E: 0.61 MV PK A: 0.81 MV Decel Time: 318.00 E/A: 0.80 E'Lateral: 7.51 E'Medial: 6.20 E/E' Med: 9.90 E/E' Lat: 8.20 PHT: 93.00 MVA PHT: 2.37 Decel [place]: 1.93 Aortic Valve AoV Pk Syed: 1.36 AoV Mn Syed: 0.94 AoV VTI: 0.29 AoV Pk Grad: 7.00 Aov Mn Grad: 4.00 SILVER Cont.VTI: 3.25 LVOT LVOT Pk Syed: 0.95 LVOT Mn Syed: 0.68 LVOT VTI: 0.21 LVOT Pk Grad: 4.00 LVOT Mn Grad: 2.00 LVOT Diam: 2.40 LVOT Area: 4.52 Diastolic Function MV Pk E: 0.61 MV Pk A: 0.81 E/A: 0.80 E'Medial: 6.20 E/E' Med: 9.90 E' Laterial: 7.51 E/E' Lat: 8.20 Right Ventricle TAPSE (mm): 27.50 TVS' Syed: 15.20 Tricuspid Valve TR Pk Syed: 2.16 TR Pk Grad: 19.00 RA Press: 3.00 RVSP: 22.00 Great Vessels Aorta Sinus of Valsalva: 4.10 2.0-3.5 cm Ao Asc: 3.90 2.1-3.4 cm Pulmonary Valve PV Pk Syed: 1.13 Peak PV Grad: 5.00 Updated in Other Vendor System with Status of Final Ronnie Bill MD electronically signed on 04/02/2024 12:08:34 PM with status of Final
== END ==
LOC: HO.CARD 09:48
PROVIDERS: PCP Internal Medicine; Visit Provider Internal Medicine Cardiovascular Disease
DX: I48.0 Paroxysmal atrial fibrillation (principal)
CPT/HCPCS: 93306; 93356

== ENCOUNTER → 2024-04-02 09:59 | Outpatient (BNV) | payer MEDICARE, SELFPAY | PROVIDERS: PCP Internal Medicine; Visit Provider Internal Medicine Cardiovascular Disease | DX: I35.1 Nonrheumatic aortic (valve) insufficiency (principal); I35.8 Other nonrheumatic aortic valve disorders; I34.81 Nonrheumatic mitral (valve) annulus calcification; R93.1 Abnormal findings on diagnostic imaging of heart and coronary circulation | CPT/HCPCS: 93306; 93356 ==

== ENCOUNTER 2024-04-12 10:41 | Outpatient (AMB) | payer MEDICARE, SELFPAY ==
--- NOTE | 2024-04-12 10:49 | MHC.OFFVIS ---
Vital Signs 04/12/24 10:51 Height 5 ft 11 in Weight 249 lb 1.957 oz BMI 34.7 BP 126/70 Blood Pressure Location Lt brachial Position Sitting Pulse 54 Intake Visit Reasons: 6 month follow up Intake Note: 6 month follow-up with ekg after echo Dental Office Assistant Required: No Allergies Sulfa (Sulfonamide Antibiotics) Allergy (Mild, Verified 01/10/24 16:10) RASH, BLISTERS codeine [Codeine] Allergy (Unknown, Verified 01/10/24 16:10) HALLUCINATIONS Medication List - Last Reconciled 04/12/24 by Ronnie Bill MD Advair Diskus 500-50 mcg/dose (fluticasone propion-salmeterol) 1 inh inhalation BID 90 days NS albuterol sulfate 90 mcg/actuation (Ventolin HFA) 1 inh inhalation QID PRN 90 days apixaban (Eliquis) 5 mg PO BID 90 days atenolol 12.5 mg (1/2 x 25 mg) PO DAILY B-complex with vitamin C 1 tab PO DAILY budesonide DR-ER 3 mg PO Q OTHER DAY dronedarone (Multaq) 400 mg PO BID 90 days ezetimibe 10 mg PO DAILY 90 days furosemide 40 mg PO DAILY PRN gabapentin 300 mg PO BID 90 days ipratropium-albuterol 0.5 mg-3 mg(2.5 mg base)/3 mL 3 mL inhalation Q6H PRN latanoprost 0.005% 1 drp ophthalmic-Right BEDTIME lisinopril 20 mg PO BID loratadine 10 mg PO QAM PRN 90 days lorazepam 0.5 mg PO BEDTIME PRN 30 days montelukast 10 mg PO QPM 90 days omeprazole 20 mg PO DAILY 90 days pravastatin 20 mg PO DAILY 90 days prednisone 5 mg (1/2 x 10 mg) PO Q OTHER DAY 90 days tamsulosin 0.4 mg PO DAILY 90 days triamcinolone acetonide 0.5% 1 appl topical TID PRN umeclidinium 62.5 mcg/actuation (Incruse Ellipta) 1 inh inhalation DAILY HPI Comments Details: Augustine comes for follow-up. Occasionally still feels fluttering in his chest. When he takes his pulse at nighttime he does feel skipped heartbeat but that does not bother him. No prolonged irregular heartbeat or palpitations. Does have exertional shortness of breath but this is not getting worse. Denies any orthopnea, PND, leg edema. Takes all his medications. No bleeding issues or neurologic events. Blood pressure is generally well controlled with systolic blood pressure at around 130 at home. Echo done recently she was normal LV ejection fraction with moderate LVH with impaired relaxation filling pattern with dilated left atrium with mildly dilated ascending aorta without any major valvular abnormalities. PENDING SALE TO [facility] Medical History Persistent atrial fibrillation COVID-19 Asthma Nocturnal hypoxemia AMITA (obstructive sleep apnea) Hemorrhoids with complication Benign prostatic hyperplasia GERD without esophagitis Pure hypercholesterolemia Benign essential hypertension Eosinophilic colitis Neuropathy Obesity (BMI 30-39.9) Restrictive lung disease COPD (chronic obstructive pulmonary disease) Surgical History History of tonsillectomy History of hernia surgery Family History Brother Lung cancer Social History Household Members: None Housing: House Do you presently have visiting nurse or other home services: No Alcohol intake: never Patient Tobacco Use Status: Former Tobacco user e-Cigarette/Vaping Use: Never Used Second Hand Smoke Exposure: Yes Advance Directives Date on File: 07/15/23 service: No Current occupational status: retired Cognitive needs: No Hearing needs: No Vision needs: Yes (Glasses) Review of Systems Const Denies chills, Denies fatigue, Denies fever(s), Denies frequent falls, Denies weakness, Denies weight gain and Denies weight loss ENT Denies dizziness Card Denies chest pain, Denies leg edema, Denies lightheadedness, Denies palpitations, Denies dyspnea, Denies dyspnea on exertion, Denies orthopnea and Denies other (loss of consciousness) Resp Denies cough, Denies dyspnea and Denies dyspnea on exertion GI Denies hematochezia and Denies change in stool character Musc Denies abnormal gait, Denies muscle weakness, Denies numbness, Denies radiating pain into limb and Denies tingling Neuro Denies abnormal gait, Denies dizziness, Denies frequent falls, Denies numbness, Denies tingling and Denies weakness Endo Denies fatigue and Denies palpitations Physical Exam Vital Signs: Last Vital Signs Pulse 54 04/12/24 10:51 BP 126/70 04/12/24 10:51 BMI result Body Mass Index 34.7 Const General: cooperative, no acute distress, alert and awake Orientation/consciousness: patient oriented x3 Neck Neck: Yes normal visual inspection and Yes no JVD Resp Effort & Inspection: normal respiratory effort, able to speak in complete sentences and not labored Auscultation: clear to auscultation bilaterally, no crackles, no rales, no rhonchi and no wheezes Cardio Rate: regular rate Rhythm: regular rhythm Heart sounds: S1 normal heart sound present and S2 normal heart sound present Peripheral pulses: Peripheral pulses 2+ throughout GI Inspection: Yes normal to inspection Neuro General: patient oriented x3 Extrem General: Yes normal to inspection, No clubbing, No cyanosis, Yes edema (Plus one below-knee) and Yes venous stasis dermatitis Office Procedures EKG Details: EKG shows sinus bradycardia with moderate voltage criteria for LVH [id number], Complete Assessment & Plan Assessment & Plan (1) Paroxysmal atrial fibrillation: Code(s): I48.0 - Paroxysmal atrial fibrillation Category: Medical Plan: Highly symptomatic paroxysmal atrial fibrillation causing heart failure syndrome. Has done well with rhythm control approach. Does have stabilized. Occasionally feels skipped heartbeats which are most suggestive of PACs or PVCs. Benign nature of this was discussed. Has done well with antiarrhythmic drug therapy with dronedarone. Continue the same. Continue full oral anticoagulation, currently on Eliquis 5 mg b.i.d.. Semi annual renal function test should be pursued. Will follow up in every 3 months for EKG as recommended by FDA guidelines. (2) Benign essential hypertension: Code(s): I10 - Essential (primary) hypertension Category: Medical Plan: Hypertension which is currently well optimized advised to monitor blood pressure at home maintain a log. Blood pressure is well optimized on current therapy. Importance of good blood pressure control was discussed. Continue management for COPD. Continue participate in regular physical activity and weight loss program. Low-salt diet was discussed. Will follow up in 3 months for EKG in 6 months with me. Thank you for allowing me to partake in his care Coding Level of Care Code Est Pt Level 4 (10762) Diagnoses Paroxysmal atrial fibrillation I48.0 Benign essential hypertension I10 CPT Codes EKG - CPT: 46218-[id number], Complete ([id number])
[2024-04-12 10:51] VITALS: BP 126/70; PULSE 54; BMI 34.7
== END 2024-04-12 11:21 | disposition home or self-care (01) ==
PROVIDERS: PCP Internal Medicine; Visit Provider Internal Medicine Cardiovascular Disease
DX: I48.0 Paroxysmal atrial fibrillation (principal); I10 Essential (primary) hypertension
CPT/HCPCS: 93010; 99214

== ENCOUNTER → 2024-04-12 10:41 | Outpatient (BNVA) | payer MEDICARE, SELFPAY | PROVIDERS: PCP Internal Medicine; Visit Provider Internal Medicine Cardiovascular Disease | DX: I48.0 Paroxysmal atrial fibrillation (principal); I10 Essential (primary) hypertension | CPT/HCPCS: 93005; 99212 ==

== ENCOUNTER 2024-04-26 08:07 | Outpatient (REF) | payer MEDICARE, SELFPAY ==
[2024-04-26 08:19] LABS: MANUAL DIFF FLAG NO
[2024-04-26 08:25] LABS: Basophils Absolute Auto 0.1 X10*3/uL (0.0-0.2); Basophils Percent Auto 0.8 % (0-2); Eosinophils Absolute Auto 0.2 X10*3/uL (0.0-0.4); Hemoglobin 12.6 g/dl (14.0-18.0); Imm Gran Abs Auto 0.01 X10*3/uL (0.00-0.03); Imm Gran Pct Auto 0.2 % (0.0-0.4); Lymphocytes Absolute Auto 2.1 X10*3/uL (1.2-4.9); Lymphocytes Percent Auto 32.2 % (20-40); Mean Corpuscular HGB Conc 32.3 g/dl (31.0-36.0); Mean Corpuscular Hemoglobin 27.6 pg (27.0-33.0); Mean Corpuscular Volume 85.5 fL (80.0-98.0); Mean Platelet Volume 9.2 fL (9.4-12.4); Monocytes Absolute Auto 0.7 X10*3/uL (0.1-1.2); Monocytes Percent Auto 10.1 % (2-11); Neutrophils Absolute Auto 3.6 x10*3/uL (2.0-8.3); Neutrophils Percent Auto 53.7 % (45-73); Platelet Count 184 X10*3/uL (160-400); Red Blood Count 4.56 X10*6/uL (4.60-5.80); Red Cell Distribution Width 14.2 % (11.0-16.0); White Blood Count 6.7 X10*3/uL (4.8-10.8)
[2024-04-26 08:33] LABS: Estimated Average Glucose 114 mg/dL; Hemoglobin A1C 121.6147 umol/L; Hemoglobin A1c % 5.6 % (<6.0)
[2024-04-26 08:59] LABS: Alanine Aminotransferase 29 U/L (0-40); Alkaline Phosphatase 38 U/L (39-117); Anion Gap 14 (12-20); Aspartate Amino Transferase 26 U/L (5-37); Bilirubin Total 0.6 mg/dL (0.0-1.0); Blood Urea Nitrogen 24 mg/dL (9-16); Calcium 9.2 mg/dL (8.4-10.2); Carbon Dioxide 31 mmol/L (22-29); Chloride 104 mmol/L (96-108); Cholesterol 143 mg/dL (<200); Estimated Glomerular Filt Rate 50; Glucose Fasting 96 mg/dL (60-99); HDL Cholesterol 54 mg/dL (>40); LDL Cholesterol Calculated 76 mg/dL (<100); Potassium 4.6 mmol/L (3.3-5.1); Sodium 144 mmol/L (135-145); Total Protein 6.9 g/dL (6.5-8.0); Triglycerides 66 mg/dL (<150)
[2024-04-26 09:20] LABS: Vitamin D 25-OH Total 34.5 ng/mL (>30)
[2024-04-26 09:25] LABS: Folate 12.1 ng/mL (> or = 4.0); Vitamin B12 1349 pg/mL (200-900)
[2024-04-26 09:38] LABS: Appearance Urine Clear; Color Urine Yellow; Glucose Urine UA Negative (Negative); Leukocyte Esterase Urine Negative (Negative); Nitrite Urine Negative (Negative); PH 5.5 (5.0-9.0); Specific Gravity - Urine 1.015 (1.005-1.025); Urine Blood Negative (Negative); Urine Ketones Negative (Negative); Urine Protein Negative (Neg-Trace)
== END 2024-04-26 08:08 | disposition home or self-care (01) ==
LOC: HO.LAB 08:07
PROVIDERS: PCP Internal Medicine; Referring Provider Internal Medicine Cardiovascular Disease; Visit Provider Internal Medicine
DX: E78.00 Pure hypercholesterolemia, unspecified (principal); D64.9 Anemia, unspecified; R30.0 Dysuria; E55.9 Vitamin D deficiency, unspecified; R73.9 Hyperglycemia, unspecified; E53.8 Deficiency of other specified B group vitamins
CPT/HCPCS: 36415; 80053; 80061; 81003; 82306; 82607; 82746; 83036; 84443; 85025

== ENCOUNTER 2024-05-07 10:37 | Outpatient (AMB) | payer MEDICARE, SELFPAY ==
--- NOTE | 2024-05-07 10:43 | A.OFFPC_ITS ---
Vital Signs 05/07/24 10:47 Height 5 ft 11 in Weight 243 lb BMI 33.9 BP 140/80 H Blood Pressure Location Lt brachial Position Sitting Pulse 73 Pulse Source Pulse Oximeter Pulse Oximetry (%) 95 Oxygen Delivery Method Room Air Intake Visit Reasons: COPD, hyperlipidemia Intake Note: Patient is here to follow up on COPD, HLD. Conference Director Required: No Bus Aide: Not Required per policy Accompanied by: Self / Same As Patient Allergies Sulfa (Sulfonamide Antibiotics) Allergy (Mild, Verified 05/07/24 11:08) RASH, BLISTERS codeine [Codeine] Allergy (Unknown, Verified 05/07/24 11:08) HALLUCINATIONS Medication List - Last Reconciled 05/07/24 by Noel Howard MD Advair Diskus 500-50 mcg/dose (fluticasone propion-salmeterol) 1 inh inhalation BID 90 days NS albuterol sulfate 90 mcg/actuation (Ventolin HFA) 1 inh inhalation QID PRN 90 days apixaban (Eliquis) 5 mg PO BID 90 days atenolol 12.5 mg (1/2 x 25 mg) PO DAILY B-complex with vitamin C 1 tab PO DAILY budesonide DR-ER 3 mg PO Q OTHER DAY dronedarone (Multaq) 400 mg PO BID 90 days ezetimibe 10 mg PO DAILY 90 days furosemide 40 mg PO DAILY PRN gabapentin 300 mg PO BID 90 days ipratropium-albuterol 0.5 mg-3 mg(2.5 mg base)/3 mL 3 mL inhalation Q6H PRN latanoprost 0.005% 1 drp ophthalmic-Right BEDTIME lisinopril 20 mg PO BID loratadine 10 mg PO QAM PRN 90 days lorazepam 0.5 mg PO BEDTIME PRN 30 days montelukast 10 mg PO QPM 90 days omeprazole 20 mg PO DAILY 90 days pravastatin 20 mg PO DAILY 90 days prednisone 5 mg (1/2 x 10 mg) PO Q OTHER DAY 90 days tamsulosin 0.4 mg PO DAILY 90 days triamcinolone acetonide 0.5% 1 appl topical TID PRN umeclidinium 62.5 mcg/actuation (Incruse Ellipta) 1 inh inhalation DAILY 30 days Tobacco use date assessed: 05/07/24 Fall risk assessment: No Falls in past year Last assessed Fall Risk: 05/07/24 Dental Screening Dental Screen Date: 08/13/23 HPI COPD, hyperlipidemia HPI Details Patient comes in today for his follow-up visit States that he feels okay He denies any headaches or dizziness Denies any chest pains, no increased shortness of breath but he still has on and off cough and congestion, which he states started after he had his bout with COVID last July (2022) He continues to follow up with Dr. Larson (pulmonary medicine) for this and he is currently on Advair and Incruse No nausea / vomiting, no abdominal pain No change in bowel habits noted He had his follow up labs done last week - to discuss his results He would also like to get his flu shot today [facility] Medical History Persistent atrial fibrillation COVID-19 Asthma Nocturnal hypoxemia AMITA (obstructive sleep apnea) Hemorrhoids with complication Benign prostatic hyperplasia GERD without esophagitis Pure hypercholesterolemia Benign essential hypertension Eosinophilic colitis Neuropathy Obesity (BMI 30-39.9) Restrictive lung disease COPD (chronic obstructive pulmonary disease) Surgical History History of tonsillectomy History of hernia surgery Family History Brother Lung cancer Social History Household Members: None Housing: House Do you presently have visiting nurse or other home services: No Alcohol intake: never Patient Tobacco Use Status: Former Tobacco user e-Cigarette/Vaping Use: Never Used Second Hand Smoke Exposure: Yes Advance Directives Date on File: 07/15/23 service: No Current occupational status: retired Cognitive needs: No Hearing needs: No Vision needs: Yes (Glasses) Questionnaire Thrive Questionnaire Date Thrive assessed: 08/13/23 Are you currently unemployed and looking for a job?: No AUDIT C Alcohol Use Questionnaire (AUDIT-C) 3. How often do you have six or more drinks on one occasion?: Never Total Score: 0 DOMINIQUE-7 AMB Questionnaire DOMINIQUE-7 Date DOMINIQUE - 7 assessed: 08/13/23 Source: Developed by Drs. Gregorio L. Ember Lopez, Dash De La Fuente and colleagues, with an educational neli from [employer]. Review of Systems Const Denies chills, Denies fatigue, Denies fever(s) and Denies headache(s) ENT Denies dysphagia, Denies dizziness, Denies otalgia, Denies headache(s), Denies neck pain, Denies odynophagia and Denies sore throat Card Denies chest pain, Denies rapid heart rate, Denies palpitations and Reports dyspnea on exertion (mild) Resp Denies chest congestion, Reports cough (on and off, mostly non-productive), Denies excessive phlegm production, Denies pain with cough, Reports dyspnea on exertion (mild) and Denies wheezing GI Denies abdominal pain, Denies constipation, Denies dysphagia, Denies heartburn, Denies diarrhea, Denies nausea, Denies odynophagia and Denies vomiting Denies dysuria, Denies nocturia and Denies urinary frequency Musc Denies back pain, Denies neck pain and Reports stiffness Skin/Breast Denies rash Neuro Denies dizziness and Denies headache(s) Endo Denies fatigue and Denies palpitations Aller/Immun Denies wheezing Physical exam (Primary Care) Vital Signs: Last Vital Signs Pulse 73 05/07/24 10:47 BP 140/80 H 05/07/24 10:47 Pulse Ox 95 05/07/24 10:47 Oxygen Delivery Method Room Air 05/07/24 10:47 BMI result Body Mass Index 33.9 Tobacco/Smoking Status: Tobacco use Status Tobacco use date assessed 05/07/24 05/07/24 10:51 Patient Tobacco Use Status Former Tobacco user 05/07/24 10:43 e-Cigarette/Vaping Use Never Used 05/07/24 10:43 Thrive Assessment: Date of Thrive Assessment Date Thrive assessed 08/13/23 05/07/24 10:43 Const General: no acute distress and alert HENMT Ears: TM's normal bilaterally and EAC's normal Throat: Yes posterior oropharynx normal and Yes tonsils normal (no TP congestion noted) Neck Neck: Yes no lymphadenopathy and Yes supple Thyroid: Thyroid normal Resp Auscultation: no crackles, no rales, no wheezes and diminished lung sounds (slightly) bilateral Cardio Rate: regular rate Rhythm: regular rhythm Heart sounds: no murmurs GI Palpation (GI): Soft to palpation and nontender Auscultation: normal bowel sounds General: Yes no CVA tenderness Back/Spine/Pelvis Back: no CVA tenderness Skin Rashes: no rashes Extrem General: Yes no clubbing, cyanosis or edema Office Procedures Flu Questionnaire Does the patient have a severe egg allergy?: No Does the patient have severe life threatening allergies?: No Does the patient have a fever or illness today?: No Has the patient ever had Guillain-[place] Syndrome?: No Has the patient ever had any past reaction to a flu shot?: No Immunizations Fluarix Triv 8208-4160 (PF) 45 mcg (15 mcg x 3)/0.5 mL IM syringe Performing Provider: Noel Howard MD Performing [facility] [place] [facility] Administered by: Marisela Root RN on 05/07/24 11:08 Dose Route Admin Location Dispensed Lot Number Expiration Date NDC [place] Ring [employer]er 0.5 mL IM Left Deltoid 0.5 mL [id number] 01/31/25 [id number] [employer] VIS Given Date VIS Provided VIS Publication Date 05/07/24 Single Vaccine 21 Eligibility Eligibility Date Funding Source Not [facility] Eligible 05/07/24 Private Results Reviewed Results Reviewed: Laboratory Tests 04/26/24 04/26/24 08:13 08:18 WBC 6.7 Hgb 12.6 L Hct 39.0 L Plt Count 184 Sodium 144 Potassium 4.6 Creatinine 1.37 Estimated GFR 50 Fasting Glucose 96 Hemoglobin A1c % 5.6 Calcium 9.2 AST 26 ALT 29 Triglycerides 66 Cholesterol 143 LDL Cholesterol, Calc 76 HDL Cholesterol 54 Vitamin B12 1349 H 25-OH Vitamin D Total 34.5 TSH 0.80 Ur Specific [place] 1.015 Urine Protein Negative Urine Glucose (UA) Negative Urine Blood Negative Urine Nitrite Negative Ur Leukocyte Esterase Negative Coding Level of Care Code Est Pt Level 4 (78556) Diagnoses Chronic obstructive pulmonary disease, unspecified COPD type J44.9 COPD type: unspecified COPD Paroxysmal atrial fibrillation I48.0 Benign essential hypertension I10 Pure hypercholesterolemia E78.00 AMITA (obstructive sleep apnea) G47.33 Allergic rhinitis, unspecified seasonality, unspecified trigger J30.9 Allergic rhinitis trigger: unspecified Allergic rhinitis seasonality: unspecified GERD without esophagitis K21.9 Right leg swelling M79.89 Benign prostatic hyperplasia, unspecified whether lower urinary tract symptoms present N40.0 Lower urinary tract symptom presence: unspecified whether lower urinary tract symptoms present Elevated vitamin B12 level R79.89 Anxiety F41.9 Obesity (BMI 30-39.9) E66.9 Assessment & Plan Assessment & Plan (1) COPD (chronic obstructive pulmonary disease): Code(s): J44.9 - Chronic obstructive pulmonary disease, unspecified Category: Medical Qualifiers: COPD type: unspecified COPD Qualified Code(s): J44.9 - Chronic obstructive pulmonary disease, unspecified Plan: Stable/controlled lately Continue Advair Diskus 500-50 mcg 1 inhalation BID, Incruse Ellipta 62.5 mcg 1 inhalation QD and Duoneb via nebulization every 6 hours and/or Albuterol HFA 2 puffs 4 times a day as needed He was on Prednisone 5 mg QOD but he ran out of this recently and has not had a chance to request for a refill on this yet - Rx refilled Insurance previously denied pulmonary recommendation for Xolair injections Follow up with pulmonary (Dr. Larson) as scheduled (2) Paroxysmal atrial fibrillation: Code(s): I48.0 - Paroxysmal atrial fibrillation Category: Medical Plan: S/P cardioversion on 09/04/22; patient is currently still in sinus rhythm He has a CHADSVASc score of 3 and requires lifelong thromboembolism prophylaxis with Eliquis 5 mg BID Continue Multaq 400 mg BID and Atenolol 25 mg QD Follow up with cardiology as scheduled (3) Benign essential hypertension: Code(s): I10 - Essential (primary) hypertension Category: Medical Plan: Reinforced low sodium diet - goal is systolic BP of at least 140 mm or less Continue Atenolol 25 mg QD, HCTZ 25 mg QD and Lisinopril 20 mg BID He is reminded to continue monitoring his blood pressure regularly (4) Pure hypercholesterolemia: Code(s): E78.00 - Pure hypercholesterolemia, unspecified Category: Medical Plan: Results of his labs done last week reviewed and discussed with patient Reinforced low cholesterol diet Continue Pravastatin 20 mg QD and Ezetimibe 10 mg QD Will recheck his labs and fasting lipids in 4 months for follow up (5) AMITA (obstructive sleep apnea): Comment: PATIENT HAS MILD AMITA, .ALONG WITH NOCTURNAL HYPOXEMIA HE HAS TRIED HIS BEST AND CANNOT USE THE CPAP OR BIPAP AT NIGHT. Code(s): G47.33 - Obstructive sleep apnea (adult) (pediatric) Category: Medical Plan: States that he is unable to use/tolerate CPAP or Bipap at night He is currently just being managed with 2 L of oxygen at night when he is sleeping Follow up with Sleep Medicine/Pulmonary as scheduled (6) Allergic rhinitis: Code(s): J30.9 - Allergic rhinitis, unspecified Category: Medical Qualifiers: Allergic rhinitis trigger: unspecified Allergic rhinitis seasonality: unspecified Qualified Code(s): J30.9 - Allergic rhinitis, unspecified Plan: Continue Laratadine 10 mg QD and Montelukast 10 mg Q PM (7) GERD without esophagitis: Code(s): K21.9 - Gastro-esophageal reflux disease without esophagitis Category: Medical Plan: Dietary restrictions reinforced Continue Omeprazole 20 mg QD (8) Right leg swelling: Comment: HE HAS CHRONIC EDEMA OF THE RIGHT LEG. AT PRESENT THE SKIN IS RED AND WARM C/W CELLULITIS I PRESCRIBED KEFLEX 500 MG T.I.D. FOR 10 DAYS, AT HIS REQUEST. Code(s): M79.89 - Other specified soft tissue disorders Category: Medical Plan: This is mostly due to stasis (stasis edema) Venous doppler done a few months ago came out negative for DVT Continue Furosemide 80 mg QD PRN (9) Benign prostatic hyperplasia: Code(s): N40.0 - Benign prostatic hyperplasia without lower urinary tract symptoms Category: Medical Qualifiers: Lower urinary tract symptom presence: unspecified whether lower urinary tract symptoms present Qualified Code(s): N40.0 - Benign prostatic hyperplasia without lower urinary tract symptoms Plan: Continue Tamsulosin 0.4 mg Q HS Follow up with urology as scheduled (10) Elevated vitamin B12 level: Code(s): R79.89 - Other specified abnormal findings of blood chemistry Category: Medical Plan: Patient states that he takes Vitamin B12 supplements (1000 mcg) daily and due to his B12 level being significantly elevated on his recent labs, he is instructed to cut this back to every other day (11) Anxiety: Code(s): F41.9 - Anxiety disorder, unspecified Category: Medical Plan: Continue Lorazepam 0.5 mg QD PRN (12) Obesity (BMI 30-39.9): Comment: HE IS FULLY AWARE OF BEING OBESE, LIVES ALONE AND TRIES TO RESTRICT HIS CALORIES INTAKE. BUT DOES NOT HAVE MUCH ACTIVITY SO HE IS NOT ABLE TO LOSE WEIGHT. TAKING STEROIDS IN THE FORM OF PREDNISONE 5 MG ON ALTERNATE DAYS AND BUDESONIDE ER 3 MG DAILY, DEFINITELY CONTRIBUTES TO HIS BEING OVERWEIGHT Code(s): E66.9 - Obesity, unspecified Category: Medical Plan: Reinforced diet; exercise and weight loss are difficult and unrealistic in this patient due to his multiple comorbidities and issues Plan As requested, flu vaccine given to him today Follow up in 4 months Orders: Orders Complete Blood Count Auto Diff 4 Months D64.9 - Anemia, unspecified Lipid Panel 4 Months E78.00 - Pure hypercholesterolemia, unspecified UA CC w/rflx Micro + Cult 4 Months R30.0 - Dysuria Vitamin D 25-OH Total 4 Months E55.9 - Vitamin D deficiency, unspecified Vitamin B12 and Folate 4 Months E53.8 - Deficiency of other specified B group vitamins Influenza [id number] Immunization Today Z23 - Encounter for immunization Comprehensive [place]. Panel Fast 4 Months E78.00 - Pure hypercholesterolemia, unspecified Medications: Refilled prednisone 5 mg (1/2 x 10 mg) PO Q OTHER DAY 90 days 45 tabs 3RF ASTHMA/COPD
[2024-05-07 10:47] VITALS: BP 140/80; PULSE 73; O2SAT 95; BMI 33.9
== END 2024-05-07 11:24 | disposition home or self-care (01) ==
PROVIDERS: PCP Internal Medicine; Visit Provider Internal Medicine
DX: J44.9 Chronic obstructive pulmonary disease, unspecified (principal); I48.0 Paroxysmal atrial fibrillation; E66.811 Obesity, class 1; Z68.33 Body mass index [BMI] 33.0-33.9, adult; I10 Essential (primary) hypertension; E78.00 Pure hypercholesterolemia, unspecified; G47.33 Obstructive sleep apnea (adult) (pediatric); J30.9 Allergic rhinitis, unspecified; K21.9 Gastro-esophageal reflux disease without esophagitis; M79.89 Other specified soft tissue disorders; Z23 Encounter for immunization; N40.0 Benign prostatic hyperplasia without lower urinary tract symptoms

== ENCOUNTER → 2024-05-07 10:37 | Outpatient (BNVA) | payer MEDICARE, SELFPAY | PROVIDERS: PCP Internal Medicine; Visit Provider Internal Medicine | DX: Z23 Encounter for immunization (principal); J44.9 Chronic obstructive pulmonary disease, unspecified; I48.0 Paroxysmal atrial fibrillation; I10 Essential (primary) hypertension; E78.00 Pure hypercholesterolemia, unspecified; G47.33 Obstructive sleep apnea (adult) (pediatric); K21.9 Gastro-esophageal reflux disease without esophagitis; M79.89 Other specified soft tissue disorders; N40.0 Benign prostatic hyperplasia without lower urinary tract symptoms; F41.9 Anxiety disorder, unspecified; E66.9 Obesity, unspecified; R79.89 Other specified abnormal findings of blood chemistry | CPT/HCPCS: 90471; 90656; 99212 ==

== ENCOUNTER 2024-05-24 13:24 | Outpatient (AMB) | payer MEDICARE, SELFPAY ==
[2024-05-24 13:28] VITALS: BP 138/82; PULSE 59; O2SAT 96; BMI 34.7
--- NOTE | 2024-05-24 13:28 | A.OFFVIS_ITS ---
Vital Signs 05/24/24 13:28 Height 5 ft 11 in Weight 249 lb 1.957 oz BMI 34.7 BP 138/82 Blood Pressure Location Lt brachial Position Sitting Pulse 59 Pulse Source Pulse Oximeter Pulse Oximetry (%) 96 Oxygen Delivery Method Room Air Intake Visit Reasons: Sick visit (adolescent/adult) Intake Note: pt is here for a sooner appt due to short of breath that slowly gets worse, a l ot of phlegm some yellow/green color. He feels something is brewing in his chest. this has been occurring for 2-3 weeks. Baggage Clerk Required: No Allergies Sulfa (Sulfonamide Antibiotics) Allergy (Mild, Verified 05/24/24 13:55) RASH, BLISTERS codeine [Codeine] Allergy (Unknown, Verified 05/24/24 13:55) HALLUCINATIONS Medication List - Last Reconciled 05/24/24 by Geovanni Larson MD Advair Diskus 500-50 mcg/dose (fluticasone propion-salmeterol) 1 inh inhalation BID 90 days NS albuterol sulfate 90 mcg/actuation (Ventolin HFA) 1 inh inhalation QID PRN 90 days apixaban (Eliquis) 5 mg PO BID 90 days atenolol 12.5 mg (1/2 x 25 mg) PO DAILY B-complex with vitamin C 1 tab PO DAILY budesonide DR-ER 3 mg PO Q OTHER DAY cholestyramine-aspartame 4 gram ea PO dronedarone (Multaq) 400 mg PO BID 90 days ezetimibe 10 mg PO DAILY 90 days furosemide 40 mg PO DAILY PRN gabapentin 300 mg PO BID 90 days hydrochlorothiazide 25 mg PO DAILY ipratropium-albuterol 0.5 mg-3 mg(2.5 mg base)/3 mL 3 mL inhalation Q6H PRN latanoprost 0.005% 1 drp ophthalmic-Right BEDTIME lisinopril 20 mg PO BID loratadine 10 mg PO QAM PRN 90 days lorazepam 0.5 mg PO BEDTIME PRN 30 days montelukast 10 mg PO QPM 90 days omeprazole 20 mg PO DAILY 90 days pravastatin 20 mg PO DAILY 90 days prednisone 5 mg (1/2 x 10 mg) PO Q OTHER DAY 90 days tamsulosin 0.4 mg PO DAILY 90 days triamcinolone acetonide 0.5% 1 appl topical TID PRN umeclidinium 62.5 mcg/actuation (Incruse Ellipta) 1 inh inhalation DAILY 30 days Do you need a note to return to daycare/school/sports/work: No HPI HPI Sick visit (adolescent/adult): Details: 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 As well as inflammatory bowel disease, allergic rhinitis, hyperlipidemia, cardiac issues with diastolic dysfunction and dermatitis. He is also grossly obese and does have history of mild AMITA with nocturnal hypoxemia. He has allergic bronchial asthma since childhood, and has been treated with prednisone off and on, now for the last few years he is on prednisone 5 mg on alternate days. In addition for IBD he has been on budesonide tablets which have been reduced to every other day. His usual symptoms include who dyspnea on exertion, also bouts of cough with exertion, but most likely has been under control. He knows that he is prone to respiratory infections and has had COVID previously. Now he thinks he has some infection in his bronchial tubes simmering for the last 2-3 weeks . So he is short of breath on minimal exertion and also has frequent cough. [facility] Medical History Persistent atrial fibrillation COVID-19 Asthma Nocturnal hypoxemia AMITA (obstructive sleep apnea) Hemorrhoids with complication Benign prostatic hyperplasia GERD without esophagitis Pure hypercholesterolemia Benign essential hypertension Eosinophilic colitis Neuropathy Obesity (BMI 30-39.9) Restrictive lung disease COPD (chronic obstructive pulmonary disease) Surgical History History of tonsillectomy History of hernia surgery Family History Brother Lung cancer Social History Household Members: None Housing: House Do you presently have visiting nurse or other home services: No Alcohol intake: never Patient Tobacco Use Status: Former Tobacco user e-Cigarette/Vaping Use: Never Used Second Hand Smoke Exposure: Yes Advance Directives Date on File: 07/15/23 service: No Current occupational status: retired Cognitive needs: No Hearing needs: No Vision needs: Yes (Glasses) Review of Systems Const All systems reviewed & are unremarkable except as noted in HPI and below Eyes Reports no additional complaints ENT Reports no additional complaints and Reports sore throat (COMPLAINS OF SCRATCHY THROAT FOR THE LAST FEW DAYS.) Card Denies chest pain, Reports irregular heart rhythm (HAS PAROXYSMAL ATRIAL FIB) and Reports leg edema (RIGHT LEG) Resp Reports as per HPI GI Details: CHRONIC INFLAMMATORY BOWEL DISEASE UNDER CONTROL. Reports no additional complaints Musc Reports no additional complaints Skin/Breast Reports system reviewed and no additional complaints, except as documented Neuro Reports no additional complaints Psych Reports no additional complaints Physical Exam Const Other: HE IS VISIBLY, GROSSLY OBESE General: comfortable, no acute distress, alert and awake Orientation/consciousness: patient oriented x3 HEENT Head: Yes normal to inspection General nose exam: No nasal polyps present and No nasal discharge present Face and sinus: Yes sinuses nontender Mouth: oropharynx normal Throat: Yes posterior oropharynx normal and Yes posterior oropharynx abnormal (MILD ERYTHEMA NOTED) Eyes General: appearance normal, both eyes and all related structures Neck Neck: Yes normal visual inspection, Yes no lymphadenopathy, Yes trachea midline and Yes no JVD Thyroid: Thyroid normal Chest Chest palpation & inspection: normal inspection of the chest, normal palpation of entire chest wall and no tenderness Resp Other: PERCUSSION NOTE IS NOT PERCEPTIBLE BECAUSE OF THE THICK CHEST WALL, BREATH SOUNDS ARE DISTANT ESPECIALLY DECREASED OVER THE BASILAR AREAS. HE HAS A FEW SCATTERED WHEEZES IN THE UPPER PART OF THE CHEST . NO CREPITATIONS. Cardio Palpation: PMI not normal (NOT PALPABLE) Rate: regular rate Rhythm: abnormal rhythm (ATRIAL FIB) Heart sounds: Gallop heart sound present and Murmur heart sound present GI Palpation (GI): Soft to palpation, nontender, No hepatosplenomegaly present, no masses and Other GI palpation findings present (ABDOMEN IS OBESE AND PROTUBERANT) Auscultation: normal bowel sounds Back/Spine/Pelvis Thoracic/Lumbar Spine: thoracic and lumbar spine normal to inspection Skin General skin exam: no rashes or lesions noted (EXCEPT ON RIGHT LEG, THERE IS REDNESS AND WARM TO TOUCH.) Neuro General: patient oriented x3 and no focal motor deficits Cranial nerves: Yes CN's II-XII intact bilaterally Extrem General: Yes normal to inspection, Yes no calf tenderness and Yes venous stasis dermatitis (RIGHT LEG) Psych Appearance: grossly normal and well kempt Speech and movement: Normal speech and movement present Results Reviewed Results Reviewed: CHEST X-RAY IN JANUARY 2024 WAS UNREMARKABLE Assessment & Plan Assessment & Plan (1) COPD (chronic obstructive pulmonary disease): Comment: MODERATELY SEVERE OBSTRUCTIVE AIRWAY DISORDER. CONTINUES TO HAVE FREQUENT ACUTE EXACERBATIONS, REQUESTING FREQUENT USE OF PREDNISONE AND ANTIBIOTICS. HOWEVER HE CONTINUES TO BE AT HIGHER RISK OF GETTING FREQUENT EXACERBATIONS. TX: ADVAIR -500 HOLD FOR ONE WEEK THE START ONLY ONE INH . DAILY. GARGLE THE THROAT WELL AFTER USING ADVAIR . DUO-NEB ( IPRATROPIUM-ALBUTERL ) UP DRAFTS QID PREDNISONE 5 MG P.O. ON ALTERNATE DAYS. Abuterol HFA 2 puffs Q 4-6 hours only p.r.n.. when out doors , but avoid excessive use Code(s): J44.9 - Chronic obstructive pulmonary disease, unspecified Category: Medical Qualifiers: COPD type: unspecified COPD Qualified Code(s): J44.9 - Chronic obstructive pulmonary disease, unspecified Plan: CONTINUE ALL THE PRESENT MEDICAL REGIMEN (2) Restrictive lung disease: Comment: BECAUSE OF HIS OBESITY I SUSPECT THAT HE HAS MILD TO MODERATE DEGREE OF RESTRICTIVE LUNG DISEASE WELL. AGAIN ADVISED TO LOSE WEIGHT . AND DO DEEP BREATHING EXERCISES TID . Code(s): J98.4 - Other disorders of lung Category: Medical Plan: TALKED TO HIM ABOUT DOING DEEP BREATHING EXERCISES EVERY 2 HOURS WHILE AWAKE, WITH 10 DEEP BREATHS EACH TIME. (3) AMITA (obstructive sleep apnea): Comment: PATIENT HAS MILD AMITA, .ALONG WITH NOCTURNAL HYPOXEMIA HE HAS TRIED HIS BEST AND CANNOT USE THE CPAP OR BIPAP AT NIGHT. Code(s): G47.33 - Obstructive sleep apnea (adult) (pediatric) Category: Medical Plan: HE IS ADVISED TO CONTINUE USING O2 2 L/MINUTE AT NIGHT (4) Nocturnal hypoxemia: Comment: IN HIS HOME-BASED SLEEP STUDY IT WAS THE RECORDED THAT HE DOES HAVE SOME HYPOXEMIA AT NIGHT. IT WAS EXPECTED TO RESOLVE WITH THE APPLICATION OF BIPAP, WHICH HE WAS NOT ABLE TO DO. THUS HE HAS BEEN TREATED WITH O2 2 L/MINUTE AT NIGHT. Code(s): G47.34 - Idiopathic sleep related nonobstructive alveolar hypoventilation Category: Medical Plan: CONTINUE TO USE O2 2 L/MINUTE AT NIGHT. MAY USE FOR SHORT PERIODS DURING THE DAYTIME IF HE IS HAS INCREASED SHORTNESS OF BREATH. (5) Bronchitis: Comment: HE SEEMS TO HAVE LOW-GRADE BRONCHITIS AT THIS TIME WHICH IS MAKING HIS BREATHING SOMEWHAT WORSE. AND HE IS COUGHING UP SMALL AMOUNT OF YELLOW PHLEGM. Code(s): J40 - Bronchitis, not specified as acute or chronic Category: Medical Plan: DOXYCYCLINE HYCLATE 100 MG B.I.D. FOR 10 DAYS IS PRESCRIBED EMPIRICALLY. Medications: New doxycycline hyclate 100 mg PO BID 10 days 20 tabs 0RF BRONCHITIS Coding Level of Care Code Est Pt Level 3 (89971) Diagnoses Chronic obstructive pulmonary disease, unspecified COPD type J44.9 COPD type: unspecified COPD Restrictive lung disease J98.4 AMITA (obstructive sleep apnea) G47.33 Nocturnal hypoxemia G47.34 Bronchitis J40
== END 2024-05-24 13:57 | disposition home or self-care (01) ==
PROVIDERS: PCP Internal Medicine; Visit Provider Internal Medicine
DX: J44.9 Chronic obstructive pulmonary disease, unspecified (principal); J98.4 Other disorders of lung; G47.33 Obstructive sleep apnea (adult) (pediatric); G47.34 Idiopathic sleep related nonobstructive alveolar hypoventilation; J40 Bronchitis, not specified as acute or chronic
CPT/HCPCS: 99213

== ENCOUNTER → 2024-05-24 13:24 | Outpatient (BNVA) | payer MEDICARE, SELFPAY | PROVIDERS: PCP Internal Medicine; Visit Provider Internal Medicine | DX: J44.9 Chronic obstructive pulmonary disease, unspecified (principal); J98.4 Other disorders of lung; J40 Bronchitis, not specified as acute or chronic; G47.33 Obstructive sleep apnea (adult) (pediatric); G47.34 Idiopathic sleep related nonobstructive alveolar hypoventilation | CPT/HCPCS: 99212 ==

== ENCOUNTER 2024-09-13 10:06 | Outpatient (AMB) | payer MEDICARE, SELFPAY ==
[2024-09-13 10:19] VITALS: BP 140/60; PULSE 53; O2SAT 94; BMI 35.7
--- NOTE | 2024-09-13 10:19 | MHC.OFFVIS ---
Vital Signs 09/13/24 10:19 Height 5 ft 11 in Weight 255 lb 11.779 oz BMI 35.7 BP 140/60 H Blood Pressure Location Lt brachial Position Sitting Pulse 53 Pulse Source Pulse Oximeter Pulse Oximetry (%) 94 Oxygen Delivery Method Room Air Intake Visit Reasons: COPD follow-up Intake Note: pt is here for sick visit, coughing with production, green phlegm, fever, wheezing, mostly in chest.,fatigue Magistrate Required: No Allergies Sulfa (Sulfonamide Antibiotics) Allergy (Mild, Verified 09/13/24 12:13) RASH, BLISTERS codeine [Codeine] Allergy (Unknown, Verified 09/13/24 12:13) HALLUCINATIONS Medication List - Last Reconciled 09/13/24 by Geovanni Larson MD Advair Diskus 500-50 mcg/dose (fluticasone propion-salmeterol) 1 inh inhalation BID 90 days NS albuterol sulfate 90 mcg/actuation (Ventolin HFA) 1 inh inhalation QID PRN 90 days apixaban (Eliquis) 5 mg PO BID 90 days atenolol 12.5 mg (1/2 x 25 mg) PO DAILY B-complex with vitamin C 1 tab PO DAILY budesonide DR-ER 3 mg PO Q OTHER DAY cholestyramine-aspartame 4 gram ea PO dronedarone (Multaq) 400 mg PO BID 90 days ezetimibe 10 mg PO DAILY 90 days furosemide 40 mg PO DAILY PRN gabapentin 300 mg PO BID 90 days hydrochlorothiazide 25 mg PO DAILY 90 days ipratropium-albuterol 0.5 mg-3 mg(2.5 mg base)/3 mL 3 mL inhalation Q6H PRN latanoprost 0.005% 1 drp ophthalmic-Right BEDTIME lisinopril 20 mg PO BID loratadine 10 mg PO QAM PRN 90 days lorazepam 0.5 mg PO BEDTIME PRN 30 days montelukast 10 mg PO QPM 90 days omeprazole 20 mg PO DAILY 90 days pravastatin 20 mg PO DAILY 90 days tamsulosin 0.4 mg PO DAILY 90 days triamcinolone acetonide 0.5% 1 appl topical TID PRN umeclidinium 62.5 mcg/actuation (Incruse Ellipta) 1 inh inhalation DAILY 30 days Do you need a note to return to daycare/school/sports/work: No HPI HPI COPD follow-up: Details: Noel is a very pleasant 83 years old gentleman who suffers from chronic obstructive pulmonary disease, cardiac disease with arrhythmias, inflammatory bowel disease. GERD symptoms and chronic allergy symptoms. He is prone to have very frequent respiratory infections. He can not use azithromycin due to interaction with his cardiac meds. Most of the time when he gets acute respiratory infection he ends up using doxycycline. Noel is also on budesonide 3 mg daily for his inflammatory bowel disease. And at the same time he is on prednisone 5 mg on alternate days, for respiratory exacerbations. He is here for an urgent visit because for the last week he was having low-grade fever with cough and expectoration of greenish phlegm. He was feeling tired. Instead of going to the emergency room he was told to come to the office. [facility] Medical History Persistent atrial fibrillation COVID-19 Asthma Nocturnal hypoxemia AMITA (obstructive sleep apnea) Hemorrhoids with complication Benign prostatic hyperplasia GERD without esophagitis Pure hypercholesterolemia Benign essential hypertension Eosinophilic colitis Neuropathy Obesity (BMI 30-39.9) Restrictive lung disease COPD (chronic obstructive pulmonary disease) Surgical History History of tonsillectomy History of hernia surgery Family History Brother Lung cancer Social History Household Members: None Housing: House Do you presently have visiting nurse or other home services: No Alcohol intake: never Patient Tobacco Use Status: Former Tobacco user e-Cigarette/Vaping Use: Never Used Second Hand Smoke Exposure: Yes Advance Directives Date on File: 07/15/23 service: No Current occupational status: retired Cognitive needs: No Hearing needs: No Vision needs: Yes (Glasses) Review of Systems Const All systems reviewed & are unremarkable except as noted in HPI and below Eyes Reports no additional complaints ENT Reports no additional complaints and Reports sore throat (COMPLAINS OF SCRATCHY THROAT FOR THE LAST FEW DAYS.) Card Denies chest pain, Reports irregular heart rhythm (HAS PAROXYSMAL ATRIAL FIB) and Reports leg edema (RIGHT LEG) Resp Reports as per HPI GI Details: CHRONIC INFLAMMATORY BOWEL DISEASE UNDER CONTROL. Reports no additional complaints Musc Reports no additional complaints Skin/Breast Reports system reviewed and no additional complaints, except as documented Neuro Reports no additional complaints Psych Reports no additional complaints Physical Exam Vital Signs: Last Vital Signs Pulse 53 09/13/24 10:19 BP 140/60 H 09/13/24 10:19 Pulse Ox 94 09/13/24 10:19 Oxygen Delivery Method Room Air 09/13/24 10:19 BMI result Body Mass Index 35.7 Const Other: HE IS VISIBLY, GROSSLY OBESE General: comfortable, no acute distress, alert and awake Orientation/consciousness: patient oriented x3 HEENT Head: Yes normal to inspection General nose exam: No nasal polyps present and No nasal discharge present Face and sinus: Yes sinuses nontender Mouth: oropharynx normal Throat: Yes posterior oropharynx normal and Yes posterior oropharynx abnormal (MILD ERYTHEMA NOTED) Eyes General: appearance normal, both eyes and all related structures Neck Neck: Yes normal visual inspection, Yes no lymphadenopathy, Yes trachea midline and Yes no JVD Thyroid: Thyroid normal Chest Chest palpation & inspection: normal inspection of the chest, normal palpation of entire chest wall and no tenderness Resp Other: PERCUSSION NOTE IS NOT PERCEPTIBLE BECAUSE OF THE THICK CHEST WALL, BREATH SOUNDS ARE DISTANT ESPECIALLY DECREASED OVER THE BASILAR AREAS. HE HAS A FEW SCATTERED EXPIRATORY WHEEZES WHEEZES ON BOTH SIDES OF THE CHEST . Cardio Palpation: PMI not normal (NOT PALPABLE) Rate: regular rate Rhythm: abnormal rhythm (ATRIAL FIB) Heart sounds: Gallop heart sound present and Murmur heart sound present GI Palpation (GI): Soft to palpation, nontender, No hepatosplenomegaly present, no masses and Other GI palpation findings present (ABDOMEN IS OBESE AND PROTUBERANT) Auscultation: normal bowel sounds Back/Spine/Pelvis Thoracic/Lumbar Spine: thoracic and lumbar spine normal to inspection Skin General skin exam: no rashes or lesions noted (EXCEPT ON RIGHT LEG, THERE IS REDNESS AND WARM TO TOUCH.) Neuro General: patient oriented x3 and no focal motor deficits Cranial nerves: Yes CN's II-XII intact bilaterally Extrem General: Yes normal to inspection, Yes no calf tenderness and Yes venous stasis dermatitis (RIGHT LEG) Psych Appearance: grossly normal and well kempt Speech and movement: Normal speech and movement present Assessment & Plan Assessment & Plan (1) COPD exacerbation: Comment: THIS 83 YEARS OLD GENTLEMAN IS A KNOWN CASE OF CHRONIC OBSTRUCTIVE PULMONARY DISEASE. HE IS PRONE TO HAVE FREQUENT EXACERBATIONS DUE TO ACUTE BRONCHITIS. CURRENTLY HE IS HAVING COUGH, EXPECTORATION OF GREENISH PHLEGM, AND LOW-GRADE FEVER FOR THE LAST 1 WEEK. IT SEEMS THAT HE HAS AN ACUTE BRONCHITIS. Code(s): J44.1 - Chronic obstructive pulmonary disease with (acute) exacerbation Category: Medical Plan: WILL EMPIRICALLY TREAT HIM WITH A COURSE OF DOXYCYCLINE 100 B.I.D.. FOR 10 DAYS PREDNISONE 10 MG B.I.D. FOR 1 WEEK THEN BACK TO 5 MG ON ALTERNATE DAYS. USE NEBULIZER WITH IPRATROPIUM-ALBUTEROL SOLUTION Q 6 HOURS WHILE AWAKE DURING THE DAYTIME. (2) Nocturnal hypoxemia: Comment: IN HIS HOME-BASED SLEEP STUDY IT WAS THE RECORDED THAT HE DOES HAVE SOME HYPOXEMIA AT NIGHT. IT WAS EXPECTED TO RESOLVE WITH THE APPLICATION OF BIPAP, WHICH HE WAS NOT ABLE TO DO. THUS HE HAS BEEN TREATED WITH O2 2 L/MINUTE AT NIGHT. Code(s): G47.34 - Idiopathic sleep related nonobstructive alveolar hypoventilation Category: Medical Plan: CONTINUE TO USE O2 2 L/MINUTE AT NIGHT. HE CAN ALSO USE FOR SHORT PERIODS DURING THE DAYTIME IF HE GETS INCREASED SHORTNESS OF BREATH. (3) AMITA (obstructive sleep apnea): Comment: PATIENT HAS MILD AMITA, .ALONG WITH NOCTURNAL HYPOXEMIA HE HAS TRIED HIS BEST AND CANNOT USE THE CPAP OR BIPAP AT NIGHT. SO HE JUST USES O2 AT NIGHT. Code(s): G47.33 - Obstructive sleep apnea (adult) (pediatric) Category: Medical Plan: OK TO KEEP ON USING O2 2 L/MINUTE AT NIGHT (4) Obesity (BMI 30-39.9): Comment: HE IS FULLY AWARE OF BEING OBESE, LIVES ALONE AND TRIES TO RESTRICT HIS CALORIES INTAKE. BUT DOES NOT HAVE MUCH ACTIVITY SO HE IS NOT ABLE TO LOSE WEIGHT. TAKING STEROIDS IN THE FORM OF PREDNISONE 5 MG ON ALTERNATE DAYS AND BUDESONIDE ER 3 MG DAILY, DEFINITELY CONTRIBUTES TO HIS BEING OVERWEIGHT Code(s): E66.9 - Obesity, unspecified Category: Medical Plan: NO FURTHER TREATMENT FOR THIS ISSUE (5) Restrictive lung disease: Comment: BECAUSE OF HIS OBESITY I SUSPECT THAT HE HAS MILD TO MODERATE DEGREE OF RESTRICTIVE LUNG DISEASE WELL. Code(s): J98.4 - Other disorders of lung Category: Medical Plan: AGAIN ADVISED TO LOSE WEIGHT . AND DO DEEP BREATHING EXERCISES TID . (6) COPD (chronic obstructive pulmonary disease): Comment: MODERATELY SEVERE OBSTRUCTIVE AIRWAY DISORDER. CONTINUES TO HAVE FREQUENT ACUTE EXACERBATIONS, REQUESTING FREQUENT USE OF PREDNISONE AND ANTIBIOTICS. HOWEVER HE CONTINUES TO BE AT HIGHER RISK OF GETTING FREQUENT EXACERBATIONS. Code(s): J44.9 - Chronic obstructive pulmonary disease, unspecified Category: Medical Qualifiers: COPD type: unspecified COPD Qualified Code(s): J44.9 - Chronic obstructive pulmonary disease, unspecified Plan: TX: ADVAIR -DOES IS DECREASED TO 250-51 INHALATION B.I.D. GARGLE THE THROAT WELL AFTER USING ADVAIR . DUO-NEB ( IPRATROPIUM-ALBUTERL ) UP DRAFTS QID PREDNISONE 5 MG P.O. ON ALTERNATE DAYS. Abuterol HFA 2 puffs Q 4-6 hours only p.r.n.. when out doors , but avoid excessive use Medications: New doxycycline hyclate 100 mg PO BID 10 days 20 tabs 1RF BRONCHITIS doxycycline hyclate 100 mg PO BID 10 days 20 tabs 1RF BRONCHITIS prednisone 10 mg PO BID 1 week 14 tabs 0RF AC. EXCERBATION OF COPD fluticasone propion-salmeterol 250-50 mcg/dose (Advair Diskus) 1 inh inhalation Q12H 90 days 60 ea 3RF COPD prednisone 10 mg PO BID 7 days 14 tabs 0RF COPD EXCERBATION Coding Level of Care Code Est Pt Level 3 (94660) Diagnoses COPD exacerbation J44.1 Nocturnal hypoxemia G47.34 AMITA (obstructive sleep apnea) G47.33 Obesity (BMI 30-39.9) E66.9 Restrictive lung disease J98.4 Chronic obstructive pulmonary disease, unspecified COPD type J44.9 COPD type: unspecified COPD
== END 2024-09-13 10:52 | disposition home or self-care (01) ==
PROVIDERS: PCP Internal Medicine; Visit Provider Internal Medicine
DX: J44.1 Chronic obstructive pulmonary disease with (acute) exacerbation (principal); G47.34 Idiopathic sleep related nonobstructive alveolar hypoventilation; G47.33 Obstructive sleep apnea (adult) (pediatric); E66.9 Obesity, unspecified; J98.4 Other disorders of lung; J44.9 Chronic obstructive pulmonary disease, unspecified
CPT/HCPCS: 99213

== ENCOUNTER → 2024-09-13 10:06 | Outpatient (BNVA) | payer MEDICARE, SELFPAY | PROVIDERS: PCP Internal Medicine; Visit Provider Internal Medicine | DX: J44.1 Chronic obstructive pulmonary disease with (acute) exacerbation (principal); J98.4 Other disorders of lung; G47.34 Idiopathic sleep related nonobstructive alveolar hypoventilation; G47.33 Obstructive sleep apnea (adult) (pediatric); E66.9 Obesity, unspecified; Z68.35 Body mass index [BMI] 35.0-35.9, adult | CPT/HCPCS: 99212 ==

== ENCOUNTER 2024-09-17 09:43 | Outpatient (AMB) | payer MEDICARE, SELFPAY ==
--- NOTE | 2024-09-17 09:47 | A.OFFPC_ITS ---
Vital Signs 09/17/24 09:48 Height 5 ft 11 in Weight 253 lb 8 oz BMI 35.4 BP 136/72 Blood Pressure Location Lt brachial Position Sitting Pulse 74 Pulse Source Pulse Oximeter Pulse Oximetry (%) 96 Oxygen Delivery Method Room Air Intake Visit Reasons: hyperlipidemia, PAF, COPD, HTN, GERD Newspaper Vendor Required: No Accompanied by: Self / Same As Patient Allergies Sulfa (Sulfonamide Antibiotics) Allergy (Mild, Verified 09/17/24 10:20) RASH, BLISTERS codeine [Codeine] Allergy (Unknown, Verified 09/17/24 10:20) HALLUCINATIONS Medication List - Last Reconciled 09/17/24 by Noel Howard MD Advair Diskus 500-50 mcg/dose (fluticasone propion-salmeterol) 1 inh inhalation BID 90 days NS albuterol sulfate 90 mcg/actuation (Ventolin HFA) 1 inh inhalation QID PRN 90 days apixaban (Eliquis) 5 mg PO BID 90 days atenolol 12.5 mg (1/2 x 25 mg) PO DAILY B-complex with vitamin C 1 tab PO DAILY budesonide DR-ER 3 mg PO Q OTHER DAY cholestyramine-aspartame 4 gram ea PO doxycycline hyclate 100 mg PO BID 10 days dronedarone (Multaq) 400 mg PO BID 90 days ezetimibe 10 mg PO DAILY 90 days fluticasone propion-salmeterol 250-50 mcg/dose (Advair Diskus) 1 inh inhalation Q12H 90 days furosemide 40 mg PO DAILY PRN gabapentin 300 mg PO BID 90 days hydrochlorothiazide 25 mg PO DAILY 90 days ipratropium-albuterol 0.5 mg-3 mg(2.5 mg base)/3 mL 3 mL inhalation Q6H PRN latanoprost 0.005% 1 drp ophthalmic-Right BEDTIME lisinopril 20 mg PO BID loratadine 10 mg PO QAM PRN 90 days lorazepam 0.5 mg PO BEDTIME PRN 30 days montelukast 10 mg PO QPM 90 days omeprazole 20 mg PO DAILY 90 days pravastatin 20 mg PO DAILY 90 days prednisone 10 mg PO BID 1 week prednisone 10 mg PO BID 7 days tamsulosin 0.4 mg PO DAILY 90 days triamcinolone acetonide 0.5% 1 appl topical TID PRN umeclidinium 62.5 mcg/actuation (Incruse Ellipta) 1 inh inhalation DAILY 30 days Tobacco use date assessed: 09/17/24 Fall risk assessment: No Falls in past year Last assessed Fall Risk: 09/17/24 Dental Screening Dental Screen Date: 09/17/24 Did you have a dental visit in the last 12 months?: Yes Did you have a dental problem in the last 6 months where you did not have access to dental care?: No Was dental information given to patient?: Patient has dentist HPI hyperlipidemia, PAF, COPD, HTN, GERD HPI Details Patient comes in today for his follow up visit States that he currently feels okay He denies any headaches or dizziness Denies any chest pains, no increased shortness of breath No nausea/vomiting, no abdominal pain No change in bowel habits noted He was not able to get his follow-up labs done prior to his appointment today [facility] Medical History Persistent atrial fibrillation COVID-19 Asthma Nocturnal hypoxemia AMITA (obstructive sleep apnea) Hemorrhoids with complication Benign prostatic hyperplasia GERD without esophagitis Pure hypercholesterolemia Benign essential hypertension Eosinophilic colitis Neuropathy Obesity (BMI 30-39.9) Restrictive lung disease COPD (chronic obstructive pulmonary disease) Surgical History History of tonsillectomy History of hernia surgery Family History Brother Lung cancer Social History Household Members: None Housing: House Do you presently have visiting nurse or other home services: No Alcohol intake: never Patient Tobacco Use Status: Former Tobacco user e-Cigarette/Vaping Use: Never Used Second Hand Smoke Exposure: Yes Advance Directives Date on File: 07/15/23 service: No Current occupational status: retired Cognitive needs: No Hearing needs: No Vision needs: Yes (Glasses) Questionnaire PHQ-9 Over the last 2 weeks, how often have you been bothered by any of the following problems? 1. Little interest or pleasure in doing things: not at all 2. Feeling down, depressed, or hopeless: not at all 3. Trouble falling or staying asleep, or sleeping too much: not at all 4. Feeling tired or having little energy: not at all 5. Poor appetite or overeating: not at all 6. Feeling bad about yourself - or that you are a failure or have let yourself or your family down: not at all 7. Trouble concentrating on things, such as reading the newspaper or watching television: not at all 8. Moving or speaking so slowly that other people could have noticed. Or the opposite - being so fidgety or restless that you have been moving around a lot more than usual: not at all 9. Thoughts that you would be better off or of hurting yourself in some way: not at all Total score: 0 Depression Screening Interpretation: Negative Depression Screening Done: Yes 23567 - PHQ-9 Billing: Yes Source: Developed by Drs. Gregorio Lopez, Ember Heaton, Dash De La Fuente and colleagues, with an educational neli from [employer]. Thrive Questionnaire Date Thrive assessed: 09/17/24 I am a: Patient What is your living situation today?: I have a steady place to live Within the past 12 months, did the food you bought not last and you didn't have the money to get more?: Never true Within the past 12 months, did you worry whether your food would run out before you got money to buy more?: Never true Do you have trouble paying for medicines?: No Do you have trouble getting transportation to medical appointments?: No Do you have trouble paying your heating and electricity bill?: No Do you have trouble taking care of your child, family member or friend?: No Do you have trouble with day-to-day activities such as bathing, preparing meals, shopping, managing finances, etc.?: No Are you currently unemployed and looking for a job?: No Are you interested in more education?: No Please select the resources that you would like help with: None Currently or been in a relationship where the following occur: No concerns reported THRIVE Score: 0 AUDIT C Alcohol Use Questionnaire (AUDIT-C) 1. How often do you have a drink containing alcohol?: Monthly or less 2. How many drinks containing alcohol do you have on a typical day when you are drinking?: 1 or 2 3. How often do you have six or more drinks on one occasion?: Never Total Score: 1 Score Reviewed/Action Taken: Yes DOMINIQUE-7 AMB Questionnaire DOMINIQUE-7 Date DOMINIQUE - 7 assessed: 09/17/24 Feeling nervous, anxious, or on edge: 0 = Not at all Not being able to stop or control worryin = Not at all Worrying too much about different things: 0 = Not at all Trouble relaxin = Not at all Being so restless that it is hard to sit still: 0 = Not at all Becoming easily annoyed or irritable: 0 = Not at all Feeling afraid as if something awful might happen: 0 = Not at all Total DOMINIQUE-7 score (0-4 normal; 5-9 mild; 10-14 moderate; 15-21 severe): 0 Source: Developed by Drs. Gregorio Lopez, Ember Heaton, Dash De La Fuente and colleagues, with an educational neli from [employer]. Review of Systems Const Denies chills, Denies fatigue, Denies fever(s) and Denies headache(s) ENT Denies dysphagia, Denies dizziness, Denies otalgia, Denies headache(s), Denies neck pain, Denies odynophagia and Denies sore throat Card Denies chest pain, Denies rapid heart rate, Denies palpitations and Reports dyspnea on exertion (mild) Resp Denies chest congestion, Reports cough (on and off, mostly non-productive), Denies pain with cough and Reports dyspnea on exertion (mild) GI Denies abdominal pain, Denies constipation, Denies dysphagia, Denies heartburn, Denies diarrhea, Denies nausea, Denies odynophagia and Denies vomiting Denies difficulty urinating, Denies dysuria, Denies nocturia and Denies urinary frequency Musc Denies back pain, Denies neck pain and Reports stiffness Skin/Breast Denies rash Neuro Denies dizziness and Denies headache(s) Endo Denies fatigue and Denies palpitations Physical exam (Primary Care) Vital Signs: Last Vital Signs Pulse 74 09/17/24 09:48 BP 136/72 09/17/24 09:48 Pulse Ox 96 09/17/24 09:48 Oxygen Delivery Method Room Air 09/17/24 09:48 BMI result Body Mass Index 35.4 Tobacco/Smoking Status: Tobacco use Status Tobacco use date assessed 09/17/24 09/17/24 09:51 Patient Tobacco Use Status Former Tobacco user 09/17/24 09:51 e-Cigarette/Vaping Use Never Used 09/17/24 09:51 PHQ-9: PHQ-9 Score PHQ-9: Total score 0 09/17/24 10:21 Depression Screening Interpretation: Negative Thrive Assessment: Date of Thrive Assessment Date Thrive assessed 09/17/24 09/17/24 09:51 Currently or been in a relationship where the following occur: No concerns reported Const General: no acute distress and alert HENMT Ears: TM's normal bilaterally and EAC's normal Throat: Yes posterior oropharynx normal and Yes tonsils normal (no TP congestion noted) Neck Neck: Yes supple and No lymphadenopathy Thyroid: Thyroid normal Resp Auscultation: no crackles, no rales, no wheezes and diminished lung sounds (slightly) bilateral Cardio Rate: regular rate Rhythm: regular rhythm Heart sounds: no murmurs GI Palpation (GI): Soft to palpation and nontender Auscultation: normal bowel sounds General: Yes no CVA tenderness Back/Spine/Pelvis Back: no CVA tenderness Skin Rashes: no rashes Extrem General: Yes no clubbing, cyanosis or edema Coding Level of Care Code Est Pt Level 4 (83622) Diagnoses Chronic obstructive pulmonary disease, unspecified COPD type J44.9 COPD type: unspecified COPD AMITA (obstructive sleep apnea) G47.33 Paroxysmal atrial fibrillation I48.0 Benign essential hypertension I10 Pure hypercholesterolemia E78.00 Allergic rhinitis, unspecified seasonality, unspecified trigger J30.9 Allergic rhinitis trigger: unspecified Allergic rhinitis seasonality: unspecified GERD without esophagitis K21.9 Right leg swelling M79.89 Benign prostatic hyperplasia, unspecified whether lower urinary tract symptoms present N40.0 Lower urinary tract symptom presence: unspecified whether lower urinary tract symptoms present Elevated vitamin B12 level R79.89 Anxiety F41.9 Obesity (BMI 30-39.9) E66.9 Additional Codes PHQ-9 - 94932 - PHQ-9 Billing: Yes ([id number]) Assessment & Plan Assessment & Plan (1) COPD (chronic obstructive pulmonary disease): Code(s): J44.9 - Chronic obstructive pulmonary disease, unspecified Category: Medical Qualifiers: COPD type: unspecified COPD Qualified Code(s): J44.9 - Chronic obstructive pulmonary disease, unspecified Plan: Stable/controlled again lately Continue Advair Diskus 500-50 mcg 1 inhalation BID, Incruse Ellipta 62.5 mcg 1 inhalation QD and Duoneb via nebulization every 6 hours and/or Albuterol HFA 2 puffs 4 times a day as needed He was on Prednisone 5 mg QOD but is currently on 5 mg BID for a week (started by pulmonary a few days ago) to help clear up any residual effect from his rec ent COPD exacerbation Insurance previously denied pulmonary recommendation for Xolair injections Follow up with pulmonary (Dr. Larson) as scheduled (2) AMITA (obstructive sleep apnea): Comment: PATIENT HAS MILD AMITA, .ALONG WITH NOCTURNAL HYPOXEMIA HE HAS TRIED HIS BEST AND CANNOT USE THE CPAP OR BIPAP AT NIGHT. SO HE JUST USES O2 AT NIGHT. Code(s): G47.33 - Obstructive sleep apnea (adult) (pediatric) Category: Medical Plan: He is unable to use/tolerate CPAP or Bipap at night and is currently just being managed with 2 L of oxygen at night when he is sleeping Follow up with Sleep Medicine/Pulmonary as scheduled (3) Paroxysmal atrial fibrillation: Code(s): I48.0 - Paroxysmal atrial fibrillation Category: Medical Plan: S/P cardioversion on 09/04/22; patient is currently still in sinus rhythm He has a CHADSVASc score of 3 and requires lifelong thromboembolism prophylaxis with Eliquis 5 mg BID Continue Multaq 400 mg BID and Atenolol 12.5 mg QD Follow up with cardiology as scheduled (4) Benign essential hypertension: Code(s): I10 - Essential (primary) hypertension Category: Medical Plan: Reinforced low sodium diet - goal is systolic BP of at least 140 mm or less Continue Atenolol 12.5 mg QD, HCTZ 25 mg QD and Lisinopril 20 mg BID He is reminded to continue monitoring his blood pressure regularly (5) Pure hypercholesterolemia: Code(s): E78.00 - Pure hypercholesterolemia, unspecified Category: Medical Plan: He was not able to get his follow-up labs done prior to his appointment today Reinforced low cholesterol diet Continue Pravastatin 20 mg QD and Ezetimibe 10 mg QD Will recheck his labs and fasting lipids in 4 months for follow up - have patient use his current orders (updated) for his next lab draw (6) Allergic rhinitis: Code(s): J30.9 - Allergic rhinitis, unspecified Category: Medical Qualifiers: Allergic rhinitis trigger: unspecified Allergic rhinitis seasonality: unspecified Qualified Code(s): J30.9 - Allergic rhinitis, unspecified Plan: Continue Laratadine 10 mg QD and Montelukast 10 mg Q PM (7) GERD without esophagitis: Code(s): K21.9 - Gastro-esophageal reflux disease without esophagitis Category: Medical Plan: Dietary restrictions reinforced Continue Omeprazole 20 mg QD (8) Right leg swelling: Comment: HE HAS CHRONIC EDEMA OF THE RIGHT LEG. AT PRESENT THE SKIN IS RED AND WARM C/W CELLULITIS I PRESCRIBED KEFLEX 500 MG T.I.D. FOR 10 DAYS, AT HIS REQUEST. Code(s): M79.89 - Other specified soft tissue disorders Category: Medical Plan: This is mostly due to stasis (stasis edema) Venous doppler done last year came out negative for DVT Continue Furosemide 40 mg QD PRN (9) Benign prostatic hyperplasia: Code(s): N40.0 - Benign prostatic hyperplasia without lower urinary tract symptoms Category: Medical Qualifiers: Lower urinary tract symptom presence: unspecified whether lower urinary tract symptoms present Qualified Code(s): N40.0 - Benign prostatic hyperplasia without lower urinary tract symptoms Plan: Continue Tamsulosin 0.4 mg Q HS Follow up with urology as scheduled (10) Elevated vitamin B12 level: Code(s): R79.89 - Other specified abnormal findings of blood chemistry Category: Medical Plan: Continue Vitamin B-complex every other day Patient states that he used to take his Vitamin B12 supplements (1000 mcg) daily but due to his B12 level being significantly elevated on his previous labs, he was instructed to cut this back to every other day (11) Anxiety: Code(s): F41.9 - Anxiety disorder, unspecified Category: Medical Plan: Continue Lorazepam 0.5 mg QD PRN (12) Obesity (BMI 30-39.9): Comment: HE IS FULLY AWARE OF BEING OBESE, LIVES ALONE AND TRIES TO RESTRICT HIS CALORIES INTAKE. BUT DOES NOT HAVE MUCH ACTIVITY SO HE IS NOT ABLE TO LOSE WEIGHT. TAKING STEROIDS IN THE FORM OF PREDNISONE 5 MG ON ALTERNATE DAYS AND BUDESONIDE ER 3 MG DAILY, DEFINITELY CONTRIBUTES TO HIS BEING OVERWEIGHT Code(s): E66.9 - Obesity, unspecified Category: Medical Plan: Reinforced diet; exercise and weight loss are difficult and unrealistic in this patient due to his multiple comorbidities and issues Plan Follow up in 4 months
[2024-09-17 09:48] VITALS: BP 136/72; PULSE 74; O2SAT 96; BMI 35.4
--- OUTSIDE RECORDS SUMMARY | 2024-09-17 10:14 | XMS_ITS | Patient Health Record ---
Author Organization [facility] Address [address] [place] [address] Care Team Providers Care Liquor Merchant Name Role Phone Noel Howard MD Primary Care Provider Gregorio Flor Unavailable [phone] ALLERGIES Allergen (clinical drug ingredient) Drug/Non Drug Allergy documented on EMR Reaction Allergy Type Onset Date Status Sulfa Unknown Drug Allergy Active Codeine Phosphate Unknown Drug Allergy Active REASON FOR REFERRAL No Information MEDICATIONS Medication SIG (Take, Route, Frequency, Duration) Notes Start Date End Date Status Lisinopril 20 MG 1 tablet Orally twice a day Active Gabapentin 300 MG 1 capsule Orally Three times a day Active Omeprazole 20 MG 1 capsule Orally Once a day Active Pravastatin Sodium 20 MG 1 tablet Orally Once a day Active Eliquis Active Lutein Active Multaq 400 MG 1 tablet with meals Orally Twice a day for 30 day(s) Active Calcium Active atenolol 1 tab Oral Active Co Q 10 Active Advair Diskus 250-50 MCG/DOSE 1 puff Inhalation Twice a day Active Probiotic Active Latanoprost 0.005 % 1 drop into affected eye in the evening Ophthalmic Once a day Active Atenolol 25 MG TAKE 1/2 TABLET DAILY Oral for 90 I10,ESSENTIAL (PRIMARY) HYPERTENSION Active Tamsulosin HCl 0.4 MG 1 capsule 30 minutes after the same meal each day Orally Once a day Active Vitamin B50 Complex Active Ipratropium-Albuterol 0.5-2.5 (3) MG/3ML 3 ml Inhalation Four times a day Active LORazepam 0.5 MG 1 tablet at bedtime as needed Orally Once a day Unknown Budesonide 3 MG TAKE 1 CAPSULE EVERY OTHER DAY Active Prevalite 4 GM 1 packet Orally Once a day for 90 days 03/26/2022 Active Cholestyramine Light 4 GM 1 packet Orally Once a day as needed for diarrhea 03/26/2022 Active IMMUNIZATIONS Vaccine Route Administration Date Status Comme nts Influenza Unknown 04/04/2019 Administered Influenza Unknown 05/17/2020 Administered Influenza Unknown 07/21/2018 Refused SOCIAL HISTORY Sex Assigned At : Social History Observation Description Sex Assigned At Unknown PROBLEMS Problem Type ICD Code Onset Dates Problem Status W/U Status Risk SNOMED Code Notes Problem Diarrhea (R19.7) Active confirmed Diarr hea (48500088) Problem 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 08789346 Problem GERD without esophagitis (K21.9) Active confirmed Gastroes ophageal reflux disease (928977697) Problem Abnormal computed tomography of gastrointestinal tract (R93.3) Active confirmed Computed tomography of abdomen abnormal (finding) (87833063071598972 ) 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 Diaphragmatic hernia (06435799) VITAL SIGNS Blood pressure diastolic 00 mm Hg 07/20/2024 Height 69 in 07/20/2024 Blood pressure systolic 00 mm Hg 07/20/2024 Weight 254 lbs 07/20/2024 BMI 37.51 kg/m2 07/20/2024 Encounters Encounter Location Date Provider Diagnosis [facility] [address] [place] [phone] 07/20/2024 Gregorio Stoner Diarrhea R19.7 ; 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 ; GERD without esophagitis K21.9 ; Paraesophageal hiatal hernia K44.9 and Abnormal computed tomography of gastrointestinal tract R93.3 [facility] [address] [place] [phone] 09/24/2023 Gregorio Stoner [facility] [address] [place] [phone] 12/16/2023 Gregorio Stoner [facility] [address] [place] [phone] 07/29/2024 Gregorio Stoner [facility] [address] [place] [phone] 08/29/2024 Gregorio Stoner ASSESSMENTS Encounter Date Diagnosis Assessment Notes Treatment Notes Treatment Clinical Notes 07/20/2024 Diarrhea (ICD-10 - R19.7) 07/20/2024 Eosinophilic colitis (ICD-10 - K52.82) 07/20/2024 GERD without esophagitis (ICD-10 - K21.9) 07/20/2024 Paraesophageal hiata l hernia (ICD-10 - K44.9) 07/20/2024 Abnormal computed tomography of gastrointestinal tract (ICD-10 - R93.3) PLAN OF TREATMENT Pending Test Test Name Order Date XR BARIUM SWALLOW-ESOPHAGUS 07/20/2024 XR GI SERIES 07/20/2024 Future Test Test Name Order Date COLONOSCOPY 01/25/2014 Next Appt Details Provider Name:Greogrio Stoner , 07/19/2025 01:00:00 PM, [address] [facility], [address], [place], [address], Insurance Providers Payer Name Payer Address Payer Phone Subscriber Number Group Number Insured Name Patient Relationship to Insured Coverage Start Date Coverage End Date [facility] [address] [place], [place] [phone] [id number] NOEL SINGER Self - patient is the insured MEDICAL (GENERAL) HISTORY Medical History History ICD Code 7-30-14 colonoscopy--grossly normal, but biopsies c/w eosinophilic colitis--neg.labs for celiac disease, CBC in 05/2014 with 9% Eosinophils---started on Budesonide in 10/2014 Hyperlipidemia Asthma Hypertension Denies AK,DM,CVA,renal disease COPD--wears oxygen at night since his CO VID infection in 07/2023 BPH Neuropathy-on Gabapentin Colonoscopies in 1999 and 23 03 were neg. except for an inflammatory polyp in 2007, diverticulosis, and internal hemorrhoids Afib--s/p cardioversion x 1-sees Dr. Valerie CHAIREZ with 3 days in the hospital 3 Surgical History Surgery Date(Month/Year) Rotator cuff tear repair-left Tonsillectomy Cataract-lens [id number] 01/24/[address]. Hickey 201 8 Bunion left foot
--- OUTSIDE RECORDS SUMMARY | 2024-09-17 10:14 | XMS_ITS ---
Author Organization [facility] Address [address] [place] [address] Care Team Providers Care Organization Development Consultant Name Role Phone Noel Howard MD Primary Care Provider Unava ilRoxi Bass Unavailable [phone] REASON FOR VISIT X CHG Encounters Encounter Location Date Provider Diagnosis [address] [phone] 08/26/2024 Roxi Bailey Plan Of Treatment Next Appt Details Provider Name:Roxi gomez, 11/22/2024 10:00:00 AM, [address] [place], [address], Progress Notes * Noel ADLER PDOB:09/1940 (83 yo M)Acc No.[id number]:08/26/2024 Progress Note Patient:?Noel ADLER Provider:?Roxi Bailey DPM :1940???Age:83 Y???Sex:Male Kaiser e:08/26/2024 Address:[address] [place] [address] Pcp:Noel Howard MD Subjective: * Chief Complaints: * ???1. X CHG. * Medical History:? Objective: * Vitals:? Assessment: Plan: * Treatment: * Images: * The named appointment provid er may or may not be the originator of this progress note, and it is not deemed complete until electronically signed by the appointment provider. Sign off status: Pending * Provider:?Roxi Bailey DPM Date:?0 08/26/2024 Generated for Juan Antonio hart/Jaden/Ashish on:?09/17/2024 10:14 AM EST
--- OUTSIDE RECORDS SUMMARY | 2024-09-17 10:14 | XMS_ITS ---
Author Organization [facility] Address [address] [place] [address] Care Team Providers Care Java Developer Name Role Phone Noel Howard MD Primary Care Provider Unava ilable Gregorio Stoner Unavailable [phone] REASON FOR VISIT ? GI series Encounters Encounter Location Date Provider Diagnosis [facility] [address] [place] [address] 08/29/2024 Gregorio Stoner PLAN OF TREATMENT Next Appt Details Provider Name:Gregorio Stoner , 07/19/2025 01:00:00 PM, [address], [address], [place], [address],
--- OUTSIDE RECORDS SUMMARY | 2024-09-17 10:14 | XMS_ITS | Patient Health Record ---
[facility] Address [address] [place] [address] Care Team Providers Care Supply Chain Engineer Name Role Phone Noel Howard MD Primary Care Provider Roxi Kerr Unavailable [phone] Klaus Russo Unavailable [phone] Allergies Allergen (clinical drug ingredient) Drug/Non Drug Allergy documented on EMR Reaction Allergy Type Onset Date Status codeine Codeine Unknown Drug Allergy Active Substance with sulfonamide structure and antibacterial mechanism of action (substance) Sulfa Antibiotics Unknown Drug Allergy Active Reason For Referral No Information Medications Medication SIG (Take, Route, Frequency, Duration) Notes Start Date End Date Status Chromium Picolinate 200 MCG 1 tablet Orally Once a day for 30 day(s) Active Chelated Zinc 25 mg Active prednisoLONE 10days Not-Herve ing Co Q-10 200 MG as directed Orally Active Doxycycline Hyclate 100 MG 1 capsule Orally Once a day for 10 day(s) 06/24/2024 Active Calcium 1200 mg every other day Active Vitamin B12 Active eliquis Active Probiotic Acidophilus - as directed Orally Active Prevalite 4 GM 1 packet Orally Once a day for 30 day(s) Active PreserVision/Lutein - as directed Orally 40 mg Active Budesonide 3 MG 2 capsules Orally Once a day for 30 day(s) every other day Active Vitamin B Complex Ac tive Atenolol 25 MG 1 tablet Orally Once a day for 30 day(s) Active Tamsulosin HCl 0.4 MG 1 capsule Orally Once a day for 30 day(s) Active Advair Diskus 250-50 MCG/DOSE 1 puff Inhalation Twice a day Active Ventolin HFA 108 (90 Base) MCG/ACT 1 puff as needed Inhalation every 4 hrs as needed Active Ciclopirox Olamine 0.77 % 1 application to affected area Externally Twice a day to effected areas on feet for 30 days Active Omeprazole 20 MG 1 capsule 30 minutes before morning meal Orally Once a day for 30 day(s) Active Pravastatin Sodium 20 MG 1 tablet Orally Once a day for 30 day(s) Active Multaq Active LORazepam 0.5 MG 1 tablet at bedtime as needed Orally Once a day Active Lisinopril 20 MG 1 tablet Orally Once a day for 30 day(s) Active Furosemide 80 MG 1 tablet Orally Once a day for 30 day(s) Active Ezetimibe 10 MG 1 tablet Orally Once a day for 30 day(s) Active Doxycycline Monohydrate 100 MG 1 capsule Orally Once a day for 10 days 05/10/2021 Not-Taking Aspirin 81 MG 1 tablet Orally Once a day Not-Taking Latanoprost 0.005 % 1 drop into affected eye in the evening Ophthalmic Once a day Active Ipratropium-Albuterol 0.5-2.5 (3) MG/3ML 3 ml as needed Inhalation every 6 hrs Active hydroCHLOROthiazide 25 MG 1 tablet in th e morning Orally Once a day for 30 day(s) Active Gabapentin 300 MG 1 capsule Orally Once a day for 30 day(s) 2x per day Active Immunizations Vaccine Route Administration Date Status Comme nts COVID-19 Moderna Vaccine Unknown 09/15/2020 Administere d 1st 08/18/2020 Influenza Unknown 05/17/2022 Administered Social History Tobacco Use: Social History Observation Description Date Details (start date - stop date) Never Smoker NA - NA Tobacco use other than smoking: Question Answer Notes Are you an other tobacco user? No Tobacco Control (Standard) Question Answer Notes Tobacco use: Nonsmoker Additional Findings: Tobacco non-user Current no nsmoker AUDIT-C (Standard) Question Answer Notes Did you have a drink containing alcohol in the p ast year? No Points 0 Interpretation Negative Problems Problem Type SNOMED Code ICD Code Onset Dates Problem Status W/U Status Risk Notes Problem Atherosclerosis of [place] artery of both lower extremities, with unspecified presence of clinical manifestation (I70.203) Active confirmed Q7(A), Q8(2B), Q9(1B,2C) Vital Signs Blood pressure diastolic 70 mm Hg 08/26/2024 Height 5ft 11in in 08/26/2024 Blood pressure systolic 135 mm Hg 08/26/2024 Weight 248 lbs 08/26/2024 BMI 34.59 kg/m2 08/26/2024 Procedures Procedure Date Ordered Date Performed Result Body Sit e 99782-XEXMYMH NAIL, 6 OR MORE 06/24/2024 N/A 07117 I&D ABSCESS- SIMPLE,SINGLE 06/24/2024 N/A 91211-SPAP SKIN LESIONS, 2 TO 4 06/24/2024 N/A 51897-RBDFRSV NAIL, 6 OR MORE 08/26/2024 N/A 11780-PYIU SKIN LESIONS, 2 TO 4 08/26/2024 N/A Encounters Encounter Location Date Provider Diagnosis [address] [address] 12/18/2023 Klaus Russo Tinea unguium B35.1 ; Pain in right toe(s) M79.674 ; Pain in left toe(s) M79.675 ; Skin disease L98.9 ; Other hammer toe(s) (acquired), left foot M20.42 ; Unspecified atherosclerosis of [place] arteries of extremities, bilateral legs I70.203 ; Tinea pedis B35.3 ; Neuralgia and neuritis, unspecified M79.2 ; Other viral warts B07.8 ; Pain in left foot M79.672 and Pain in right foot M79.[address] [address] 03/22/2024 Klaus Russo Tinea unguium B35.1 ; Pain in right toe(s) M79.674 ; Pain in left toe(s) M79.675 ; Skin disease L98.9 ; Other hammer toe(s) (acquired), left foot M20.42 ; Unspecified atherosclerosis of [place] arteries of extremities, bilateral legs I70.203 ; Tinea pedis B35.3 ; Neuralgia and neuritis, unspecified M79.2 ; Other viral warts B07.8 ; Pain in left foot M79.672 ; Pain in right foot M79.671 and Tinea pedis B35.[address] [place] [address] 06/24/2024 Roxi Bailey Abscess of toe, right L02.611 ; Atherosclerosis of [place] artery of both lower extremities, with unspecified presence of clinical manifestation I70.203 ; Tinea unguium B35.1 ; Pain in right toe(s) M79.674 ; Pain in left toe(s) M79.675 ; Peripheral polyneuropathy G62.9 and Cellulitis of toe of right foot L03.[address] [address] 07/08/2024 Roxi Bailey Atherosclerosis of [place] artery of both lower extremities, with unspecified presence of clinical manifestation I70.203 and Cellulitis of toe of right foot L03.[address] [address] 08/26/2024 Roxi Bailey Atherosclerosis of [place] artery of both lower extremities, with unspecified presence of clinical manifestation I70.203 ; Tinea unguium B35.1 ; Pain in right toe(s) M79.674 and Pain in left toe(s) M79.[address] [address] 08/26/2024 Roxi Bailey Assessments Encounter Date Diagnosis (ICD Code) Assessment Notes Treatment Notes Treatment Clinical Notes Section Notes 12/18/2023 Tinea unguium (ICD-10 - B35.1) 12/18/2023 Pain in right toe(s) (ICD-10 - M79.674) 03/22/2024 Tinea unguium (ICD-10 - B35.1) 03/22/2024 Pain in right toe(s) (ICD-10 - M79.674) 06/24/2024 Abscess of toe, right (ICD-10 - L02.611) Patient Educated with: WOUND CARE INSTRUCTIONS. pdf (WOUND CARE INSTRUCTIONS. pdf) 07/08/2024 Cellulitis of toe of right foot (ICD-10 - L03.031) 07/08/2024 Atherosclerosis of [place] artery of both lower extremities, with unspecified presence of clinical manifestation (ICD-10 - I70.203) Q7(A), Q8(2B), Q9(1B,2C) 06/24/2024 Atherosclerosis of [place] artery of both lower extremities, with unspecified presence of clinical manifestation (ICD-10 - I70.203) Q7(A), Q8(2B), Q9(1B,2C) 08/26/2024 Atherosclerosis of [place] artery of both lower extremities, with unspecified presence of clinical manifestation (ICD-10 - I70.203) Q7(A), Q8(2B), Q9(1B,2C) 08/26/2024 Tinea unguium (ICD-10 - B35.1) 03/22/2024 Pain in left toe(s) (ICD-10 - M79.675) 06/24/2024 Tinea unguium (ICD-10 - B35.1) 12/18/2023 Pain in left toe(s) (ICD-10 - M79.675) 12/18/2023 Skin disease (ICD-10 - L98.9) 03/22/2024 Skin disease (ICD-10 - L98.9) 06/24/2024 Pain in right toe(s) (ICD-10 - M79.674) 08/26/2024 Pain in right toe(s) (ICD-10 - M79.674) 08/26/2024 Pain in left toe(s) (ICD-10 - M79.675) 06/24/2024 Pain in left toe(s) (ICD-10 - M79.675) 03/22/2024 Other hammer toe(s) (acquired), left foot (ICD-10 - M20.42) 12/18/2023 Other hammer toe(s) (acquired), left foot (ICD-10 - M20.42) 03/22/2024 Unspecified atherosclerosis of [place] arteries of extremities, bilateral legs (ICD-10 - I70.203) 12/18/2023 Unspecified atherosclerosis of [place] arteries of extremities, bilateral legs (ICD-10 - I70.203) 06/24/2024 Peripheral polyneuropathy (ICD-10 - G62.9) 06/24/2024 Cellulitis of toe of right foot (ICD-10 - L03.031) 03/22/2024 Tinea pedis (ICD-10 - B35.3) 12/18/2023 Tinea pedis (ICD-10 - B35.3) 03/22/2024 Neuralgia and neuritis, unspecified (ICD-10 - M79.2) 12/18/2023 Neuralgia and neuritis, unspecified (ICD-10 - M79.2) 03/22/2024 Other viral warts (ICD-10 - B07.8) 12/18/2023 Other viral warts (ICD-10 - B07.8) 12/18/2023 Pain in left foot (ICD-10 - M79.672) 03/22/2024 Pain in left foot (ICD-10 - M79.672) 03/22/2024 Pain in right foot (ICD-10 - M79.671) 12/18/2023 Pain in right foot (ICD-10 - M79.671) 03/22/2024 Tinea pedis (ICD-10 - B35.3) 06/24/2024 Other Patient Educated with: WOUND CARE INSTRUCTIONS. pdf (WOUND CARE INSTRUCTIONS. pdf) Plan Of Treatment Pending Test Test Name Order Date X ray : Foot, left 3V 05/10/2021 12703-RGNZWAQ NAIL, 6 OR MORE 01/10/2022 83784-HKZPNNO NAIL, 6 OR MORE 06/24/2024 44336-MBWQWHF NAIL, 6 OR MORE 08/26/2024 54462-BUWBKLL SKIN/TISSUE 05/10/2021 21863-CJYLXLR SKIN/TISSUE 05/21/2021 44577 I&D ABSCESS- SIMPLE,SINGLE 024 46709-APNX SKIN LESIONS, OVER 4 01/11/20 22 15588-UZYO SKIN LESIONS, 2 TO 4 08/26/19 25 17045-VKUV SKIN LESIONS, 2 TO 4 06/24/20 24 24719-OTWPJKFR OF HEMATOMA/FLUID 021 Next Appt Details Provider Name:Roxi gomez, 11/22/2024 10:00:00 AM, [address] [facility], [place], [address], Insurance Providers Payer Name Payer Address Payer Phone Subscriber Number Group Number Insured Name Patient Relationship to Insured Coverage Start Date Coverage End Date [employer] 65 Medicare Preferred [address] [place] [address] [phone] [id number] Noel Euceda Self - patient is the insured Medical (General) History Medical History History ICD Code Anxiety asthma (COPD) Cataracts Glaucoma Hiatal hernia High blood pressure Reflux ( GERD) Joint implants/screws Surgical History Surgery Date(Month/Year) hernia 2018 Hospitalization History Reason Date(Month/Year[place] [facility] [place] 3 day stay 08/2023 [facility] [place] P[place] daughter called 911 for dehydration- bronchiitis - antibiotic,prednisone 2022 [facility] [place] eliquis 07/[place]21
--- OUTSIDE RECORDS SUMMARY | 2024-09-17 10:15 | XMS_ITS ---
Author Organization [facility] Address [address] [place] [address] Care Team Providers Care Metal Furnace Operator Name Role Phone Noel Howard MD Primary Care Provider Unava Roxi Albrecht [phone] REASON FOR VISIT waive copay Encounters Encounter Location Date Provider Diagnosis [address] [address] 08/26/2024 Roxi Bailey Plan Of Treatment Next Appt Details Provider Name:Roxi gomez, 11/22/2024 10:00:00 AM, [address] [place], [address], Progress Notes * Noel ADLER PDOB:09/1940 (83 yo M)Acc No.[id number]:08/26/2024 Patient:?Noel ADLER :1940???Age:83 Y???Sex:Male Address:[address] [place] [address], [address] * true * Date:? Generated for Printi ng/Fagerig/eTransmitting on:?09/17/2024 10:14 AM EST
--- OUTSIDE RECORDS SUMMARY | 2024-09-17 10:15 | XMS_ITS ---
Author Organization [facility] Address [address] [place] [place] [address] Care Team Providers Care Medical Lab Tech Instructor Name Role Phone Noel Howard MD Primary Care Provider UnaRoxi Hung Unavailable [phone] Allergies Allergen (clinical drug ingredient) Drug/Non Drug Allergy documented on EMR Reaction Allergy Type Onset Date Status codeine Codeine Unknown Drug Allergy Active Substance with sulfonamide structure and antibacterial mechanism of action (substance) Sulfa Antibiotics Unknown Drug Allergy Active REASON FOR VISIT At Risk Footcare, Painful Nail(s) aggravated by shoes and causing difficulty standing/walking. Medications Medication SIG (Take, Route, Frequency, Duration) Notes Start Date End Date Status Pravastatin Sodium 20 MG 1 tablet Orally Once a day for 30 day(s) Active Multaq Active Probiotic Acidophilus - as directed Orally Active Prevalite 4 GM 1 packet Orally Once a day for 30 day(s) Active PreserVision/Lutein - as directed Orally 40 mg Active LORazepam 0.5 MG 1 tablet at bedtime as needed Orally Once a day Active Lisinopril 20 MG 1 tablet Orally Once a day for 30 day(s) Active Latanoprost 0.005 % 1 drop into affected eye in the evening Ophthalmic Once a day Active Ipratropium-Albuterol 0.5-2.5 (3) MG/3ML 3 ml as needed Inhalation every 6 hrs Active hydroCHLOROthiazide 25 MG 1 tablet in th e morning Orally Once a day for 30 day(s) Active Chromium Picolinate 200 MCG 1 tablet Orally Once a day for 30 day(s) Active eliquis Active Furosemide 80 MG 1 tablet Orally Once a day for 30 day(s) Active Ezetimibe 10 MG 1 tablet Orally Once a day for 30 day(s) Active Gabapentin 300 MG 1 capsule Orally Once a day for 30 day(s) 2x per day Active Chelated Zinc 25 mg Active Co Q-10 200 MG as directed Orally Active Calcium 1200 mg every other day Active Budesonide 3 MG 2 capsules Orally Once a day for 30 day(s) every other day Active Atenolol 25 MG 1 tablet Orally Once a day for 30 day(s) Active prednisoLONE 10days Not-Herve ing Doxycycline Monohydrate 100 MG 1 capsule Orally Once a day for 10 days 05/10/2021 Not-Taking Aspirin 81 MG 1 tablet Orally Once a day Not-Taking Advair Diskus 250-50 MCG/DOSE 1 puff Inhalation Twice a day Active Ciclopirox Olamine 0.77 % 1 application to affected area Externally Twice a day to effected areas on feet for 30 days Active Doxycycline Hyclate 100 MG 1 capsule Orally Once a day for 10 day(s) 06/24/2024 Active Vitamin B12 Active Vitamin B Complex Ac tive Tamsulosin HCl 0.4 MG 1 capsule Orally Once a day for 30 day(s) Active Ventolin HFA 108 (90 Base) MCG/ACT 1 puff as needed Inhalation every 4 hrs as needed Active Omeprazole 20 MG 1 capsule 30 minutes before morning meal Orally Once a day for 30 day(s) Active Social History Tobacco Use: Social History Observation [...] ast year? 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, with unspecified presence of clinical manifestation I70.203 ; Tinea unguium B35.1 ; Pain in right toe(s) M79.674 and Pain in left toe(s) M79.675 Assessments Encounter Date Diagnosis (ICD Code) Assessment Notes Treatment Notes Treatment Clinical Notes Section Notes 08/26/2024 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, with unspecified presence of clinical manifestation (ICD-10 - I70.203) Q7(A), Q8(2B), Q9(1B,2C) 08/26/2024 Tinea unguium (ICD-10 - B35.1) 08/26/2024 Pain in right toe(s) (ICD-10 - M79.674) 08/26/2024 Pain in left toe(s) (ICD-10 - M79.675) Plan Of Treatment Pending Test Test Name Order Date [id number]-[id number] NAIL, 6 OR MORE 08/26/2024 [id number] SKIN LESIONS, 2 TO 4 08/26/19 25 Next Appt Details Follow Up: 4 Months, Reason: Provider Name:Roxi gomez, 11/22/2024 10:00:00 AM, [address] [place] [address], [phone], Procedure Notes * Category Sub-Category Detail Notes Debride Nail 6-10 Nail debridement Due to the cl inical pathology outlined in the exam findings, performance of this nail treatment is medically necessary as its management by an unskilled/untrained nonprofessional would put this patients foot and overall health at risk. Therefore, debridement to affected nail(s), as described in exam ( TA, T1, T2, T3, T4, T5, T6, T7, T8, T9, ), was performed exclusively by the physician of record to reduce/remove overall nail length, girth, thickness, subungual debris, and necrotic tissue, by manual and/or electrical means through the use of a nail nipper and/or dremel-type roll grinder operator, to a more viable healthy nail plate or bed tissue 6-10 nails in total. Silver nitrate was used for any petechial bleeding as necessary. Definitive antifungal treatment options, both pharmaceutical and surgical, have been reviewed and discussed with the patient. The patient solely prefers the use of intermittent/as needed professional debridement services for their nail condition and understands the need for additional periodic treatments to maintain effectiveness in symptomatic relief - 55633 Keratoma Treatment Parring or Cutting o f Benign Hyperkeratotic Lesion(s) (-56) 2-4 Lesions - Due to the at risk nature of the patients medical condition as documented in the exam findings, performance of this keratoderma treatment is medically necessary as its management by an unskilled/untrained nonprofessional would put this patients foot and overall health at risk. Therefore, the benign hyperkeratotic lesions, ( 4 ) in total, locations as stated and described in the exam ( sub 1st metatarsal head B/L, plantar heels B/L ), were pared, and/or cut utilizing a sterile 15 blade, tissue nippers, and/or power dremel instrumentation by the physician of record - 19665, Q8 Progress Notes * Noel ADLER PDOB:09/1940 (83 yo M)Acc No.[id number]:08/26/2024 Progress Note Patient:?Augustine ADLERneth P Provider:?Roxi Bailey DPM :1940???Age:83 Y???Sex:Male Kaiser e:08/26/2024 Address:[address] [place], [place] [id number] Pcp:Noel Howard MD Subjective: * Chief Complaints: * ???At Risk FootcarePainful N ail(s) aggravated by shoes and causing difficulty standing/walking. * HPI: ???At Risk footcare:?Pt States Last PCP Visit:?Date?07/22/2024 * ROS:?General/Constitutional:?Nausea?denies.?Vomiting?denies.?Hunger Thirst?denies.?Loss appetite?denies.?Chills?denies.?Fatigue?denies.?Fever?denies.?Night Sweats?denies.?Unexplained weight loss?denies.?Unexplained weight gain?denies.?HEENTM:?Dentures?admits.?Dizziness?denies.?Glasses/contacts?admits.?Retinopathy?de nies.?Blurred/double vision?denies.?TMJ?denies.?Discharge/drainage?denies.?Implants?denies.?Sore throat?denies.?Dental implants?denies.?Hard of hearing ?denies.?Difficulty chewing/swallowing/speaking?denies.?Nose bleeds?denies.?Sore mouth?denies.?Respiratory:?On Oxygen?denies.?Pneumonia/pleurisy?denies.?Bronchitis?denies.?Emphysema?admits.?C oughing?denies.?Cough blood?denies.?Shortness of breath?denies.?Wheezing?admits.?Cardiovascular:?Pacemaker?denies.?MVP?denies.?WPW?denies.?CHF?denies.?Heart attack?denies.?Septal defect?denies.?Rapid beat?admits.?Chest pain ?denies.?Atrial Fib.?admits.?Murmur/Palpitations?denies.?Gastrointestinal:?Hemorrhoids?denies.?Stomach/Abdominal pain?denies.?Dark blood stool?denies.?Irritable bowel ?denies.?Constipation?denies.?Diarrhea?denies.?Hematology:?Swelling?denies.?Clots?denies.?Varicose Veins?denies.?Bruising?denies.?Bleeding problem?denies.?Genitourinary:?Blood urine?denies.?Frequent/Painfu/urination/bladder control?denies.?Kidney stones?denies.?Infection (UTI)?denies.?Nephropathy?admits.?sex trans dis (STD)?denies.?Prostate?admits.?Musculoskeletal:?Hammertoes?denies.?Bunions?denies.?Back Pain?denies.?Muscle Cramps/ Resting?admits.?Muscle cramps / walking?denies.?Generalized aches and pains?denies.?Weakness?denies.?Integ.:?Brown?denies.?Scars?denies.?Corns/calluses?admits.?Ingrown nails?denies.?Painful nails?denies.?Open Sores?denies.?Rashes?denies.?Neurologic:?Difficulty sleeping?denies.?Brain disorder?denies.?Numbness?admits.?Balance trouble?denies.?Confusion?denies.?Fainting/blackouts?denies.?Tingling?admits.?Tr emors?denies.? * Medical History:? * Surgical History:?hernia 201 8 * [place]/Major Diagno stic [place] [place] [place] P[place] daughter called 911 for dehydration- bronchiitis - antibiotic,prednisone 20[place] [place], 3 day stay 08/2023 * Family History:?Mother: dece ased.?Father: , diagnosed with Unspecified essential hypertension, Unspecified heart disease.? * Social History:?Tobacco Use:?Tobacco use other than smoking?Are you an other tobacco user??No ?Tobacco Control (Standard)?Tobacco use:?Nonsmoker ?Additional Findings: Tobacco non-user?Current nonsmoker ???Drugs/Alcohol:?Drugs?Have you used drugs other than those for medical reasons in the past 12 months??No ???Miscellaneous:?Caffeine: yes, frequency: 1 cups per day 12oz. ?Children: yes, 2. ?Exercise: yes, exercise. ?Marital status: . ?Occupation: Retired-[employer]. ???Drug/Alcohol:?AUDIT-C (Standard)?Did you have a drink containing alcohol in the past year??No ?Points?0 ?Interpretation?Negative * Medications:?TakingCiclopiro x Olamine 0.77 % Cream 1 application to affected area Externally Twice a day to effected areas on feet Advair Diskus 250-50 MCG/DOSE Aerosol Powder Breath Activated 1 puff Inhalation Twice a day Atenolol 25 MG Tablet 1 tablet Orally Once a day Budesonide 3 MG Capsule Delayed Release Particles 2 capsules Orally Once a day , Notes to Pharmacist: every other dayCalcium , Notes to Pharmacist: 1200 mg every other dayCo Q-10 200 MG Capsule as directed Orally Chelated Zinc , Notes to Pharmacist: 25 mgChromium Picolinate 200 MCG Tablet 1 tablet Orally Once a day eliquis Ezetimibe 10 MG Tablet 1 tablet Orally Once a day Furosemide 80 MG Tablet 1 tablet Orally Once a day Gabapentin 300 MG Capsule 1 capsule Orally Once a day , Notes to Pharmacist: 2x per dayhydroCHLOROthiazide 25 MG Tablet 1 tablet in the morning Orally Once a day Ipratropium-Albuterol 0.5-2.5 (3) MG/3ML Solution 3 ml as needed Inhalation every 6 hrs Latanoprost 0.005 % Solution 1 drop into affected eye in the evening Ophthalmic Once a day Lisinopril 20 MG Tablet 1 tablet Orally Once a day LORazepam 0.5 MG Tablet 1 tablet at bedtime as needed Orally Once a day Multaq Pravastatin Sodium 20 MG Tablet 1 tablet Orally Once a day PreserVision/Lutein - Capsule as directed Orally , Notes to Pharmacist: 40 mgPrevalite 4 GM Packet 1 packet Orally Once a day Probiotic Acidophilus - Capsule as directed Orally Omeprazole 20 MG Capsule Delayed Release 1 capsule 30 minutes before morning meal Orally Once a day Ventolin HFA 108 (90 Base) MCG/ACT Aerosol Solution 1 puff as needed Inhalation every 4 hrs , Notes to Pharmacist: as neededTamsulosin HCl 0.4 MG Capsule 1 capsule Orally Once a day Vitamin B Complex Vitamin B12 Doxycycline Hyclate 100 MG Capsule 1 capsule Orally Once a day Taking Ciclopirox Olamine 0.77 % Cream 1 application to affected area Externally Twice a day to effected areas on feet Taking Advair Diskus 250- 50 MCG/DOSE Aerosol Powder Breath Activated 1 puff Inhalation Twice a day Taking Atenolol 25 MG Tablet 1 tablet Orally Once a day Taking Budesonide 3 MG Capsule Delayed Release Particles 2 capsules Orally Once a day , Notes to Pharmacist: every other dayTaking Calcium , Notes to Pharmacist: 1200 mg every other dayTaking Co Q-10 200 MG Capsule as directed Orally Taking Chelated Zinc , Notes to Pharmacist: 25 mgTaking Chromium Picolinate 200 MCG Tablet 1 tablet Orally Once a day Taking eliquis Taking Ezetimibe 10 MG Tablet 1 tablet Orally Once a day Taking Furosemide 80 MG Tablet 1 tablet Orally Once a day Taking Gabapentin 300 MG Capsule 1 capsule Orally Once a day , Notes to Pharmacist: 2x per dayTaking hydroCHLOROthiazide 25 MG Tablet 1 tablet in the morning Orally Once a day Taking Ipratropium-Albuterol 0.5-2.5 (3) MG/3ML Solution 3 ml as needed Inhalation every 6 hrs Taking Latanoprost 0.005 % Solution 1 drop into affected eye in the evening Ophthalmic Once a day Taking Lisinopril 20 MG Tablet 1 tablet Orally Once a day Taking LORazepam 0.5 MG Tablet 1 tablet at bedtime as needed Orally Once a day Taking Multaq Taking Pravastatin Sodium 20 MG Tablet 1 tablet Orally Once a day Taking PreserVision/Lutein - Capsule as directed Orally , Notes to Pharmacist: 40 mgTaking Prevalite 4 GM Packet 1 packet Orally Once a day Taking Probiotic Acidophilus - Capsule as directed Orally Taking Omeprazole 20 MG Capsule Delayed Release 1 capsule 30 minutes before morning meal Orally Once a day Taking Ventolin HFA 108 (90 Base) MCG/ACT Aerosol Solution 1 puff as needed Inhalation every 4 hrs , Notes to Pharmacist: as neededTaking Tamsulosin HCl 0.4 MG Capsule 1 capsule Orally Once a day Taking Vitamin B Complex Taking Vitamin B12 Taking Doxycycline Hyclate 100 MG Capsule 1 capsule Orally Once a day Not-Taking/PRNprednisoLONE , Notes to Pharmacist: 10daysAspirin 81 MG Tablet Delayed Release 1 tablet Orally Once a day Doxycycline Monohydrate 100 MG Capsule 1 capsule Orally Once a day Medication List reviewed and reconciled with the patientNot-Taking/PRN prednisoLONE , Notes to Pharmacist: 10daysNot-Taking/PRN Aspirin 81 MG Tablet Delayed Release 1 tablet Orally Once a day Not-Taking/PRN Doxycycline Monohydrate 100 MG Capsule 1 capsule Orally Once a day Medication List reviewed and reconciled with the patient * Allergies:?Sulfa Antibiotics Codeineyes[Allergies Verified] Objective: * Vitals:?Ht: 5ft 11in, Wt:248 , BMI: 34.59, Shoe size:12-13, BP:135/70mm Hg, Wt- k.49 kg. * Examination: ???General Examination: ?GENERAL APPEARANCE:?Reveals a pleasant, alert, well nourished, well- developed, well hydrated individual, who demonstrates proper attention to hygiene/body habitus, and is in no acute distress, Pt serves as own historian for office visit today.?ORIENTED:?person, place, and time.?Vascular: ?DP PULSES (B):? 0/4, B/L.?PT PULSES (B):? 0/4, B/L.?CAPILLARY FILL TIME:? delayed, all digits, B/L.?TROPHIC CONDITION-TEXTURE/ELASTICITY/TURGOR/HAIR GROWTH (B):? decreased, fragile, thin, shiny skin, with sparse to absent hair growth, B/L.?TEMPERTURE GRADIENT (C):? decreased, cool to cool, proximal to distal, B/L.?PIGMENTATION:?brawny, B/L.?EDEMA (C):?1/4, pitting, without aching pain.?CLAUDICATION (C):?denies, B/L.?REST PAIN:?denies, B/L.?PARESTHESIA (C):?present, B/L.?BURNING (C):?absent, B/L.?Dermatologic: ?SKIN FINDINGS:?Skin exam reveals Keratotic lesion(s) located at sub 1st metatarsal head B/L, plantar heels B/L.?Orthopedic: ?MUSCLE STRENGTH:?5/5 all groups in a symmetrical fashion, B/L.?Neurological: ?SENSORY:?Neurological exam demonstrates reduced sharp/dull pin prick discrimination reduced light touch sensation reduced vibration sensation reduced proprioception sensation in a stocking fashion 5.07 monofilament test performed at plantar aspects of 5 varied sites per foot shows sensation plantar aspects absent at Forefoot B/L.?Nails: ?NAILS are:?Elongated, overgrown, dystrophic, lytic, greater than 3mm thick, discolored and friable with crumbly malodorous subungual debris, with pain on palpation, TA, T1, T2, T3, T4, T5, T6, T7, T8, T9.? 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 Plan: * Treatment: 2.?Tinea unguium?Procedure: [id number]-[id number] NAIL, 6 OR MORE * Procedures:?Debride Nail 6-10:?Nail debridement?Due to the clinical pathology outlined in the exam findings, performance of this nail treatment is medically necessary as its management by an unskilled/untrained nonprofessional would put this patients foot and overall health at risk. Therefore, debridement to affected nail(s), as described in exam ( TA, T1, T2, T3, T4, T5, T6, T7, T8, T9, ), was performed exclusively by the physician of record to reduce/remove overall nail length, girth, thickness, subungual debris, and necrotic tissue, by manual and/or electrical means through the use of a nail nipper and/or dremel-type roll grinder operator, to a more viable healthy nail plate or bed tissue 6- 10 nails in total. Silver nitrate was used for any petechial bleeding as necessary. Definitive antifungal treatment options, both pharmaceutical and surgical, have been reviewed and discussed with the patient. The patient solely prefers the use of intermittent/as needed professional debridement services for their nail condition and understands the need for additional periodic treatments to maintain effectiveness in symptomatic relief - 97767.?Keratoma Treatment:?Parring or Cutting of Benign Hyperkeratotic Lesion(s)?(-56) 2-4 Lesions - Due to the at risk nature of the patients medical condition as documented in the exam findings, performance of this keratoderma treatment is medically necessary as its management by an unskilled/untrained nonprofessional would put this patients foot and overall health at risk. Therefore, the benign hyperkeratotic lesions, ( 4 ) in total, locations as stated and described in the exam ( sub 1st metatarsal head B/L, plantar heels B/L ), were pared, and/or cut utilizing a sterile 15 blade, tissue nippers, and/or power dremel instrumentation by the physician of record - 48759, Q8.? * Procedure Codes:?72693 DEBRI DE NAIL, 6 OR MORE, Modifiers: XS 45639 TRIM SKIN LESIONS, 2 TO 4, Modifiers: XS , Q8 * Follow Up:?4 Months * Images: * Sign off status: Completed true * Provider:?Roxi Bailey DPM Date:?0 08/26/2024 Generated for Juan Antonio hart/Jaden/Ashish on:?09/17/2024 10:15 AM EST History and Physical Notes * HPI (History of Present Illness) Category Sub-Category Detail Notes Category Not es At Risk footcare Pt States Last PCP Visit: Date: 4 Examination Category Sub-Category Detail Notes Category Not es Neurological SENSORY: Neurological exa m demonstrates reduced sharp/dull pin prick discrimination reduced light touch sensation reduced vibration sensation reduced proprioception sensation in a stocking fashion 5.07 monofilament test performed at plantar aspects of 5 varied sites per foot shows sensation plantar aspects absent at Forefoot B/L Dermatologic SKIN FINDINGS: Skin exam reveal s Keratotic lesion(s) located at sub 1st metatarsal head B/L, plantar heels B/L Orthopedic MUSCLE STRENGTH: 5/5 all groups in a symmetrical fashion, B/L General Examination GENERAL APPEARANCE: Reveals a pleasant, alert, well nourished, well-developed, well hydrated individual, who demonstrates proper attention to hygiene/body habitus, and is in no acute distress, Pt serves as own historian for office visit today ORIENTED: person, place, and t nish Vascular DP PULSES (B): 0/4, B/L PT PULSES (B): 0/4, B/L CAPILLARY FILL TIME: delayed, all digits , B/L TEMPERTURE GRADIENT (C): decreased, cool to cool, proximal to distal, B/L TROPHIC CONDITION-TEXTURE/ELASTICITY/TURGOR/HAIR GROWTH (B): decreased, fragile, thin, shiny skin, wi th sparse to absent hair growth, B/L EDEMA (C): 1/4, pitting, withou t aching pain CLAUDICATION (C): denies, B/L REST PAIN: denies, B/L PIGMENTATION: brawny, B/L PARESTHESIA (C): present, B/L BURNING (C): absent, B/L Nails NAILS are: Elongated, overg rown, dystrophic, lytic, greater than 3mm thick, discolored and friable with crumbly malodorous subungual debris, with pain on palpation, TA, T1, T2, T3, T4, T5, T6, T7, T8, T9
--- OUTSIDE RECORDS SUMMARY | 2024-09-17 10:15 | XMS_ITS ---
Author Organization [facility] Address [address] [place] [address] Care Team Providers Care Attendant [facility] Name Role Phone Noel Howard MD Primary Care Provider Unava ilable Gregroio Stoner Unavailable [phone] REASON FOR VISIT Barium swallow and UGI Encounters Encounter Location Date Provider Diagnosis [facility] [address] [place] [address] 07/29/2024 Gregorio Stoner PLAN OF TREATMENT Next Appt Details Provider Name:Gregorio Stoner , 07/19/2025 01:00:00 PM, [address], [address], [place], [address],
--- OUTSIDE RECORDS SUMMARY | 2024-09-17 10:15 | XMS_ITS ---
Author Organization [facility] Address [address] [place] [address] Care Team Providers Care Supervisor Home Restoration Service Name Role Phone Noel Hwoard MD Primary Care Provider Gregorio Flor [phone] ALLERGIES Allergen (clinical drug ingredient) Drug/Non Drug Allergy documented on EMR Reaction Allergy Type Onset Date Status Sulfa Unknown Drug Allergy Active Codeine Phosphate Unknown Drug Allergy Active REASON FOR VISIT Patient presents today for colitis MEDICATIONS Medication SIG (Take, Route, Frequency, Duration) Notes Start Date End Date Status Omeprazole 20 MG 1 capsule Orally Once a day Active Co Q 10 Active Atenolol 25 MG TAKE 1/2 TABLET DAILY Oral for 90 I10,ESSENTIAL (PRIMARY) HYPERTENSION Active LORazepam 0.5 MG 1 tablet at bedtime as needed Orally Once a day Unknown Prevalite 4 GM 1 packet Orally Once a day for 90 days 03/26/2022 Active Lutein Active Calcium Active Probiotic Active Vitamin B50 Complex Active Ipratropium-Albuterol 0.5-2.5 (3) MG/3ML 3 ml Inhalation Four times a day Active Lisinopril 20 MG 1 tablet Orally twice a day Active Gabapentin 300 MG 1 capsule Orally Three times a day Active Pravastatin Sodium 20 MG 1 tablet Orally Once a day Active Latanoprost 0.005 % 1 drop into affected eye in the evening Ophthalmic Once a day Active Tamsulosin HCl 0.4 MG 1 capsule 30 minutes after the same meal each day Orally Once a day Active Eliquis Active Multaq 400 MG 1 tablet with meals Orally Twice a day for 30 day(s) Active atenolol 1 tab Oral Active Advair Diskus 250-50 MCG/DOSE 1 puff Inhalation Twice a day Active Cholestyramine Light 4 GM 1 packet Orally Once a day as needed for diarrhea 03/26/2022 Active Budesonide 3 MG TAKE 1 CAPSULE EVERY OTHER DAY Active PROBLEMS Problem Type ICD Code Onset Dates Problem Status W/U Status Risk SNOMED Code Notes 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 [address] [place] [address] 07/20/2024 Gregorio Stoner Diarrhea R19.7 ; 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 ; GERD without esophagitis K21.9 ; Paraesophageal hiatal hernia K44.9 and Abnormal computed tomography of gastrointestinal tract R93.3 ASSESSMENTS Encounter Date Diagnosis Assessment Notes Treatment Notes Treatment Clinical Notes 07/20/2024 Diarrhea (ICD-10 - R19.7) 07/20/2024 Eosinophilic colitis (ICD-10 - K52.82) 07/20/2024 GERD without esophagitis (ICD-10 - K21.9) 07/20/2024 Paraesophageal hiata l hernia (ICD-10 - K44.9) 07/20/2024 Abnormal computed tomography of gastrointestinal tract (ICD-10 - R93.3) PLAN OF TREATMENT Medication Medication Name Sig Start Date Stop Date Notes Cholestyramine Light 4 GM 1 packet Orall y Once a day as needed for diarrhea 03/26/2022 Budesonide 3 MG TAKE 1 CAPSULE EVERY OTHER DAY Pending Test Test Name Order Date XR BARIUM SWALLOW-ESOPHAGUS 07/20/2024 XR GI SERIES 07/20/2024 Next Appt Details Follow Up: 1 Year, Reason: Provider Name:Gregorio Stoner , 07/19/2025 01:00:00 PM, [address], [address], [place], [address], Progress Notes * Examination Category Sub-Category Detail Notes General Examination GENERAL APPEARANCE: pleasant , well nourished, well developed, in no acute distress HEAD: EYES: sclera non-icteric EARS: NOSE: THROAT: NECK/THYROID: no cervical lymphade nopathy, neck supple HEART: S1, S2 normal CHEST: LUNGS: clear to auscultatio n bilaterally ABDOMEN: normal bowel sounds, no guarding or rigidity, no guarding or rigidity, no masses palpable, soft, nontender, nondistended NEUROLOGIC: alert and oriented SKIN: nonjaundiced, no spi yonatan angiomata EXTREMITIES: no edema PERIPHERAL PULSES: BACK: BREASTS: MUSCULOSKELETAL: MALE GENITOURINARY: LYMPH NODES: RECTAL EXAM: FEMALE GENITOURINARY: ORAL CAVITY: mucosa moist
== END 2024-09-17 10:33 | disposition home or self-care (01) ==
PROVIDERS: PCP Internal Medicine; Visit Provider Internal Medicine
DX: J44.9 Chronic obstructive pulmonary disease, unspecified (principal); I48.0 Paroxysmal atrial fibrillation; E66.9 Obesity, unspecified; Z68.35 Body mass index [BMI] 35.0-35.9, adult; E78.00 Pure hypercholesterolemia, unspecified; I10 Essential (primary) hypertension; G47.33 Obstructive sleep apnea (adult) (pediatric); J30.9 Allergic rhinitis, unspecified; K21.9 Gastro-esophageal reflux disease without esophagitis; M79.89 Other specified soft tissue disorders; N40.0 Benign prostatic hyperplasia without lower urinary tract symptoms; R79.89 Other specified abnormal findings of blood chemistry

== ENCOUNTER → 2024-09-17 09:43 | Outpatient (BNVA) | payer MEDICARE, SELFPAY | PROVIDERS: PCP Internal Medicine; Visit Provider Internal Medicine | DX: J44.9 Chronic obstructive pulmonary disease, unspecified (principal); G47.33 Obstructive sleep apnea (adult) (pediatric); I48.0 Paroxysmal atrial fibrillation; I10 Essential (primary) hypertension; E78.00 Pure hypercholesterolemia, unspecified; J30.9 Allergic rhinitis, unspecified; K21.9 Gastro-esophageal reflux disease without esophagitis; R60.0 Localized edema; N40.0 Benign prostatic hyperplasia without lower urinary tract symptoms; R79.89 Other specified abnormal findings of blood chemistry; F41.9 Anxiety disorder, unspecified; E66.9 Obesity, unspecified | CPT/HCPCS: 96127; 99212 ==

== ENCOUNTER 2024-10-19 11:09 | Outpatient (AMB) | payer MEDICARE, SELFPAY ==
[2024-10-19 11:11] VITALS: BP 140/80; PULSE 60; BMI 35.7
--- NOTE | 2024-10-19 11:11 | MHC.OFFVIS ---
Vital Signs 10/19/24 11:11 Height 5 ft 11 in Weight 255 lb 11.779 oz BMI 35.7 BP 140/80 H Blood Pressure Location Lt brachial Position Sitting Pulse 60 Intake Visit Reasons: 6 mth f/up Intake Note: 6 month follow-up feeling good Inventory Control Associate Required: No Allergies Sulfa (Sulfonamide Antibiotics) Allergy (Mild, Verified 09/17/24 10:20) RASH, BLISTERS codeine [Codeine] Allergy (Unknown, Verified 09/17/24 10:20) HALLUCINATIONS Medication List - Last Reconciled 10/19/24 by Ronnie Bill MD Advair Diskus 500-50 mcg/dose (fluticasone propion-salmeterol) 1 inh inhalation BID 90 days NS albuterol sulfate 90 mcg/actuation (Ventolin HFA) 1 inh inhalation QID PRN 90 days apixaban (Eliquis) 5 mg PO BID 90 days atenolol 12.5 mg (1/2 x 25 mg) PO DAILY B-complex with vitamin C 1 tab PO DAILY budesonide DR-ER 3 mg PO Q OTHER DAY cholestyramine-aspartame 4 gram ea PO dronedarone (Multaq) 400 mg PO BID ezetimibe 10 mg PO DAILY 90 days fluticasone propion-salmeterol 250-50 mcg/dose (Advair Diskus) 1 inh inhalation Q12H 90 days furosemide 40 mg PO DAILY PRN gabapentin 300 mg PO BID 90 days hydrochlorothiazide 25 mg PO DAILY 90 days ipratropium-albuterol 0.5 mg-3 mg(2.5 mg base)/3 mL 3 mL inhalation Q6H PRN latanoprost 0.005% 1 drp ophthalmic-Right BEDTIME lisinopril 20 mg PO BID loratadine 10 mg PO QAM PRN 90 days lorazepam 0.5 mg PO BEDTIME PRN 30 days montelukast 10 mg PO QPM 90 days omeprazole 20 mg PO DAILY 90 days pravastatin 20 mg PO DAILY 90 days tamsulosin 0.4 mg PO DAILY 90 days triamcinolone acetonide 0.5% 1 appl topical TID PRN umeclidinium 62.5 mcg/actuation (Incruse Ellipta) 1 inh inhalation DAILY 30 days HPI Comments Details: Noel comes for follow-up. He complains of some fatigue although remains active and functional. Denies any lightheadedness, syncope. Denies any atrial fibrillation symptoms with a prolonged palpitation irregular heartbeat. No bleeding issues or neurologic events. Takes all his medications. No orthopnea, PND, leg edema. [facility] Medical History Persistent atrial fibrillation COVID-19 Asthma Nocturnal hypoxemia AMITA (obstructive sleep apnea) Hemorrhoids with complication Benign prostatic hyperplasia GERD without esophagitis Pure hypercholesterolemia Benign essential hypertension Eosinophilic colitis Neuropathy Obesity (BMI 30-39.9) Restrictive lung disease COPD (chronic obstructive pulmonary disease) Surgical History History of tonsillectomy History of hernia surgery Family History Brother Lung cancer Social History Household Members: None Housing: House Do you presently have visiting nurse or other home services: No Alcohol intake: never Patient Tobacco Use Status: Former Tobacco user e-Cigarette/Vaping Use: Never Used Second Hand Smoke Exposure: Yes Advance Directives Date on File: 07/15/23 service: No Current occupational status: retired Cognitive needs: No Hearing needs: No Vision needs: Yes (Glasses) Review of Systems Const Denies chills, Denies fatigue, Denies fever(s), Denies frequent falls, Denies weakness, Denies weight gain and Denies weight loss ENT Denies dizziness Card Denies chest pain, Denies leg edema, Denies lightheadedness, Denies palpitations, Denies dyspnea, Denies dyspnea on exertion, Denies orthopnea and Denies other (loss of consciousness) Resp Denies cough, Denies dyspnea and Denies dyspnea on exertion GI Denies hematochezia and Denies change in stool character Musc Denies abnormal gait, Denies muscle weakness, Denies numbness, Denies radiating pain into limb and Denies tingling Neuro Denies abnormal gait, Denies dizziness, Denies frequent falls, Denies numbness, Denies tingling and Denies weakness Endo Denies fatigue and Denies palpitations Physical Exam Vital Signs: Last Vital Signs Pulse 60 10/19/24 11:11 BP 140/80 H 10/19/24 11:11 BMI result Body Mass Index 35.7 Const General: cooperative, no acute distress, alert and awake Orientation/consciousness: patient oriented x3 Neck Neck: Yes normal visual inspection and Yes no JVD Resp Effort & Inspection: normal respiratory effort, able to speak in complete sentences and not labored Auscultation: clear to auscultation bilaterally, no crackles, no rales, no rhonchi and no wheezes Cardio Rate: regular rate Rhythm: regular rhythm Heart sounds: S1 normal heart sound present and S2 normal heart sound present Peripheral pulses: Peripheral pulses 2+ throughout GI Inspection: Yes normal to inspection Neuro General: patient oriented x3 Extrem General: Yes normal to inspection, No clubbing, No cyanosis, Yes edema (Plus one below-knee) and Yes venous stasis dermatitis Office Procedures EKG Details: EKG shows sinus bradycardia with moderate voltage criteria for LVH 06620-Klkckxkkxxtxmsurw, Complete Assessment & Plan Assessment & Plan (1) Paroxysmal atrial fibrillation: Code(s): I48.0 - Paroxysmal atrial fibrillation Category: Medical Plan: Paroxysmal atrial fibrillation doing very well with rhythm control approach. No signs or symptoms of heart failure cardiac decompensation. Continue rhythm control approach. Has tolerated Multaq therapy well. Continue the same. Avoidance of stimulants was discussed. Continue participate in weight loss program. Continue regular physical activity. Continue full oral anticoagulation, currently on Eliquis 5 mg b.i.d.. Semi annual renal function test should be pursued. (2) Benign essential hypertension: Code(s): I10 - Essential (primary) hypertension Category: Medical Plan: Hypertension which is currently well optimized on current medications. Importance of good blood pressure control was discussed. Continue current therapy. Target goal blood pressure 130/84. Advise low-salt diet. Advised to monitor blood pressure at home maintain a log. (3) Diastolic dysfunction: Code(s): I51.89 - Other ill-defined heart diseases Category: Medical Plan: Diastolic dysfunction without overt signs of congestive heart failure. He is currently on dual diuretic therapy with Lasix and hydrochlorothiazide. This needs to be watched closely. No symptoms of heart failure at this point time. Continue rhythm control approach as above. Continue participate in regular physical activity. Continue aggressive blood pressure control. Will follow up in the clinic every 3 months for EKG in I year with me. Thank you for allowing me to partake in his care Coding Level of Care Code Est Pt Level 4 (42400) Complex EM visit Add On G2211 Diagnoses Paroxysmal atrial fibrillation I48.0 Benign essential hypertension I10 Diastolic dysfunction I51.89 CPT Codes EKG - CPT: 78920-Nghzselnksrxcsqbr, Complete ([id number])
--- OUTSIDE RECORDS SUMMARY | 2024-10-19 13:28 | XMS_ITS ---
Author Organization [facility] Address [address] [place] [address] Care Team Providers Care Laminate Floor Installer Name Role Phone Noel Howard MD Primary Care Provider Unava ilGregorio Cancino [phone] REASON FOR VISIT ? GI series Encounters Encounter Location Date Provider Diagnosis [facility] [address] [place] [address] 08/29/2024 Gregorio Stoner Plan Of Treatment Next Appt Details Provider Name:Gregorio Stoner , 07/19/2025 01:00:00 PM, [address], [address], [place], [address], Progress Notes * JENNY ADLERHDOB:[birth year] (83 yo M)Acc No.[id number]:08/29/2024 Patient:?NOEL ADLER :1940???Age:83 Y???Sex:Male Address:[address] [place] [address] * true * Date:? Generated for Adilsoni hailey/Jaden/eTransmitting on:?10/19/2024 01:28 PM EDT
--- OUTSIDE RECORDS SUMMARY | 2024-10-19 13:29 | XMS_ITS ---
Author [facility] Address [address] [place] [address] Care Team Providers Care Steel Welder Name Role Phone Noel Howard MD Primary Care Provider UnaRoxi Hung Unavailable [phone] Allergies Allergen (clinical drug ingredient) Drug/Non Drug [...] No Points 0 Interpretation Negative Vital Signs Height 5ft 11in in 08/26/2024 Weight 248 lbs 08/26/2024 BMI 34.59 kg/m2 08/26/2024 Blood pressure systolic 135 mm Hg 08/26/19 25 Blood pressure diastolic 70 mm Hg 025 Procedures Procedure Date Ordered Date Performed Result Body Sit e 08905-PUFZDIK NAIL, 6 OR MORE 08/26/2024 N/A 12681-VLBR SKIN LESIONS, 2 TO 4 08/26/2024 N/A Encounters Encounter Location Date Provider Diagnosis [facility] [address] [address] 08/26/2024 Roxi Bailey Atherosclerosis of [place] artery of both lower extremities, with unspecified presence of clinical manifestation I70.203 ; Tinea unguium B35.1 ; Pain in right toe(s) M79.674 and Pain in left toe(s) M79.675 Assessments Encounter Date Diagnosis (ICD Code) Assessment Notes Treatment Notes Treatment Clinical Notes Section Notes 08/26/2024 Atherosclerosis of [place] artery of both lower extremities, with unspecified presence of clinical manifestation (ICD-10 - I70.203) Q7(A), Q8(2B), Q9(1B,2C) 08/26/2024 Tinea unguium (ICD-10 - B35.1) 08/26/2024 Pain in right toe(s) (ICD-10 - M79.674) 08/26/2024 Pain in left toe(s) (ICD-10 - M79.675) Plan Of Treatment Pending Test Test Name Order Date 97569-NKPLRBC NAIL, 6 OR MORE 08/26/2024 30393-GQWJ SKIN LESIONS, 2 TO 4 08/26/19 25 Next Appt Details Follow Up: 4 Months, Reason: Provider Name:Roxi gomez, 11/22/2024 10:00:00 AM, [address] [address], [address], Procedure Notes * Category Sub-Category Detail Notes [...] use of a nail nipper and/or dremel-type mud grinder, to a more viable healthy nail plate [...] to maintain effectiveness in symptomatic relief - 20250 Keratoma Treatment Parring or Cutting o f [...] instrumentation by the physician of record - 46098, Q8 Progress Notes * Noel ADLER PDOB:09/1940 (83 yo M)Acc No.[id number]:08/26/2024 Progress Note Patient:?Augustine ADLERneth P Provider:?Roxi Bailey DPM :1940???Age:83 Y???Sex:Male [facility] e:08/26/2024 Address:[address] [place], [place] [id number] Pcp:Noel Howard MD Subjective: * Chief Complaints: [...] History:?hernia 201 8 * Hospitalization/Major Diagno stic [place] [place] [place] daughter called 911 for dehydration- bronchiitis - antibiotic,prednisone 20[place] [place] 3 day stay 08/2023 [...] ?Exercise: yes, exercise. ?Marital status: . 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 ???Drug/Alcohol:?AUDIT-C (Standard)?Did you have a drink containing [...] T8, T9.? Assessment: * Assessment: 1.?Atherosclerosis of [place] artery of both lower extremities, with unspecified presence of clinical manifestation - I70.203 (Primary)???Notes :Q7(A), Q8(2B), Q9(1B,2C)???2.?Tinea unguium - B35.1???3.?Pain in right toe(s) - M79.674???4.?Pain in left toe(s) - M79.675??? Plan: * Treatment: 2.?Tinea unguium?Procedure: 48116-NQOGQEJ NAIL, 6 OR MORE * Procedures:?Debride Nail [...] use of a nail nipper and/or dremel-type mud grinder, to a more viable healthy nail plate [...] to maintain effectiveness in symptomatic relief - 22936.?Keratoma Treatment:?Parring or Cutting of Benign Hyperkeratotic Lesion(s)?(-56) [...] instrumentation by the physician of record - 99044, Q8.? * Procedure Codes:?87032 DEBRI DE NAIL, 6 OR MORE, Modifiers: XS 62897 TRIM SKIN LESIONS, 2 TO 4, Modifiers: XS , Q8 * Follow Up:?4 Months * Images: * Sign off status: Completed true * Provider:?Roxi Bailey DPM Date:?0 08/26/2024 Generated for Juan Antonio hart/Jaden/Ashish on:?10/19/2024 01:29 PM EDT History and Physical Notes * HPI (History [...]
--- OUTSIDE RECORDS SUMMARY | 2024-10-19 13:29 | XMS_ITS ---
Author Organization [facility] Address [address] [place] [address] Care Team Providers Care Ict Business Analyst Name Role Phone Noel Howard MD Primary Care Provider UnaGregorio Woodson [phone] REASON FOR VISIT Barium swallow and UGI Encounters Encounter Location Date Provider Diagnosis [facility] [address] [facility] [address] [place] [address] 07/29/2024 Gregorio Stoner Plan Of Treatment Next Appt Details Provider Name:Gregorio Stoner , 07/19/2025 01:00:00 PM, [address] [facility], [address], [place], [address], Progress Notes * GINGER ADLEROB:[birth year] (83 yo M)Acc No.[id number]:07/29/2024 Patient:?NOEL ADLER :1940???Age:83 Y???Sex:Male Address:[address] [place] [address] Subjective: * Chief Complaints: * ???Barium swallow and UGI * Medical History:? * Surgical History:? * Hospitalization/Major Diagno stic Procedure:? * Medications:? Objective: Assessment: Plan: * Treatment: * Procedure Codes:? * true * Date:? Generated for Printi ng/Faxing/eTransmitting on:?10/19/2024 01:29 PM EDT
--- OUTSIDE RECORDS SUMMARY | 2024-10-19 13:29 | XMS_ITS ---
Author Organization [facility] Address [address] [place] [address] Care Team Providers Care Deposition Operator Name Role Phone Noel Howard MD Primary Care Provider Unava Roxi Albrecht [phone] REASON FOR VISIT waive copay Encounters Encounter Location Date Provider Diagnosis [address] [address] 08/26/2024 Roxi Bailey Plan Of Treatment Next Appt Details Provider Name:Roxi gomez, 11/22/2024 10:00:00 AM, [address] [place], [address], Progress Notes * Noel ADLER PDOB:09/1940 (83 yo M)Acc No.[id number]:08/26/2024 Patient:?Noel ADLER :1940???Age:83 Y???Sex:Male Address:[address] [place] [address], [address] * true * Date:? Generated for Printi ng/Faxing/eTransmitting on:?10/19/2024 01:29 PM EDT
--- OUTSIDE RECORDS SUMMARY | 2024-10-19 13:29 | XMS_ITS | Patient Health Record ---
Author Organization [facility] Address [address] [place] [address] Care Team Providers Care Negative Spotter Name Role Phone Noel Howard MD Primary Care Provider Roxi Kerr Unavailable [phone] Klaus Russo Unavailable [phone] Allergies Allergen (clinical drug ingredient) Drug/Non Drug [...] Ordered Date Performed Result Body Sit e 25573-IYLLLZR NAIL, 6 OR MORE 06/24/2024 N/A 45990 I&D ABSCESS- SIMPLE,SINGLE 06/24/2024 N/A 00624-XKUR SKIN LESIONS, 2 TO 4 06/24/2024 N/A 46503-PMDMKYO NAIL, 6 OR MORE 08/26/2024 N/A 30077-LWIE SKIN LESIONS, 2 TO 4 08/26/2024 N/A Encounters Encounter Location Date Provider Diagnosis [address] [address] 12/18/2023 Klaus Russo Tinea unguium B35.1 ; [...] M79.672 and Pain in right foot M79.[address] [address] 03/22/2024 Klaus Russo Tinea unguium B35.1 ; [...] right foot M79.671 and Tinea pedis B35.[address] [place] [address] 06/24/2024 Roxi Bailey Abscess of toe, right L02.611 ; Atherosclerosis of [place] artery of both lower extremities, with unspecified presence of clinical manifestation I70.203 ; Tinea unguium B35.1 ; Pain in right toe(s) M79.674 ; Pain in left toe(s) M79.675 ; Peripheral polyneuropathy G62.9 and Cellulitis of toe of right foot L03.[address] [address] 07/08/2024 Roxi Bailey Atherosclerosis of [place] artery of both lower extremities, with unspecified presence of clinical manifestation I70.203 and Cellulitis of toe of right foot L03.[address] [address] 08/26/2024 Roxi Bailey Atherosclerosis of [place] artery of both lower extremities, with unspecified presence of clinical manifestation I70.203 ; Tinea unguium B35.1 ; Pain in right toe(s) M79.674 and Pain in left toe(s) M79.[address] [address] 08/26/2024 Roxi Bailey Assessments Encounter Date Diagnosis [...] X ray : Foot, left 3V 05/10/2021 31370-SPELYRJ NAIL, 6 OR MORE 01/10/2022 21259-CLKVCEL NAIL, 6 OR MORE 06/24/2024 39522-NMTWHLH NAIL, 6 OR MORE 08/26/2024 35482-NWTGCTL SKIN/TISSUE 05/10/2021 56499-WEBNDOJ SKIN/TISSUE 05/21/2021 97395 I&D ABSCESS- SIMPLE,SINGLE 024 19450-FMAW SKIN LESIONS, OVER 4 01/11/20 22 90920-OFJG SKIN LESIONS, 2 TO 4 08/26/19 25 05759-AJNW SKIN LESIONS, 2 TO 4 06/24/20 24 63900-AIMBFQWY OF HEMATOMA/FLUID 021 Next Appt Details Provider Name:Roxi gomez, 11/22/2024 10:00:00 AM, [address] [facility], [place], [address], Insurance Providers Payer Name Payer Address Payer Phone Subscriber Number Group Number Insured Name Patient Relationship to Insured Coverage Start Date Coverage End Date [employer] 65 Medicare Preferred [address] [place] [address] [phone] [id number] Noel Euceda Self - patient is the insured Medical (General) History Medical History History ICD Code Anxiety asthma (COPD) Cataracts Glaucoma Hiatal hernia High blood pressure Reflux ( GERD) Joint implants/screws Surgical History Surgery Date(Month/Year) hernia 2018 Hospitalization History Reason Date(Month/Year) [facility] [place] 3 day stay 08/2023 [facility] [place] P[place] daughter called 911 for dehydration- bronchiitis - antibiotic,prednisone 2022 [facility] [place]
--- OUTSIDE RECORDS SUMMARY | 2024-10-19 13:29 | XMS_ITS ---
Author Organization [facility] Address [address] [place] [address] Care Team Providers Care Rubber Compounder Formulator Name Role Phone Noel Howard MD Primary Care Provider Gregorio Flor [phone] Allergies Allergen (clinical drug ingredient) Drug/Non Drug Allergy documented on EMR Reaction Allergy Type Onset Date Status Sulfa Unknown Drug Allergy Active Codeine Phosphate Unknown Drug Allergy Active REASON FOR VISIT Patient presents today for colitis Medications Medication SIG (Take, Route, Frequency, Duration) [...] TAKE 1 CAPSULE EVERY OTHER DAY Active Problems Problem Type SNOMED Code ICD Code Onset Dates Problem Status W/U Status Risk Notes Problem Diaphragmatic hernia (65249317) 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 Problem Computed tomography of abdomen abnormal (finding) (929168538055065 07) Abnormal computed tomography of gastrointestinal tract (R93.3) Active confirmed Vital Signs Blood pressure systolic 00 mm Hg 07/20/20 24 Blood pressure diastolic 00 mm Hg 024 Height 69 in 07/20/2024 Weight 254 lbs 07/20/2024 BMI 37.51 kg/m2 07/20/2024 Encounters Encounter Location Date Provider Diagnosis [facility] [address] [place] [address] 07/20/2024 Gregorio Stoner Diarrhea R19.7 ; 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 As such, I did advise him to certainly continue the current regimen of the budesonide, cholestyramine, and Imodium. I don't think any other intervention is needed in that regard. He is not having any particular upper GI complaints at this time on his daily omeprazole. However, the description of the large paraesophageal hiatal hernia from 2021 is somewhat worrisome as that can certainly create a gastric volvulus unexpectedly and with the need for emergency surgery on that basis. I did advise him that I would recommend a barium swallow for further evaluation of that 2 years later to see how things look and whether or not we might want to consider recommending surgical correction of that so as to avoid any type of complications and need for emergency surgery in the future. Augustine was comfortable with this plan. Thank you again for allowing me to participate in Augustine's care. I shall continue to keep you advised of his progress. 07/20/2024 Eosinophilic colitis (ICD-10 - K52.82) Overall, Augustine appears quite well. 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 As such, I did advise him to certainly continue the current regimen of the budesonide, cholestyramine, and Imodium. I don't think any other intervention is needed in that regard. He is not having any particular upper GI complaints at this time on his daily omeprazole. However, the description of the large paraesophageal hiatal hernia from 2021 is somewhat worrisome as that can certainly create a gastric volvulus unexpectedly and with the need for emergency surgery on that basis. I did advise him that I would recommend a barium swallow for further evaluation of that 2 years later to see how things look and whether or not we might want to consider recommending surgical correction of that so as to avoid any type of complications and need for emergency surgery in the future. Augustine was comfortable with this plan. Thank you again for allowing me to participate in Augustine's care. I shall continue to keep you advised of his progress. 07/20/2024 GERD without esophagitis (ICD-10 - K21.9) Overall, Augustine appears quite well. 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 As such, I did advise him to certainly continue the current regimen of the budesonide, cholestyramine, and Imodium. I don't think any other intervention is needed in that regard. He is not having any particular upper GI complaints at this time on his daily omeprazole. However, the description of the large paraesophageal hiatal hernia from 2021 is somewhat worrisome as that can certainly create a gastric volvulus unexpectedly and with the need for emergency surgery on that basis. I did advise him that I would recommend a barium swallow for further evaluation of that 2 years later to see how things look and whether or not we might want to consider recommending surgical correction of that so as to avoid any type of complications and need for emergency surgery in the future. Augustine was comfortable with this plan. Thank you again for allowing me to participate in Augustine's care. I shall continue to keep you advised of his progress. 07/20/2024 Paraesophageal hiatal hernia (ICD-10 - K44.9) Overall, Augustine appears quite well. 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 As such, I did advise him to certainly continue the current regimen of the budesonide, cholestyramine, and Imodium. I don't think any other intervention is needed in that regard. He is not having any particular upper GI complaints at this time on his daily omeprazole. However, the description of the large paraesophageal hiatal hernia from 2021 is somewhat worrisome as that can certainly create a gastric volvulus unexpectedly and with the need for emergency surgery on that basis. I did advise him that I would recommend a barium swallow for further evaluation of that 2 years later to see how things look and whether or not we might want to consider recommending surgical correction of that so as to avoid any type of complications and need for emergency surgery in the future. Augustine was comfortable with this plan. Thank you again for allowing me to participate in Augustine's care. I shall continue to keep you advised of his progress. 07/20/2024 Abnormal computed tomography of gastrointestinal tract (ICD-10 - R93.3) Overall, Augustine appears quite well. 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 As such, I did advise him to certainly continue the current regimen of the budesonide, cholestyramine, and Imodium. I don't think any other intervention is needed in that regard. He is not having any particular upper GI complaints at this time on his daily omeprazole. However, the description of the large paraesophageal hiatal hernia from 2021 is somewhat worrisome as that can certainly create a gastric volvulus unexpectedly and with the need for emergency surgery on that basis. I did advise him that I would recommend a barium swallow for further evaluation of that 2 years later to see how things look and whether or not we might want to consider recommending surgical correction of that so as to avoid any type of complications and need for emergency surgery in the future. Augustine was comfortable with this plan. Thank you again for allowing me to participate in Augustine's care. I shall continue to keep you advised of his progress. Plan Of Treatment Medication Medication Name Sig Start Date Stop Date Notes Cholestyramine Light 4 GM 1 packet Orall y Once a day as needed for diarrhea 03/26/2022 Budesonide 3 MG TAKE 1 CAPSULE EVERY OTHER DAY Pending Test Test Name Order Date XR BARIUM SWALLOW-ESOPHAGUS 07/20/2024 XR GI SERIES 07/20/2024 Next Appt Details Follow Up: 1 Year, Reason: Provider Name:Gregorio Crook Herbie , 07/19/2025 01:00:00 PM, [address], [address], [place], [address], Progress Notes * JENNY ADLERHDOB:[birth year] (83 yo M)Acc No.[id number]:07/20/2024 Progress Notes Patient:?NOEL ADLER Provider:?Gregorio Stoner MD :1940???Age:83 Y???Sex:Male Kaiser e:07/20/2024 Address:[address] [place] [address] [place], [place] Pcp:Noel Howard MD Subjective: * Chief Complaints: * ???Patient presents today fo r colitis * HPI: ???incontinence:? I saw Augustine in followup today in regard to his underlying history of eosinophilic colitis and gastroesophageal reflux. ?Since I last saw Augustine one year ago in July 2023 he reports that he has been feeling well from a GI standpoint. He continues on the same regimen for his eosinophilic colitis with good relief of diarrhea. He is currently using budesonide 3 mg every other day, one cholestyramine packet daily, and an occasional one half of an Imodium. His bowel movements are quite regular and without any signs of bleeding. He denies any significant heartburn, dysphagia, anorexia, nausea, nor vomiting. He denies abdominal pain, early satiety, jaundice, nor unintentional weight loss. He denies any intervening hospitalizations or surgeries since I last saw him. ?Laboratories in April revealed a hemoglobin of 12.6, which is stable, along with a normal MCV. He also had normal chemistries and LFTs. His B12 and folate levels were normal as well. ?Of note, he does remain on his daily omeprazole for the previous heartburn symptoms. As mentioned above, he is not having any upper GI complaints. He has never had an upper endoscopy with me. However, I did happen to notice that he had a CT scan of his abdomen when he was in the ER back in 2021 and this describes the incidental description of a large paraesophageal hernia containing the stomach. * ROS:?General/Constitutional:?Change in appetite?denies.?Chills?denies.?Fatigue?denies.?Ophthalmologic:?Comments?all negative.?ENT:?Comments?all negative.?Respiratory:?hemoptysis?denies.?Cough?denies.?Cardiovascular:?Chest pain?denies.?Orthopnea?denies.?Gastrointestinal:?Comments?See HPI for details.?Genitourinary:?Hematuria?denies.?Dysuria?denies.?Musculoskeletal:?Painful joints?denies.?Weakness?denies.?Skin:?Itching?denies.?Rash?denies.?Neurologic:?Headache?denies.?Seizures?denies.?Psychiatric:?Comments?all negative.? * Medical History:? * Surgical History:?Rotator cu ff tear repair-left Tonsillectomy Cataract-lens [id number] 01/24/14 Abd wall hernia surgery Dr. Hickey 2018Bunion left foot * Hospitalization/Major Diagno stic Procedure:?No Hospitalization History. * Family History:?Father: dece ased, diagnosed with HTN (hypertension), Heart disease.?Mother: .? Patient denies any family history of colorectal cancer. * Social History:?Tobacco Use:?Tobacco Use/Smoking?Are you a: former smoker , How long has it been since you last smoked?: > 10 years.?Drugs/Alcohol:?Alcohol Screen?Points: 0, Interpretation: Negative.?Miscellaneous:?Marital status: -- 11/2017. Occupation: Retired. ???Nonsmoker; no sig alcohol. * Medications:?TakingMultaq 40 0 MG Tablet 1 tablet with meals Orally Twice a dayEliquis Advair Diskus 250-50 MCG/DOSE Aerosol Powder Breath Activated 1 puff Inhalation Twice a dayatenolol 1 tab Oral Gabapentin 300 MG Capsule 1 capsule Orally Three times a dayLisinopril 20 MG Tablet 1 tablet Orally twice a dayPravastatin Sodium 20 MG Tablet 1 tablet Orally Once a dayTamsulosin HCl 0.4 MG Capsule 1 capsule 30 minutes after the same meal each day Orally Once a dayLatanoprost 0.005 % Solution 1 drop into affected eye in the evening Ophthalmic Once a dayIpratropium-Albuterol 0.5-2.5 (3) MG/3ML Solution 3 ml Inhalation Four times a dayVitamin B50 Complex Calcium Lutein Probiotic Co Q 10 Omeprazole 20 MG Capsule Delayed Release 1 capsule Orally Once a dayCholestyramine Light 4 GM Packet 1 packet Orally Once a day as needed for diarrheaPrevalite 4 GM Packet 1 packet Orally Once a dayBudesonide 3 MG Capsule Delayed Release Particles TAKE 1 CAPSULE EVERY OTHER DAY Atenolol 25 MG Tablet TAKE 1/2 TABLET DAILY Oral , Notes: I10,ESSENTIAL (PRIMARY) HYPERTENSIONTaking Multaq 400 MG Tablet 1 tablet with meals Orally Twice a dayTaking Eliquis Taking Advair Diskus 250-50 MCG/DOSE Aerosol Powder Breath Activated 1 puff Inhalation Twice a dayTaking atenolol 1 tab Oral Taking Gabapentin 300 MG Capsule 1 capsule Orally Three times a dayTaking Lisinopril 20 MG Tablet 1 tablet Orally twice a dayTaking Pravastatin Sodium 20 MG Tablet 1 tablet Orally Once a dayTaking Tamsulosin HCl 0.4 MG Capsule 1 capsule 30 minutes after the same meal each day Orally Once a dayTaking Latanoprost 0.005 % Solution 1 drop into affected eye in the evening Ophthalmic Once a dayTaking Ipratropium-Albuterol 0.5-2.5 (3) MG/3ML Solution 3 ml Inhalation Four times a dayTaking Vitamin B50 Complex Taking Calcium Taking Lutein Taking Probiotic Taking Co Q 10 Taking Omeprazole 20 MG Capsule Delayed Release 1 capsule Orally Once a dayTaking Cholestyramine Light 4 GM Packet 1 packet Orally Once a day as needed for diarrheaTaking Prevalite 4 GM Packet 1 packet Orally Once a dayTaking Budesonide 3 MG Capsule Delayed Release Particles TAKE 1 CAPSULE EVERY OTHER DAY Taking Atenolol 25 MG Tablet TAKE 1/2 TABLET DAILY Oral , Notes: I10,ESSENTIAL (PRIMARY) HYPERTENSIONUnknownLORazepam 0.5 MG Tablet 1 tablet at bedtime as needed Orally Once a dayMedication List reviewed and reconciled with the patientUnknown LORazepam 0.5 MG Tablet 1 tablet at bedtime as needed Orally Once a dayMedication List reviewed and reconciled with the patient * Allergies:?Codeine Phosphate Sulfayes[Allergies Verified] Objective: * Vitals:?Wt: 254 lbs, Ht: 69 in, BMI:37.51 Index, BP: 00/00 mm Hg. * Examination: ???General Examination: ?GENERAL APPEARANCE:?pleasant, well nourished, well developed, in no acute distress.?EYES:?sclera non-icteric.?ORAL CAVITY:?mucosa moist.?NECK/THYROID:?no cervical lymphadenopathy, neck supple.?SKIN:?nonjaundiced, no spider angiomata.?HEART:?S1, S2 normal.?LUNGS:?clear to auscultation bilaterally.?ABDOMEN:?normal bowel sounds, no guarding or rigidity, no guarding or rigidity, no masses palpable, soft, nontender, nondistended.?EXTREMITIES:?no edema.?NEUROLOGIC:?alert and oriented.? Assessment: * Assessment: 1.?Eosinophilic colitis - K5 2.82 (Primary)?2.?Diarrhea - R19.7?3.?GERD without esophagitis - K21.9?4.?Paraesophageal hiatal hernia - K44.9?5.?Abnormal computed tomography of gastrointestinal tract - R93.3? Overall, Augustine appears quite w ell. 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 As such, I did advise him to certainly continue the current regimen of the budesonide, cholestyramine, and Imodium. I don't think any other intervention is needed in that regard. He is not having any particular upper GI complaints at this time on his daily omeprazole. However, the description of the large paraesophageal hiatal hernia from 2021 is somewhat worrisome as that can certainly create a gastric volvulus unexpectedly and with the need for emergency surgery on that basis. I did advise him that I would recommend a barium swallow for further evaluation of that 2 years later to see how things look and whether or not we might want to consider recommending surgical correction of that so as to avoid any type of complications and need for emergency surgery in the future. Augustine was comfortable with this plan. Thank you again for allowing me to participate in Augustine's care. I shall continue to keep you advised of his progress. Plan: * Treatment: 2.?GERD without esophagitis?Imaging: XR BARIUM SWALLOW-ESOPHAGUS * ?Imaging: XR GI SERIES* Reassess paraesophageal alfred ia seen on 2021 CT...need STAT reading * 3.?Paraesophageal hiatal hernia?Imaging: XR BARIUM SWALLOW-ESOPHAGUS* Reassess paraesophageal alfred ia seen on 2021 CT...need STAT reading * ?Imaging: XR GI SERIES* Reassess paraesophageal alfred ia seen on 2021 CT...need STAT reading * 4.?Abnormal computed tomography of gastrointestinal tract?Imaging: XR BARIUM SWALLOW-ESOPHAGUS* Reassess paraesophageal alfred ia seen on 2021 CT...need STAT reading * ?Imaging: XR GI SERIES* Reassess paraesophageal alfred ia seen on 2021 CT...need STAT reading * 5.?Others? Continue Budesonide Capsule Delayed Release Particles, 3 MG, TAKE 1 CAPSULE EVERY OTHER DAY.? * Procedure Codes:?1036F TOBAC CO NON-[id number] BP SCR NOT PRFRM REC REASON NOS * Preventive Medicine:? ??Counseling:?Care goal follow-up plan:?Above Normal BMI Follow-up?Giving encouragement to exercise,?BMI management provided?Yes.? ??Screenings:?Fall Risk Screening?Fall Risk Assessment:?No falls in the past year,?Screening:?No falls in the past year,?Assessment:?Not performed, no reason specified,?Plan of Care:?Not documented, no reason specified.? * Follow Up:?1 Year * * Sign off status: Completed true * Provider:?Gregorio Stoner MD Date:? 024 Generated for Juan Antonio hart/Jaden/Ashish on:?10/19/2024 01:29 PM EDT History and Physical Notes * HPI (History of Present Illness) Category Sub-Category Detail Notes Category Not es incontinence I saw Augustine in followup today in regard to his underlying history of eosinophilic colitis and gastroesophageal reflux. Since I last saw Augustine one year ago in July 2023 he reports that he has been feeling well from a GI standpoint. He continues on the same regimen for his eosinophilic colitis with good relief of diarrhea. He is currently using budesonide 3 mg every other day, one cholestyramine packet daily, and an occasional one half of an Imodium. His bowel movements are quite regular and without any signs of bleeding. He denies any significant heartburn, dysphagia, anorexia, nausea, nor vomiting. He denies abdominal pain, early satiety, jaundice, nor unintentional weight loss. He denies any intervening hospitalizations or surgeries since I last saw him. Laboratories in April revealed a hemoglobin of 12.6, which is stable, along with a normal MCV. He also had normal chemistries and LFTs. His B12 and folate levels were normal as well. Of note, he does remain on his daily omeprazole for the previous heartburn symptoms. As mentioned above, he is not having any upper GI complaints. He has never had an upper endoscopy with me. However, I did happen to notice that he had a CT scan of his abdomen when he was in the ER back in 2021 and this describes the incidental description of a large paraesophageal hernia containing the stomach. Examination Category Sub-Category Detail Notes Category Not es General Examination GENERAL APPEARANCE: pleasant , well [...]
--- OUTSIDE RECORDS SUMMARY | 2024-10-19 13:29 | XMS_ITS ---
Author Organization [facility] Address [address] [place] [address] Care Team Providers Care Digital Sales Representative Name Role Phone Noel Howard MD Primary Care Provider Unava ilRoxi Bass Unavailable [phone] REASON FOR VISIT X CHG Encounters Encounter Location Date Provider Diagnosis [address] [address] 08/26/2024 Roxi Bailey Plan Of Treatment Next Appt Details Provider Name:Roxi gomez, 11/22/2024 10:00:00 AM, [address] [place], [address], Progress Notes * Noel ADLER PDOB:09/1940 (84 yo M)Acc No.[id number]:08/26/2024 Progress Note Patient:?Noel ADLER Provider:?Roxi Bailey DPM :1940???Age:83 Y???Sex:Male Kaiser e:08/26/2024 Address:[address] [place] [address] Pcp:Noel Howard MD Subjective: * Chief Complaints: [...] 08/26/2024 Generated for Juan Antonio hart/Jaden/Ashish on:?10/19/2024 01:28 PM EDT
--- OUTSIDE RECORDS SUMMARY | 2024-10-19 13:29 | XMS_ITS | Patient Health Record ---
Author Organization [facility] Address [address] [place] [address] Care Team Providers Care Program Manager Slp Name Role Phone Noel Howard MD Primary Care Provider Gregorio Flor Unavailable [phone] Allergies Allergen (clinical drug ingredient) Drug/Non Drug Allergy documented on EMR Reaction Allergy Type Onset Date Status Sulfa Unknown Drug Allergy Active Codeine Phosphate Unknown Drug Allergy Active Reason For Referral [...] day as needed for diarrhea 03/26/2022 Active Immunizations Vaccine Route Administration Date Status Comme nts Influenza Unknown 04/04/2019 Administered Influenza Unknown 05/17/2020 Administered Influenza Unknown 07/21/2018 Refused Problems Problem Type SNOMED Code ICD Code Onset Dates Problem Status W/U Status Risk Notes Problem Diarrhea (21512946) Diarrhea (R19.7) Active con firmed Problem 20984500 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 Problem Gastroesophageal reflux disease (178340288) GERD without esophagitis (K21.9) Active confirmed Problem Computed tomography of abdomen abnormal (finding) (81508838854255576) Abnormal computed tomography of gastrointestinal tract (R93.3) Active confirmed Problem Diaphragmatic hernia (38805723) 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 Vital Signs Blood pressure diastolic 00 mm Hg 07/20/2024 Height 69 in 07/20/2024 Blood pressure systolic 00 mm Hg 07/20/2024 Weight 254 lbs 07/20/2024 BMI 37.51 kg/m2 07/20/2024 Encounters Encounter Location Date Provider Diagnosis [facility] [address] [place] [address] 07/20/2024 Gregorio Stoner Diarrhea R19.7 ; 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 ; GERD without esophagitis K21.9 ; Paraesophageal hiatal hernia K44.9 and Abnormal computed tomography of gastrointestinal tract R93.3 [facility] [address] [place] [address] 12/16/2023 Gregorio Stoner [facility] [address] [place] [address] 07/29/2024 Gregorio Stoner [facility] [address] [place] [phone] 08/29/2024 Gregorio Stoner Assessments Encounter Date Diagnosis (ICD Code) Assessment [...] advised of his progress. Plan Of Treatment Pending Test Test Name Order Date XR BARIUM SWALLOW-ESOPHAGUS 07/20/2024 XR GI SERIES 07/20/2024 Future Test Test Name Order Date COLONOSCOPY 01/25/2014 Next Appt Details Provider Name:Gregorio Stoner , 07/19/2025 01:00:00 PM, [address] [place] [address], [address], [place], [address], Insurance Providers Payer Name Payer Address Payer Phone Subscriber Number Group Number Insured Name Patient Relationship to Insured Coverage Start Date Coverage End Date [facility] [address] [place], [place] [id number] ERLINDA NOEL CANTRELL Self - patient is the insured Medical (General) History Medical History History ICD Code 7-30-14 colonoscopy--grossly normal, but biopsies c/w eosinophilic colitis--neg.labs for celiac disease, CBC in 05/2014 with 9% Eosinophils---started on Budesonide in 10/2014 Hyperlipidemia Asthma Hypertension Denies AL,DM,CVA,renal disease COPD--wears oxygen at night since his CO VID infection in 07/2023 BPH Neuropathy-on Gabapentin Colonoscopies in 1999 and 23 03 were neg. except for an inflammatory polyp in 2007, diverticulosis, and internal hemorrhoids Afib--s/p cardioversion x 1-sees Dr. Valerie CHAIREZ with 3 days in the hospital 3 Surgical History Surgery Date(Month/Year) Rotator cuff tear repair-left Tonsillectomy Cataract-lens [id number] 01/24/[address] her[address] surgery Dr. Hickey 201 8 Bunion left foot
== END 2024-10-19 11:39 | disposition home or self-care (01) ==
PROVIDERS: PCP Internal Medicine; Visit Provider Internal Medicine Cardiovascular Disease
DX: I48.0 Paroxysmal atrial fibrillation (principal); I10 Essential (primary) hypertension; I51.89 Other ill-defined heart diseases
CPT/HCPCS: 93010; 99214; G2211

== ENCOUNTER → 2024-10-19 11:09 | Outpatient (BNVA) | payer MEDICARE, SELFPAY | PROVIDERS: PCP Internal Medicine; Visit Provider Internal Medicine Cardiovascular Disease | DX: I48.0 Paroxysmal atrial fibrillation (principal); I10 Essential (primary) hypertension; I51.89 Other ill-defined heart diseases; R53.83 Other fatigue; Z87.891 Personal history of nicotine dependence | CPT/HCPCS: 93005; 99212 ==

== ENCOUNTER 2024-10-25 08:15 | Outpatient (REF) | payer MEDICARE, SELFPAY ==
--- NOTE | ~2024-10-25 | FL_ITS ---
EXAMINATION: XR FLUOROSCOPY UPPER GI SERIES CLINICAL INFORMATION: Hiatus hernia, GERD. COMPARISON: No prior available. Correlation made with CT abdomen and pelvis 07/26/2022. TECHNIQUE: Fluoroscopic air contrast upper GI examination was performed utilizing standard techniques with thin and thick barium and effervescent granules. Numerous spot images were obtained. Several fluoroscopic image hold cine sequences were also obtained. FINDINGS: UPPER GI SERIES: Lateral cine images of the oropharynx and hypopharynx demonstrate normal swallow mechanism with normal epiglottic inversion and soft palate elevation. No tracheal penetration, glottic or subglottic aspiration identified. No nasopharyngeal reflux present. Hypopharyngeal structures appear normal without evidence of mass or diverticulum. 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 There was mild resultant ballooning of the hypopharynx during swallowing. There is a small Laimer's diverticulum present, which retained a tiny amount of contrast. Dual and single contrast images of the esophagus demonstrate somewhat patulous caliber, normal contour, and mucosal pattern. No evidence of stricture, mass, or ulcerations identified. Esophageal peristalsis is moderately disordered. 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 This encompasses the majority of the fundus of the stomach. GE junction is patulous. There was episodic gastroesophageal reflux to the level of the gastric inlet. Dual contrast and single contrast images of the stomach demonstrated normal contour, rugal fold pattern, and mucosal pattern without evidence of mass, ulceration, or other abnormality. Contrast freely passed into the gastric antrum and duodenal bulb without delay. Single and air-contrast images of the duodenal bulb demonstrate no abnormality. The duodenal sweep has a normal appearance, course, and mucosal fold appearance. FLUOROSCOPY TIME: 3 minutes, 35 seconds Number of Spot Images:16 Number of cines obtained: 16 DOSE AREA PRODUCT: 608.8 dGy-m2 FL/FL upper GI w Ba Swallow IMPRESSION: 1. 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 2. At least moderate cricopharyngeal achalasia, with a small Laimer's diverticulum present. 3. Patulous esophagus with moderately disordered motility. Patulous GE junction. 4. Episodic spontaneous gastroesophageal reflux to the level of the thoracic inlet. Electronically signed by: Donald Bartlett MD 10/25/2024 10:22 AM EDT RP
== END 2024-10-25 08:16 | disposition home or self-care (01) ==
LOC: HO.XRAY 08:15
PROVIDERS: PCP Internal Medicine; Visit Provider Internal Medicine
DX: K21.9 Gastro-esophageal reflux disease without esophagitis (principal); K44.9 Diaphragmatic hernia without obstruction or gangrene; R93.3 Abnormal findings on diagnostic imaging of other parts of digestive tract
CPT/HCPCS: 74240

== ENCOUNTER → 2024-10-25 08:19 | Outpatient (BNV) | payer MEDICARE, SELFPAY | PROVIDERS: PCP Internal Medicine; Visit Provider Radiology Diagnostic Radiology | DX: K21.9 Gastro-esophageal reflux disease without esophagitis (principal) | CPT/HCPCS: 74246 ==

== ENCOUNTER 2024-11-15 10:39 | Outpatient (AMB) | payer MEDICARE, SELFPAY ==
[2024-11-15 11:05] VITALS: BP 140/68; PULSE 58; O2SAT 95; BMI 35.5
--- NOTE | 2024-11-15 11:05 | MHC.OFFVIS ---
Vital Signs 11/15/24 11:05 Height 5 ft 11 in Weight 254 lb 10.142 oz BMI 35.5 BP 140/68 H Blood Pressure Location Lt brachial Position Sitting Pulse 58 Pulse Source Pulse Oximeter Pulse Oximetry (%) 95 Oxygen Delivery Method Room Air Intake Visit Reasons: COPD Intake Note: pt is here for follow up and states he states good and bad days, on the whole doing alright. Tread Cutter Required: No Allergies Sulfa (Sulfonamide Antibiotics) Allergy (Mild, Verified 11/15/24 12:08) RASH, BLISTERS codeine [Codeine] Allergy (Unknown, Verified 11/15/24 12:08) HALLUCINATIONS Medication List - Last Reconciled 11/15/24 by Geovanni Larson MD albuterol sulfate 90 mcg/actuation (Ventolin HFA) 1 inh inhalation QID PRN 90 days apixaban (Eliquis) 5 mg PO BID 90 days atenolol 12.5 mg (1/2 x 25 mg) PO DAILY B-complex with vitamin C 1 tab PO DAILY budesonide DR-ER 3 mg PO Q OTHER DAY cholestyramine-aspartame 4 gram ea PO dronedarone (Multaq) 400 mg PO BID ezetimibe 10 mg PO DAILY 90 days fluticasone propion-salmeterol 250-50 mcg/dose (Advair Diskus) 1 inh inhalation Q12H 90 days furosemide 40 mg PO DAILY PRN gabapentin 300 mg PO BID 90 days hydrochlorothiazide 25 mg PO DAILY 90 days ipratropium-albuterol 0.5 mg-3 mg(2.5 mg base)/3 mL 3 mL inhalation Q6H PRN latanoprost 0.005% 1 drp ophthalmic-Right BEDTIME lisinopril 20 mg PO BID loratadine 10 mg PO QAM PRN 90 days lorazepam 0.5 mg PO BEDTIME PRN 30 days montelukast 10 mg PO QPM 90 days omeprazole 20 mg PO DAILY 90 days pravastatin 20 mg PO DAILY 90 days tamsulosin 0.4 mg PO DAILY 90 days triamcinolone acetonide 0.5% 1 appl topical TID PRN umeclidinium 62.5 mcg/actuation (Incruse Ellipta) 1 inh inhalation DAILY 30 days Do you need a note to return to daycare/school/sports/work: No HPI HPI COPD: Details: THIS 84 YEARS OLD GENTLEMAN IS HERE FOR HIS ROUTINE FOLLOW-UP. CLAIMS THAT HIS BREATHING STATUS IS FAIRLY STABLE EXCEPT FOR MILD INTERMITTENT COUGH AND INTERMITTENT BOUTS OF GETTING MORE SHORT OF BREATH. HE CONTINUES TO BE ON HIS ROUTINE MAINTENANCE REGIMEN. PREDNISONE 5 MG ON ALTERNATE DAYS HAS BEEN HELPING AND HE HAS HAD NO ACUTE EXACERBATION. AT PRESENT HE IS AT HIS BASELINE WITH MILD INTERMITTENT COUGH, HE WALKS SLOWLY BUT DOES HAVE SOME SHORTNESS OF BREATH ON WALKING. DOES USE THE NEBULIZER WITH IPRATROPIUM-ALBUTEROL SOLUTION ABOUT 3 TIMES A DAY AND IT HELPS TO CLEAR HIS LUNGS. [facility] Medical History Persistent atrial fibrillation COVID-19 Asthma Nocturnal hypoxemia AMITA (obstructive sleep apnea) Hemorrhoids with complication Benign prostatic hyperplasia GERD without esophagitis Pure hypercholesterolemia Benign essential hypertension Eosinophilic colitis Neuropathy Obesity (BMI 30-39.9) Restrictive lung disease COPD (chronic obstructive pulmonary disease) Surgical History History of tonsillectomy History of hernia surgery Family History Brother Lung cancer Social History Household Members: None Housing: House Do you presently have visiting nurse or other home services: No Alcohol intake: never Patient Tobacco Use Status: Former Tobacco user e-Cigarette/Vaping Use: Never Used Second Hand Smoke Exposure: Yes Advance Directives Date on File: 07/15/23 service: No Current occupational status: retired Cognitive needs: No Hearing needs: No Vision needs: Yes (Glasses) Review of Systems Const All systems reviewed & are unremarkable except as noted in HPI and below Eyes Reports no additional complaints ENT Reports no additional complaints and Reports sore throat (COMPLAINS OF SCRATCHY THROAT FOR THE LAST FEW DAYS.) Card Denies chest pain, Reports irregular heart rhythm (HAS PAROXYSMAL ATRIAL FIB) and Reports leg edema (RIGHT LEG) Resp Reports as per HPI GI Details: CHRONIC INFLAMMATORY BOWEL DISEASE UNDER CONTROL. Reports no additional complaints Musc Reports no additional complaints Skin/Breast Reports system reviewed and no additional complaints, except as documented Neuro Reports no additional complaints Psych Reports no additional complaints Physical Exam Vital Signs: Last Vital Signs Pulse 58 11/15/24 11:05 BP 140/68 H 11/15/24 11:05 Pulse Ox 95 11/15/24 11:05 Oxygen Delivery Method Room Air 11/15/24 11:05 BMI result Body Mass Index 35.5 Const Other: HE IS VISIBLY, GROSSLY OBESE General: comfortable, no acute distress, alert and awake Orientation/consciousness: patient oriented x3 HEENT Head: Yes normal to inspection General nose exam: No nasal polyps present and No nasal discharge present Face and sinus: Yes sinuses nontender Mouth: oropharynx normal Throat: Yes posterior oropharynx normal and Yes posterior oropharynx abnormal (MILD ERYTHEMA NOTED) Eyes General: appearance normal, both eyes and all related structures Neck Neck: Yes normal visual inspection, Yes no lymphadenopathy, Yes trachea midline and Yes no JVD Thyroid: Thyroid normal Chest Chest palpation & inspection: normal inspection of the chest, normal palpation of entire chest wall and no tenderness Resp Other: PERCUSSION NOTE IS NOT PERCEPTIBLE BECAUSE OF THE THICK CHEST WALL, BREATH SOUNDS ARE DISTANT ESPECIALLY DECREASED OVER THE BASILAR AREAS. DOES NOT HAVE ANY WHEEZES, CREPITATIONS OR RHONCHI . Cardio Palpation: PMI not normal (NOT PALPABLE) Rate: regular rate Rhythm: abnormal rhythm (ATRIAL FIB) Heart sounds: Gallop heart sound present and Murmur heart sound present GI Palpation (GI): Soft to palpation, nontender, No hepatosplenomegaly present, no masses and Other GI palpation findings present (ABDOMEN IS OBESE AND PROTUBERANT) Auscultation: normal bowel sounds Back/Spine/Pelvis Thoracic/Lumbar Spine: thoracic and lumbar spine normal to inspection Skin General skin exam: no rashes or lesions noted (EXCEPT ON RIGHT LEG, THERE IS REDNESS AND WARM TO TOUCH.) Neuro General: patient oriented x3 and no focal motor deficits Cranial nerves: Yes CN's II-XII intact bilaterally Extrem General: Yes normal to inspection, Yes no calf tenderness and Yes venous stasis dermatitis (RIGHT LEG) Psych Appearance: grossly normal and well kempt Speech and movement: Normal speech and movement present Assessment & Plan Assessment & Plan (1) COPD (chronic obstructive pulmonary disease): Comment: MODERATELY SEVERE OBSTRUCTIVE AIRWAY DISORDER. H/O HAVING FREQUENT ACUTE EXACERBATIONS, NOW THAT HE IS ON PREDNISONE 5 MG ON ALTERNATE DAYS, HIS BREATHING STATUS IS DEFINITELY IMPROVED. RE HOWEVER HE CONTINUES TO BE AT HIGHER RISK OF GETTING FREQUENT EXACERBATIONS. Code(s): J44.9 - Chronic obstructive pulmonary disease, unspecified Category: Medical Qualifiers: COPD type: unspecified COPD Qualified Code(s): J44.9 - Chronic obstructive pulmonary disease, unspecified Plan: ADVAIR 250-51 INHALATION B.I.D. INCRUSE ELLIPTA 62.5 1 INHALATION DAILY. PREDNISONE 5 MG ON ALTERNATE DAYS IPRATROPIUM-ALBUTEROL SOLUTION IN THE NEBULIZER Q 6 HOURS P.R.N. ( USING ABOUT 3 TIMES A DAY ) ALBUTEROL HFA 2 PUFFS Q 4 6 HOURS P.R.N. WHEN OUTDOORS (2) Restrictive lung disease: Comment: BECAUSE OF HIS OBESITY I SUSPECT THAT HE HAS MILD TO MODERATE DEGREE OF RESTRICTIVE LUNG DISEASE WELL. Code(s): J98.4 - Other disorders of lung Category: Medical Plan: ADVISED TO KEEP ON DOING DEEP BREATHING EXERCISES AT LEAST 3 TIMES A DAY (3) AMITA (obstructive sleep apnea): Comment: PATIENT HAS MILD AMITA, ALONG WITH NOCTURNAL HYPOXEMIA HE HAS TRIED HIS BEST AND CANNOT USE THE CPAP OR BIPAP AT NIGHT. SO HE JUST USES O2 AT NIGHT. Code(s): G47.33 - Obstructive sleep apnea (adult) (pediatric) Category: Medical Plan: USE O2 2 L/MINUTE AT NIGHT (4) Nocturnal hypoxemia: Comment: IN HIS HOME-BASED SLEEP STUDY IT WAS THE RECORDED THAT HE DOES HAVE SOME HYPOXEMIA AT NIGHT. IT WAS EXPECTED TO RESOLVE WITH THE APPLICATION OF BIPAP, WHICH HE WAS NOT ABLE TO DO. THUS HE HAS BEEN TREATED WITH O2 2 L/MINUTE AT NIGHT. Code(s): G47.34 - Idiopathic sleep related nonobstructive alveolar hypoventilation Category: Medical Plan: O2 2 L/MINUTE AT NIGHT (5) Allergic rhinitis: Comment: HAS MILD CHRONIC ALLERGIC RHINITIS, CONTROLLED AT PRESENT. Code(s): J30.9 - Allergic rhinitis, unspecified Category: Medical Qualifiers: Allergic rhinitis trigger: unspecified Allergic rhinitis seasonality: unspecified Qualified Code(s): J30.9 - Allergic rhinitis, unspecified Plan: OK TO USE FLONASE 2 SPRAY IN EACH NOSTRIL DAILY MONTELUKAST 10 MG DAILY. LORATADINE 10 MG ONCE A DAY P.R.N. Coding Level of Care Code Est Pt Level 4 (58691) Diagnoses Chronic obstructive pulmonary disease, unspecified COPD type J44.9 COPD type: unspecified COPD Restrictive lung disease J98.4 AMITA (obstructive sleep apnea) G47.33 Nocturnal hypoxemia G47.34 Allergic rhinitis, unspecified seasonality, unspecified trigger J30.9 Allergic rhinitis trigger: unspecified Allergic rhinitis seasonality: unspecified
--- OUTSIDE RECORDS SUMMARY | 2024-11-15 12:28 | XMS_ITS ---
Author Organization [facility] Address [address] [place] [address] Care Team Providers Care Fishing Rod Marker Name Role Phone Noel Howard MD Primary Care Provider Unava ilGregorio Cancino [phone] REASON FOR VISIT ? GI series Encounters Encounter Location Date Provider Diagnosis [facility] [address] [place] [address] 08/29/2024 Gregorio Stoner Plan Of Treatment Next Appt Details Provider Name:Gregorio Stoner , 07/19/2025 01:00:00 PM, [address], [address], [place], [address], Progress Notes * JENNY ADLERHDOB:[birth year] (83 yo M)Acc No.[id number]:08/29/2024 Patient:?NOEL ADLER :1940???Age:83 Y???Sex:Male Address:[address] [place] [address] * true * Date:? Generated for Adilsoni hailey/Jaden/eTransmitting on:?11/15/2024 12:27 PM EDT
--- OUTSIDE RECORDS SUMMARY | 2024-11-15 12:28 | XMS_ITS ---
Author Organization [facility] Address [address] [place] [address] Care Team Providers Care Shutdown Planner Name Role Phone Noel Howard MD Primary Care Provider Unava ilRoxi Bass Unavailable [phone] REASON FOR VISIT X CHG Encounters Encounter Location Date Provider Diagnosis [address] [address] 08/26/2024 Roxi Bailey Plan Of Treatment Next Appt Details Provider Name:Roxi gomez, 11/22/2024 10:00:00 AM, [address] [place], [address], Progress Notes * Noel ADLER PDOB:09/1940 (84 yo M)Acc No.[id number]:08/26/2024 Progress Note Patient:?Noel ADLER Provider:?Roxi Bailey DPM :1940???Age:83 Y???Sex:Male Kaiser e:08/26/2024 Address:[address] [place] [address] Pcp:Noel Howard MD Subjective: * Chief Complaints: [...] Date:?0 08/26/2024 Generated for Juan Antonio hart/Jaden/Ashish on:?11/15/2024 12:27 PM EDT
--- OUTSIDE RECORDS SUMMARY | 2024-11-15 12:28 | XMS_ITS ---
Author Organization [facility] Address [address] [place] [address] Care Team Providers Care Wind Farm Designer Name Role Phone Noel Howard MD Primary Care Provider Unava Gregorio Chester [phone] REASON FOR VISIT Paraesophageal hernia Encounters Encounter Location Date Provider Diagnosis [facility] [address] [place] [address] 10/27/2024 Gregorio Stoner Plan Of Treatment Next Appt Details Provider Name:Gregorio Stoner , 07/19/2025 01:00:00 PM, [address], [address], [place], [address], Progress Notes * JENNY ADLERHDOB:[birth year] (84 yo M)Acc No.[id number]:10/27/2024 Patient:?NOEL ADLER :1940???Age:84 Y???Sex:Male Address:[address] [place] [address] * true * Date:? Generated for Juan Antonio hart/Jaden/eTransmitting on:?11/15/2024 12:28 PM EDT
--- OUTSIDE RECORDS SUMMARY | 2024-11-15 12:28 | XMS_ITS ---
Author Organization [facility] Address [address] [place] [address] Care Team Providers Care Sales Coordinator Name Role Phone Noel Howard MD Primary Care Provider Unava ilRoxi Bass Unavailable [phone] Encounters Encounter Location Date Provider Diagnosis [address] [address] 11/08/2024 Roxi Bailey Plan Of Treatment Next Appt Details Provider Name:Roxi gomez, 11/22/2024 10:00:00 AM, [address] [place] [address], [address], Progress Notes * Noel ADLER PDOB:09/1940 (84 yo M)Acc No.[id number]:11/08/2024 Progress Note Patient:?Noel ADLER Provider:?Roxi Bailey DPM :1940???Age:84 Y???Sex:Male Kaiser e:11/08/2024 Address:[address] [place] [address] [phone] Pcp:Noel Howard MD Subjective: * Chief Complaints: * ??? * Medical History:? Objective: * Vitals:? Assessment: Plan: * Treatment: * Images: * The named appointment provid er may or may not be the originator of this progress note, and it is not deemed complete until electronically signed by the appointment provider. Sign off status: Pending * Provider:?Roxi Bailey DPM Date:?0 11/08/2024 Generated for Juan Antonio hart/Jaden/Ashish on:?11/15/2024 12:28 PM EDT
--- OUTSIDE RECORDS SUMMARY | 2024-11-15 12:28 | XMS_ITS ---
Author Organization [facility] Address [address] [place] [address] Care Team Providers Care Beef Cattle Farm Worker Name Role Phone Noel Howard MD Primary Care Provider Unava ilGregorio Cancino [phone] REASON FOR VISIT UGI series Encounters Encounter Location Date Provider Diagnosis [facility] [address] [place] [address] 10/31/2024 Gregorio Stoner Plan Of Treatment Next Appt Details Provider Name:Gregorio Stoner , 07/19/2025 01:00:00 PM, [address], [address], [place], [address], Progress Notes * JENNY ADLERHDOB:[birth year] (84 yo M)Acc No.[id number]:10/31/2024 Patient:?NOEL ADLER :1940???Age:84 Y???Sex:Male Address:[address] [place] [address] * * Date:?
--- OUTSIDE RECORDS SUMMARY | 2024-11-15 12:28 | XMS_ITS | Patient Health Record ---
Author [facility] Address [address] [place] [address] Care Team Providers Care Upkeep Mechanic Name Role Phone Noel Howard MD Primary Care Provider Roxi Kerr Unavailable [phone] Klaus Russo Unavailable [phone] Allergies Allergen (clinical drug ingredient) Drug/Non Drug [...] W/U Status Risk Notes Problem Atherosclerosis of [place] artery of both lower extremities, with unspecified presence of clinical manifestation (I70.203) Active confirmed Q7(A), Q8(2B), Q9(1B,2C) Vital Signs Blood pressure diastolic 70 mm Hg 08/26/2024 Height 5ft 11in in 08/26/2024 Blood pressure systolic 135 mm Hg 08/26/2024 Weight 248 lbs 08/26/2024 BMI 34.59 kg/m2 08/26/2024 Procedures Procedure Date Ordered Date Performed Result Body Sit e 46310-IWSWLIA NAIL, 6 OR MORE 06/24/2024 N/A 46843 I&D ABSCESS- SIMPLE,SINGLE 06/24/2024 N/A 56640-GXGR SKIN LESIONS, 2 TO 4 06/24/2024 N/A 05641-WYKFVAS NAIL, 6 OR MORE 08/26/2024 N/A 79431-KBDT SKIN LESIONS, 2 TO 4 08/26/2024 N/A Encounters Encounter Location Date Provider Diagnosis [address] [address] 12/18/2023 Klaus Russo Tinea unguium B35.1 ; Pain in right toe(s) M79.674 ; Pain in left toe(s) M79.675 ; Skin disease L98.9 ; Other hammer toe(s) (acquired), left foot M20.42 ; Unspecified atherosclerosis of the [place] arteries of extremities, bilateral legs I70.203 ; Tinea pedis B35.3 ; Neuralgia and neuritis, unspecified M79.2 ; Other viral warts B07.8 ; Pain in left foot M79.672 and Pain in right foot M79.[address] [address] 03/22/2024 Klaus Russo Tinea unguium B35.1 ; Pain in right toe(s) M79.674 ; Pain in left toe(s) M79.675 ; Skin disease L98.9 ; Other hammer toe(s) (acquired), left foot M20.42 ; Unspecified atherosclerosis of the [place] arteries of extremities, bilateral legs I70.203 ; Tinea pedis B35.3 ; Neuralgia and neuritis, unspecified M79.2 ; Other viral warts B07.8 ; Pain in left foot M79.672 ; Pain in right foot M79.671 and Tinea pedis B35.[address] [place] [address] 06/24/2024 Roxi Bailey Abscess of toe, right L02.611 ; Atherosclerosis of the [place] artery of both lower extremities, with unspecified presence of clinical manifestation I70.203 ; Tinea unguium B35.1 ; Pain in right toe(s) M79.674 ; Pain in left toe(s) M79.675 ; Peripheral polyneuropathy G62.9 and Cellulitis of toe of right foot L03.[address] [address] 07/08/2024 Roxi Bailey Atherosclerosis of the [place] artery of both lower extremities, with unspecified presence of clinical manifestation I70.203 and Cellulitis of toe of right foot L03.[address] [address] 08/26/2024 Roxi Bailey Atherosclerosis of the [place] artery of both lower extremities, with unspecified presence of clinical manifestation I70.203 ; Tinea unguium B35.1 ; Pain in right toe(s) M79.674 and Pain in left toe(s) M79.[address] [address] 08/26/2024 Roxi Bailey Assessments Encounter Date Diagnosis [...] foot (ICD-10 - L03.031) 07/08/2024 Atherosclerosis of the [place] artery of both lower extremities, with unspecified presence of clinical manifestation (ICD-10 - I70.203) Q7(A), Q8(2B), Q9(1B,2C) 06/24/2024 Atherosclerosis of the [place] artery of both lower extremities, with unspecified presence of clinical manifestation (ICD-10 - I70.203) Q7(A), Q8(2B), Q9(1B,2C) 08/26/2024 Atherosclerosis of the [place] artery of both lower extremities, with unspecified [...] (ICD-10 - M20.42) 03/22/2024 Unspecified atherosclerosis of the [place] arteries of extremities, bilateral legs (ICD-10 - I70.203) 12/18/2023 Unspecified atherosclerosis of the [place] arteries of extremities, bilateral legs (ICD-10 - [...] X ray : Foot, left 3V 05/10/2021 24121-BSDLQJS NAIL, 6 OR MORE 01/10/2022 35982-LRXTDCQ NAIL, 6 OR MORE 06/24/2024 80728-RCKKWZT NAIL, 6 OR MORE 08/26/2024 18919-HDTQFQS SKIN/TISSUE 05/10/2021 26489-QTDVQRZ SKIN/TISSUE 05/21/2021 04735 I&D ABSCESS- SIMPLE,SINGLE 024 12556-URZV SKIN LESIONS, OVER 4 01/11/20 22 37565-LYPW SKIN LESIONS, 2 TO 4 08/26/19 25 88648-QBLS SKIN LESIONS, 2 TO 4 06/24/20 24 73937-TENRFIOG OF HEMATOMA/FLUID 021 Next Appt Details Provider Name:Roxi gomez, 11/22/2024 10:00:00 AM, [address] [facility], [place], [address], Insurance Providers Payer Name Payer Address Payer Phone Subscriber Number Group Number Insured Name Patient Relationship to Insured Coverage Start Date Coverage End Date [employer] 65 Medicare Preferred [address] [place] [address] [id number] Noel Euceda Self - patient is the insured Medical (General) History Medical History History ICD Code Anxiety asthma (COPD) Cataracts Glaucoma Hiatal hernia High blood pressure Reflux ( GERD) Joint implants/screws Surgical History Surgery Date(Month/Year) hernia 2018 Hospitalization History Reason Date(Month/Year) [facility] [place] [place]- covid, lung inf, 3 day stay 08/2023 [facility] [place] [place] [facility]- Pts daughter called 911 for dehydration- bronchiitis - antibiotic,prednisone 2022 [facility] [place] [place] -AFib on eliquis 07/2021
--- OUTSIDE RECORDS SUMMARY | 2024-11-15 12:28 | XMS_ITS ---
Author Organization [facility] Address [address] [place] [address] Care Team Providers Care Jeweler Apprentice Name Role Phone Noel Howard MD Primary Care Provider Unava Roxi Albrecht [phone] REASON FOR VISIT waive copay Encounters Encounter Location Date Provider Diagnosis [address] [address] 08/26/2024 Roxi Bailey Plan Of Treatment Next Appt Details Provider Name:Roxi gomez, 11/22/2024 10:00:00 AM, [address] [place], [address], Progress Notes * Noel ADLER PDOB:09/1940 (83 yo M)Acc No.[id number]:08/26/2024 Patient:?Noel ADLER :1940???Age:83 Y???Sex:Male Address:[address] [place] [address], [address] * true * Date:? Generated for Printi ng/Faxing/eTransmitting on:?11/15/2024 12:27 PM EDT
--- OUTSIDE RECORDS SUMMARY | 2024-11-15 12:28 | XMS_ITS | Patient Health Record ---
Author Organization [facility] Address [address] [place] [address] Care Team Providers Care Screen Handler Name Role Phone Noel Howard MD Primary Care Provider Gregorio Flor [phone] Allergies Allergen (clinical drug ingredient) Drug/Non Drug Allergy documented on EMR Reaction Allergy Type Onset Date Status Sulfa Unknown Drug Allergy Active Codeine Phosphate Unknown Drug Allergy Active Results Component Value Reference Range Notes FL upper GI w Ba Swallow (No t yet reviewed by provider) Interpretation: Performing Lab: Notes/Report: [address] [address] Fluoroscopy Report Signed Patient: Noel Adler MR#: [id number] : 1940 Acct:[id number] Age/Sex: 84 / M ADM Date: 10/25/24 Loc: [facility] Attending Dr: Gregorio Stoner MD Ordering Physician: Gregorio Stoner MD Date of Service: 10/25/24 Procedure(s): FL upper GI w Ba Swallow Accession Number(s): [id number] cc: Noel Howard MD; Gregorio Stoner MD EXAMINATION: XR FLUOROSCOPY UPPER GI SERIES CLINICAL INFORMATION: Hiatus hernia, GERD. COMPARISON: No prior available. Correlation made with CT abdomen and pelvis 07/26/2022. TECHNIQUE: Fluoroscopic air contrast upper GI examination was performed utilizing standard techniques with thin and thick barium and effervescent granules. Numerous spot images were obtained. Several fluoroscopic image hold cine sequences were also obtained. FINDINGS: UPPER GI SERIES: Lateral cine images of the oropharynx and hypopharynx demonstrate normal swallow mechanism with normal epiglottic inversion and soft palate elevation. No tracheal penetration, glottic or subglottic aspiration identified. No nasopharyngeal reflux present. Hypopharyngeal structures appear normal without evidence of mass or diverticulum. 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 There was mild resultant ballooning of the hypopharynx during swallowing. There is a small Laimer's diverticulum present, which retained a tiny amount of contrast. Dual and single contrast images of the esophagus demonstrate somewhat patulous caliber, normal contour, and mucosal pattern. No evidence of stricture, mass, or ulcerations identified. Esophageal peristalsis is moderately disordered. 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 This encompasses the majority of the fundus of the stomach. GE junction is patulous. There was episodic gastroesophageal reflux to the level of the gastric inlet. Dual contrast and single contrast images of the stomach demonstrated normal contour, rugal fold pattern, and mucosal pattern without evidence of mass, ulceration, or other abnormality. Contrast freely passed into the gastric antrum and duodenal bulb without delay. Single and air-contrast images of the duodenal bulb demonstrate no abnormality. The duodenal sweep has a normal appearance, course, and mucosal fold appearance. FLUOROSCOPY TIME: 3 minutes, 35 seconds Number of Spot Images:16 Number of cines obtained: 16 DOSE AREA PRODUCT: 608.8 dGy-m2 FL/FL upper GI w Ba Swallow IMPRESSION: 1. 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 2. At least moderate cricopharyngeal achalasia, with a small Laimer's diverticulum present. 3. Patulous esophagus with moderately disordered motility. Patulous GE junction. 4. Episodic spontaneous gastroesophageal reflux to the level of the thoracic inlet. Electronically signed by: Donald Bartlett MD 10/25/2024 10:22 AM EDT Dictated By: Donald Bartlett MD Signed By: <Electronically signed by Donald Bartlett MD in OV> 10/25/24 1022 DD/ 0830 TD/TT: 10/25/24 0905 Developmental Training Counselor: [address] [address] Fluoroscopy Report Signed Patient: Noel Adler MR#: [id number] : 1940 Acct:[id number] Age/Sex: 84 / M ADM Date: 10/25/24 Loc: HO.XRAY Attending Dr: Gregorio Stoner MD Ordering Physician: Gregorio Stoner MD Date of Service: 10/25/24 Procedure(s): FL upp er GI w Ba Swallow Accession Number(s): [id number] cc: Noel Howard MD; Gregorio Stoner MD EXAMINATION: XR FLUOROSCOPY UPPER GI SERIES CLINICAL INFORMATION: Hiatus hernia, GERD. COMPARISON: No prior available. Correlation made with CT abdomen and pelvis 07/26/2022. TECHNIQUE: Fluoroscopic air con trast upper GI examination was performed utilizing standard techniques with thin and thick barium and effervescent granules. Numerous s pot images were obtained. Several fluoroscopic image hold cine sequ ences were also obtained. FINDINGS: UPPER GI SERIES: Lateral cine images of the oropharynx and hypopharynx demonstrate normal swallow mecha nism with normal epiglottic inversion and soft palate elevation. No tracheal penetration, glottic or subglottic aspiration identifie d. No nasopharyngeal reflux present. Hypopharyngeal structures appear no rmal without evidence of mass or diverticulum. There was moderate t o extensive cricopharyngeal achalasia. There was mild resultant ballo oning of the hypopharynx during swallowing. There is a small Laimer's diverticulum present, which retained a tiny amount of contrast. Dual and single cont rast images of the esophagus demonstrate somewhat patulous caliber, no rmal contour, and mucosal pattern. No evidence of stricture, mass, or ulcerations identified. Esophageal peristalsis is moderately disordered. Moderate to large si zed type III paraesophageal hiatus hernia. This encompasses the stephane rity of the fundus of the stomach. GE junction is patulous. There was episodic gastroesophageal reflux to the level of the gastric inlet. Dual contrast and si ngle contrast images of the stomach demonstrated normal contour, ruga l fold pattern, and mucosal pattern without evidence of mass, ul ceration, or other abnormality. Contrast freely passed into the rafia julia antrum and duodenal bulb without delay. Single and air-contr ast images of the duodenal bulb demonstrate no abnormality. The duo denal sweep has a normal appearance, course, and mucosal fold appearance. FLUOROSCOPY TIME: 3 minutes, 35 seconds Number of Spot Images:16 Number of cines obtained: 16 DOSE AREA PRODUCT: 608.8 dGy-m2 F L/FL upper GI w Ba Swallow IMPRESSION: 1. 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 2. At least moderate cricopharyngeal achalasia, with a small Laimer's diverticulum present. 3. Patulous esophagu s with moderately disordered motility. Patulous GE junction. 4. Episodic spontane ous gastroesophageal reflux to the level of the thoracic inlet. 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 Problem Gastroesophageal reflux disease (229125507) GERD without esophagitis (K21.9) Active confirmed Problem Computed tomography of abdomen abnormal (finding) (45432533005819995) Abnormal computed tomography of gastrointestinal tract (R93.3) Active confirmed Problem Diaphragmatic hernia (25655027) 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 Vital Signs Blood pressure diastolic 00 mm Hg 07/20/2024 Height 69 in 07/20/2024 Blood pressure systolic 00 mm Hg 07/20/2024 Weight 254 lbs 07/20/2024 BMI 37.51 kg/m2 07/20/2024 Encounters Encounter Location Date Provider Diagnosis [facility] [address] [place] [address] 07/20/2024 Gregorio Stoner Diarrhea R19.7 ; 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 ; GERD without esophagitis K21.9 ; Paraesophageal hiatal hernia K44.9 and Abnormal computed tomography of gastrointestinal tract R93.3 [facility] [address] [place] [address] 10/31/2024 Gregorio Stoner [facility] [address] [place] [address] 12/16/2023 Gregorio Stoner [facility] [address] [place] [address] 07/29/2024 Gregorio Stoner [facility] [address] [place] [address] 08/29/2024 Gregorio Stoner [facility] [address] [place] [address] 10/27/2024 Gregorio Stoner Assessments Encounter Date Diagnosis (ICD [...] BARIUM SWALLOW-ESOPHAGUS 07/20/2024 XR GI SERIES 07/20/2024 FL upper GI w Ba Swallow 10/25/2024 Future Test Test Name Order Date COLONOSCOPY 01/25/2014 Next Appt Details Provider Name:Gregorio Stoner , 07/19/2025 01:00:00 PM, [address] [place] [address], [address], [place], [address], Insurance Providers Payer Name Payer Address Payer Phone Subscriber Number Group Number Insured Name Patient Relationship to Insured Coverage Start Date Coverage End Date [facility] [address] [place], [place] [id number] [phone] [id number] ERLINDA CANTRELLNOEL Self - patient is the insured Medical (General) History Medical History History ICD Code 7-30-14 colonoscopy--grossly normal, but biopsies c/w eosinophilic colitis--neg.labs for celiac disease, CBC in 05/2014 with 9% Eosinophils---started on Budesonide in 10/2014 Hyperlipidemia Asthma Hypertension Denies MD,DM,CVA,renal disease COPD--wears oxygen at night since his CO VID infection in 07/2023 BPH Neuropathy-on Gabapentin Colonoscopies in 1999 and 23 03 were neg. except for an inflammatory polyp in 2007, diverticulosis, and internal hemorrhoids Afib--s/p cardioversion x 1-sees Dr. Valerie CHAIREZ with 3 days in the hospital 3 Surgical History Surgery Date(Month/Year) Rotator cuff tear repair-left Tonsillectomy Cataract-lens [id number] 01/24/[address] her[address] Dr. Hickey 201 8 Bunion left foot
== END 2024-11-15 11:32 | disposition home or self-care (01) ==
LOC: HO.HPS 10:44
PROVIDERS: PCP Internal Medicine; Visit Provider Internal Medicine
DX: J44.9 Chronic obstructive pulmonary disease, unspecified (principal); J98.4 Other disorders of lung; G47.33 Obstructive sleep apnea (adult) (pediatric); G47.34 Idiopathic sleep related nonobstructive alveolar hypoventilation; J30.9 Allergic rhinitis, unspecified
CPT/HCPCS: 99214

== ENCOUNTER → 2024-11-15 10:39 | Outpatient (BNVA) | payer MEDICARE, SELFPAY | PROVIDERS: PCP Internal Medicine; Visit Provider Internal Medicine | DX: J44.9 Chronic obstructive pulmonary disease, unspecified (principal); J30.9 Allergic rhinitis, unspecified; J98.4 Other disorders of lung; G47.33 Obstructive sleep apnea (adult) (pediatric); G47.34 Idiopathic sleep related nonobstructive alveolar hypoventilation | CPT/HCPCS: 99212 ==

== ENCOUNTER 2025-01-04 07:43 | Outpatient (REF) | payer MEDICARE, SELFPAY ==
--- OUTSIDE RECORDS SUMMARY | 2025-01-04 07:47 | XMS_ITS ---
Author Organization [facility] Address [address] [place] [address] Care Team Providers Care Senior Audit Manager Name Role Phone Noel Howard MD Primary Care Provider Unava Gregorio Chester [phone] REASON FOR VISIT pa was needed for budesonide Encounters Encounter Location Date Provider Diagnosis [facility] [address] [place] [address] 12/29/2024 Gregorio Stoner Plan Of Treatment Next Appt Details Provider Name:Gregorio Stoner , 07/19/2025 01:00:00 PM, [address] [facility], [address], [place], [address], Progress Notes * JENNY ADLERHDOB:[birth year] (84 yo M)Acc No.[id number]:12/29/2024 Patient:?NOEL ADLER :1940???Age:84 Y???Sex:Male Address:[address] [place] [address] * true * Date:? Generated for Adilsoni hailey/Jaden/eTransmitting on:?01/04/2025 07:47 AM EDT
[2025-01-04 09:08] LABS: Prostate Specific Antigen 1.93 ng/mL (<0.05-4.0)
== END 2025-01-04 07:44 | disposition home or self-care (01) ==
LOC: HO.LAB 07:43
PROVIDERS: Visit Provider Urology
DX: N40.1 Benign prostatic hyperplasia with lower urinary tract symptoms (principal); Z12.5 Encounter for screening for malignant neoplasm of prostate
CPT/HCPCS: 36415; 84153

== ENCOUNTER → 2025-01-14 09:20 | Outpatient (BNVA) | payer MEDICARE, SELFPAY | PROVIDERS: PCP Internal Medicine; Visit Provider Internal Medicine Cardiovascular Disease ==

== ENCOUNTER 2025-02-07 10:56 | Outpatient (REF) | payer MEDICARE, SELFPAY ==
[2025-02-07 11:24] LABS: MANUAL DIFF FLAG NO
[2025-02-07 11:54] LABS: Hematocrit 39.0 % (42.0-52.0); Hemoglobin 12.6 g/dl (14.0-18.0); Imm Gran Abs Auto 0.02 X10*3/uL (0.00-0.03); Imm Gran Pct Auto 0.3 % (0.0-0.4); Lymphocytes Absolute Auto 1.6 X10*3/uL (1.2-4.9); Mean Corpuscular HGB Conc 32.3 g/dl (31.0-36.0); Mean Corpuscular Hemoglobin 27.3 pg (27.0-33.0); Mean Corpuscular Volume 84.4 fL (80.0-98.0); NRBC Abs Auto 0.000 X10*3/uL (0.0-0.012); NRBC Pct Auto 0.0 /100WBC (0.0-0.2); Platelet Count 209 X10*3/uL (160-400); Red Blood Count 4.62 X10*6/uL (4.60-5.80); White Blood Count 6.2 X10*3/uL (4.8-10.8)
--- OUTSIDE RECORDS SUMMARY | 2025-02-07 11:56 | XMS_ITS | Patient Health Record ---
Author [facility] Address [address] [place] [address] Care Team Providers Care Lifestyle Block Farmer Name Role Phone Noel Howard MD Primary Care Provider Roxi Kerr Unavailable [phone] Klaus Russo Unavailable [phone] Allergies Allergen (clinical drug ingredient) Drug/Non Drug Allergy documented on EMR Reaction Allergy Type Onset Date Status codeine Codeine Unknown Drug Allergy Active Substance with sulfonamide structure and antibacterial mechanism of action (substance) Sulfa Antibiotics Unknown Drug Allergy Active Reason For Referral No Information Medications Medication SIG (Take, Route, Frequency, Duration) Notes Start Date End Date Status Budesonide 3 MG 2 capsules Orally Once a day; Duration: 30 day(s) every other day Active Vitamin B Complex Ac tive Calcium 1200 mg every other day Active Advair Diskus 250-50 MCG/DOSE 1 puff Inhalation Twice a day Active Ventolin HFA 108 (90 Base) MCG/ACT 1 puff as needed Inhalation every 4 hrs as needed Active Atenolol 25 MG 1 tablet Orally Once a day; Duration: 30 day(s) Active Tamsulosin HCl 0.4 MG 1 capsule Orally Once a day; Duration: 30 day(s) Active Co Q-10 200 MG as directed Orally Active Multaq Active Pravastatin Sodium 20 MG 1 tablet Orally Once a day; Duration: 30 day(s) Active LORazepam 0.5 MG 1 tablet at bedtime as needed Orally Once a day Active Ciclopirox Olamine 0.77 % 1 application to affected area Externally Twice a day to effected areas on feet; Duration: 30 days Active Probiotic Acidophilus - as directed Orally Active Omeprazole 20 MG 1 capsule 30 minutes before morning meal Orally Once a day; Duration: 30 day(s) Active PreserVision/Lutein - as directed Orally 40 mg Active Prevalite 4 GM 1 packet Orally Once a day; Duration: 30 day(s) Active Latanoprost 0.005 % 1 drop into affected eye in the evening Ophthalmic Once a day Active Lisinopril 20 MG 1 tablet Orally Once a day; Duration: 30 day(s) Active hydroCHLOROthiazide 25 MG 1 tablet in morning Orally Once a day; Duration: 30 day(s) Active Ipratropium-Albuterol 0.5-2.5 (3) MG/3ML 3 ml as needed Inhalation every 6 hrs Active Chelated Zinc 25 mg Active prednisoLONE 10days Not-Herve ing Chromium Picolinate 200 MCG 1 tablet Orally Once a day; Duration: 30 day(s) Active Aspirin 81 MG 1 tablet Orally Once a day Not-Taking Vitamin B12 Active Doxycycline Hyclate 100 MG 1 capsule Orally Once a day; Duration: 10 day(s) 06/24/2024 Active Furosemide 80 MG 1 tablet Orally Once a day; Duration: 30 day(s) Active Gabapentin 300 MG 1 capsule Orally Once a day; Duration: 30 day(s) 2x per day Active eliquis Active Doxycycline Monohydrate 100 MG 1 capsule Orally Once a day; Duration: 10 days 05/10/2021 Not-Taking Ezetimibe 10 MG 1 tablet Orally Once a day; Duration: 30 day(s) Active Immunizations Vaccine Route Administration Date Status Comme nts COVID-19 Moderna Vaccine Unknown 09/15/2020 Administere d 08/18/2020 Influenza Unknown 05/17/2022 Administered Social History [...] Problem Status W/U Status Risk Notes Problem Bilateral atherosclerosis of arteries of lower limbs (disorder) (12708448166942459 ) Atherosclerosis of [place] artery of both lower extremities, with unspecified presence of clinical manifestation (I70.203) Active confirmed Q7(A), Q8(2B), Q9(1B,2 C) Vital Signs Blood pressure diastolic 70 mm Hg 08/26/2024 Height 5ft 11in in 11/22/2024 Blood pressure systolic 135 mm Hg 08/26/2024 Weight 248 lbs 11/22/2024 BMI 34.59 kg/m2 11/22/2024 Procedures Procedure Date Ordered Date Performed Result Body Sit e 23708-GYHLXYX NAIL, 6 OR MORE 06/24/2024 N/A 93762 I&D ABSCESS- SIMPLE,SINGLE 06/24/2024 N/A 43760-ILTZ SKIN LESIONS, 2 TO 4 06/24/2024 N/A 41574-YIUIZAY NAIL, 6 OR MORE 08/26/2024 N/A 76364-HFQH SKIN LESIONS, 2 TO 4 08/26/2024 N/A 04700-WRSRLCF NAIL, 6 OR MORE 11/22/2024 N/A 19145-LDKF SKIN LESIONS, 2 TO 4 11/22/2024 N/A Encounters Encounter Location Date [facility] [address] 03/22/2024 Klaus Russo Tinea unguium B35.1 ; Pain in right toe(s) M79.674 ; Pain in left toe(s) M79.675 ; Skin disease L98.9 ; Other hammer toe(s) (acquired), left foot M20.42 ; Unspecified atherosclerosis of [place] arteries of extremities, bilateral legs I70.203 ; Tinea pedis B35.3 ; Neuralgia and neuritis, unspecified M79.2 ; Other viral warts B07.8 ; Pain in left foot M79.672 ; Pain in right foot M79.671 and Tinea pedis B35.[address] [facility] [address] 06/24/2024 Roxi Johnsonaker Abscess of toe, right L02.611 ; Atherosclerosis of [place] artery of both lower extremities, with unspecified presence of clinical manifestation I70.203 ; Tinea unguium B35.1 ; Pain in right toe(s) M79.674 ; Pain in left toe(s) M79.675 ; Peripheral polyneuropathy G62.9 and Cellulitis of toe of right foot L03.[address] [address] 07/08/2024 Roxi Bailey Atherosclerosis of [place] artery of both lower extremities, with unspecified presence of clinical manifestation I70.203 and Cellulitis of toe of right foot L03.[address] [address] 08/26/2024 Roxi Bialey Atherosclerosis of [place] artery of both lower extremities, with unspecified presence of clinical manifestation I70.203 ; Tinea unguium B35.1 ; Pain in right toe(s) M79.674 and Pain in left toe(s) M79.[address] [address] 11/22/2024 Roxi Bailey Atherosclerosis of [place] artery of both lower extremities, with unspecified presence of clinical manifestation I70.203 ; Tinea unguium B35.1 ; Pain in right toe(s) M79.674 and Pain in left toe(s) M79.[address] [address] 08/26/2024 Roxi Bailey [address] [address] 11/23/2024 Roxi Bailey Tinea pedis B35.3 Assessments Encounter Date Diagnosis (ICD Code) Assessment Notes Treatment Notes Treatment Clinical Notes Section Notes 03/22/2024 Tinea unguium (ICD-10 - B35.1) 03/22/2024 Pain in right toe(s) (ICD-10 - M79.674) 06/24/2024 Abscess of toe, right (ICD-10 - L02.611) Patient Educated with: WOUND CARE INSTRUCTIONS. pdf (WOUND CARE INSTRUCTIONS. pdf) 07/08/2024 Cellulitis of toe of right foot (ICD-10 - L03.031) 07/08/2024 Atherosclerosis of [place] artery of both lower extremities, with unspecified presence of clinical manifestation (ICD-10 - I70.203) Q7(A), Q8(2B), Q9(1B,2C) 06/24/2024 Atherosclerosis of [place] artery of both lower extremities, with unspecified presence of clinical manifestation (ICD-10 - I70.203) Q7(A), Q8(2B), Q9(1B,2C) 08/26/2024 Atherosclerosis of [place] artery of both lower extremities, with unspecified presence of clinical manifestation (ICD-10 - I70.203) Q7(A), Q8(2B), Q9(1B,2C) 11/22/2024 Atherosclerosis of [place] artery of both lower extremities, with unspecified presence of clinical manifestation (ICD-10 - I70.203) Q7(A), Q8(2B), Q9(1B,2C) 11/23/2024 Tinea pedis (ICD-10 - B35.3) 11/22/2024 Tinea unguium (ICD-10 - B35.1) 08/26/2024 Tinea unguium (ICD-10 - B35.1) 03/22/2024 Pain in left toe(s) (ICD-10 - M79.675) 06/24/2024 Tinea unguium (ICD-10 - B35.1) 03/22/2024 Skin disease (ICD-10 - L98.9) 06/24/2024 Pain in right toe(s) (ICD-10 - M79.674) 08/26/2024 Pain in right toe(s) (ICD-10 - M79.674) 11/22/2024 Pain in right toe(s) (ICD-10 - M79.674) 11/22/2024 Pain in left toe(s) (ICD-10 - M79.675) 08/26/2024 Pain in left toe(s) (ICD-10 - M79.675) 06/24/2024 Pain in left toe(s) (ICD-10 - M79.675) 03/22/2024 Other hammer toe(s) (acquired), left foot (ICD-10 - M20.42) 03/22/2024 Unspecified atherosclerosis of [place] arteries of extremities, bilateral legs (ICD-10 - I70.203) 06/24/2024 Peripheral polyneuropathy (ICD-10 - G62.9) 06/24/2024 Cellulitis of toe of right foot (ICD-10 - L03.031) 03/22/2024 Tinea pedis (ICD-10 - B35.3) 03/22/2024 Neuralgia and neuritis, unspecified (ICD-10 - M79.2) 03/22/2024 Other viral warts (ICD-10 - B07.8) 03/22/2024 Pain in left foot (ICD-10 - M79.672) 03/22/2024 Pain in right foot (ICD-10 - M79.671) 03/22/2024 Tinea pedis (ICD-10 - B35.3) 06/24/2024 Other Patient Educated with: WOUND CARE INSTRUCTIONS. pdf (WOUND CARE INSTRUCTIONS. pdf) Plan Of Treatment Pending Test Test Name Order Date X ray : Foot, left 3V 05/10/2021 36323-YCZMFVP NAIL, 6 OR MORE 01/10/2022 57040-VRNIBPA NAIL, 6 OR MORE 06/24/2024 54787-DGYRYCA NAIL, 6 OR MORE 08/26/2024 28326-XFFHRTB NAIL, 6 OR MORE 11/22/2024 58575-VNTZTOB SKIN/TISSUE 05/10/2021 73511-MIMIXZE SKIN/TISSUE 05/21/2021 85464 I&D ABSCESS- SIMPLE,SINGLE 024 04675-VXKG SKIN LESIONS, OVER 4 01/11/20 22 70262-HESM SKIN LESIONS, 2 TO 4 11/23/19 25 44527-ZZBP SKIN LESIONS, 2 TO 4 08/26/19 25 17859-CVSQ SKIN LESIONS, 2 TO 4 06/24/20 24 81461-IIIXPYPD OF HEMATOMA/FLUID 021 Next Appt Details Provider Name:Roxi gomez, 02/24/2025 09:00:00 AM, [address] [facility], [place], [address], Insurance Providers Payer Name Payer Address Payer Phone Subscriber Number Group Number Insured Name Patient Relationship to Insured Coverage Start Date Coverage End Date [employer] 65 Medicare Preferred [address] [place] [address] [id number] Lizzette cummingsNoel Self - patient is the insured Medical (General) History Medical History History ICD Code Anxiety asthma (COPD) Cataracts Glaucoma Hiatal hernia High blood pressure Reflux ( GERD) Joint implants/screws Surgical History Surgery Date(Month/Year) hernia 2018 Hospitalization History Reason Date(Month/[place] [facility] [place] 3 day [place] [facility] [place] daughter called 911 for dehydration- bronchiitis - antibiotic,prednisone 2022 [facility] [place] eliquis 07/[place]
--- OUTSIDE RECORDS SUMMARY | 2025-02-07 11:57 | XMS_ITS | Patient Health Record ---
Author Organization [facility] Address [address] [place] [address] Care Team Providers Care Drum Operator Name Role Phone Noel Howard MD Primary Care Provider Gregorio Flor [phone] Allergies Allergen (clinical drug ingredient) Drug/Non Drug Allergy documented on EMR Reaction Allergy Type Onset Date Status Sulfa Unknown Drug Allergy Active Codeine Phosphate Unknown Drug Allergy Active Results Component Value Reference Range Notes FL upper GI w Ba Swallow (No t yet reviewed by provider) Interpretation: Performing Lab: Notes/Report: [address] [address] Fluoroscopy Report Signed Patient: Noel Adler MR#: [id number] : 1940 Acct:[id number] Age/Sex: 84 / M ADM Date: 10/25/24 Loc: [facility] Attending Dr: Gregorio Stoner MD Ordering Physician: Gregorio Stoner MD Date of Service: 10/25/24 Procedure(s): [place] upper GI w Ba Swallow Accession Number(s): [id number] cc: Noel Howard MD; Gregorio Stoner MD [...] 10/25/24 1022 DD/ 0830 TD/TT: 10/25/24 0905 Incident Commander: Reason For Referral No Information Medications Medication SIG (Take, Route, Frequency, Duration) Notes Start Date End Date Status Prevalite 4 GM 1 packet Orally Once a day for 90 days Active Budesonide 3 MG TAKE 1 CAPSULE EVERY OTHER DAY Orally Once a day for 90 days Active Lisinopril 20 MG 1 tablet Orally [...] as needed Orally Once a day Unknown Cholestyramine Light 4 GM 1 packet Orally Once a day as needed for diarrhea 03/26/2022 Active Immunizations Vaccine Route Administration Date Status Comme nts Influenza Unknown 04/04/2019 Administered Influenza Unknown 05/17/2020 Administered Influenza Unknown 07/21/2018 Refused Problems Problem Type SNOMED Code ICD Code Onset Dates Problem Status W/U Status Risk Notes Problem Diarrhea (15759569) Diarrhea (R19.7) Active con firmed Problem 25815969 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 Problem Gastroesophageal reflux disease (184591930) GERD without esophagitis (K21.9) Active confirmed Problem Computed tomography of abdomen abnormal (finding) (57394289897129932) Abnormal computed tomography of gastrointestinal tract (R93.3) Active confirmed Problem Diaphragmatic hernia (21792690) 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 Vital Signs Blood pressure diastolic 00 mm Hg 07/20/2024 Height 69 in 07/20/2024 Blood pressure systolic 00 mm Hg 07/20/2024 Weight 254 lbs 07/20/2024 BMI 37.51 kg/m2 07/20/2024 Encounters Encounter Location Date Provider Diagnosis [facility] [address] [place] [address] 07/20/2024 Gregorio Stoner Diarrhea R19.7 ; 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 ; GERD without esophagitis K21.9 ; Paraesophageal hiatal hernia K44.9 and Abnormal computed tomography of gastrointestinal tract R93.3 [facility] [address] [place] [address] 10/31/2024 Gregorio Stoner [facility] [address] [place] [address] 07/29/2024 Gregorio Stoner [facility] [address] [place] [address] 08/29/2024 Gregorio Stoner [facility] [address] [place] [address] 10/27/2024 Gregorio Stoner [facility] [address] [place] [address] 12/29/2024 Gregorio Stoner Assessments Encounter Date Diagnosis (ICD [...] Name:Gregorio Stoner , 07/19/2025 01:00:00 PM, [address], [address], [place], [address], Insurance Providers Payer Name Payer Address Payer Phone Subscriber Number Group Number Insured Name Patient Relationship to Insured Coverage Start Date Coverage End Date [facility] [address] [place], [place] [phone] [id number] NOEL SINGER Self - patient is the insured Medical (General) History Medical History History ICD Code 7-30-14 colonoscopy--grossly normal, but biopsies c/w eosinophilic colitis--neg.labs for celiac disease, CBC in 05/2014 with 9% Eosinophils---started on Budesonide in 10/2014 Hyperlipidemia Asthma Hypertension Denies NH,DM,CVA,renal disease COPD--wears oxygen at night since his CO VID infection in 07/2023 BPH Neuropathy-on Gabapentin Colonoscopies in 1999 and 23 03 were neg. except for an inflammatory polyp in 2007, diverticulosis, and internal hemorrhoids Afib--s/p cardioversion x 1-sees Dr. Valerie CHAIREZ with 3 days in the hospital 3 Surgical History Surgery Date(Month/Year) Rotator cuff tear repair-left Tonsillectomy Cataract-lens [id number] 01/24/[address] her[address] Dr. Hickey 201 8 Bunion left foot
[2025-02-07 12:17] LABS: Appearance Urine Clear; Glucose Urine UA Negative (Negative); PH 5.5 (5.0-9.0); Specific Gravity - Urine 1.020 (1.005-1.025)
[2025-02-07 13:10] LABS: Folate 9.1 ng/mL (> or = 4.0); Vitamin B12 789 pg/mL (200-900)
[2025-02-07 13:45] LABS: Alanine Aminotransferase 29 U/L (0-40); Albumin Level 3.8 g/dL (3.5-5.0); Alkaline Phosphatase 35 U/L (39-117); Anion Gap 13 (12-20); Aspartate Amino Transferase 29 U/L (5-37); Blood Urea Nitrogen 22 mg/dL (9-16); Calcium 8.8 mg/dL (8.4-10.2); Carbon Dioxide 32 mmol/L (22-29); Chloride 102 mmol/L (96-108); Cholesterol 139 mg/dL (<200); Estimated Glomerular Filt Rate 56; HDL Cholesterol 50 mg/dL (>40); Potassium 4.7 mmol/L (3.3-5.1); Sodium 142 mmol/L (135-145); Total Protein 6.1 g/dL (6.5-8.0); Triglycerides 114 mg/dL (<150)
== END 2025-02-07 10:57 | disposition home or self-care (01) ==
LOC: HO.LAB 10:56
PROVIDERS: PCP Internal Medicine; Visit Provider Internal Medicine
DX: E78.00 Pure hypercholesterolemia, unspecified (principal); D64.9 Anemia, unspecified; E55.9 Vitamin D deficiency, unspecified; E53.8 Deficiency of other specified B group vitamins; R30.0 Dysuria
CPT/HCPCS: 36415; 80053; 80061; 81003; 82306; 82607; 82746; 84443; 85025

== ENCOUNTER 2025-02-11 09:45 | Outpatient (AMB) | payer MEDICARE, SELFPAY ==
[2025-02-11 09:52] VITALS: BP 132/64; PULSE 62; O2SAT 95; BMI 34.3
--- NOTE | 2025-02-11 09:52 | MHC.PC.OV ---
Vital Signs 02/11/25 09:52 Height 5 ft 11 in Weight 246 lb BMI 34.3 BP 132/64 Blood Pressure Location Lt brachial Position Sitting Pulse 62 Pulse Source Pulse Oximeter Pulse Oximetry (%) 95 Oxygen Delivery Method Room Air Intake Visit Reasons: COPD, hyperlipidemia, PAF, HTN Octave Board Assembler Required: No Accompanied by: Self / Same As Patient Allergies Sulfa (Sulfonamide Antibiotics) Allergy (Mild, Verified 02/11/25 10:15) RASH, BLISTERS codeine (Codeine) Allergy (Unknown, Verified 02/11/25 10:15) HALLUCINATIONS Medication List - Last Reconciled 02/11/25 by Noel Howard MD albuterol sulfate 90 mcg/actuation (Ventolin HFA) 1 inh inhalation QID PRN 90 days apixaban (Eliquis) 5 mg PO BID 90 days atenolol 12.5 mg (1/2 x 25 mg) PO DAILY B-complex with vitamin C 1 tab PO DAILY budesonide DR-ER 3 mg PO Q OTHER DAY cholestyramine-aspartame 4 gram ea PO dronedarone (Multaq) 400 mg PO BID ezetimibe 10 mg PO DAILY 90 days fluticasone propion-salmeterol 250-50 mcg/dose (Advair Diskus) 1 inh inhalation Q12H 90 days furosemide 40 mg PO DAILY PRN gabapentin 300 mg PO BID 90 days hydrochlorothiazide 25 mg PO DAILY 90 days ipratropium-albuterol 0.5 mg-3 mg(2.5 mg base)/3 mL 3 mL inhalation Q6H PRN latanoprost 0.005% 1 drp ophthalmic-Right BEDTIME lisinopril 20 mg PO BID loratadine 10 mg PO QAM PRN 90 days lorazepam 0.5 mg PO BEDTIME PRN 30 days montelukast 10 mg PO QPM 90 days omeprazole 20 mg PO DAILY 90 days pravastatin 20 mg PO DAILY 90 days tamsulosin 0.4 mg PO DAILY 90 days triamcinolone acetonide 0.5% 1 appl topical TID PRN umeclidinium 62.5 mcg/actuation (Incruse Ellipta) 1 inh inhalation DAILY 30 days Tobacco use date assessed: 02/11/25 Fall risk assessment: No Falls in past year Last assessed Fall Risk: 02/11/25 Dental Screening Dental Screen Date: 02/11/25 Did you have a dental visit in the last 12 months?: No Did you have a dental problem in the last 6 months where you did not have access to dental care?: No Was dental information given to patient?: No HPI COPD, hyperlipidemia, PAF, HTN HPI Details Patient comes in today for his follow up visit States that he feels okay He denies any headaches or dizziness Denies any chest pains, no increased shortness of breath No nausea/vomiting, no abdominal pain No change in bowel habits noted He had his follow-up labs done a few days ago - to discuss his results [facility] Medical History (Updated 02/11/25 @ 10:26 by Noel Howard MD) Vitamin D deficiency disease SOB (shortness of breath) Persistent atrial fibrillation COVID-19 Asthma Nocturnal hypoxemia AMITA (obstructive sleep apnea) Hemorrhoids with complication Benign prostatic hyperplasia GERD without esophagitis Pure hypercholesterolemia Benign essential hypertension Eosinophilic colitis Neuropathy Obesity (BMI 30-39.9) Restrictive lung disease COPD (chronic obstructive pulmonary disease) Surgical History History of tonsillectomy History of hernia surgery Family History Brother Lung cancer Social History Household Members: None Housing: House Do you presently have visiting nurse or other home services: No Alcohol intake: never Patient Tobacco Use Status: Former Tobacco user e-Cigarette/Vaping Use: Never Used Second Hand Smoke Exposure: Yes Advance Directives Date on File: 07/15/23 service: No Current occupational status: retired Cognitive needs: No Hearing needs: No Vision needs: Yes (Glasses) Questionnaire PHQ-9 Over the last 2 weeks, how often have you been bothered by any of the following problems? 1. Little interest or pleasure in doing things: not at all 2. Feeling down, depressed, or hopeless: not at all 3. Trouble falling or staying asleep, or sleeping too much: not at all 4. Feeling tired or having little energy: several days 5. Poor appetite or overeating: not at all 6. Feeling bad about yourself - or that you are a failure or have let yourself or your family down: not at all 7. Trouble concentrating on things, such as reading the newspaper or watching television: not at all 8. Moving or speaking so slowly that other people could have noticed. Or the opposite - being so fidgety or restless that you have been moving around a lot more than usual: not at all 9. Thoughts that you would be better off or of hurting yourself in some way: not at all Total score: 1 Depression Screening Interpretation: Negative Depression Screening Done: Yes 93253 - PHQ-9 Billing: Yes Source: Developed by Drs. Gregorio Lopez, Ember Heaton, Dash De La Fuente and colleagues, with an educational neli from [employer]. Thrive Questionnaire Date Thrive assessed: 02/11/25 I am a: Patient What is your living situation today?: I have a steady place to live Within the past 12 months, did the food you bought not last and you didn't have the money to get more?: Never true Within the past 12 months, did you worry whether your food would run out before you got money to buy more?: Never true Do you have trouble paying for medicines?: No Do you have trouble getting transportation to medical appointments?: No Do you have trouble paying your heating and electricity bill?: No Do you have trouble taking care of your child, family member or friend?: No Do you have trouble with day-to-day activities such as bathing, preparing meals, shopping, managing finances, etc.?: No Are you currently unemployed and looking for a job?: No Are you interested in more education?: No Please select the resources that you would like help with: Housing/Senior Care, Food, Transportation, Utilities and Daily support Currently or been in a relationship where the following occur: No concerns reported THRIVE Score: 0 AUDIT C Alcohol Use Questionnaire (AUDIT-C) 1. How often do you have a drink containing alcohol?: Never 3. How often do you have six or more drinks on one occasion?: Never Total Score: 0 Score Reviewed/Action Taken: Yes DOMINIQUE-7 AMB Questionnaire DOMINIQUE-7 Date DOMINIQUE - 7 assessed: 02/11/25 Feeling nervous, anxious, or on edge: 1 = Several days Not being able to stop or control worryin = Not at all Worrying too much about different things: 1 = Several days Trouble relaxin = Not at all Being so restless that it is hard to sit still: 0 = Not at all Becoming easily annoyed or irritable: 0 = Not at all Feeling afraid as if something awful might happen: 0 = Not at all Total DOMINIQUE-7 score (0-4 normal; 5-9 mild; 10-14 moderate; 15-21 severe): 2 Source: Developed by Drs. Gregorio Lopez, Ember Heaton, Dash De La Fuente and colleagues, with an educational neli from [employer]. Review of Systems Const Denies chills, Denies fatigue, Denies fever(s) and Denies headache(s) ENT Denies dysphagia, Denies dizziness, Denies otalgia, Denies headache(s), Denies neck pain, Denies odynophagia and Denies sore throat Card Denies chest pain, Denies rapid heart rate, Denies palpitations and Reports dyspnea on exertion (mild) Resp Denies chest congestion, Reports cough (on and off, mostly non-productive), Denies pain with cough and Reports dyspnea on exertion (mild) GI Denies abdominal pain, Denies constipation, Denies dysphagia, Denies heartburn, Denies diarrhea, Denies nausea, Denies odynophagia and Denies vomiting Denies difficulty urinating, Denies dysuria, Denies nocturia and Denies urinary frequency Musc Denies back pain, Denies neck pain and Reports stiffness Skin/Breast Denies rash Neuro Denies dizziness and Denies headache(s) Endo Denies fatigue and Denies palpitations Physical exam (Primary Care) Vital Signs: Last Vital Signs Pulse 62 02/11/25 09:52 BP 132/64 02/11/25 09:52 Pulse Ox 95 02/11/25 09:52 Oxygen Delivery Method Room Air 02/11/25 09:52 BMI result Body Mass Index 34.3 Tobacco/Smoking Status: Tobacco use Status Tobacco use date assessed 02/11/25 02/11/25 09:59 Patient Tobacco Use Status Former Tobacco user 02/11/25 09:59 e-Cigarette/Vaping Use Never Used 02/11/25 09:59 PHQ-9: PHQ-9 Score PHQ-9: Total score 1 02/11/25 09:59 Depression Screening Interpretation: Negative Thrive Assessment: Date of Thrive Assessment Date Thrive assessed 02/11/25 02/11/25 09:59 Currently or been in a relationship where the following occur: No concerns reported Const General: no acute distress and alert HENMT Ears: TM's normal bilaterally and EAC's normal Throat: Yes posterior oropharynx normal and Yes tonsils normal (no TP congestion noted) Neck Neck: Yes supple and No lymphadenopathy Thyroid: Thyroid normal Resp Auscultation: no crackles, no rales, no wheezes and diminished lung sounds (slightly) bilateral Cardio Rate: regular rate Rhythm: regular rhythm Heart sounds: no murmurs GI Palpation (GI): Soft to palpation and nontender Auscultation: normal bowel sounds General: Yes no CVA tenderness Back/Spine/Pelvis Back: no CVA tenderness Skin Rashes: no rashes Extrem General: Yes no clubbing, cyanosis or edema Results Reviewed Results Reviewed: Laboratory Tests 02/07/25 02/07/25 11:17 11:22 WBC 6.2 Hgb 12.6 L Hct 39.0 L Plt Count 209 Sodium 142 Potassium 4.7 Creatinine 1.24 Estimated GFR 56 Fasting Glucose 89 Calcium 8.8 AST 29 ALT 29 Triglycerides 114 Cholesterol 139 LDL Cholesterol, Calc 67 HDL Cholesterol 50 Vitamin B12 789 25-OH Vitamin D Total 22.4 L TSH 0.72 Ur Specific [place] 1.020 Urine Protein Negative Urine Glucose (UA) Negative Urine Blood Negative Urine Nitrite Negative Ur Leukocyte Esterase Negative Coding Level of Care Code Est Pt Level 4 (36990) Diagnoses Chronic obstructive pulmonary disease, unspecified COPD type J44.9 COPD type: unspecified COPD AMITA (obstructive sleep apnea) G47.33 Paroxysmal atrial fibrillation I48.0 Pure hypercholesterolemia E78.00 Benign essential hypertension I10 Allergic rhinitis, unspecified seasonality, unspecified trigger J30.9 Allergic rhinitis trigger: unspecified Allergic rhinitis seasonality: unspecified GERD without esophagitis K21.9 Right leg swelling M79.89 Vitamin D deficiency disease E55.9 Elevated vitamin B12 level R79.89 Benign prostatic hyperplasia, unspecified whether lower urinary tract symptoms present N40.0 Lower urinary tract symptom presence: unspecified whether lower urinary tract symptoms present Anxiety F41.9 Obesity (BMI 30-39.9) E66.9 Additional Codes PHQ-9 - 04989 - PHQ-9 Billing: Yes ([id number]) Assessment & Plan Assessment & Plan (1) COPD (chronic obstructive pulmonary disease): Code(s): J44.9 - Chronic obstructive pulmonary disease, unspecified Category: Medical Qualifiers: COPD type: unspecified COPD Qualified Code(s): J44.9 - Chronic obstructive pulmonary disease, unspecified Plan: Controlled Continue Advair Diskus 500-50 mcg 1 inhalation BID, Incruse Ellipta 62.5 mcg 1 inhalation QD and Duoneb via nebulization every 6 hours and/or Albuterol HFA 2 puffs 4 times a day as needed Continue Prednisone 5 mg QOD He is also currently still going to pulmonary rehab here at [facility] Insurance previously denied pulmonary recommendation for Xolair injections Follow up with pulmonary (Dr. Larson) as scheduled (2) AMITA (obstructive sleep apnea): Comment: PATIENT HAS MILD AMITA, ALONG WITH NOCTURNAL HYPOXEMIA HE HAS TRIED HIS BEST AND CANNOT USE THE CPAP OR BIPAP AT NIGHT. SO HE JUST USES O2 AT NIGHT. Code(s): G47.33 - Obstructive sleep apnea (adult) (pediatric) Category: Medical Plan: He is unable to use/tolerate CPAP or Bipap at night and is currently just being managed with 2 L of oxygen at night when he is sleeping Follow up with Sleep Medicine/Pulmonary as scheduled (3) Paroxysmal atrial fibrillation: Code(s): I48.0 - Paroxysmal atrial fibrillation Category: Medical Plan: S/P cardioversion on 09/04/22; patient is currently still in sinus rhythm He has a CHADSVASc score of 3 and requires lifelong thromboembolism prophylaxis with Eliquis 5 mg BID Continue Multaq 400 mg BID and Atenolol 12.5 mg QD Follow up with cardiology as scheduled (4) Pure hypercholesterolemia: Code(s): E78.00 - Pure hypercholesterolemia, unspecified Category: Medical Plan: Results of his labs done a few days ago reviewed and discussed with patient Reinforced low cholesterol diet Continue Pravastatin 20 mg QD and Ezetimibe 10 mg QD Will recheck his labs and fasting lipids in 4 months for follow up (5) Benign essential hypertension: Code(s): I10 - Essential (primary) hypertension Category: Medical Plan: Reinforced low sodium diet - goal is systolic BP of at least 140 mm or less Continue Atenolol 12.5 mg QD, HCTZ 25 mg QD and Lisinopril 20 mg BID He is reminded to continue monitoring his blood pressure regularly (6) Allergic rhinitis: Comment: HAS MILD CHRONIC ALLERGIC RHINITIS, CONTROLLED AT PRESENT. Code(s): J30.9 - Allergic rhinitis, unspecified Category: Medical Qualifiers: Allergic rhinitis trigger: unspecified Allergic rhinitis seasonality: unspecified Qualified Code(s): J30.9 - Allergic rhinitis, unspecified Plan: Continue Laratadine 10 mg QD and Montelukast 10 mg Q PM (7) GERD without esophagitis: Code(s): K21.9 - Gastro-esophageal reflux disease without esophagitis Category: Medical Plan: Dietary restrictions reinforced Continue Omeprazole 20 mg QD (8) Right leg swelling: Comment: HE HAS CHRONIC EDEMA OF THE RIGHT LEG. AT PRESENT THE SKIN IS RED AND WARM C/W CELLULITIS I PRESCRIBED KEFLEX 500 MG T.I.D. FOR 10 DAYS, AT HIS REQUEST. Code(s): M79.89 - Other specified soft tissue disorders Category: Medical Plan: This is mostly due to stasis (stasis edema) Venous doppler done last year came out negative for DVT Continue Furosemide 40 mg QD PRN (9) Vitamin D deficiency disease: Code(s): E55.9 - Vitamin D deficiency, unspecified Category: Medical Plan: He is advised that his Vitamin D level is low on his recent labs Patient states that he does not take any Vitamin D supplements so will have his start taking Vitamin D3 2000 units QD - he is advised that he can get this OTC if his insurance will not cover this Rx (10) Elevated vitamin B12 level: Code(s): R79.89 - Other specified abnormal findings of blood chemistry Category: Medical Plan: Continue Vitamin B-complex every other day Patient states that he used to take his Vitamin B12 supplements (1000 mcg) daily but due to his B12 level being significantly elevated on his previous labs, he was instructed to cut this back to every other day (11) Benign prostatic hyperplasia: Code(s): N40.0 - Benign prostatic hyperplasia without lower urinary tract symptoms Category: Medical Qualifiers: Lower urinary tract symptom presence: unspecified whether lower urinary tract symptoms present Qualified Code(s): N40.0 - Benign prostatic hyperplasia without lower urinary tract symptoms Plan: Continue Tamsulosin 0.4 mg Q HS Follow up with urology as scheduled (12) Anxiety: Code(s): F41.9 - Anxiety disorder, unspecified Category: Medical Plan: Continue Lorazepam 0.5 mg QD PRN (13) Obesity (BMI 30-39.9): Comment: HE IS FULLY AWARE OF BEING OBESE, LIVES ALONE AND TRIES TO RESTRICT HIS CALORIES INTAKE. BUT DOES NOT HAVE MUCH ACTIVITY SO HE IS NOT ABLE TO LOSE WEIGHT. TAKING STEROIDS IN THE FORM OF PREDNISONE 5 MG ON ALTERNATE DAYS AND BUDESONIDE ER 3 MG DAILY, DEFINITELY CONTRIBUTES TO HIS BEING OVERWEIGHT Code(s): E66.9 - Obesity, unspecified Category: Medical Plan: Reinforced diet; exercise and weight loss are difficult and unrealistic in this patient due to his multiple comorbidities and issues Plan Follow up in 4 months Orders: Orders Lipid Panel 4 Months E78.00 - Pure hypercholesterolemia, unspecified TSH reflex Free T4 4 Months E78.00 - Pure hypercholesterolemia, unspecified UA CC w/rflx Micro + Cult 4 Months R30.0 - Dysuria Vitamin D 25-OH Total 4 Months E55.9 - Vitamin D deficiency, unspecified Complete Blood Count Auto Diff 4 Months D64.9 - Anemia, unspecified Comprehensive Cashion. Panel Fast 4 Months E78.00 - Pure hypercholesterolemia, unspecified Vitamin B12 and Folate 4 Months E53.8 - Deficiency of other specified B group vitamins Medications: New cholecalciferol (vitamin D3) 50 mcg PO DAILY 90 caps 3RF 90 days E55.9 - Vitamin D deficiency, unspecified
--- OUTSIDE RECORDS SUMMARY | 2025-02-11 10:03 | XMS_ITS | Patient Health Record ---
[facility] Address [address] [facility] [place] [address] Care Team Providers Care Glass Cutter Hand Name Role Phone Noel Howard MD Primary Care Provider Roxi Kerr Unavailable [phone] Klaus Russo Unavailable [phone] Allergies Allergen (clinical drug ingredient) Drug/Non Drug [...] Active hydroCHLOROthiazide 25 MG 1 tablet in e morning Orally Once a day; Duration: 30 [...] W/U Status Risk Notes Problem Atherosclerosis of [place] artery of both lower extremities, with unspecified presence of clinical manifestation (I70.203) Active confirmed Q7(A), Q8(2B), Q9(1B,2C) Vital Signs Blood pressure diastolic 70 mm Hg 08/26/2024 Height 5ft 11in in 11/22/2024 Blood pressure systolic 135 mm Hg 08/26/2024 Weight 248 lbs 11/22/2024 BMI 34.59 kg/m2 11/22/2024 Procedures Procedure Date Ordered Date Performed Result Body Sit e 10414-EIMWHDY NAIL, 6 OR MORE 06/24/2024 N/A 97538 I&D ABSCESS- SIMPLE,SINGLE 06/24/2024 N/A 82425-OSFZ SKIN LESIONS, 2 TO 4 06/24/2024 N/A 70732-AAWSFNN NAIL, 6 OR MORE 08/26/2024 N/A 53095-IQMI SKIN LESIONS, 2 TO 4 08/26/2024 N/A 79150-YUFTVDZ NAIL, 6 OR MORE 11/22/2024 N/A 77071-LXUG SKIN LESIONS, 2 TO 4 11/22/2024 N/A Encounters Encounter [facility] Date [facility] [address] 03/22/2024 Klaus Russo Tinea unguium B35.1 ; Pain in right toe(s) M79.674 ; Pain in left toe(s) M79.675 ; Skin disease L98.9 ; Other hammer toe(s) (acquired), left foot M20.42 ; Unspecified atherosclerosis of [place] arteries of extremities, bilateral legs I70.203 ; Tinea pedis B35.3 ; Neuralgia and neuritis, unspecified M79.2 ; Other viral warts B07.8 ; Pain in left foot M79.672 ; Pain in right foot M79.671 and Tinea pedis B35.[address] [address] 06/24/2024 Roxi Bailey Abscess of toe, right L02.611 ; Atherosclerosis of [place] artery of both lower extremities, with unspecified presence of clinical manifestation I70.203 ; Tinea unguium B35.1 ; Pain in right toe(s) M79.674 ; Pain in left toe(s) M79.675 ; Peripheral polyneuropathy G62.9 and Cellulitis of toe of right foot L03.[address] [address] 07/08/2024 Roxi Bailey Atherosclerosis of [place] artery of both lower extremities, with unspecified presence of clinical manifestation I70.203 and Cellulitis of toe of right foot L03.[address] [address] 08/26/2024 Roxi Bailey Atherosclerosis of [place] artery of both lower extremities, with unspecified presence of clinical manifestation I70.203 ; Tinea unguium B35.1 ; Pain in right toe(s) M79.674 and Pain in left toe(s) M79.[address] [address] 11/22/2024 Roxi Bailey Atherosclerosis of [place] artery of both lower extremities, with unspecified presence of clinical manifestation I70.203 ; Tinea unguium B35.1 ; Pain in right toe(s) M79.674 and Pain in left toe(s) M79.[address] [address] 08/26/2024 Roxi Bailey [address] [address] 11/23/2024 Roxi Bailey Tinea pedis B35.3 Assessments [...] foot (ICD-10 - L03.031) 07/08/2024 Atherosclerosis of [place] artery of both lower extremities, with unspecified presence of clinical manifestation (ICD-10 - I70.203) Q7(A), Q8(2B), Q9(1B,2C) 06/24/2024 Atherosclerosis of [place] artery of both lower extremities, with unspecified presence of clinical manifestation (ICD-10 - I70.203) Q7(A), Q8(2B), Q9(1B,2C) 08/26/2024 Atherosclerosis of [place] artery of both lower extremities, with unspecified presence of clinical manifestation (ICD-10 - I70.203) Q7(A), Q8(2B), Q9(1B,2C) 11/22/2024 Atherosclerosis of [place] artery of both lower extremities, with unspecified [...] (ICD-10 - M20.42) 03/22/2024 Unspecified atherosclerosis of [place] arteries of extremities, bilateral legs (ICD-10 - [...] X ray : Foot, left 3V 05/10/2021 05038-CCGPACV NAIL, 6 OR MORE 01/10/2022 85299-FBLVNIZ NAIL, 6 OR MORE 06/24/2024 53918-KSCOTTM NAIL, 6 OR MORE 08/26/2024 33131-JXLDHSY NAIL, 6 OR MORE 11/22/2024 64452-AKFOHBU SKIN/TISSUE 05/10/2021 44626-KIVWRTQ SKIN/TISSUE 05/21/2021 54735 I&D ABSCESS- SIMPLE,SINGLE 024 66082-FYUY SKIN LESIONS, OVER 4 01/11/20 22 70224-QRTQ SKIN LESIONS, 2 TO 4 11/23/19 25 23309-EVZJ SKIN LESIONS, 2 TO 4 08/26/19 25 74160-AGVG SKIN LESIONS, 2 TO 4 06/24/20 24 08615-AJGXLQIX OF HEMATOMA/FLUID 021 Next Appt Details Provider Name:Roxi Johnsonjessica gomez, 02/24/2025 09:00:00 AM, [address] [facility], [place], [address], Insurance Providers Payer Name Payer Address Payer Phone Subscriber Number Group Number Insured Name Patient Relationship to Insured Coverage Start Date Coverage End Date [employer] 65 Medicare Preferred [address] [place], [place] [id number] Noel Euceda Self - patient is the insured Medical (General) History Medical History History ICD Code Anxiety asthma (COPD) Cataracts Glaucoma Hiatal hernia High blood pressure Reflux ( GERD) Joint implants/screws Surgical History Surgery Date(Month/Year) hernia 2018 Hospitalization History Reason Date(Month/Year) [facility] [place]- covid, lung inf, 3 day stay 08/2023 [facility] [place] ER- Pts daughter called 911 for dehydration- bronchiitis - antibiotic,prednisone 2022 [facility] [place] -AFib on eliquis 07/2021
--- OUTSIDE RECORDS SUMMARY | 2025-02-11 10:03 | XMS_ITS | Patient Health Record ---
Author Organization [facility] Address [address] [place] [address] Care Team Providers Care Survey Instrument Operator Name Role Phone Noel Howard MD Primary Care Provider Gregorio Flor [phone] Allergies Allergen (clinical drug ingredient) Drug/Non Drug Allergy documented on EMR Reaction Allergy Type Onset Date Status Sulfa Unknown Drug Allergy Active Codeine Phosphate Unknown Drug Allergy Active Results Component Value Reference Range Notes FL upper GI w Ba Swallow (No t yet reviewed by provider) Interpretation: Performing Lab: Notes/Report: [address] [address] Fluoroscopy Report Signed Patient: Noel Adler MR#: [id number] : 1940 Acct:[id number] Age/Sex: 84 / M ADM Date: 10/25/24 [facility] Attending Dr: Gregorio Stoner MD Ordering Physician: Gregorio Stoner MD Date of Service: 10/25/24 Procedure(s): FL upper GI w Ba Swallow Accession Number(s): [id number] cc: Noel Howard MD; Gregorio Stoner MD [...] 10/25/24 1022 DD/ 0830 TD/TT: 10/25/24 0905 Blower Room Attendant: Reason For Referral No Information Medications Medication [...] Status W/U Status Risk Notes Problem Diarrhea (12370409) Diarrhea (R19.7) Active con firmed Problem 98759486 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 Problem Gastroesophageal reflux disease (593504490) GERD without esophagitis (K21.9) Active confirmed Problem Computed tomography of abdomen abnormal (finding) (54371171862614553) Abnormal computed tomography of gastrointestinal tract (R93.3) Active confirmed Problem Diaphragmatic hernia (52995786) 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 Vital Signs Blood pressure diastolic 00 mm Hg 07/20/2024 Height 69 in 07/20/2024 Blood pressure systolic 00 mm Hg 07/20/2024 Weight 254 lbs 07/20/2024 BMI 37.51 kg/m2 07/20/2024 Encounters Encounter Location Date Provider Diagnosis [facility] [address] [place] [address] 07/20/2024 Gregorio Stoner Diarrhea R19.7 ; 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 ; GERD without esophagitis K21.9 ; Paraesophageal hiatal hernia K44.9 and Abnormal computed tomography of gastrointestinal tract R93.3 [facility] [address] [place] [address] 10/31/2024 Gregorio Stoner [facility] [address] [place] [address] 07/29/2024 Gregorio Stoner [facility] [address] [place] [address] 08/29/2024 Gregorio Stoner [facility] [address] [place] [address] 10/27/2024 Gregorio Stoner [facility] [address] [place] [address] 12/29/2024 Gregorio Stoner Assessments Encounter Date Diagnosis [...] , 07/19/2025 01:00:00 PM, [address] [facility], [address], [place], [address], Insurance Providers Payer Name Payer Address Payer Phone Subscriber Number Group Number Insured Name Patient Relationship to Insured Coverage Start Date Coverage End Date [facility] [address] [place], [place] [phone] [phone] [id number] NOEL SINGER Self - patient is the insured Medical (General) History Medical History History ICD Code 7-30-14 colonoscopy--grossly normal, but biopsies c/w eosinophilic colitis--neg.labs for celiac disease, CBC in 05/2014 with 9% Eosinophils---started on Budesonide in 10/2014 Hyperlipidemia Asthma Hypertension Denies FL,DM,CVA,renal disease COPD--wears oxygen at night since his CO VID infection in 07/2023 BPH Neuropathy-on Gabapentin Colonoscopies in 1999 and 23 03 were neg. except for an inflammatory polyp in 2007, diverticulosis, and internal hemorrhoids Afib--s/p cardioversion x 1-sees Dr. Valerie CHAIREZ with 3 days in the hospital 3 Surgical History Surgery Date(Month/Year) Rotator cuff tear repair-left Tonsillectomy Cataract-lens [id number] 01/24/[address]. Hickey 201 8 Bunion left foot
== END 2025-02-11 10:32 | disposition home or self-care (01) ==
LOC: HO.HMCH 09:46
PROVIDERS: PCP Internal Medicine; Visit Provider Internal Medicine
DX: J44.9 Chronic obstructive pulmonary disease, unspecified (principal); I48.0 Paroxysmal atrial fibrillation; G47.33 Obstructive sleep apnea (adult) (pediatric); E78.00 Pure hypercholesterolemia, unspecified; I10 Essential (primary) hypertension; J30.9 Allergic rhinitis, unspecified; K21.9 Gastro-esophageal reflux disease without esophagitis; M79.89 Other specified soft tissue disorders; E55.9 Vitamin D deficiency, unspecified; R79.89 Other specified abnormal findings of blood chemistry; N40.0 Benign prostatic hyperplasia without lower urinary tract symptoms; F41.9 Anxiety disorder, unspecified

== ENCOUNTER → 2025-02-11 09:45 | Outpatient (BNVA) | payer MEDICARE, SELFPAY | PROVIDERS: PCP Internal Medicine; Visit Provider Internal Medicine | DX: J44.9 Chronic obstructive pulmonary disease, unspecified (principal); G47.33 Obstructive sleep apnea (adult) (pediatric); I48.0 Paroxysmal atrial fibrillation; E78.00 Pure hypercholesterolemia, unspecified; I10 Essential (primary) hypertension; J30.9 Allergic rhinitis, unspecified; K21.9 Gastro-esophageal reflux disease without esophagitis; M79.89 Other specified soft tissue disorders; E55.9 Vitamin D deficiency, unspecified; R79.89 Other specified abnormal findings of blood chemistry; N40.0 Benign prostatic hyperplasia without lower urinary tract symptoms; F41.9 Anxiety disorder, unspecified; E66.9 Obesity, unspecified; Z68.34 Body mass index [BMI] 34.0-34.9, adult; Z79.52 Long term (current) use of systemic steroids; Z79.899 Other long term (current) drug therapy; Z13.31 Encounter for screening for depression; Z13.39 Encounter for screening examination for other mental health and behavioral disorders | CPT/HCPCS: 96127; 99212 ==

== ENCOUNTER 2025-02-24 13:30 | Outpatient (RCR) | payer MEDICARE, SELFPAY | END 2025-03-31 10:07 | disposition home or self-care (01) | LOC: HO.PR 13:30 | PROVIDERS: PCP Internal Medicine; Visit Provider Internal Medicine | DX: J44.9 Chronic obstructive pulmonary disease, unspecified (principal); J98.4 Other disorders of lung; R06.02 Shortness of breath | CPT/HCPCS: 94618; 94625; 99212 ==

== ENCOUNTER 2025-03-02 14:49 | Outpatient (AMB) | payer MEDICARE, SELFPAY ==
[2025-03-02 14:53] VITALS: BP 160/74; PULSE 68; RESP 18; TEMP 36.2; O2SAT 96; BMI 34.4
--- NOTE | 2025-03-02 14:53 | MHC.PC.OV ---
Vital Signs 03/02/25 14:53 03/02/25 15:14 Height 5 ft 11 in Weight 246 lb 6 oz BMI 34.4 BP 160/74 H 146/80 H Blood Pressure Location Lt brachial Lt brachial Position Sitting Sitting Respiration 18 Pulse 68 Pulse Source Pulse Oximeter Temp 97.1 F Temp Source Temporal Artery Scan Pulse Oximetry (%) 96 Oxygen Delivery Method Room Air Intake Visit Reasons: Colitis Chief Wellness Officer Required: No Accompanied by: Self / Same As Patient Allergies Sulfa (Sulfonamide Antibiotics) Allergy (Mild, Verified 03/02/25 15:16) RASH, BLISTERS codeine (Codeine) Allergy (Unknown, Verified 03/02/25 15:16) HALLUCINATIONS Medication List - Last Reconciled 03/02/25 by GAY Dodd albuterol sulfate 90 mcg/actuation (Ventolin HFA) 1 inh inhalation QID PRN 90 days apixaban (Eliquis) 5 mg PO BID 90 days atenolol 12.5 mg (1/2 x 25 mg) PO DAILY B-complex with vitamin C 1 tab PO DAILY budesonide DR-ER 3 mg PO Q OTHER DAY cholecalciferol (vitamin D3) 50 mcg PO DAILY 90 days cholestyramine-aspartame 4 gram ea PO dronedarone (Multaq) 400 mg PO BID ezetimibe 10 mg PO DAILY 90 days fluticasone propion-salmeterol 250-50 mcg/dose (Advair Diskus) 1 inh inhalation Q12H 90 days furosemide 40 mg PO DAILY PRN gabapentin 300 mg PO BID 90 days hydrochlorothiazide 25 mg PO DAILY 90 days ipratropium-albuterol 0.5 mg-3 mg(2.5 mg base)/3 mL 3 mL inhalation Q6H PRN latanoprost 0.005% 1 drp ophthalmic-Right BEDTIME lisinopril 20 mg PO BID loratadine 10 mg PO QAM PRN 90 days lorazepam 0.5 mg PO BEDTIME PRN 30 days montelukast 10 mg PO QPM 90 days omeprazole 20 mg PO DAILY 90 days pravastatin 20 mg PO DAILY 90 days tamsulosin 0.4 mg PO DAILY 90 days triamcinolone acetonide 0.5% 1 appl topical TID PRN umeclidinium 62.5 mcg/actuation (Incruse Ellipta) 1 inh inhalation DAILY 30 days Tobacco use date assessed: 03/02/25 Fall risk assessment: No Falls in past year Dental Screening Dental Screen Date: 03/02/25 Did you have a dental visit in the last 12 months?: No Did you have a dental problem in the last 6 months where you did not have access to dental care?: No Was dental information given to patient?: Patient has dentist HPI Colitis HPI Details The patient is a 84-year-old male with past medical history of COPD, asthma, paroxysmal atrial fibrillation, BPH, GERD, HLD, eosinophilic colitis, restricted lung disease, obesity The patient is presenting with colitis. He reports persistent diarrhea associated with his colitis and recalls a previous episode of Clostridioides difficile infection treated with metronidazole. The patient has hypertension, with recent blood pressure readings of 146/80 mmHg and 160 mmHg. He did not take lisinopril on the day of the visit, which may have contributed to the elevated readings. He experiences dizziness when his blood pressure drops too low, particularly when standing up quickly. The patient has vitamin D deficiency, with a level of 22 ng/mL, and has started supplementation since his last appointment. Recent labs done earlier this month reviewed with the patient. Reports that his colitis has been acting up and his unable to see his GI doctor soon. Patient reports that his bowel movement has been coming out in spurts; he could hear his stomach gurgling in all the time. He denies stomach pain but reports every once in a while he gets a gas pain that clears with bowel movements. He denies any recent use of antibiotics. The patient denies any blood in his stool or mucus. Discussed with the patient about starting Augmentin for 10 days if diarrhea continues we will send the patient for stool sample. [facility] Medical History Vitamin D deficiency disease SOB (shortness of breath) Persistent atrial fibrillation COVID-19 Asthma Nocturnal hypoxemia AMITA (obstructive sleep apnea) Hemorrhoids with complication Benign prostatic hyperplasia GERD without esophagitis Pure hypercholesterolemia Benign essential hypertension Eosinophilic colitis Neuropathy Obesity (BMI 30-39.9) Restrictive lung disease COPD (chronic obstructive pulmonary disease) Surgical History History of tonsillectomy History of hernia surgery Family History Brother Lung cancer Social History Household Members: None Housing: House Do you presently have visiting nurse or other home services: No Alcohol intake: never Patient Tobacco Use Status: Former Tobacco user e-Cigarette/Vaping Use: Never Used Second Hand Smoke Exposure: Yes Advance Directives Date on File: 07/15/23 service: No Current occupational status: retired Cognitive needs: No Hearing needs: No Vision needs: Yes (Glasses) Questionnaire PHQ-9 Over the last 2 weeks, how often have you been bothered by any of the following problems? 1. Little interest or pleasure in doing things: not at all 2. Feeling down, depressed, or hopeless: not at all 3. Trouble falling or staying asleep, or sleeping too much: not at all 4. Feeling tired or having little energy: several days 5. Poor appetite or overeating: not at all 6. Feeling bad about yourself - or that you are a failure or have let yourself or your family down: not at all 7. Trouble concentrating on things, such as reading the newspaper or watching television: not at all 8. Moving or speaking so slowly that other people could have noticed. Or the opposite - being so fidgety or restless that you have been moving around a lot more than usual: not at all 9. Thoughts that you would be better off or of hurting yourself in some way: not at all Total score: 1 Depression Screening Interpretation: Negative Depression Screening Done: Yes Source: Developed by Drs. Gregorio Lopez, Ember Heaton, Dash De La Fuente and colleagues, with an educational neli from [employer]. Thrive Questionnaire Date Thrive assessed: 03/02/25 I am a: Patient What is your living situation today?: I have a steady place to live Within the past 12 months, did the food you bought not last and you didn't have the money to get more?: Never true Within the past 12 months, did you worry whether your food would run out before you got money to buy more?: Never true Do you have trouble paying for medicines?: No Do you have trouble getting transportation to medical appointments?: No Do you have trouble paying your heating and electricity bill?: No Do you have trouble taking care of your child, family member or friend?: No Do you have trouble with day-to-day activities such as bathing, preparing meals, shopping, managing finances, etc.?: No Are you currently unemployed and looking for a job?: No Are you interested in more education?: No Currently or been in a relationship where the following occur: No concerns reported THRIVE Score: 0 AUDIT C Alcohol Use Questionnaire (AUDIT-C) 1. How often do you have a drink containing alcohol?: Never 3. How often do you have six or more drinks on one occasion?: Never Total Score: 0 DOMINIQUE-7 AMB Questionnaire DOMINIQUE-7 Date DOMINIQUE - 7 assessed: 03/02/25 Feeling nervous, anxious, or on edge: 1 = Several days Not being able to stop or control worryin = Not at all Worrying too much about different things: 1 = Several days Trouble relaxin = Not at all Being so restless that it is hard to sit still: 0 = Not at all Becoming easily annoyed or irritable: 0 = Not at all Feeling afraid as if something awful might happen: 0 = Not at all Total DOMINIQUE-7 score (0-4 normal; 5-9 mild; 10-14 moderate; 15-21 severe): 2 Source: Developed by Drs. Gregorio Lopez, Ember Heaton, Dash De La Fuente and colleagues, with an educational neli from [employer]. Review of Systems Const Denies body aches, Denies chills, Denies fever(s), Denies headache(s) and Denies poor appetite Eyes Reports no additional complaints ENT Denies dysphagia, Reports dizziness (upon standing too quickly), Denies headache(s) and Denies odynophagia Card Denies chest pain, Denies irregular heart rhythm, Denies lightheadedness, Denies dyspnea and Reports dyspnea on exertion (mild) Resp Denies cough, Denies dyspnea and Reports dyspnea on exertion (mild) GI Denies abdominal pain, Denies constipation, Denies dysphagia, Reports diarrhea, Reports loose stools, Denies nausea, Denies odynophagia, Denies vomiting and Denies hematemesis Reports no additional complaints Musc Reports no additional complaints and Denies abnormal gait Skin/Breast Reports system reviewed and no additional complaints, except as documented Neuro Denies Abnormal speech present, Denies abnormal gait, Reports dizziness (upon standing too quickly) and Denies headache(s) Psych Reports no additional complaints Physical exam (Primary Care) Vital Signs: Last Vital Signs Temp 97.1 F 03/02/25 14:53 Pulse 68 03/02/25 14:53 Resp 18 03/02/25 14:53 BP 146/80 H 03/02/25 15:14 Pulse Ox 96 03/02/25 14:53 Oxygen Delivery Method Room Air 03/02/25 14:53 BMI result Body Mass Index 34.4 Tobacco/Smoking Status: Tobacco use Status Tobacco use date assessed 03/02/25 03/02/25 15:05 Patient Tobacco Use Status Former Tobacco user 03/02/25 15:05 e-Cigarette/Vaping Use Never Used 03/02/25 15:05 PHQ-9: PHQ-9 Score PHQ-9: Total score 1 03/15/25 00:58 Depression Screening Interpretation: Negative Thrive Assessment: Date of Thrive Assessment Date Thrive assessed 03/02/25 03/02/25 15:05 Currently or been in a relationship where the following occur: No concerns reported Const General: healthy appearing, no acute distress, alert and awake Nutritional Appearance: well nourished Orientation/consciousness: oriented to person, oriented to place and oriented to time HENMT Ears: TM's normal bilaterally General nose exam: Normal nasal mucous membranes and turbinates present Eyes Conjunctivae: conjunctivae normal Sclerae: sclerae normal Pupils: Equal, round and reactive pupils present Neck Neck: Yes no lymphadenopathy and Yes no JVD Thyroid: Thyroid normal Carotids: no bruits Resp Effort & Inspection: normal respiratory effort and not tachypneic Auscultation: no crackles, no rales, no rhonchi and no wheezes Cardio Rate: regular rate Rhythm: regular rhythm Heart sounds: no murmurs and normal S1 and S2 GI Palpation (GI): Soft to palpation, nontender, no hepatomegaly and no splenomegaly Auscultation: Hyperactive bowel sounds present Skin General skin exam: no rashes or lesions noted and dry skin Neuro General: oriented to person, oriented to place and oriented to time Cranial nerves: Yes Equal, round and reactive pupils present Speech: No Abnormal speech present Gait exam (Neuro): Normal gait present Motor exam (neuro): no tremor noted Extrem Right upper extremity: full ROM Left upper extremity: full ROM Right lower extremity: full ROM; no edema Left lower extremity: full ROM; no edema Psych Mental Status: mental status grossly normal Speech and movement: Normal speech and movement present Affect: normal affect Attitude: cooperative Thought process: Normal thought process present Results Reviewed Results Reviewed: Laboratory Tests 02/07/25 02/07/25 11:17 11:22 WBC 6.2 RBC 4.62 Hgb 12.6 L Hct 39.0 L MCV 84.4 MCH 27.3 MCHC 32.3 RDW 15.3 Plt Count 209 MPV 9.8 Immature Gran % (Auto) 0.3 Neut % (Auto) 59.2 Lymph % (Auto) 26.5 [place] % (Auto) 11.8 H Sodium 142 Potassium 4.7 Chloride 102 Carbon Dioxide 32 H Anion Gap 13 BUN 22 H Creatinine 1.24 Estimated GFR 56 Fasting Glucose 89 Calcium 8.8 AST 29 ALT 29 Alkaline Phosphatase 35 L Total Protein 6.1 L Albumin 3.8 Triglycerides 114 Cholesterol 139 LDL Cholesterol, Calc 67 HDL Cholesterol 50 Vitamin B12 789 25-OH Vitamin D Total 22.4 L Folate 9.1 TSH 0.72 Urine Color Yellow Urine Appearance Clear Urine pH 5.5 Ur Specific [place] 1.020 Urine Protein Negative Urine Glucose (UA) Negative Urine Ketones Negative Urine Blood Negative Urine Nitrite Negative Ur Leukocyte Esterase Negative Coding Level of Care Code Est Pt Level 4 (01127) Diagnoses Benign essential hypertension I10 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 GERD without esophagitis K21.9 Paroxysmal atrial fibrillation I48.0 Pure hypercholesterolemia E78.00 Anxiety F41.9 Benign prostatic hyperplasia, unspecified whether lower urinary tract symptoms present N40.0 Lower urinary tract symptom presence: unspecified whether lower urinary tract symptoms present Asthma, unspecified asthma severity, unspecified whether complicated, unspecified whether persistent J45.909 Asthma severity: unspecified severity Asthma persistence: unspecified Asthma complication type: unspecified Chronic obstructive pulmonary disease, unspecified COPD type J44.9 COPD type: unspecified COPD AMITA (obstructive sleep apnea) G47.33 Time Spent (min) 42 Assessment & Plan Assessment & Plan (1) Benign essential hypertension: Code(s): I10 - Essential (primary) hypertension Category: Medical Plan: Blood pressure above goal-he is currently uncomfortable due to recurrent GI issues. Reinforced low-salt diet and fluid hydration Continue atenolol 12.5 mg daily, hydrochlorothiazide 25 mg daily, lisinopril 20 mg b.i.d. (2) Eosinophilic colitis: Code(s): K52.82 - Eosinophilic colitis Category: Medical Plan: Recurrent colitis flare-up [id number] b.i.d. times 10 days. If loose stools continue, we will consider checking stool for C diff (3) GERD without esophagitis: Code(s): K21.9 - Gastro-esophageal reflux disease without esophagitis Category: Medical Plan: Do not eat meals or drink carbonated beverages within 3 hr of bedtime Decrease the amount of fried, fatty, and spicy foods to decrease gastric acid production Raise the head of the bed using 4 to 6-inch blocks, especially if nocturnal symptoms are present Lose weight if indicated; avoid tight-fitting clothing, especially around the waist Avoid foods that relax the Lower esophageal sphincter (chocolate, peppermint, high-fat foods etc.,) Continue omeprazole 20 mg daily (4) Paroxysmal atrial fibrillation: Code(s): I48.0 - Paroxysmal atrial fibrillation Category: Medical Plan: Patient was cardioverted in 2022 and has remained in sinus rhythm and stable on Multaq 400 mg b.i.d.. Continue ezetimibe 10 mg daily, pravastatin 20 mg daily and apixaban 5 mg b.i.d.. Follow up with Cardiology as scheduled (5) Pure hypercholesterolemia: Code(s): E78.00 - Pure hypercholesterolemia, unspecified Category: Medical Plan: Cholesterol has been well-controlled on current treatment of pravastatin 20 mg daily and ezetimibe 10 mg daily. We will recheck lipid panel in 4 months (6) Anxiety: Code(s): F41.9 - Anxiety disorder, unspecified Category: Medical Plan: Encouraged CBT Continue lorazepam 0.5 mg at bedtime p.r.n. Denies SI/HI (7) Benign prostatic hyperplasia: Code(s): N40.0 - Benign prostatic hyperplasia without lower urinary tract symptoms Category: Medical Qualifiers: Lower urinary tract symptom presence: unspecified whether lower urinary tract symptoms present Qualified Code(s): N40.0 - Benign prostatic hyperplasia without lower urinary tract symptoms Plan: Reports improvement on tamsulosin 0.4 mg daily Follow up with Urology as scheduled (8) Asthma: Comment: HE HAS ASTHMA/COPD OVERLAP SYNDROME.. Currently staying stable. He has frequent acute exacerbations requiring prednisone on an ongoing basis, even though the dozes 5 mg on alternate days. This is in addition to budesonide 3 mg daily for inflammatory bowel disease. His IgE level is markedly elevated (5519 ) c/w CHRONIC INFLAMMATORY DISEASE. CRP= >10 DISCUSSION : DISCUSSED IN DETAIL WITH HIM ABOUT THESE FINDINGS. I EXPLAINED THAT HE MAY BE A GOOD CANDIDATE FOR BIOLOGIC TREATMENT. HE IS AGREEABLE, * ON HIS LAST VISIT I HAD ORDERED XOLAIR, FOR BIOLOGIC TREATMENT, BUT IT WAS NOT APPROVED BY HIS INSURANCE. Code(s): J45.909 - Unspecified asthma, uncomplicated Category: Medical Qualifiers: Asthma severity: unspecified severity Asthma persistence: unspecified Asthma complication type: unspecified Qualified Code(s): J45.909 - Unspecified asthma, uncomplicated Plan: Denies increase in dyspnea with exertion. Lifestyle modifications like smoking cessation. Wear a mask when around irritants, fumes, or particulate matter (e.g., painting, lawn mowing). Increase humidification at home, especially in the winter. Annual flu shots and the pneumonia shot can mitigate exacerbation. Increase fluids if not contraindicated because of heart failure. Continue montelukast 10 mg q.p.m., Incruse Ellipta 1 inh daily, fluticasone propion-salmeterol 250-50 mcg/dose 1 inh q12H, albuterol sulfate 90 mcg/actuation 1 inh q.i.d. p.r.n., and DuoNeb q.6 p.r.n.. Follow up with pulmonology as scheduled (9) COPD (chronic obstructive pulmonary disease): Comment: MODERATELY SEVERE OBSTRUCTIVE AIRWAY DISORDER. H/O HAVING FREQUENT ACUTE EXACERBATIONS, NOW THAT HE IS ON PREDNISONE 5 MG ON ALTERNATE DAYS, HIS BREATHING STATUS IS DEFINITELY IMPROVED. RE HOWEVER HE CONTINUES TO BE AT HIGHER RISK OF GETTING FREQUENT EXACERBATIONS. Code(s): J44.9 - Chronic obstructive pulmonary disease, unspecified Category: Medical Qualifiers: COPD type: unspecified COPD Qualified Code(s): J44.9 - Chronic obstructive pulmonary disease, unspecified Plan: Same as above (10) AMITA (obstructive sleep apnea): Comment: PATIENT HAS MILD AMITA, ALONG WITH NOCTURNAL HYPOXEMIA HE HAS TRIED HIS BEST AND CANNOT USE THE CPAP OR BIPAP AT NIGHT. SO HE JUST USES O2 AT NIGHT. Code(s): G47.33 - Obstructive sleep apnea (adult) (pediatric) Category: Medical Plan: Unable to tolerate CPAP. Continue oxygen supplement as needed Plan Follow up in 4 months Medications: New amoxicillin-pot clavulanate 875-125 mg 1 tab PO BID 20 tabs 0RF 10 days
[2025-03-02 15:14] VITALS: BP 146/80
== END 2025-03-02 15:38 | disposition home or self-care (01) ==
LOC: HO.HMCH 14:49
PROVIDERS: PCP Internal Medicine
DX: I10 Essential (primary) hypertension (principal); K52.82 Eosinophilic colitis; I48.0 Paroxysmal atrial fibrillation; J44.9 Chronic obstructive pulmonary disease, unspecified; E78.00 Pure hypercholesterolemia, unspecified; K21.9 Gastro-esophageal reflux disease without esophagitis; F41.9 Anxiety disorder, unspecified; N40.0 Benign prostatic hyperplasia without lower urinary tract symptoms; J45.909 Unspecified asthma, uncomplicated; G47.33 Obstructive sleep apnea (adult) (pediatric)

== ENCOUNTER → 2025-03-02 14:49 | Outpatient (BNVA) | payer MEDICARE, SELFPAY | PROVIDERS: PCP Internal Medicine | DX: I48.0 Paroxysmal atrial fibrillation (principal); J44.9 Chronic obstructive pulmonary disease, unspecified; N40.0 Benign prostatic hyperplasia without lower urinary tract symptoms; K21.9 Gastro-esophageal reflux disease without esophagitis; E78.5 Hyperlipidemia, unspecified; E66.9 Obesity, unspecified; I10 Essential (primary) hypertension; E55.9 Vitamin D deficiency, unspecified; K52.82 Eosinophilic colitis; E78.00 Pure hypercholesterolemia, unspecified; G47.33 Obstructive sleep apnea (adult) (pediatric); Z68.34 Body mass index [BMI] 34.0-34.9, adult | CPT/HCPCS: 96127; 99212 ==

== ENCOUNTER 2025-05-23 11:05 | Outpatient (AMB) | payer MEDICARE, SELFPAY ==
[2025-05-23 11:19] VITALS: BP 142/68; PULSE 59; O2SAT 60; BMI 34.6
--- NOTE | 2025-05-23 11:19 | MHC.OFFVIS ---
Vital Signs 05/23/25 11:19 Height 5 ft 11 in Weight 248 lb 0.321 oz BMI 34.6 BP 142/68 H Blood Pressure Location Lt brachial Position Sitting Pulse 59 Pulse Source Pulse Oximeter Pulse Oximetry (%) 60 L Oxygen Delivery Method Room Air Intake Visit Reasons: COPD Intake Note: pt is here for follow up and states he did some classes of pulm rehab, has 5 left, but wasn't feeling well had to stop until he feels better, and today he states he is coughing with phelgm some color on and off, in February he was put on Augmentin and this helped a lot with the phlegm. Lithographic Proofer Apprentice Required: No Lithographic Proofer Apprentice: Lithographic Proofer Apprentice offered & declined Allergies Sulfa (Sulfonamide Antibiotics) Allergy (Mild, Verified 05/23/25 11:44) RASH, BLISTERS codeine (Codeine) Allergy (Unknown, Verified 05/23/25 11:44) HALLUCINATIONS Medication List - Last Reconciled 05/23/25 by Geovanni Larson MD albuterol sulfate 90 mcg/actuation (Ventolin HFA) 1 inh inhalation QID PRN 90 days apixaban (Eliquis) 5 mg PO BID 90 days atenolol 12.5 mg (1/2 x 25 mg) PO DAILY B-complex with vitamin C 1 tab PO DAILY budesonide DR-ER 3 mg PO Q OTHER DAY cholecalciferol (vitamin D3) 50 mcg PO DAILY 90 days cholestyramine-aspartame 4 gram ea PO dronedarone (Multaq) 400 mg PO BID ezetimibe 10 mg PO DAILY 90 days fluticasone propion-salmeterol 250-50 mcg/dose (Advair Diskus) 1 inh inhalation Q12H 90 days furosemide 40 mg PO DAILY PRN gabapentin 300 mg PO BID 90 days hydrochlorothiazide 25 mg PO DAILY 90 days ipratropium-albuterol 0.5 mg-3 mg(2.5 mg base)/3 mL 3 mL inhalation Q6H PRN latanoprost 0.005% 1 drp ophthalmic-Right BEDTIME lisinopril 20 mg PO BID loratadine 10 mg PO QAM PRN 90 days lorazepam 0.5 mg PO BEDTIME PRN 30 days montelukast 10 mg PO QPM 90 days omeprazole 20 mg PO DAILY 90 days pravastatin 20 mg PO DAILY 90 days prednisone 5 mg PO Q OTHER DAY 90 days tamsulosin 0.4 mg PO DAILY 90 days triamcinolone acetonide 0.5% 1 appl topical TID PRN umeclidinium 62.5 mcg/actuation (Incruse Ellipta) 1 inh inhalation DAILY 30 days Do you need a note to return to daycare/school/sports/work: No HPI HPI COPD: Details: Noel is 84 years old gentleman with advanced chronic obstructive pulmonary disease and is here for 6 months follow-up. In the meantime he has been participating in pulmonary rehab program and benefiting. He had to take a break because of feeling generally sick. In February he had chest congestion as well as diarrhea. His primary care physician prescribed Augmentin. He claims that as he completed the course of Augmentin he started feeling much better and expectorated some greenish phlegm which he thought cleared his bronchial tubes. Now for the past few days he is again feeling congested and having increased cough but no fever or chills. He has been using his regular medical regimen. He is prone to have recurrent respiratory infections. [facility] Medical History Vitamin D deficiency disease SOB (shortness of breath) Persistent atrial fibrillation COVID-19 Asthma Nocturnal hypoxemia AMITA (obstructive sleep apnea) Hemorrhoids with complication Benign prostatic hyperplasia GERD without esophagitis Pure hypercholesterolemia Benign essential hypertension Eosinophilic colitis Neuropathy Obesity (BMI 30-39.9) Restrictive lung disease COPD (chronic obstructive pulmonary disease) Surgical History History of tonsillectomy History of hernia surgery Family History Brother Lung cancer Social History Household Members: None Housing: House Do you presently have visiting nurse or other home services: No Alcohol intake: never Patient Tobacco Use Status: Former Tobacco user e-Cigarette/Vaping Use: Never Used Second Hand Smoke Exposure: Yes Advance Directives Date on File: 07/15/23 service: No Current occupational status: retired Cognitive needs: No Hearing needs: No Vision needs: Yes (Glasses) Review of Systems Const All systems reviewed & are unremarkable except as noted in HPI and below Eyes Reports no additional complaints ENT Reports no additional complaints and Reports sore throat (COMPLAINS OF SCRATCHY THROAT FOR THE LAST FEW DAYS.) Card Denies chest pain, Reports irregular heart rhythm (HAS PAROXYSMAL ATRIAL FIB) and Reports leg edema (RIGHT LEG) Resp Reports as per HPI GI Details: CHRONIC INFLAMMATORY BOWEL DISEASE UNDER CONTROL. Reports no additional complaints Musc Reports no additional complaints Skin/Breast Reports system reviewed and no additional complaints, except as documented Neuro Reports no additional complaints Psych Reports no additional complaints Physical Exam Vital Signs: Last Vital Signs Pulse 59 05/23/25 11:19 BP 142/68 H 05/23/25 11:19 Pulse Ox 60 L 05/23/25 11:19 Oxygen Delivery Method Room Air 05/23/25 11:19 BMI result Body Mass Index 34.6 Const Other: HE IS VISIBLY, GROSSLY OBESE General: comfortable, no acute distress, alert and awake Orientation/consciousness: patient oriented x3 HEENT Head: Yes normal to inspection General nose exam: No nasal polyps present and No nasal discharge present Face and sinus: Yes sinuses nontender Mouth: oropharynx normal Throat: Yes posterior oropharynx normal and Yes posterior oropharynx abnormal (MILD ERYTHEMA NOTED) Eyes General: appearance normal, both eyes and all related structures Neck Neck: Yes normal visual inspection, Yes no lymphadenopathy, Yes trachea midline and Yes no JVD Thyroid: Thyroid normal Chest Chest palpation & inspection: normal inspection of the chest, normal palpation of entire chest wall and no tenderness Resp Other: PERCUSSION NOTE IS NOT PERCEPTIBLE BECAUSE OF THE THICK CHEST WALL, BREATH SOUNDS ARE DISTANT ESPECIALLY DECREASED OVER THE BASILAR AREAS. DOES NOT HAVE ANY WHEEZES, BUT HAS SOME INSPIRATORY CRACKLES OVER THE BOTH LOWER LOBE AREAS, POSTERIORLY. Cardio Palpation: PMI not normal (NOT PALPABLE) Rate: regular rate Rhythm: abnormal rhythm (ATRIAL FIB) Heart sounds: Gallop heart sound present and Murmur heart sound present GI Palpation (GI): Soft to palpation, nontender, No hepatosplenomegaly present, no masses and Other GI palpation findings present (ABDOMEN IS OBESE AND PROTUBERANT) Auscultation: normal bowel sounds Back/Spine/Pelvis Thoracic/Lumbar Spine: thoracic and lumbar spine normal to inspection Skin General skin exam: no rashes or lesions noted (EXCEPT ON RIGHT LEG, THERE IS REDNESS AND WARM TO TOUCH.) Neuro General: patient oriented x3 and no focal motor deficits Cranial nerves: Yes CN's II-XII intact bilaterally Extrem General: Yes normal to inspection, Yes no calf tenderness and Yes venous stasis dermatitis (RIGHT LEG) Psych Appearance: grossly normal and well kempt Speech and movement: Normal speech and movement present Assessment & Plan Assessment & Plan (1) COPD (chronic obstructive pulmonary disease): Comment: MODERATELY SEVERE OBSTRUCTIVE AIRWAY DISORDER. H/O HAVING FREQUENT ACUTE EXACERBATIONS, NOW THAT HE IS ON PREDNISONE 5 MG ON ALTERNATE DAYS, HIS BREATHING STATUS IS DEFINITELY IMPROVED. HOWEVER HE CONTINUES TO BE AT HIGHER RISK OF GETTING FREQUENT EXACERBATIONS. BREATHING VALDEZ HAS BEEN DOING FAIRLY WELL WITH HIS CURRENT REGIMEN. HE HE HAS BENEFITED FROM PULMONARY REHAB PROGRAM BUT HAD TO TAKE A LITTLE BREAK BECAUSE HE WAS FEELING GENERALLY SICK. HE INTENDS TO GO BACK TO COMPLETE HIS REHAB SESSIONS. Code(s): J44.9 - Chronic obstructive pulmonary disease, unspecified Category: Medical Qualifiers: COPD type: unspecified COPD Qualified Code(s): J44.9 - Chronic obstructive pulmonary disease, unspecified Plan: CONTINUE TO USE WIXELA 250-51 INHALATION B.I.D. IPRATROPIUM-ALBUTEROL SOLUTION IN THE NEBULIZER Q 6 HOURS P.R.N. INCRUSE ELLIPTA 1 INHALATION DAILY VENTOLIN HFA 2 PUFFS Q 4-6 HOURS P.R.N. WHEN OUTDOORS. AUGMENTIN 500-125 1 TABLET TID FOR 10 DAYS. IF HE GETS ANY RESPIRATORY INFECTION ATTACKS . (2) Restrictive lung disease: Comment: BECAUSE OF HIS OBESITY I SUSPECT THAT HE HAS MILD TO MODERATE DEGREE OF RESTRICTIVE LUNG DISEASE WELL. Code(s): J98.4 - Other disorders of lung Category: Medical Plan: HE IS ADVISED TO CONTINUE DOING DEEP BREATHING EXERCISES AT LEAST 3 TIMES A DAY . (3) AMITA (obstructive sleep apnea): Comment: PATIENT HAS MILD AMITA, ALONG WITH NOCTURNAL HYPOXEMIA HE HAS TRIED HIS BEST AND CANNOT USE THE CPAP OR BIPAP AT NIGHT. Code(s): G47.33 - Obstructive sleep apnea (adult) (pediatric) Category: Medical Plan: JUST USE O2 2 L/MINUTE AT NIGHT (4) Nocturnal hypoxemia: Comment: IN HIS HOME-BASED SLEEP STUDY IT WAS THE RECORDED THAT HE DOES HAVE SOME HYPOXEMIA AT NIGHT. IT WAS EXPECTED TO RESOLVE WITH THE APPLICATION OF BIPAP, WHICH HE WAS NOT ABLE TO DO. THUS HE HAS BEEN TREATED WITH O2 2 L/MINUTE AT NIGHT. Code(s): G47.34 - Idiopathic sleep related nonobstructive alveolar hypoventilation Category: Medical Plan: O2 2 L/MINUTE AT NIGHT (5) Allergic rhinitis: Comment: HAS MILD CHRONIC ALLERGIC RHINITIS, CONTROLLED AT PRESENT. Code(s): J30.9 - Allergic rhinitis, unspecified Category: Medical Qualifiers: Allergic rhinitis seasonality: unspecified Allergic rhinitis trigger: unspecified Qualified Code(s): J30.9 - Allergic rhinitis, unspecified Plan: CONTINUE MONTELUKAST 10 MG ONCE A DAY Medications: New amoxicillin-pot clavulanate 500-125 mg (Augmentin) 1 tab PO TID 30 tabs 1RF ACUTE BRONCHITIS 10 days Coding Level of Care Code Est Pt Level 3 (51337) Diagnoses Chronic obstructive pulmonary disease, unspecified COPD type J44.9 COPD type: unspecified COPD Restrictive lung disease J98.4 AMITA (obstructive sleep apnea) G47.33 Nocturnal hypoxemia G47.34 Allergic rhinitis, unspecified seasonality, unspecified trigger J30.9 Allergic rhinitis seasonality: unspecified Allergic rhinitis trigger: unspecified
== END 2025-05-23 12:03 | disposition home or self-care (01) ==
LOC: HO.HPS 11:06
PROVIDERS: PCP Internal Medicine; Visit Provider Internal Medicine
DX: J44.9 Chronic obstructive pulmonary disease, unspecified (principal); J98.4 Other disorders of lung; G47.33 Obstructive sleep apnea (adult) (pediatric); G47.34 Idiopathic sleep related nonobstructive alveolar hypoventilation; J30.9 Allergic rhinitis, unspecified
CPT/HCPCS: 99213

== ENCOUNTER → 2025-05-23 11:05 | Outpatient (BNVA) | payer MEDICARE, SELFPAY | PROVIDERS: PCP Internal Medicine; Visit Provider Internal Medicine | DX: J44.9 Chronic obstructive pulmonary disease, unspecified (principal); J98.4 Other disorders of lung; G47.33 Obstructive sleep apnea (adult) (pediatric); G47.34 Idiopathic sleep related nonobstructive alveolar hypoventilation; J30.9 Allergic rhinitis, unspecified; Z99.81 Dependence on supplemental oxygen | CPT/HCPCS: 99212 ==

== ENCOUNTER 2025-06-20 10:49 | Outpatient (AMB) | payer MEDICARE, SELFPAY ==
[2025-06-20 10:57] VITALS: BP 152/78; PULSE 85; O2SAT 96; BMI 35.0
--- NOTE | 2025-06-20 10:57 | MHC.PC.OV ---
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 Accompanied by: Self / Same As Patient Allergies Sulfa (Sulfonamide Antibiotics) Allergy (Mild, Verified 06/20/25 11:39) RASH, BLISTERS codeine (Codeine) Allergy (Unknown, Verified 06/20/25 11:39) HALLUCINATIONS Medication List - Last Reconciled 06/20/25 by Noel Howard MD albuterol sulfate 90 mcg/actuation (Ventolin HFA) 1 inh inhalation QID PRN 90 days apixaban (Eliquis) 5 mg PO BID 90 days atenolol 12.5 mg (1/2 x 25 mg) PO DAILY B-complex with vitamin C 1 tab PO DAILY budesonide DR-ER 3 mg PO Q OTHER DAY cholecalciferol (vitamin D3) 50 mcg PO DAILY 90 days cholestyramine-aspartame 4 gram ea PO dronedarone (Multaq) 400 mg PO BID ezetimibe 10 mg PO DAILY 90 days fluticasone propion-salmeterol 250-50 mcg/dose (Advair Diskus) 1 inh inhalation Q12H 90 days furosemide 40 mg PO DAILY PRN gabapentin 300 mg PO BID 90 days hydrochlorothiazide 25 mg PO DAILY 90 days ipratropium-albuterol 0.5 mg-3 mg(2.5 mg base)/3 mL 3 mL inhalation Q6H PRN latanoprost 0.005% 1 drp ophthalmic-Right BEDTIME lisinopril 20 mg PO BID loratadine 10 mg PO QAM PRN 90 days lorazepam 0.5 mg PO BEDTIME PRN 30 days montelukast 10 mg PO QPM 90 days omeprazole 20 mg PO DAILY 90 days pravastatin 20 mg PO DAILY 90 days prednisone 5 mg PO Q OTHER DAY 90 days tamsulosin 0.4 mg PO DAILY 90 days triamcinolone acetonide 0.5% 1 appl topical TID PRN umeclidinium 62.5 mcg/actuation (Incruse Ellipta) 1 inh inhalation DAILY 30 days Tobacco use date assessed: 06/20/25 Fall risk assessment: No Falls in past year Last assessed Fall Risk: 06/20/25 Dental Screening Dental Screen Date: 06/20/25 Did you have a dental visit in the last 12 months?: No Did you have a dental problem in the last 6 months where you did not have access to dental care?: No Was dental information given to patient?: No HPI COPD, hyperlipidemia, HTN, PAF, AMITA HPI Details Patient comes in today for his follow up visit States that he currently feels okay Relates that he just finished some Abx that were prescribed by Dr. Larson a few weeks ago for bronchitis/COPD exacerbation; he was also started on Prednisone 5 mg every other day since States that his respiratory symptoms have improved somewhat but he is still experiencing on and off cough and congestion and coughs up some whitish phlegm at times He denies any fever or sore throat; denies any headaches or dizziness Denies any chest pains No nausea/vomiting, no abdominal pain No change in bowel habits noted He was not able to get his follow up labs done prior to his appointment today - states that he will go and get them done tomorrow [facility] Medical History Vitamin D deficiency disease SOB (shortness of breath) Persistent atrial fibrillation COVID-19 Asthma Nocturnal hypoxemia AMITA (obstructive sleep apnea) Hemorrhoids with complication Benign prostatic hyperplasia GERD without esophagitis Pure hypercholesterolemia Benign essential hypertension Eosinophilic colitis Neuropathy Obesity (BMI 30-39.9) Restrictive lung disease COPD (chronic obstructive pulmonary disease) Surgical History History of tonsillectomy History of hernia surgery Family History Brother Lung cancer Social History Household Members: None Housing: House Do you presently have visiting nurse or other home services: No Alcohol intake: never Patient Tobacco Use Status: Former Tobacco user e-Cigarette/Vaping Use: Never Used Second Hand Smoke Exposure: Yes Advance Directives Date on File: 07/15/23 service: No Current occupational status: retired Cognitive needs: No Hearing needs: No Vision needs: Yes (Glasses) Questionnaire PHQ-9 Over the last 2 weeks, how often have you been bothered by any of the following problems? 1. Little interest or pleasure in doing things: not at all 2. Feeling down, depressed, or hopeless: not at all 3. Trouble falling or staying asleep, or sleeping too much: not at all 4. Feeling tired or having little energy: several days 5. Poor appetite or overeating: not at all 6. Feeling bad about yourself - or that you are a failure or have let yourself or your family down: not at all 7. Trouble concentrating on things, such as reading the newspaper or watching television: not at all 8. Moving or speaking so slowly that other people could have noticed. Or the opposite - being so fidgety or restless that you have been moving around a lot more than usual: not at all 9. Thoughts that you would be better off or of hurting yourself in some way: not at all Total score: 1 Depression Screening Interpretation: Negative Depression Screening Done: Yes 89678 - PHQ-9 Billing: Yes Source: Developed by Drs. Gregorio Lopez, Ember Heaton, Dash De La Fuente and colleagues, with an educational neli from [employer]. Thrive Questionnaire Date Thrive assessed: 06/20/25 I am a: Patient What is your living situation today?: I have a steady place to live Within the past 12 months, did the food you bought not last and you didn't have the money to get more?: Never true Within the past 12 months, did you worry whether your food would run out before you got money to buy more?: Never true Do you have trouble paying for medicines?: No Do you have trouble getting transportation to medical appointments?: No Do you have trouble paying your heating and electricity bill?: No Do you have trouble taking care of your child, family member or friend?: No Do you have trouble with day-to-day activities such as bathing, preparing meals, shopping, managing finances, etc.?: No Are you currently unemployed and looking for a job?: No Are you interested in more education?: No Currently or been in a relationship where the following occur: No concerns reported THRIVE Score: 0 AUDIT C Alcohol Use Questionnaire (AUDIT-C) 1. How often do you have a drink containing alcohol?: Never 3. How often do you have six or more drinks on one occasion?: Never Total Score: 0 Score Reviewed/Action Taken: Yes DOMINIQUE-7 AMB Questionnaire DOMINIQUE-7 Date DOMINIQUE - 7 assessed: 06/20/25 Feeling nervous, anxious, or on edge: 1 = Several days Not being able to stop or control worryin = Not at all Worrying too much about different things: 1 = Several days Trouble relaxin = Not at all Being so restless that it is hard to sit still: 0 = Not at all Becoming easily annoyed or irritable: 0 = Not at all Feeling afraid as if something awful might happen: 0 = Not at all Total DOMINIQUE-7 score (0-4 normal; 5-9 mild; 10-14 moderate; 15-21 severe): 2 Source: Developed by Drs. Gregorio Lopez, Ember Heaton, Dash De La Fuente and colleagues, with an educational neli from [employer]. Review of Systems Const Denies chills, Denies fatigue, Denies fever(s) and Denies headache(s) ENT Denies dysphagia, Denies dizziness, Denies otalgia, Denies headache(s), Denies neck pain, Denies odynophagia and Denies sore throat Card Denies chest pain, Denies rapid heart rate, Denies palpitations and Reports dyspnea on exertion (mild) Resp Reports chest congestion (some lingering congestion from his recent bout with bronchitis), Reports cough (on and off, mostly non-productive but coughs up whitish phlegm at times), Denies pain with cough, Reports dyspnea on exertion (mild) and Denies wheezing GI Denies abdominal pain, Denies constipation, Denies dysphagia, Denies heartburn, Denies diarrhea, Denies nausea, Denies odynophagia and Denies vomiting Denies difficulty urinating, Denies dysuria, Denies nocturia and Denies urinary frequency Musc Denies back pain, Denies neck pain and Reports stiffness Skin/Breast Denies rash Neuro Denies dizziness and Denies headache(s) Endo Denies fatigue and Denies palpitations Aller/Immun Denies wheezing Physical exam (Primary Care) Vital Signs: Last Vital Signs Pulse 85 06/20/25 10:57 BP 152/78 H 11/17/25 10:57 Pulse Ox 96 06/20/25 10:57 Oxygen Delivery Method Room Air 06/20/25 10:57 BMI result Body Mass Index 35.0 Tobacco/Smoking Status: Tobacco use Status Tobacco use date assessed 06/20/25 06/20/25 11:05 Patient Tobacco Use Status Former Tobacco user 06/20/25 11:05 e-Cigarette/Vaping Use Never Used 06/20/25 11:05 PHQ-9: PHQ-9 Score PHQ-9: Total score 1 06/20/25 11:05 Depression Screening Interpretation: Negative Thrive Assessment: Date of Thrive Assessment Date Thrive assessed 06/20/25 06/20/25 11:05 Currently or been in a relationship where the following occur: No concerns reported Const General: no acute distress and alert HENMT Ears: TM's normal bilaterally and EAC's normal Throat: Yes posterior oropharynx normal and Yes tonsils normal (no TP congestion noted) Neck Neck: Yes supple and No lymphadenopathy Thyroid: Thyroid normal Resp Auscultation: no crackles, no rales, no wheezes and diminished lung sounds (slightly) bilateral Cardio Rate: regular rate Rhythm: regular rhythm Heart sounds: no murmurs GI Palpation (GI): Soft to palpation and nontender Auscultation: normal bowel sounds General: Yes no CVA tenderness Back/Spine/Pelvis Back: no CVA tenderness Thoracic/Lumbar Spine: No lumbar spinal tenderness Skin Rashes: no rashes Extrem General: Yes no clubbing, cyanosis or edema Coding Level of Care Code Est Pt Level 4 (55690) Diagnoses Chronic obstructive pulmonary disease, unspecified COPD type J44.9 COPD type: unspecified COPD AMITA (obstructive sleep apnea) G47.33 Paroxysmal atrial fibrillation I48.0 Pure hypercholesterolemia E78.00 Benign essential hypertension I10 Allergic rhinitis, unspecified seasonality, unspecified trigger J30.9 Allergic rhinitis trigger: unspecified Allergic rhinitis seasonality: unspecified GERD without esophagitis K21.9 Right leg swelling M79.89 Vitamin D deficiency disease E55.9 Elevated vitamin B12 level R79.89 Benign prostatic hyperplasia, unspecified whether lower urinary tract symptoms present N40.0 Lower urinary tract symptom presence: unspecified whether lower urinary tract symptoms present Anxiety F41.9 Obesity (BMI 30-39.9) E66.9 Additional Codes PHQ-9 - 28965 - PHQ-9 Billing: Yes ([id number]) Assessment & Plan Assessment & Plan (1) COPD (chronic obstructive pulmonary disease): Code(s): J44.9 - Chronic obstructive pulmonary disease, unspecified Category: Medical Qualifiers: COPD type: unspecified COPD Qualified Code(s): J44.9 - Chronic obstructive pulmonary disease, unspecified Plan: He just completed his antibiotics that were started by Dr. Larson a few weeks ago for bronchitis/COPD exacerbation and states that his respiratory symptoms have mostly improved although he still has some lingering cough and congestion Continue Advair Diskus 500-50 mcg 1 inhalation BID, Incruse Ellipta 62.5 mcg 1 inhalation QD and Duoneb via nebulization every 6 hours and/or Albuterol HFA 2 puffs 4 times a day as needed Continue Prednisone 5 mg QOD His insurance previously denied pulmonary recommendation for Xolair injections Follow up with pulmonary (Dr. Larson) as scheduled (2) AMITA (obstructive sleep apnea): Comment: PATIENT HAS MILD AMITA, ALONG WITH NOCTURNAL HYPOXEMIA HE HAS TRIED HIS BEST AND CANNOT USE THE CPAP OR BIPAP AT NIGHT. Code(s): G47.33 - Obstructive sleep apnea (adult) (pediatric) Category: Medical Plan: He is unable to use/tolerate CPAP or Bipap at night and is currently just being managed with 2 L of oxygen at night when he is sleeping Follow up with Sleep Medicine/Pulmonary as scheduled (3) Paroxysmal atrial fibrillation: Code(s): I48.0 - Paroxysmal atrial fibrillation Category: Medical Plan: S/P cardioversion on 09/04/22; patient is currently still in sinus rhythm He has a CHADSVASc score of 3 and requires lifelong thromboembolism prophylaxis with Eliquis 5 mg BID Continue Multaq 400 mg BID and Atenolol 12.5 mg QD Follow up with cardiology as scheduled (4) Pure hypercholesterolemia: Code(s): E78.00 - Pure hypercholesterolemia, unspecified Category: Medical Plan: He was not able to get his follow up labs done prior to his appointment today - states that he will go and get them done tomorrow Reinforced low cholesterol diet Continue Pravastatin 20 mg QD and Ezetimibe 10 mg QD Will recheck his labs and fasting lipids again in 4 months for follow up (5) Benign essential hypertension: Code(s): I10 - Essential (primary) hypertension Category: Medical Plan: Reinforced low sodium diet - goal is systolic BP of at least 140 mm or less Continue Atenolol 12.5 mg QD, HCTZ 25 mg QD and Lisinopril 20 mg BID He is again reminded to continue monitoring his blood pressure regularly (6) Allergic rhinitis: Comment: HAS MILD CHRONIC ALLERGIC RHINITIS, CONTROLLED AT PRESENT. Code(s): J30.9 - Allergic rhinitis, unspecified Category: Medical Qualifiers: Allergic rhinitis trigger: unspecified Allergic rhinitis seasonality: unspecified Qualified Code(s): J30.9 - Allergic rhinitis, unspecified Plan: Continue Laratadine 10 mg QD and Montelukast 10 mg Q PM (7) GERD without esophagitis: Code(s): K21.9 - Gastro-esophageal reflux disease without esophagitis Category: Medical Plan: Dietary restrictions reinforced Continue Omeprazole 20 mg QD (8) Right leg swelling: Comment: HE HAS CHRONIC EDEMA OF THE RIGHT LEG. AT PRESENT THE SKIN IS RED AND WARM C/W CELLULITIS I PRESCRIBED KEFLEX 500 MG T.I.D. FOR 10 DAYS, AT HIS REQUEST. Code(s): M79.89 - Other specified soft tissue disorders Category: Medical Plan: This is mostly due to stasis (stasis edema) and occurs on and off Venous doppler done last year came out negative for DVT Continue Furosemide 40 mg QD PRN (9) Vitamin D deficiency disease: Code(s): E55.9 - Vitamin D deficiency, unspecified Category: Medical Plan: Continue Vitamin D3 2000 units QD (10) Elevated vitamin B12 level: Code(s): R79.89 - Other specified abnormal findings of blood chemistry Category: Medical Plan: Continue Vitamin B-complex every other day Patient states that he used to take his Vitamin B12 supplements (1000 mcg) daily but due to his B12 level being significantly elevated on his previous labs, he was instructed to cut this back to every other day Will recheck his Vitamin B12 level for follow up (11) Benign prostatic hyperplasia: Code(s): N40.0 - Benign prostatic hyperplasia without lower urinary tract symptoms Category: Medical Qualifiers: Lower urinary tract symptom presence: unspecified whether lower urinary tract symptoms present Qualified Code(s): N40.0 - Benign prostatic hyperplasia without lower urinary tract symptoms Plan: Continue Tamsulosin 0.4 mg Q HS Follow up with urology as scheduled (12) Anxiety: Code(s): F41.9 - Anxiety disorder, unspecified Category: Medical Plan: Continue Lorazepam 0.5 mg QD PRN (13) Obesity (BMI 30-39.9): Comment: HE IS FULLY AWARE OF BEING OBESE, LIVES ALONE AND TRIES TO RESTRICT HIS CALORIES INTAKE. BUT DOES NOT HAVE MUCH ACTIVITY SO HE IS NOT ABLE TO LOSE WEIGHT. TAKING STEROIDS IN THE FORM OF PREDNISONE 5 MG ON ALTERNATE DAYS AND BUDESONIDE ER 3 MG DAILY, DEFINITELY CONTRIBUTES TO HIS BEING OVERWEIGHT Code(s): E66.9 - Obesity, unspecified Category: Medical Plan: Reinforced diet; exercise and weight loss are difficult and unrealistic in this patient due to his multiple comorbidities and issues Plan Follow up in 4 months Orders: Orders Complete Blood Count Auto Diff 4 Months D64.9 - Anemia, unspecified Comprehensive [place]. Panel Fast 4 Months E78.00 - Pure hypercholesterolemia, unspecified Lipid Panel 4 Months E78.00 - Pure hypercholesterolemia, unspecified UA CC w/rflx Micro + Cult 4 Months R30.0 - Dysuria Vitamin B12 and Folate 4 Months E53.8 - Deficiency of other specified B group vitamins TSH reflex Free T4 4 Months E78.00 - Pure hypercholesterolemia, unspecified Vitamin D 25-OH Total 4 Months E55.9 - Vitamin D deficiency, unspecified
== END 2025-06-20 11:52 | disposition home or self-care (01) ==
LOC: HO.HMCH 10:50
PROVIDERS: PCP Internal Medicine; Visit Provider Internal Medicine
DX: J44.9 Chronic obstructive pulmonary disease, unspecified (principal); I48.0 Paroxysmal atrial fibrillation; E66.9 Obesity, unspecified; Z68.35 Body mass index [BMI] 35.0-35.9, adult; G47.33 Obstructive sleep apnea (adult) (pediatric); E78.00 Pure hypercholesterolemia, unspecified; I10 Essential (primary) hypertension; J30.9 Allergic rhinitis, unspecified; K21.9 Gastro-esophageal reflux disease without esophagitis; M79.89 Other specified soft tissue disorders; E55.9 Vitamin D deficiency, unspecified; R79.89 Other specified abnormal findings of blood chemistry; N40.0 Benign prostatic hyperplasia without lower urinary tract symptoms; F41.9 Anxiety disorder, unspecified

== ENCOUNTER → 2025-06-20 10:49 | Outpatient (BNVA) | payer MEDICARE, SELFPAY | PROVIDERS: PCP Internal Medicine; Visit Provider Internal Medicine | DX: I10 Essential (primary) hypertension (principal); J44.9 Chronic obstructive pulmonary disease, unspecified; E78.5 Hyperlipidemia, unspecified; I48.0 Paroxysmal atrial fibrillation; G47.33 Obstructive sleep apnea (adult) (pediatric); E78.00 Pure hypercholesterolemia, unspecified; J30.9 Allergic rhinitis, unspecified; K21.9 Gastro-esophageal reflux disease without esophagitis; M79.89 Other specified soft tissue disorders; E55.9 Vitamin D deficiency, unspecified; R79.89 Other specified abnormal findings of blood chemistry; N40.0 Benign prostatic hyperplasia without lower urinary tract symptoms; F41.9 Anxiety disorder, unspecified; E66.9 Obesity, unspecified; Z68.35 Body mass index [BMI] 35.0-35.9, adult | CPT/HCPCS: 96127; 99212 ==

== ENCOUNTER 2025-07-01 10:18 | Outpatient (REF) | payer MEDICARE, SELFPAY ==
--- OUTSIDE RECORDS SUMMARY | 2024-08-26 11:00 | XMS_ITS ---
Author Organization [facility] Address [address] [place] [id number] Care Team Providers Care Geomorphologist Name Role Phone Noel Howard MD Primary Care Provider Unava Roxi Albrecht [phone] REASON FOR VISIT X CHG Encounters Encounter Location Date Provider Diagnosis [address] [address] 08/26/2024 Roxi Bailey Plan Of Treatment Next Appt Details Provider Name:Roxi gomez, 08/29/2025 09:00:00 AM, [address] [place] [address], [phone], Progress Notes * Noel ADLER PDOB:09/1940 (84 yo M)Acc No.[id number]:08/26/2024 Progress Note Patient: Noel CAMACHO Provider: Ankush Bailey DPM :1940 A ge:83 Y S ex:Male Date:08/26/2024 Address:[address] [place] [address] Pcp:Noel Howard MD Subjective: * Chief Complaints: * 1 . X CHG. * Medical History: Objective: * Vitals: Assessment: Plan: * Treatment: * Images: * The named appointment provid er may or may not be the originator of this progress note, and it is not deemed complete until electronically signed by the appointment provider. Sign off status: Pending * Provider: Ankush Bailey DPM Date: 0 08/26/2024 Generated for Juan Antonio Reyna/Ashish on: 08/31/2024 10:21 AM EST
--- OUTSIDE RECORDS SUMMARY | 2024-11-08 08:45 | XMS_ITS ---
Author Organization [facility] Address [address] [place] [address] Care Team Providers Care Industrial Sales Representative Name Role Phone Noel Howard MD Primary Care Provider Unava Roxi Albrecht [phone] Encounters Encounter Location Date Provider Diagnosis [address] [address] 11/08/2024 Roxi Bailey Plan Of Treatment Next Appt Details Provider Name:Roxi gomez, 08/29/2025 09:00:00 AM, [address] [place] [address], [address], Progress Notes * Noel ADLER PDOB:09/1940 (84 yo M)Acc No.[id number]:11/08/2024 Progress Note Patient: Marely Noel TIJERINA Provider: Ankush Bailey DPM :1940 A ge:84 Y S ex:Male Date:11/08/2024 Address:[address] [place] [address] Pcp:Noel Howard MD Subjective: * Chief Complaints: [...] Generated for Juan Antonio hart/Jaden/Ashish on: 1 08/31/2024 10:21 AM EST
--- OUTSIDE RECORDS SUMMARY | 2025-07-01 10:21 | XMS_ITS | Patient Health Record ---
Author Organization [facility] Address [address] [place] [address] Care Team Providers Care Insulation Technician Name Role Phone Noel Howard MD Primary Care Provider Gregorio Flor [phone] Allergies Allergen (clinical drug ingredient) Drug/Non Drug Allergy documented on EMR Reaction Allergy Type Onset Date Status Codeine Phosphate Unknown Drug Allergy Active Sulfa Unknown Drug Allergy Active Results Component Value Reference Range Notes FL upper GI w Ba Swallow Reviewed date:03/05/2025 09:52:54 PM Interpretation: Performing Lab: Notes/Report: [address] [address] Fluoroscopy Report Signed Patient: Noel Adler MR#: [id number] : 1940 Acct:[id number] Age/Sex: 84 / M ADM Date: 10/25/24 Loc: [facility] Attending Dr: Gregorio Stoner MD Ordering Physician: Gregorio Stoner MD Date of Service: 10/25/24 Procedure(s): FL upper GI w Ba Swallow Accession Number(s): [id number] cc: Noel Howard MD; Gregorio Stoner MD [...] 10/25/24 1022 DD/ 0830 TD/TT: 10/25/24 0905 Clinical Application Specialist: Reason For Referral No Information Medications Medication SIG (Take, Route, Frequency, Duration) Notes Start Date End Date Status Prevalite 4 GM Packet 1 packet Orally Once a day; Duration: 90 days Active Budesonide 3 MG Capsule Delayed Release Particles TAKE 1 CAPSULE EVERY OTHER DAY Orally Once a day; Duration: 90 days Active Lisinopril 20 MG Tablet 1 tablet Orally twice a day Active Gabapentin 300 MG Capsule 1 capsule Orally Three times a day Active Omeprazole 20 MG Capsule Delayed Release 1 capsule Orally Once a day Active Pravastatin Sodium 20 MG Tablet 1 tablet Orally Once a day Active Eliquis Active Lutein Active Multaq 400 MG Tablet 1 tablet with meals Orally Twice a day; Duration: 30 day(s) Active Calcium Active atenolol 1 tab Oral Active Co Q 10 Active Advair Diskus 250-50 MCG/DOSE Aerosol Powder Breath Activated 1 puff Inhalation Twice a day Active Probiotic Active Latanoprost 0.005 % Solution 1 drop into affected eye in the evening Ophthalmic Once a day Active Atenolol 25 MG Tablet TAKE 1/2 TABLET DAILY Oral; Duration: 90 I10,ESSENTIAL (PRIMARY) HYPERTENSION Active Tamsulosin HCl 0.4 MG Capsule 1 capsule 30 minutes after the same meal each day Orally Once a day Active Vitamin B50 Complex Active Ipratropium-Albuterol 0.5-2.5 (3) MG/3ML Solution 3 ml Inhalation Four times a day Active LORazepam 0.5 MG Tablet 1 tablet at bedtime as needed Orally Once a day Unknown Cholestyramine Light 4 GM Packet 1 packet Orally Once a day as needed for diarrhea 03/26/2022 Active Immunizations Vaccine Route Administration Date Status Comme nts Influenza Unknown 07/21/2018 Refused Influenza Unknown 04/04/2019 Administered Influenza Unknown 05/17/2020 Administered Social History Social History Additional Details Category Social Info Options Details Miscellaneous: Marital status: -- 11/2017 Occupation: Retired Section Notes: Nonsmoker; no sig alcohol Nonsmoker; no sig alcohol Nonsmoker; no sig alcohol Nonsmoker; no sig alcohol Nonsmoker; no sig alcohol Nonsmoker; no sig alcohol Nonsmoker; no sig alcohol Nonsmoker; no sig alcohol Nonsmoker; no sig alcohol Nonsmoker; no sig alcohol Nonsmoker; no sig alcohol Problems Problem Type SNOMED Code ICD Code Onset Dates Problem Status W/U Status Risk Notes Problem Diarrhea (12781850) Diarrhea (R19.7) Active con firmed Problem Eosinophilic colitis (69389301) 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 Problem Gastroesophageal reflux disease (365350324) GERD without esophagitis (K21.9) Active confirmed Problem Computed tomography of abdomen abnormal (finding) (08905823351843562) Abnormal computed tomography of gastrointestinal tract (R93.3) Active confirmed Problem Diaphragmatic hernia (98493057) 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 Vital Signs Blood pressure diastolic 00 mm Hg 07/20/2024 Height 69 in 07/20/2024 Blood pressure systolic 00 mm Hg 07/20/2024 Weight 254 lbs 07/20/2024 BMI 37.51 kg/m2 07/20/2024 Encounters Encounter Location Date Provider Diagnosis [facility] [address] [place] [phone] 07/20/2024 Gregorio Herbie Diarrhea R19.7 ; 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 ; GERD without esophagitis K21.9 ; Paraesophageal hiatal hernia K44.9 and Abnormal computed tomography of gastrointestinal tract R93.3 [facility] [address] [place] [id number] 07/29/2024 Gregorio Stoner [facility] [address] [place] [phone] 08/29/2024 Gregorio Stoner [facility] [address] [place] [phone] 10/27/2024 Gregorio Stoner [facility] [address] [place] [phone] 10/31/2024 Gregorio Stoner [facility] [address] [place] [id number] 12/29/2024 Gregorio Stoner [facility] [address] [place] [phone] 03/01/2025 Gregorio Stoner [facility] [address] [place] [id number] 03/29/2025 Gregorio Stoner Assessments Encounter Date Diagnosis (ICD [...] Provider Name:Gregorio Stoner , 07/19/2025 01:00:00 PM, [address] [place] [address], [address], [place], [address], Insurance Providers Payer Name Payer Address Payer Phone Subscriber Number Group Number Insured Name Patient Relationship to Insured Coverage Start Date Coverage End Date [facility] [address] [place], [place] [id number] [phone] [id number] ERLINDA CANTRELLNOEL Self - patient is the insured Medical (General) History Medical History History ICD Code 7-30-14 colonoscopy--grossly normal, but biopsies c/w eosinophilic colitis--neg.labs for celiac disease, CBC in 05/2014 with 9% Eosinophils---started on Budesonide in 10/2014 Hyperlipidemia Asthma Hypertension Denies MT,DM,CVA,renal disease COPD--wears oxygen at night since his CO VID infection in 07/2023 BPH Neuropathy-on Gabapentin Colonoscopies in 1999 and 23 03 were neg. except for an inflammatory polyp in 2007, diverticulosis, and internal hemorrhoids Afib--s/p cardioversion x 1-sees Dr. Valerie CHAIREZ with 3 days in the hospital 3 Surgical History Surgery Date(Month/Year) Rotator cuff tear repair-left Tonsillectomy Cataract-lens [id number] 01/24/[address] Dr. Hickey 201 8 Bunion left foot
--- OUTSIDE RECORDS SUMMARY | 2025-07-01 10:21 | XMS_ITS | Patient Health Record ---
[facility] Organization [facility] Address [address] [place] [address] Care Team Providers Care Kelly Machine Operator Name Role Phone Noel Howard MD Primary Care Provider Roxi Kerr Unavailable [phone] Allergies Allergen (clinical drug ingredient) Drug/Non Drug [...] Duration: 30 day(s) every other day Active Latanoprost 0.005 % 1 drop into affected eye in the evening Ophthalmic Once a day Active Lisinopril 20 MG 1 tablet Orally Once a day; Duration: 30 day(s) Active Advair Diskus 250-50 MCG/DOSE 1 puff Inhalation Twice a day Active Atenolol 25 MG 1 tablet Orally Once a day; Duration: 30 day(s) Active Pravastatin Sodium 20 MG 1 tablet Orally Once a day; Duration: 30 day(s) Active PreserVision/Lutein - as directed Orally 40 mg Active LORazepam 0.5 MG 1 tablet at bedtime as needed Orally Once a day Active Multaq Active Gabapentin 300 MG 1 capsule Orally Once a day; Duration: 30 day(s) 2x per day Active hydroCHLOROthiazide 25 MG 1 tablet in morning Orally Once a day; Duration: 30 day(s) Active Ezetimibe 10 MG 1 tablet Orally Once a day; Duration: 30 day(s) Active Aspirin 81 MG 1 tablet Orally Once a day Not-Taking Furosemide 80 MG 1 tablet Orally Once a day; Duration: 30 day(s) Active Doxycycline Monohydrate 100 MG 1 capsule Orally Once a day; Duration: 10 days 05/10/2021 Not-Taking Ipratropium-Albuterol 0.5-2.5 (3) MG/3ML 3 ml as needed Inhalation every 6 hrs Active Vitamin B Complex Ac tive Calcium 1200 mg every other day Active Vitamin B12 Active Tamsulosin HCl 0.4 MG 1 capsule Orally Once a day; Duration: 30 day(s) Active Chromium Picolinate 200 MCG 1 tablet Orally Once a day; Duration: 30 day(s) Active Ketoconazole 2 % 1 application Apply a thin layer to externally to feet, even between toes Twice a day; Duration: 30 days Active eliquis Active prednisoLONE 10days Not-Herve ing Co Q-10 200 MG as directed Orally Active Doxycycline Hyclate 100 MG 1 capsule Orally Once a day; Duration: 10 day(s) 06/24/2024 Active Chelated Zinc 25 mg Active Ciclopirox Olamine 0.77 % 1 application to affected area Externally Twice a day to effected areas on feet; Duration: 30 days Active Omeprazole 20 MG 1 capsule 30 minutes before morning meal Orally Once a day; Duration: 30 day(s) Active Ventolin HFA 108 (90 Base) MCG/ACT 1 puff as needed Inhalation every 4 hrs as needed Active Prevalite 4 GM 1 packet Orally Once a day; Duration: 30 day(s) Active Probiotic Acidophilus - as directed Orally Active Immunizations Vaccine Route Administration Date Status Comme nts Influenza Unknown 05/17/2022 Administered Influenza Unknown 05/04/2024 Administered Influenza Unknown 05/05/2025 Administered COVID-19 Moderna Vaccine Unknown 09/15/2020 Administere d 08/18/2020 Social History Tobacco Use: Social History Observation [...] atherosclerosis of arteries of lower limbs (disorder) (06388306756286437 ) Atherosclerosis of [place] artery of both lower extremities, with unspecified presence of clinical manifestation (I70.203) Active confirmed Q7(A), Q8(2B), Q9(1B,2 C) Vital Signs Blood pressure diastolic 60 mm Hg 05/23/2025 Height 5ft 11in in 05/23/2025 Blood pressure systolic 126 mm Hg 05/23/2025 Weight 248 lbs 05/23/2025 BMI 34.59 kg/m2 05/23/2025 Procedures Procedure Date Ordered Date Performed Result Body Sit e 53078-OWMHGOE NAIL, 6 OR MORE 08/26/2024 N/A 30316-CNOM SKIN LESIONS, 2 TO 4 08/26/2024 N/A 73799-MGORUPU NAIL, 6 OR MORE 11/22/2024 N/A 42897-QWME SKIN LESIONS, 2 TO 4 11/22/2024 N/A 48455-TLRNWRC NAIL, 6 OR MORE 02/24/2025 N/A 53108-IBMS SKIN LESIONS, 2 TO 4 02/24/2025 N/A 51328-GDUPCFU NAIL, 6 OR MORE 05/23/2025 N/A 18268-KTUT SKIN LESIONS, 2 TO 4 05/23/2025 N/A Encounters Encounter Location Date Provider Diagnosis [address] [address] 07/08/2024 Roxi Bailey Atherosclerosis of [place] artery of both lower extremities, with unspecified presence of clinical manifestation I70.203 and Cellulitis of toe of right foot L03.[address] [address] 08/26/2024 Roxi Bailey Atherosclerosis of [place] artery of both lower extremities, with unspecified presence of clinical manifestation I70.203 ; Tinea unguium B35.1 ; Pain in right toe(s) M79.674 and Pain in left toe(s) M79.[address] [address] 11/22/2024 Roxi Bailey Atherosclerosis of [place] artery of both lower extremities, with unspecified presence of clinical manifestation I70.203 ; Tinea unguium B35.1 ; Pain in right toe(s) M79.674 and Pain in left toe(s) M79.[address] [address] 02/24/2025 Roxi Bailey Atherosclerosis of [place] artery of both lower extremities, with unspecified presence of clinical manifestation I70.203 ; Tinea unguium B35.1 ; Pain in right toe(s) M79.674 ; Pain in left toe(s) M79.675 and Tinea pedis of both feet B35.[address] [address] 05/23/2025 Roxi Bailey Atherosclerosis of [place] artery of both lower extremities, with unspecified presence of clinical manifestation I70.203 ; Tinea unguium B35.1 ; Pain in right toe(s) M79.674 ; Pain in left toe(s) M79.675 and Tinea pedis of both feet B35.[address] [address] 08/26/2024 Roxi Bailey [address] [address] 11/23/2024 Roxi Bailey Tinea pedis B35.3 Assessments Encounter Date Diagnosis (ICD Code) Assessment Notes Treatment Notes Treatment Clinical Notes Section Notes 07/08/2024 Cellulitis of toe of right foot (ICD-10 - L03.031) 07/08/2024 Atherosclerosis of [place] artery of both lower extremities, with unspecified presence of clinical manifestation (ICD-10 - I70.203) Q7(A), Q8(2B), Q9(1B,2C) 08/26/2024 Atherosclerosis of [place] artery of both lower extremities, with unspecified presence of clinical manifestation (ICD-10 - I70.203) Q7(A), Q8(2B), Q9(1B,2C) 11/22/2024 Atherosclerosis of [place] artery of both lower extremities, with unspecified presence of clinical manifestation (ICD-10 - I70.203) Q7(A), Q8(2B), Q9(1B,2C) 11/23/2024 Tinea pedis (ICD-10 - B35.3) 02/24/2025 Atherosclerosis of [place] artery of both lower extremities, with unspecified presence of clinical manifestation (ICD-10 - I70.203) Q7(A), Q8(2B), Q9(1B,2C) 05/23/2025 Tinea unguium (ICD-10 - B35.1) 05/23/2025 Atherosclerosis of [place] artery of both lower extremities, with unspecified presence of clinical manifestation (ICD-10 - I70.203) Q7(A), Q8(2B), Q9(1B,2C) 05/23/2025 Pain in right toe(s) (ICD-10 - M79.674) 02/24/2025 Tinea unguium (ICD-10 - B35.1) 11/22/2024 Tinea unguium (ICD-10 - B35.1) 08/26/2024 Tinea unguium (ICD-10 - B35.1) 02/24/2025 Pain in right toe(s) (ICD-10 - M79.674) 05/23/2025 Pain in left toe(s) (ICD-10 - M79.675) 08/26/2024 Pain in right toe(s) (ICD-10 - M79.674) 11/22/2024 Pain in right toe(s) (ICD-10 - M79.674) 05/23/2025 Tinea pedis of both feet (ICD-10 - B35.3) Patient Educated with: ATHELETE .pdf (ATHELETE .pdf) 08/26/2024 Pain in left toe(s) (ICD-10 - M79.675) 11/22/2024 Pain in left toe(s) (ICD-10 - M79.675) 02/24/2025 Pain in left toe(s) (ICD-10 - M79.675) 02/24/2025 Tinea pedis of both feet (ICD-10 - B35.3) Patient Educated with: ATHELETE .pdf (ATHELETE .pdf) Plan Of Treatment Pending Test Test Name Order Date X ray : Foot, left 3V 05/10/2021 99138-MNUOKBJ NAIL, 6 OR MORE 01/10/2022 72122-NJUFBPD NAIL, 6 OR MORE 06/24/2024 55697-SAXNCDH NAIL, 6 OR MORE 08/26/2024 68913-ZFLFYWY NAIL, 6 OR MORE 11/22/2024 68635-KLWZVHI NAIL, 6 OR MORE 02/24/2025 61081-CSBICBX NAIL, 6 OR MORE 05/23/2025 49212-UHLHJBA SKIN/TISSUE 05/10/2021 94056-HRVBDOT SKIN/TISSUE 05/21/2021 72106 I&D ABSCESS- SIMPLE,SINGLE 024 87403-BWVD SKIN LESIONS, OVER 4 01/11/20 22 85425-FYNG SKIN LESIONS, 2 TO 4 06/24/20 24 15342-VZSK SKIN LESIONS, 2 TO 4 05/23/20 25 62912-OFUO SKIN LESIONS, 2 TO 4 02/25/20 25 69876-CBBF SKIN LESIONS, 2 TO 4 11/23/19 25 78142-IOYS SKIN LESIONS, 2 TO 4 08/26/19 25 06057-FDSDTRUH OF HEMATOMA/FLUID 021 Next Appt Details Provider Name:Roxi Danielson patricia, 08/29/2025 09:00:00 AM, [address] [facility], [place], [address], Insurance Providers Payer Name Payer Address Payer Phone Subscriber Number Group Number Insured Name Patient Relationship to Insured Coverage Start Date Coverage End Date [facility] 65 Medicare Preferred [address] [place] [address] [id number] Noel Euceda Self - patient is the insured Medical (General) History Medical History History ICD Code Anxiety asthma (COPD) Cataracts Glaucoma Hiatal hernia High blood pressure Reflux ( GERD) Joint implants/screws Surgical History Surgery Date(Month/Year) hernia 2018 Hospitalization History Reason Date(Month/Year) [facility]- covid, lung inf, 3 day stay 08/2023 [facility] ER- Pts daughter called 911 for dehydration- bronchiitis - antibiotic,prednisone 2022 [facility] -AFib on eliquis 07/2021
[2025-07-01 10:32] LABS: MANUAL DIFF FLAG NO
[2025-07-01 11:14] LABS: Appearance Urine Clear; Glucose Urine UA Negative (Negative); PH 6.0 (5.0-9.0); Specific Gravity - Urine 1.015 (1.005-1.025)
[2025-07-01 11:18] LABS: Hematocrit 38.5 % (42.0-52.0); Hemoglobin 12.1 g/dl (14.0-18.0); Imm Gran Abs Auto 0.02 X10*3/uL (0.00-0.03); Imm Gran Pct Auto 0.3 % (0.0-0.4); Lymphocytes Absolute Auto 2.1 X10*3/uL (1.2-4.9); Mean Corpuscular HGB Conc 31.4 g/dl (31.0-36.0); Mean Corpuscular Hemoglobin 26.8 pg (27.0-33.0); Mean Corpuscular Volume 85.4 fL (80.0-98.0); NRBC Abs Auto 0.000 X10*3/uL (0.0-0.012); NRBC Pct Auto 0.0 /100WBC (0.0-0.2); Platelet Count 188 X10*3/uL (160-400); Red Blood Count 4.51 X10*6/uL (4.60-5.80); White Blood Count 6.6 X10*3/uL (4.8-10.8)
[2025-07-01 11:41] LABS: Alanine Aminotransferase 33 U/L (0-40); Albumin Level 3.9 g/dL (3.5-5.0); Alkaline Phosphatase 34 U/L (39-117); Anion Gap 12 (12-20); Aspartate Amino Transferase 33 U/L (5-37); Blood Urea Nitrogen 23 mg/dL (9-16); Calcium 8.6 mg/dL (8.4-10.2); Carbon Dioxide 31 mmol/L (22-29); Chloride 103 mmol/L (96-108); Cholesterol 153 mg/dL (<200); Estimated Glomerular Filt Rate 50; HDL Cholesterol 59 mg/dL (>40); Potassium 4.1 mmol/L (3.3-5.1); Sodium 142 mmol/L (135-145); Total Protein 6.4 g/dL (6.5-8.0); Triglycerides 63 mg/dL (<150)
[2025-07-01 12:09] LABS: Folate 10.3 ng/mL (> or = 4.0); Vitamin B12 534 pg/mL (200-900)
== END 2025-07-01 10:19 | disposition home or self-care (01) ==
LOC: HO.LAB 10:18
PROVIDERS: PCP Internal Medicine; Visit Provider Internal Medicine
DX: E53.8 Deficiency of other specified B group vitamins (principal); E78.00 Pure hypercholesterolemia, unspecified; E55.9 Vitamin D deficiency, unspecified; D64.9 Anemia, unspecified; R30.0 Dysuria
CPT/HCPCS: 36415; 80053; 80061; 81003; 82306; 82607; 82746; 84443; 85025

== ENCOUNTER 2025-07-25 08:49 | Outpatient (AMB) | payer MEDICARE, SELFPAY ==
--- OUTSIDE RECORDS SUMMARY | 2024-08-26 11:00 | XMS_ITS ---
Author Organization [facility] Address [address] [place] [id number] Care Team Providers Care Grapple Crew Leader Name Role Phone Noel Howard MD Primary Care Provider Unava Roxi Albrecht [phone] REASON FOR VISIT X CHG Encounters Encounter Location Date Provider Diagnosis [address] [address] 08/26/2024 Roxi Bailey Plan Of Treatment Next Appt Details Provider Name:Roxi gomez, 08/29/2025 09:00:00 AM, [address] [place] [address], [phone], Progress Notes * Noel ADLER PDOB:09/1940 (84 yo M)Acc No.[id number]:08/26/2024 Progress Note Patient: Noel CAMACHO Provider: Ankush Bailey DPM :1940 A ge:83 Y S ex:Male Date:08/26/2024 Address:[address] [place] [address] Pcp:Noel Howard MD Subjective: * Chief Complaints: [...] 08/26/2024 Generated for Juan Antonio Reyna/Ashish on: 09/25/2024 09:18 AM EST
--- OUTSIDE RECORDS SUMMARY | 2024-11-08 08:45 | XMS_ITS ---
Author Organization [facility] Address [address] [place] [address] Care Team Providers Care Service Tech/Welder Name Role Phone Noel Howard MD Primary Care Provider Unava Roxi Albrecht [phone] Encounters Encounter Location Date Provider Diagnosis [address] [address] 11/08/2024 Roxi Bailey Plan Of Treatment Next Appt Details Provider Name:Roxi gomez, 08/29/2025 09:00:00 AM, [address] [place] [address], [address], Progress Notes * Noel ADLER PDOB:09/1940 (84 yo M)Acc No.[id number]:11/08/2024 Progress Note Patient: Marely Noel TIJERINA Provider: Ankush Bailey DPM :1940 A ge:84 Y S ex:Male Date:11/08/2024 Address:[address] [place] [address] Pcp:Noel Howard MD Subjective: * Chief Complaints: * * Medical History: Objective: * Vitals: Assessment: Plan: * Treatment: * Images: * The named appointment provid er may or may not be the originator of this progress note, and it is not deemed complete until electronically signed by the appointment provider. Sign off status: Pending * Provider: Ankush Bailey DPM Date: 0 11/08/2024 Generated for Juan Antonio hart/Jaden/Ashish on: 1 09/25/2024 09:18 AM EST
[2025-07-25 09:04] VITALS: BMI 34.7
--- NOTE | 2025-07-25 09:04 | A.OFFVIS_ITS ---
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 Stoner Ref. Allergies Sulfa (Sulfonamide Antibiotics) Allergy (Mild, Verified 07/25/25 09:06) RASH, BLISTERS codeine (Codeine) Allergy (Unknown, Verified 07/25/25 09:06) HALLUCINATIONS Medication List - Last Reconciled 07/25/25 by Nate Mcdaniel MD albuterol sulfate 90 mcg/actuation (Ventolin HFA) 1 inh inhalation QID PRN 90 days apixaban (Eliquis) 5 mg PO BID 90 days atenolol 12.5 mg (1/2 x 25 mg) PO DAILY B-complex with vitamin C 1 tab PO DAILY budesonide DR-ER 3 mg PO Q OTHER DAY cholecalciferol (vitamin D3) 50 mcg PO DAILY 90 days cholestyramine-aspartame 4 gram ea PO dronedarone (Multaq) 400 mg PO BID ezetimibe 10 mg PO DAILY 90 days fluticasone propion-salmeterol 250-50 mcg/dose (Advair Diskus) 1 inh inhalation Q12H 90 days furosemide 40 mg PO DAILY PRN gabapentin 300 mg PO BID 90 days hydrochlorothiazide 25 mg PO DAILY 90 days ipratropium-albuterol 0.5 mg-3 mg(2.5 mg base)/3 mL 3 mL inhalation Q6H PRN latanoprost 0.005% 1 drp ophthalmic-Right BEDTIME lisinopril 20 mg PO BID loratadine 10 mg PO QAM PRN 90 days lorazepam 0.5 mg PO BEDTIME PRN 30 days montelukast 10 mg PO QPM 90 days omeprazole 20 mg PO DAILY 90 days pravastatin 20 mg PO DAILY 90 days prednisone 5 mg PO Q OTHER DAY 90 days tamsulosin 0.4 mg PO DAILY 90 days triamcinolone acetonide 0.5% 1 appl topical TID PRN umeclidinium 62.5 mcg/actuation (Incruse Ellipta) 1 inh inhalation DAILY 30 days HPI HPI 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 Stoner Ref.: Details: Start time: 9.16am, End time: 10.16am ?I spent 55 minutes speaking with the patient on the phone plus an additional 5 minutes reviewing and updating records for a total of 60 minutes HPI Comments Details: Was referred for a large paraesophageal hernia GERD is controlled with Omeprazole. Occasionally he may experience some dysphagia and regurgitation. No vomiting. Has increased SOB especially last few months Tests reviewed: CT abd/pelvis 2021: Large type III paraesophageal hernia. Normal liver size UGI: 02/2025: Type III paraesophageal hernia with intermittent GERD Echo: 2023: EF: 60%, mild aortic dilation and right heart chambers Holter: 2022: no A-fib Lexiscan stress test 2021: no ischemia Wakes up: 6am, Sleeps: 12am Breakfast: 7am Lunch: december skip Dinner: 5-6pm Snacks: 1-2 snacks during day, one snack after dinner Exercise: none Beverages: Coffee: 1 cup/d, Tea: none, Soda: regular Gingerale (2 glasses/wk), Juice: occasionally, ETOH: none PFSH Medical History (Updated 07/25/25 @ 10:08 by Nate Mcdaniel MD) Paraesophageal hiatal hernia BMI 34.0-34.9,adult Obesity Vitamin D deficiency disease SOB (shortness of breath) Persistent atrial fibrillation COVID-19 Asthma Nocturnal hypoxemia AMITA (obstructive sleep apnea) Hemorrhoids with complication Benign prostatic hyperplasia GERD without esophagitis Pure hypercholesterolemia Benign essential hypertension Eosinophilic colitis Neuropathy Obesity (BMI 30-39.9) Restrictive lung disease COPD (chronic obstructive pulmonary disease) Surgical History History of tonsillectomy History of hernia surgery Family History Brother Lung cancer Social History Household Members: None Housing: House Do you presently have visiting nurse or other home services: No Alcohol intake: never Patient Tobacco Use Status: Former Tobacco user e-Cigarette/Vaping Use: Never Used Second Hand Smoke Exposure: Yes Advance Directives Date on File: 07/15/23 service: No Current occupational status: retired Cognitive needs: No Hearing needs: No Vision needs: Yes (Glasses) Physical Exam Vital Signs: BMI result Body Mass Index 34.7 Telehealth Telehealth Telehealth Platform: Telephone Location of provider rendering services: practice address Location of patient: address on file Patient Identification confirmed using: Name, : Yes Telehealth method: voice only Patient verbally consented to treatment: Yes Patient verbally consented to billing insurance company: Yes Patient informed of any privacy concerns related to visit: Yes Minutes spent on Phone/Video with Pt.: 60 Assessment & Plan Assessment & Plan (1) Paraesophageal hiatal hernia: Code(s): K44.9 - Diaphragmatic hernia without obstruction or gangrene Category: Medical Plan: 1. We discussed that her recent CT of the abdomen shows a large diaphragmatic hernia which means that about one third of your stomach lives in the chest pushing at your heart and your lungs and is causing the heartburn, occasional regurgitation, short of breath feel and possible the a-fib. These hernias do not go away but increase in size over time causing more symptoms and requiring a more complex operation at an older age. These hernias are also worsened by your extra weight. These hernias worsen becasue of his weight. We discussed the details of the diaphragmatic hernia repair and the potential technical challenges such as being able to achieve enough mobilization of the esophagus back in the abdomen and being able to close the diaphragmatic muscle (crura) primarily with sutures. We also discussed the possibility of using a biologic mesh to close the hernia defect if the crura cannot be adequately re-appr oximated primarily with sutures. We also discussed the option of doing a gastropexy or a fundoplication to prevent postoperative reflux and prevent hernia recurrence. As we discussed, I favor the gastropexy as the fundoplication can cause several distrurbing symptoms such as gas-bloating, flatulence, inability to burp which can be bothersome to patients especially for him with a history of colitis. Also we discussed the complexity of a potential hernia recurrence in association with a hernia recurrence. He was in agreement not to have a fundoplication. We also discussed that after surgery, he will need to be on a liquid diet with protein shakes the first week. The second week will add protein bars and soft foods and after the third week we will introduce small amounts of regular food. The transition to normal eating habits will take about 6 weeks which is the time required for the repair to heal completely. 2. We discussed to lose some weight before the repair. I asked him to buy a body composition scale, as well as protein shakes and bars and a stationary bike. He will let me know when he gets them so I can give him a meal and exercise plan. 3. He will come to the office to give him a spirometer to start working on deep breathing exercises in preparation for surgery 4. We will schedule pulmonary function tests to check his lungs and we will arrange for him to see Dr. Bill for cardiac clearance 5. To be scheduled either by me or Dr. Stoner for upper endoscopy and Max to assess the stomach's anatomy and paraesophageal hernia. The possibility of biopsies was discussed. Patient needs to avoid use of NSAIDs and aspirin for 1 week prior to EGD. You must be on liquids only the day before your endoscopy. Risks of perforation and bleeding was discussed with the patient. This will be an outpatient procedure with IV sedation. Orders: Orders PFT pulmonary function test Today J44.9 - Chronic obstructive pulmonary disease, unspecified, J98.4 - Other disorders of lung
--- OUTSIDE RECORDS SUMMARY | 2025-07-25 09:18 | XMS_ITS | Patient Health Record ---
Author Organization [facility] Address [address] [place] [address] Care Team Providers Care Hand Embroiderer Name Role Phone Noel Howard MD Primary Care Provider Roxi Kerr Unavailable [phone] Allergies Allergen (clinical drug ingredient) Drug/Non Drug [...] atherosclerosis of arteries of lower limbs (disorder) ([id number] ) Atherosclerosis of [place] artery of both lower extremities, with unspecified presence of clinical manifestation (I70.203) Active confirmed Q7(A), Q8(2B), Q9(1B,2 C) Vital Signs Blood pressure diastolic 60 mm Hg 05/23/2025 Height 5ft 11in in 05/23/2025 Blood pressure systolic 126 mm Hg 05/23/2025 Weight 248 lbs 05/23/2025 BMI 34.59 kg/m2 05/23/2025 Procedures Procedure Date Ordered Date Performed Result Body Sit e 97321-CJFNFPC NAIL, 6 OR MORE 08/26/2024 N/A 72774-FZJQ SKIN LESIONS, 2 TO 4 08/26/2024 N/A 96686-VZAQXIB NAIL, 6 OR MORE 11/22/2024 N/A 52399-FKSI SKIN LESIONS, 2 TO 4 11/22/2024 N/A 65359-ELZEAZL NAIL, 6 OR MORE 02/24/2025 N/A 51830-OELJ SKIN LESIONS, 2 TO 4 02/24/2025 N/A 65388-BYDIRUJ NAIL, 6 OR MORE 05/23/2025 N/A 66525-OFRT SKIN LESIONS, 2 TO 4 05/23/2025 N/A Encounters Encounter Location Date Provider Diagnosis [address] [address] 08/26/2024 Roxi Bailey Atherosclerosis of [place] artery of both lower extremities, with unspecified presence of clinical manifestation I70.203 ; Tinea unguium B35.1 ; Pain in right toe(s) M79.674 and Pain in left toe(s) M79.[address] [address] 11/22/2024 Roxi Bailey Atherosclerosis of [place] artery of both lower extremities, with unspecified presence of clinical manifestation I70.203 ; Tinea unguium B35.1 ; Pain in right toe(s) M79.674 and Pain in left toe(s) M79.[address] [address] 02/24/2025 Roxi Bailey Atherosclerosis of [place] artery of both lower extremities, with unspecified presence of clinical manifestation I70.203 ; Tinea unguium B35.1 ; Pain in right toe(s) M79.674 ; Pain in left toe(s) M79.675 and Tinea pedis of both feet B35.[address] [address] 05/23/2025 Roxi Bailey Atherosclerosis of [place] artery of both lower extremities, with unspecified presence of clinical manifestation I70.203 ; Tinea unguium B35.1 ; Pain in right toe(s) M79.674 ; Pain in left toe(s) M79.675 and Tinea pedis of both feet B35.[address] [address] 08/26/2024 Roxi Bailey [address] [address] 11/23/2024 Roxi Bailey Tinea pedis B35.3 Assessments Encounter Date Diagnosis (ICD Code) Assessment Notes Treatment Notes Treatment Clinical Notes Section Notes 08/26/2024 Atherosclerosis of [place] artery of both lower extremities, with unspecified presence of clinical manifestation (ICD-10 - I70.203) Q7(A), Q8(2B), Q9(1B,2C) 11/22/2024 Atherosclerosis of [place] artery of both lower extremities, with unspecified presence of clinical manifestation (ICD-10 - I70.203) Q7(A), Q8(2B), Q9(1B,2C) 11/23/2024 Tinea pedis (ICD-10 - B35.3) 02/24/2025 Atherosclerosis of [place] artery of both lower extremities, with unspecified presence of clinical manifestation (ICD-10 - I70.203) Q7(A), Q8(2B), Q9(1B,2C) 05/23/2025 Tinea unguium (ICD-10 - B35.1) 05/23/2025 Atherosclerosis of [place] artery of both lower extremities, with unspecified [...] X ray : Foot, left 3V 05/10/2021 42057-MOXSAQE NAIL, 6 OR MORE 01/10/2022 01651-CZKLVQX NAIL, 6 OR MORE 06/24/2024 23291-UFOSKQE NAIL, 6 OR MORE 08/26/2024 29096-GWYOQYA NAIL, 6 OR MORE 11/22/2024 42573-KDYVPTA NAIL, 6 OR MORE 02/24/2025 60589-OKIFBNE NAIL, 6 OR MORE 05/23/2025 33947-PYNGVYL SKIN/TISSUE 05/10/2021 10965-EGDXBSS SKIN/TISSUE 05/21/2021 22412 I&D ABSCESS- SIMPLE,SINGLE 024 47763-OYBT SKIN LESIONS, OVER 4 01/11/20 22 18425-EEIO SKIN LESIONS, 2 TO 4 06/24/20 24 07517-RKWE SKIN LESIONS, 2 TO 4 05/23/20 25 67576-FCJE SKIN LESIONS, 2 TO 4 02/25/20 25 12988-PLYE SKIN LESIONS, 2 TO 4 11/23/19 25 36992-GVGI SKIN LESIONS, 2 TO 4 08/26/19 25 69448-QPLTTRJF OF HEMATOMA/FLUID 021 Next Appt Details Provider Name:Roxi Danielson patricia, 08/29/2025 09:00:00 AM, [address] [facility], [place], [address], Insurance Providers Payer Name Payer Address Payer Phone Subscriber Number Group Number Insured Name Patient Relationship to Insured Coverage Start Date Coverage End Date [facility] 65 Medicare Preferred [address] [place] [address] [phone] [id number] Noel Euceda Self - patient is the insured Medical (General) History Medical History History ICD Code Anxiety asthma (COPD) Cataracts Glaucoma Hiatal hernia High blood pressure Reflux ( GERD) Joint implants/screws Surgical History Surgery Date(Month/Year) hernia 2018 Hospitalization History Reason Date(Month/Year) [facility] [place]- covid, lung inf, 3 day stay 08/2023 [facility] [place]- Pts daughter called 911 for dehydration- bronchiitis - antibiotic,prednisone 2022 [facility] [place] -AFib on eliquis 07/2021
--- OUTSIDE RECORDS SUMMARY | 2025-07-25 09:19 | XMS_ITS | Patient Health Record ---
Author Organization [facility] Address [address] [place] [address] Care Team Providers Care Correctional Substance Abuse Counselor Name Role Phone Noel Howard MD Primary Care Provider Gregorio Flor [phone] Allergies Allergen (clinical drug ingredient) Drug/Non Drug Allergy documented on EMR Reaction Allergy Type Onset Date Status Codeine Phosphate Unknown Drug Allergy Active Sulfa Unknown Drug Allergy Active Results Component Value Reference Range Notes FL upper GI w Ba Swallow Reviewed date:03/05/2025 09:52:54 PM Interpretation: Performing Lab: Notes/Report: [address] [address] Fluoroscopy Report Signed Patient: Noel Adler MR#: [id number] : 1940 Acct:[id number] Age/Sex: 84 / M ADM Date: 10/25/24 Loc: [facility] Attending Dr: Gregorio Stoner MD Ordering Physician: Gregorio Stoner MD Date of Service: 10/25/24 Procedure(s): FL upper GI w Ba Swallow Accession Number(s): [id number] cc: Noel Howard MD; Gregorio Stoner MD [...] 10/25/24 1022 DD/ 0830 TD/TT: 10/25/24 0905 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 No Information Medications Medication SIG (Take, Route, Frequency, Duration) Notes Start Date End Date Status Tamsulosin HCl 0.4 MG Capsule 1 capsule 30 minutes after the same meal each day Orally Once a day Active Prevalite 4 GM Packet 1 packet Orally Once a day; Duration: 90 days Active Latanoprost 0.005 % Solution 1 drop into affected eye in the evening Ophthalmic Once a day Active Budesonide 3 MG Capsule Delayed Release Particles TAKE 1 CAPSULE EVERY OTHER DAY Orally Once a day; Duration: 90 days Active Ipratropium-Albuterol 0.5-2.5 (3) MG/3ML Solution 3 ml Inhalation Four times a day Active LORazepam 0.5 MG Tablet 1 tablet at bedtime as needed Orally Once a day Unknown Vitamin B50 Complex Active Incruse Ellipta 62.5 MCG/ACT Aerosol Powder Breath Activated USE 1 INHALATION ORALLY DAILY FOR CHRONIC OBSTRUCTIVE PULMONARY DISEASE Inhalation; Duration: 30 Days Active Multaq 400 MG Tablet 1 tablet with meals Orally Twice a day; Duration: 30 day(s) Active Calcium Active Eliquis Active Lutein Active Advair Diskus 250-50 MCG/DOSE Aerosol Powder Breath Activated 1 puff Inhalation Twice a day Active Probiotic Active atenolol 1 tab Oral Active Co Q 10 Active Gabapentin 300 MG Capsule 1 capsule Orally Three times a day Active Omeprazole 20 MG Capsule Delayed Release 1 capsule Orally Once a day Active Lisinopril 20 MG Tablet 1 tablet Orally twice a day Active Atenolol 25 MG Tablet TAKE 1/2 TABLET DAILY Oral; Duration: 90 I10,ESSENTIAL (PRIMARY) HYPERTENSION Active Pravastatin Sodium 20 MG Tablet 1 tablet Orally Once a day Active Cholestyramine Light 4 GM Packet 1 packet Orally Once a day as needed for diarrhea 03/26/2022 Active Immunizations Vaccine Route Administration Date Status Comme nts Influenza Unknown 07/21/2018 Refused Influenza Unknown 04/04/2019 Administered Influenza Unknown 05/17/2020 Administered Influenza Unknown 07/19/2024 Administered Social History Social History Drug/Alcohol: Social Info Question Answer Notes AUDIT-C (Standard) Did you have a drink containing alcohol in the past year? Yes How often did you have a drink containing alcohol in the past year? Monthly or less (1 point) How many drinks did you have on a typical day when you were drinking in the past year? 1 or 2 drinks (0 point) How often did you have six or more drinks on one occasion in the past year? 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 Problem Gastroesophageal reflux disease (320142003) GERD without esophagitis (K21.9) Active confirmed Problem Computed tomography of abdomen abnormal (finding) (20150550499023534) Abnormal computed tomography of gastrointestinal tract (R93.3) Active confirmed Problem Diaphragmatic hernia (04284921) 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 Vital Signs Blood pressure diastolic 01 mm Hg 07/19/2025 Height 69 in 07/19/2025 Blood pressure systolic 001 mm Hg 07/19/2025 Weight 255.6 lbs 07/19/2025 BMI 37.74 kg/m2 07/19/2025 Encounters Encounter Location Date Provider Diagnosis [facility] [address] [place] [phone] 07/19/2025 Gregorio Stoner Paraesophageal hiata l hernia K44.9 and 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 [facility] [address] [place] [phone] 07/29/2024 Gregorio Stoner [facility] [address] [place] [phone] 08/29/2024 Gregorio Stoner [facility] [address] [place] [phone] 10/27/2024 Gregorio Stoner [facility] [address] [place] [phone] 10/31/2024 Gregorio Stoner [facility] [address] [place] [phone] 12/29/2024 Gregorio Stoner [facility] [address] [place] [phone] 03/01[facility] [address] [place] [phone] 03/29[facility] [address] [place] [phone] 07/19/2025 Gregorio Stoner Assessments Encounter Date Diagnosis (ICD Code) Assessment Notes Treatment Notes Treatment Clinical Notes Section Notes 07/19/2025 Eosinophilic colitis (ICD-10 - K52.82) Continue the 1 Budesonide every other day Overall, Augustine appears quite well at the present time. He is not having any new or worrisome GI complaints. His eosinophilic colitis remains stable on the current low-dose of 3mg budesonide every other day. As such, I did advise him to continue that. I do not think he needs any intervention otherwise in that regard. In regard to the finding of the paraesophageal hiatal hernia, we did review the potential for these types of hernias to twist and cause vascular compromise to that portion of the stomach which could obviously become an emergent situation requiring surgery and hospitalization. However at this point he has been completely asymptomatic for all the years that it has been present. Nonetheless, we discussed that while he is 84 and has some medical problems, he seems to be in reasonably good health. We did review that 1 option would be to simply continue to observe things and hope things remain quiet in regard to this paraesophageal hernia. We reviewed the other option being that of meeting with a surgeon to at least review things and see what the surgery would entail. We could also see what the surgeon's thoughts are in regard to having him undergo surgery and potential risks of the procedure. As such, I shall set him up to meet with Dr. Welsh. I did advise Augustine that he may simply want to discuss things with him and then review that with you before making any decisions. Augustine was comfortable with this plan. If things are otherwise well I will plan to see Augustine in 1 year for a follow-up visit. I did advise him to contact me before that if he has any problems or questions I can be of assistance with. I did advise him to touch base with me after he meets with Dr. Welsh to let me know what the plans are as well. Thank you again for allowing me to participate in Augustine's care. I shall continue to keep you advised of his progress. 07/19/2025 Paraesophageal hiatal hernia (ICD-10 - K44.9) Needs an appointment with Dr. Welsh regarding a paraesophagea l hernia- -patient wants to review this with him and see if he is a candidate for surgery Overall, Augustine appears quite well at the present time. He is not having any new or worrisome GI complaints. His eosinophilic colitis remains stable on the current low-dose of 3mg budesonide every other day. As such, I did advise him to continue that. I do not think he needs any intervention otherwise in that regard. In regard to the finding of the paraesophageal hiatal hernia, we did review the potential for these types of hernias to twist and cause vascular compromise to that portion of the stomach which could obviously become an emergent situation requiring surgery and hospitalization. However at this point he has been completely asymptomatic for all the years that it has been present. Nonetheless, we discussed that while he is 84 and has some medical problems, he seems to be in reasonably good health. We did review that 1 option would be to simply continue to observe things and hope things remain quiet in regard to this paraesophageal hernia. We reviewed the other option being that of meeting with a surgeon to at least review things and see what the surgery would entail. We could also see what the surgeon's thoughts are in regard to having him undergo surgery and potential risks of the procedure. As such, I shall set him up to meet with Dr. Welsh. I did advise Augustine that he may simply want to discuss things with him and then review that with you before making any decisions. Augustine was comfortable with this plan. If things are otherwise well I will plan to see Augustine in 1 year for a follow-up visit. I did advise him to contact me before that if he has any problems or questions I can be of assistance with. I did advise him to touch base with me after he meets with Dr. Welsh to let me know what the plans are as well. Thank you again for allowing me to participate in Augustine's care. I shall continue to keep you advised of his progress. Plan Of Treatment Pending Test Test Name Order Date XR BARIUM SWALLOW-ESOPHAGUS 07/20/2024 XR GI SERIES 07/20/2024 Future Test Test Name Order Date COLONOSCOPY 01/25/2014 Insurance Providers Payer Name Payer Address Payer Phone Subscriber Number Group Number Insured Name Patient Relationship to Insured Coverage Start Date Coverage End Date [facility] [address] [place], [place] [id number] NOEL SINGER Self - patient is the insured Medical (General) History Medical History History ICD Code 7-30-14 colonoscopy- grossly normal, but biopsies c/w eosinophilic colitis- neg.labs for celiac disease, CBC in 05/2014 with 9% Eosinophils- -started on Budesonide in 10/2014 Hyperlipidemia Asthma Hypertension Denies NC,DM,CVA,renal disease COPD- wears oxygen at night since his CO VID infection in 07/2023 BPH Neuropathy-on Gabapentin Colonoscopies in 1999 and 23 03 were neg. except for an inflammatory polyp in 2007, diverticulosis, and internal hemorrhoids Afib- s/p cardioversion x 1-sees Dr. Valerie CHAIREZ with 3 days in the hospital 3 Surgical History Surgery Date(Month/Year) Rotator cuff tear repair-left Tonsillectomy Cataract-lens [id number] 01/24/[address] Abd [address] surgery [address]. Hickey 201 8 Bunion left foot
== END 2025-07-25 10:17 | disposition home or self-care (01) ==
LOC: HO.HBS 08:49
PROVIDERS: PCP Internal Medicine; Visit Provider Surgery
DX: K44.9 Diaphragmatic hernia without obstruction or gangrene (principal); E66.811 Obesity, class 1; Z68.34 Body mass index [BMI] 34.0-34.9, adult
CPT/HCPCS: 99205